=== PATIENT | male | born 1960 | race Caucasian/White ===

== ENCOUNTER 2020-09-19 15:51 | Emergency (ER) | payer OTHER, SELFPAY ==
[2020-09-19 16:13] VITALS: BP 142/78; BP 143/96; PULSE 107; PULSE 115; RESP 15; TEMP 36; O2SAT 97; O2SAT 98; BMI 10.1
[2020-09-19 16:22] VITALS: BP 143/96; PULSE 107; RESP 15; TEMP 37.2; O2SAT 98
--- NOTE | 2020-09-19 16:41 | CT_ITS ---
EXAMINATION: CT ABDOMEN AND PELVIS WITHOUT CONTRAST CLINICAL INFORMATION: 60-year-old male with right-sided abdominal pain. COMPARISON: None TECHNIQUE: Multidetector volumetric imaging was performed from the superior aspect of the liver through the pubic symphysis. Sagittal and coronal reformatted images were obtained on the technologist's workstation. Evaluation of solid organs is limited due to lack of IV contrast. This CT examination was performed using dose optimization techniques as appropriate, variously including the following: *Automated exposure control *Adjustment of mA and/or kV according to patient size (this includes techniques or standardized protocols for targeted exams where dose is matched to indication/reason for exam; i.e. extremities or head) *Use of iterative reconstruction technique DLP: 282 mGy-cm FINDINGS: Visualized lung bases demonstrate mild emphysematous changes. Subpleural linear nodularity of the right lung base is nonspecific but felt to represent scarring. The liver demonstrates normal size, contour and attenuation. Small gallstones are present within an otherwise unremarkable appearing gallbladder. There are a few punctate calcifications of the pancreatic head which are nonspecific. The spleen and adrenal glands are unremarkable. Symmetrically sized kidneys. No renal calculi or hydronephrosis of either kidney. The stomach is decompressed and therefore not accurately characterized. The duodenal sweep appears to demonstrate diffuse mucosal thickening with adjacent mesenteric stranding, nonspecific. Normal caliber loops of small and large bowel. Mild colonic diverticulosis without CT evidence to suggest active diverticulitis. There are several prominent/mildly enlarged mesenteric lymph nodes most prominent within the right upper abdomen. The appendix is normal. Nonaneurysmal abdominal aorta which demonstrates moderate atherosclerotic disease. The bladder is incompletely distended. The prostate gland is enlarged measuring 5 cm in transverse dimension. No inguinal lymphadenopathy. No gross free pelvic fluid. Moderate diffuse degenerative changes of the spine. CT/CT abdomen pelvis wo con IMPRESSION: 1. There is diffuse mesenteric stranding and several prominent/mildly enlarged lymph nodes centered within the right upper abdomen which appear to be adjacent to diffuse mucosal thickening of the duodenal sweep. Findings are concerning for duodenitis versus malignancy. Alternatively, pathology of the pancreatic head is possible. Correlation with lab values recommended. Further evaluation can be obtained with MRI/MRCP if clinically indicated. Alternatively, ERCP may be warranted. Follow-up imaging advised at a minimum. 2. Cholelithiasis.
--- NOTE | 2020-09-19 16:42 | ED_ITS ---
HPI - Abdominal Pain General Chief Complaint: Abdominal Pain Stated Complaint: RT LOWER QUADRANT ABD PAIN Time Seen by Provider: 09/19/20 16:40 Source: patient Mode of arrival: ambulatory Limitations: no limitations History of Present Illness HPI narrative: patient With history of alcohol-induced pancreatitis last attack was in 12/12 was doing fine , last 3 days complaining noticed pain in the right side without any nausea or vomiting good appetite pain does not get worse after eating pain is not getting better and so patient came to the ER Pain Consistency: intermittent Location: RUQ Severity: mild Quality: aching Radiation: RUQ and RLQ Exacerbating factors: nothing Relieving factors: nothing Associated symptoms: denies other symptoms Related Data Previous Rx's Medication Instructions Recorded omeprazole 40 mg PO DAILY #30 cap 09/19/20 ondansetron 4 mg PO Q6H PRN #20 tab 09/19/20 oxycodone 5 mg PO Q6H PRN #20 tab 09/19/20 Allergies Allergy/AdvReac Type Severity Reaction Status Date / Time No Known Allergies Allergy Verified 09/19/20 16:40 Review of Systems Constitutional: Reports no additional constitutional complaints Eyes: Reports no additional eye complaints Reports system reviewed and no additional complaints, except as documented Cardiovascular: Reports no additional cardiovascular complaints Respiratory: Reports no additional respiratory complaints Gastrointestinal: Denies melena, Denies change in bowel habits, Denies early satiety, Denies heartburn, Denies diarrhea, Denies nausea and Denies vomiting Genitourinary: Reports no additional male genitourinary complaints Reports system reviewed and no additional complaints, except as documented Physical Exam Vital Signs: Vital Signs: Vital Signs Temp Pulse Resp BP Pulse Ox 09/19/20 16:22 98.9 F 107 H 15 143/96 H 98 09/19/20 16:13 96.8 F 107 H 15 143/96 H 98 Body Mass Index 10.1 Const: General: cooperative, healthy appearing and no acute distress Nutritional Appearance: average body habitus Orientation/consciousness: oriented to person, oriented to place and oriented to time Limitations: no limitations HENMT: Head: Yes normal to inspection Ears: hearing grossly normal bilaterally Mouth: Normal oral and palatal mucosa present and oropharynx normal Eyes: Conjunctivae: conjunctivae normal Sclerae: sclerae normal Resp: Effort & Inspection: normal respiratory effort Auscultation: clear to auscultation bilaterally Cardio: Rate: regular rate Rhythm: regular rhythm Heart sounds: S1 normal heart sound present and S2 normal heart sound present GI: Inspection: Yes normal to inspection Palpation (GI): Soft to palpation and Tenderness to palpation present (GI) in the RUQ; not at McBurney's point and Mijares's sign negative Percussion: Yes normal to percussion Auscultation: normal bowel sounds : General: Yes no CVA tenderness Back/Spine/Pelvis: Back: no CVA tenderness Neuro: General: oriented to person, oriented to place and oriented to time Course Course Course Narrative: patient's history of alcohol-induced pancreatitis came with right upper quadrant pain for last 3 days without any other symptoms will do basic labs including LFTs and lipase and to scan his abdomen to rule out stone or any pancreatic cyst MDM - Abdominal Pain Differential Diagnosis Differential diagnosis: Likely abdominal pain, acute appendicitis, calculus of kidney, diverticulitis, gastritis, pancreatitis and small bowel obstruction Lab Data Result diagrams: 09/19/20 17:14 09/19/20 19:30 Labs: Lab Results 09/19/20 09/19/20 09/19/20 Range/Units 17:14 17:14 19:30 WBC 12.1 H (4.8-10.8) X10*3/uL RBC 4.87 (4.60-5.80) X10*6/uL Hgb 17.6 (14.0-18.0) g/dl Hct 49.9 (42-52) % MCV 102.5 H (80-98) fL MCH 36.1 H (27.0-33.0) pg MCHC 35.3 (31.0-36.0) g/dl RDW 12.3 (11.0-16.0) % Plt Count 210 (160-400) X10*3/uL MPV 9.9 (9.4-12.4) fL Immature Gran % (Auto) 0.3 (0.0-0.4) % Neut % (Auto) 81.1 H (45-73) % Lymph % (Auto) 9.6 L (20-40) % Hart % (Auto) 8.7 (2-11) % Eos % (Auto) 0.1 (0-4) % Baso % (Auto) 0.2 (0-2) % Lymph # (Auto) 1.2 (1.2-4.9) X10*3/uL [place] # (Auto) 1.1 (0.1-1.2) X10*3/uL Eos # (Auto) 0.0 (0.0-0.4) X10*3/uL Baso # (Auto) 0.0 (0.0-0.2) X10*3/uL Abs Immat Gran (auto) 0.04 H (0.00-0.03) X10*3/uL Absolute Neuts (auto) 9.8 H (2.0-8.3) X10*3/uL Absolute Nucleated RBC 0.000 (0.0-0.012) X10*3/uL Nucleated RBC % (auto) 0.0 (0.0-0.2) /100WBC Sodium Cancelled 135 Potassium Cancelled 4.6 Chloride Cancelled 102 Carbon Dioxide Cancelled 25 Anion Gap Cancelled 13 BUN Cancelled 8 L Creatinine Cancelled 0.68 Estim Creat Clear Calc Cancelled 91.1 Estimated GFR Cancelled > 60 Random Glucose Cancelled 90 Calcium Cancelled 8.3 L Total Bilirubin Cancelled 0.7 Direct Bilirubin Cancelled 0.4 AST Cancelled 19 ALT Cancelled 14 Alkaline Phosphatase Cancelled 62 Total Protein Cancelled 6.2 L Albumin Cancelled 3.6 Lipase Cancelled 230 H Discharge Plan Discharge Clinical Impression: Pancreatitis Patient Disposition: Home, Self-Care Instructions: Pancreatitis (ED) Additional Instructions: drink plenty of fluids avoid any fried food advanced food as tolerated. Report to the ER if increased pain /nausea/vomiting Prescriptions: New oxycodone 5 mg tablet 5 mg PO Q6H PRN (Reason: pain) Qty: 20 RF: 0 omeprazole 40 mg capsule,delayed release(DR/EC) 40 mg PO DAILY Qty: 30 RF: 0 ondansetron 4 mg tablet,disintegrating 4 mg PO Q6H PRN (Reason: nausea and vomiting) Qty: 20 RF: 0 Stand Alone Forms: Work/School Release Interventions: ED Discharge Assessment Last Done: 09/19/20 20:42 Discharge Date/Time: 09/19/20 21:39 [facility] Past Medical History Medical History Cyst of pancreas Inguinal hernia No known health problems Social History Social History Alcohol intake: current Alcohol intake frequency: 0-2 drinks per day Smoking Status: Current every day smoker Use of substances other than those prescribed or required for medical reasons: No Advance Directives: No Advance Directives Information Provided: No
[2020-09-19 17:21] LABS: Basophils Percent Auto 0.2 % (0-2); Eosinophils Percent Auto 0.1 % (0-4); Hematocrit 49.9 % (42-52); Hemoglobin 17.6 g/dl (14.0-18.0); Imm Gran Abs Auto 0.04 X10*3/uL (0.00-0.03); Imm Gran Pct Auto 0.3 % (0.0-0.4); Lymphocytes Absolute Auto 1.2 X10*3/uL (1.2-4.9); Lymphocytes Percent Auto 9.6 % (20-40); MANUAL DIFF FLAG NO; Mean Corpuscular HGB Conc 35.3 g/dl (31.0-36.0); Mean Corpuscular Hemoglobin 36.1 pg (27.0-33.0); Mean Corpuscular Volume 102.5 fL (80-98); Mean Platelet Volume 9.9 fL (9.4-12.4); Monocytes Absolute Auto 1.1 X10*3/uL (0.1-1.2); Monocytes Percent Auto 8.7 % (2-11); Neutrophils Absolute Auto 9.8 X10*3/uL (2.0-8.3); Neutrophils Percent Auto 81.1 % (45-73); Platelet Count 210 X10*3/uL (160-400); Red Blood Count 4.87 X10*6/uL (4.60-5.80); Red Cell Distribution Width 12.3 % (11.0-16.0); White Blood Count 12.1 X10*3/uL (4.8-10.8)
[2020-09-19] MEDS: 0.9 % Sodium Chloride 1,000 ML 999 ML IVCONT (17:23)
--- NOTE | 2020-09-19 18:06 | PC.NURSE ---
call taken from chemistry for recollect needed of lft, lipase and bmp
[2020-09-19] MEDS: Famotidine/PF 20 MG/2 ML VIAL IVPUSH (19:22)
[2020-09-19 20:27] LABS: Alanine Aminotransferase 14 U/L (0-40); Albumin Level 3.6 g/dL (3.5-5.0); Alkaline Phosphatase 62 U/L (39-117); Anion Gap 13 (12-20); Aspartate Amino Transferase 19 U/L (5-37); Bilirubin Direct 0.4 mg/dL (0.0-0.5); Bilirubin Total 0.7 mg/dL (0.0-1.0); Blood Urea Nitrogen 8 mg/dL (9-16); Calcium 8.3 mg/dL (8.4-10.2); Carbon Dioxide 25 mmol/L (22-29); Chloride 102 mmol/L (96-108); Creatinine Clr Calc Pharmacy 91.1; Estimated Glomerular Filt Rate > 60; Glucose Random 90 mg/dL (60-115); Potassium 4.6 mmol/l (3.3-5.1); Sodium 135 mmol/L (135-145); Total Protein 6.2 g/dL (6.5-8.0)
[2020-09-19 20:48] LABS: Lipase 230 U/L (8-78)
[2020-09-19] MEDS: Morphine Sulfate 4 MG/ML CARTRIDGE IVPUSH (21:06)
[2020-09-19] MEDS: ondansetron HCL 4 MG/2 ML VIAL IVPUSH (21:07)
== END 2020-09-19 21:39 | disposition home or self-care (01) ==
PROVIDERS: Emergency Provider Internal Medicine; PCP Internal Medicine
DX: K85.90 Acute pancreatitis without necrosis or infection, unspecified (principal); R10.31 Right lower quadrant pain; Z79.899 Other long term (current) drug therapy
CPT/HCPCS: 36415; 74176; 80048; 80076; 83690; 85025; 96361; 96374; 96375; 99284; J2270; J2405

== ENCOUNTER → 2021-10-08 09:46 | Outpatient (BNVA) | payer OTHER, SELFPAY | PROVIDERS: PCP Internal Medicine; Visit Provider Physician Assistant Medical | DX: M54.41 Lumbago with sciatica, right side (principal) | CPT/HCPCS: 72100; 99203 ==

== ENCOUNTER → 2021-10-10 12:56 | Outpatient (BNVA) | payer OTHER, SELFPAY | PROVIDERS: PCP Internal Medicine; Visit Provider Internal Medicine | DX: M54.31 Sciatica, right side (principal) | CPT/HCPCS: 99213 ==

== ENCOUNTER → 2021-10-21 12:52 | Outpatient (BNVA) | payer OTHER, SELFPAY | PROVIDERS: PCP Internal Medicine; Visit Provider Internal Medicine | DX: M54.41 Lumbago with sciatica, right side (principal) | CPT/HCPCS: 99213 ==

== ENCOUNTER → 2021-10-28 12:56 | Outpatient (BNVA) | payer OTHER, SELFPAY | PROVIDERS: PCP Internal Medicine; Visit Provider Internal Medicine | DX: M54.31 Sciatica, right side (principal) | CPT/HCPCS: 99213 ==

== ENCOUNTER 2021-10-29 14:49 | Outpatient (REF) | payer OTHER, SELFPAY ==
--- NOTE | ~2021-10-29 | MR_ITS ---
EXAMINATION: MR LUMBAR SPINE WITHOUT CONTRAST CLINICAL INFORMATION: Pain right pelvis radiates to the right calf. COMPARISON: None TECHNIQUE: MRI of the lumbar spine was obtained using routine sequences without contrast. FINDINGS: The lumbar vertebral bodies maintain normal heights and alignment. There is moderate disc height loss at L5-S1. Endplate edema is seen at L1-L2 and L5-S1. The distal spinal cord appears normal. The conus medullaris terminates normally at the T12-L1 level. There is abnormal signal within the mid pole of the left kidney seen on axial T2 series 5 image 06/21. SPINAL LEVELS: T12-L1: Disc bulging with left subarticular protrusion. No spinal canal or neural foraminal stenosis. L1-L2: No posterior disc abnormality. No spinal canal or neural foraminal stenosis. L2-L3: Disc bulging. Mild facet arthropathy. Minimal narrowing of the neural foramina. No spinal canal stenosis. L3-L4: No posterior disc abnormality. Mild facet arthropathy. No spinal canal or neural foraminal stenosis. L4-L5: No posterior disc abnormality. Mild facet arthropathy. No spinal canal or neural foraminal stenosis. L5-S1: Disc bulging with extension into the right neural foramen resulting in severe neural foraminal stenosis with compression of the exiting right L5 nerve root. Mild narrowing of the left neural foramen. Mild facet arthropathy. No spinal canal stenosis. MR/MR lumbar spine wo con IMPRESSION: At L5-S1 there is diffuse disc bulging asymmetric in the right neural foramen resulting in severe neural foraminal stenosis with compression of the exiting right L5 nerve root. Mild subchondral endplate edema seen at this level. No significant lumbar spinal canal stenosis is seen. An area of parenchymal signal abnormality is seen involving the mid pole of the left kidney identified on series 5 image 30. It is unclear if this represents a solid soft tissue lesion or artifact. Recommend renal ultrasound to exclude lesion at this locale.
== END 2021-10-29 14:50 | disposition home or self-care (01) ==
LOC: HO.MRI 14:49
PROVIDERS: Visit Provider Internal Medicine
DX: S39.013A Strain of muscle, fascia and tendon of pelvis, initial encounter (principal); X50.0XXA Overexertion from strenuous movement or load, initial encounter; X50.1XXA Overexertion from prolonged static or awkward postures, initial encounter; Y93.9 Activity, unspecified; Y92.9 Unspecified place or not applicable; Y99.8 Other external cause status
CPT/HCPCS: 72148

== ENCOUNTER → 2021-11-04 12:56 | Outpatient (BNVA) | payer OTHER, SELFPAY | PROVIDERS: PCP Internal Medicine; Visit Provider Internal Medicine | DX: G54.9 Nerve root and plexus disorder, unspecified (principal) | CPT/HCPCS: 99213 ==

== ENCOUNTER → 2021-11-12 12:58 | Outpatient (BNVA) | payer OTHER, SELFPAY | PROVIDERS: PCP Internal Medicine; Visit Provider Internal Medicine | DX: M54.41 Lumbago with sciatica, right side (principal) | CPT/HCPCS: 99213 ==

== ENCOUNTER 2021-12-03 14:00 | Outpatient (RCR) | payer OTHER, SELFPAY ==
--- NOTE | 2021-10-30 13:59 | MHC.PT.EP ---
[facility] [place] Office [place] Office [place] Office [address] [phone] F: [phone] F: [phone] F: [phone] F: [phone] Physical Therapy Plan of Care Date of Evaluation: Date of Surgery: NA Diagnosis: Back pain, R SI and calf Assessment: Mahendra is a 61 year old male who is referred to PT for Back pain, R SI and calf pain . Pt reports of having sudden onset of back pain about 3 weeks back at work while he was moving a trash bag diagonally from R to L. He had immediate onset of pain. On PT examination pt presented with TTP over R SIJ, 8/10 pain with walking, standing and prolonged sitting, decreased trunk ROM, decreased muscle strength, impaired SI symmetry, impaired posture and gait. Due to these impairments he has pain with all ADLS but continues to perform them. 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 He would benefit from skilled PT to address the aforementioned impairment and improve tolerance to functional activities. Frequency and Duration: The patient will be seen 2/week for 5 weeks Short Term Goals: 1. Pt will have 50% decrease in pain which will enable him to stand to perform self care activities with a pain no more than 2/10 in 2 weeks. 2. Pt will be able to move trunk through all planes of motion without pain which will enable him to dress lower body in 3 weeks. Group Home Goals: 1. Pt will demonstrate an increase in muscle strength by 1 grade which will enable him to perform IADLS like dressing in 4 weeks. 2. Pt will be able to perform all work related activities with good mechanics and return to PLOF in 5 weeks. Treatment Plan: Modalities to reduce pain, spasms and effusion. Manual therapy to restore motion and function. Therapeutic exercise to improve strength and flexibility. Neuromuscular re-education for posture and balance. Therapeutic activities to return to functional activities of daily living. Electronically signed by: Kymberly Medrano PT DPT Please sign and return to therapist. Thank you for your referral.
--- NOTE | 2021-12-24 14:27 | MHC.PT.DC ---
[facility] [place] [facility] [place] Office [place] Office [address] [phone] F: [phone] F: [phone] F: [phone] F: [phone] Physical Therapy Discharge Report Diagnosis: Back pain, R SI and calf Date of Surgery: NA Date of Evaluation: 10/30/21 Date of Discharge: 12/24/21 Treatments to Date: 6 Cancellations to Date: 1 No Shows to Date: 0 Discharge Status: Achieved Goals Improved Function Discharge Summary: Mahendra demonstrated improvements in his function and independence with HEP. He had achieved all goals set for him. He has therefore been d/c from therapy. Electronically signed by: Kymberly Medrano PT DPT Please sign and return to therapist. Thank you for your referral.
== END 2021-12-24 14:28 | disposition home or self-care (01) ==
LOC: HO.PT 14:00
PROVIDERS: Visit Provider Internal Medicine
DX: M54.9 Dorsalgia, unspecified (principal); M53.3 Sacrococcygeal disorders, not elsewhere classified; M79.661 Pain in right lower leg
CPT/HCPCS: 97110; 97112; 97140; 97161; 97530

== ENCOUNTER 2023-06-08 16:10 | Observation (INO) | payer OTHER, SELFPAY ==
--- NOTE | ~2023-06-08 | CT_ITS ---
EXAMINATION: CT ABDOMEN AND PELVIS WITH CONTRAST CLINICAL INFORMATION: Abdominal pain, nausea and history of pancreatitis COMPARISON: None available. TECHNIQUE: Multidetector volumetric images were obtained from the superior aspect of the liver through the pubic symphysis following administration 85 mL of Omnipaque 350 intravenous contrast. Sagittal and coronal reformatted images were obtained on the technologist's workstation. Oral contrast: No This CT examination was performed using dose optimization techniques as appropriate, variously including the following: *Automated exposure control *Adjustment of mA and/or kV according to patient size (this includes techniques or standardized protocols for targeted exams where dose is matched to indication/reason for exam; i.e. extremities or head) *Use of iterative reconstruction technique DLP: 262 mGy-cm FINDINGS: LUNG BASES: Minimal atelectatic changes are seen in right middle lobe and right lower lobe. The heart size is normal.. LIVER, GALLBLADDER, AND BILIARY TREE: The liver is normal in size, shape, and attenuation. No focal hepatic lesion or biliary ductal dilatation is present. There is a small rim calcified radiolucent gallstone. No additional stones seen. No wall thickening. There is mild perihepatic gallbladder fluid collection. PANCREAS: Scattered calcifications are seen throughout the pancreas and the head of the pancreas. The pancreatic head is mildly heterogeneous. SPLEEN: Unremarkable. ADRENAL GLANDS: Bilateral adrenal glands are unremarkable. KIDNEYS AND URETERS: The right kidney is normal size, contour and density. The left kidney is surgically absent. BLADDER: There is mild bladder wall thickening. GASTROINTESTINAL TRACT: There is diffuse mural thickening involving the duodenal sweep with adjacent fat stranding and fluid collection which extends into the right abdomen and is worse compared to the previous study. Rest of the small bowel loops are unremarkable. There is scattered stool and gas seen in the colon. There is mural thickening involving the right transverse and distal ascending colon likely reactionary changes to the peritoneal inflammatory process. There is reactionary thickening of the terminal ileum as well. No free air seen. ABDOMINAL WALL: No significant hernia is appreciated. LYMPH NODES: There are reactionary lymph nodes and prominent vessels adjacent to the C-loop VASCULAR: Unremarkable. PELVIC VISCERA: There is small amount of free fluid in the pelvis, new since 2020. OSSEOUS STRUCTURES: No aggressive lytic or sclerotic process seen. Mild spondylosis seen throughout lower dorsal and lumbar spine. No aggressive lytic or sclerotic process seen. CT/CT abdomen pelvis w IV con IMPRESSION: Diffuse mucosal thickening involving the duodenal sweep with periduodenal fat stranding and fluid collection. The fat stranding extends into the right mid and lower abdomen with extensive mesenteric haziness. Differential diagnoses includes duodenal pathology such as a dural ulcer. Alternatively pancreatitis involving the head of pancreas. There is punctate calcification in the pancreatic duct. There is no free air seen. Cholelithiasis. There are reactionary changes of mural thickening involving right transverse, distal ascending colon and the terminal ileum. Also visualized is a small amount of new free fluid in the pelvis. Recommend correlation with angiography and CBD and amylase as well as a upper GI barium exam
--- NOTE | ~2023-06-08 | US_ITS ---
EXAMINATION: US ABDOMEN LIMITED CLINICAL INFORMATION: Rule out obstructing stone and pancreatitis. COMPARISON: Previous CT of the abdomen and pelvis from earlier the same day TECHNIQUE: Real-time imaging of the right upper quadrant abdominal viscera. FINDINGS: PANCREAS: Not seen LIVER: Normal. The liver is normal in size. The liver contour is normal. Parenchymal echogenicity is normal. No focal hepatic lesion. There is no intrahepatic biliary duct dilatation seen. GALLBLADDER: Gallbladder is upper normal in size. There is a gallstone in the gallbladder. Gallbladder wall does not appear thickened.. COMMON BILE DUCT: Normal in caliber measuring 0.5 cm in diameter. RIGHT KIDNEY: Normal. No hydronephrosis. No renal calculi or focal parenchymal lesions. The kidney measures 11.5 cm in maximum dimension. FREE FLUID: Small amount of ascites. US/US abdomen limited IMPRESSION: Upper normal-size gallbladder. Gallstone. Normal caliber intrahepatic and extrahepatic bile ducts. Trace ascites. Pancreas not seen.
[2023-06-08 16:17] VITALS: BP 122/71; PULSE 97; O2SAT 98
[2023-06-08 16:22] VITALS: BP 124/77; PULSE 92; RESP 18; TEMP 37; O2SAT 98; BMI 18.8
--- NOTE | 2023-06-08 16:22 | ED.ABDPAIN ---
HPI - Abdominal Pain General Chief Complaint: Abdominal Pain Stated Complaint: abd pain, per ems Time Seen by Provider: 06/08/23 16:21 Source: patient Mode of arrival: ambulatory Limitations: no limitations History of Present Illness HPI narrative: Patient is a 62-year-old presents emergency department for evaluation of abdominal pain. Patient reports a history of a pancreatic cyst in the past has required drainage by his report. He states that since then every now and again he gets ?pancreatitis? described as a mild discomfort to the mid upper abdomen/epigastric region. He developed this discomfort yesterday around 1200, and he took ibuprofen which typically wrist symptoms. However he states that he at 0400 today with worsening of his pain and pain radiating to the right upper quadrant and across into the right back. He has associated nausea but no vomiting. Denies fevers, chills, chest pain, shortness of breath, difficulty breathing, lower abdominal pain, genitourinary symptoms, diarrhea, constipation, numbness or tingling, weakness. Related Data Home Medications Medication Instructions Recorded Confirmed ibuprofen 200 mg tablet 400 mg PO Q6H PRN Pain (Scale 06/08/23 06/08/23 Score 1-3) multivitamin 1 tab PO DAILY 06/08/23 06/08/23 Allergies Allergy/AdvReac Type Severity Reaction Status Date / Time No Known Allergies Allergy Verified 09/19/20 16:40 Review of Systems Review of Systems Constitutional : No Weight loss, No Fever, No Chills ENT/Mouth :? No sore throat, No Rhinorrhea Eyes: No Swelling, No Redness Cardiovascular : No Chest Pain, No SOB, No Edema Respiratory : No Cough, No Sputum, No Wheezing Gastrointestinal : Positive Nausea, no Vomiting, no Diarrhea, positive abdominal pain, No Hematochezia, No Melena Genitourinary : No Dysuria, No Urinary Frequency, No Hematuria, No Urgency? Musculoskeletal : No joint pain, No Myalgias, No Joint Swelling Skin : No Skin Lesions, No rash Neuro : No Weakness, No Numbness, No Dizziness, No Headache Psych : No Anxiety/Panic, No Depression Heme/Lymph: No Bruising, No Lymphadenopathy Endocrine : No Polyuria, No Polydipsia Yes all other systems are reviewed and are negative [facility] Past Medical History Attestation statement: The following information was validated with the patient. Source: old records reviewed Medical History Back pain with right-sided sciatica (10/07/21) Cyst of pancreas GERD (gastroesophageal reflux disease) History of alcohol abuse Inguinal hernia No known health problems Pancreatitis Social History Social History Alcohol intake: current Alcohol intake frequency: 0-2 drinks per day Alcohol type: wine Smoked in Last 30 Days: Yes Advance Directives: No Advance Directives Information Provided: No Physical Exam ED Vital Signs: Vital Signs - 24 hr 06/08/23 16:22 06/08/23 17:25 Temperature 98.6 F Pulse Rate 92 76 Respiratory Rate 18 16 Blood Pressure 124/77 133/70 Pulse Oximetry 98 99 Oxygen Delivery Method Room Air Room Air BMI result Body Mass Index 18.8 Appearance: Alert.?Oriented to person, place and time. No acute distress.?Normal affect. Eyes: Pupils equal, round and reactive to light.? ENT: Pharynx normal.?? Neck: Normal inspection.? Neck supple.?? CVS: Heart sounds normal. Normal heart rate and rhythm.? Pulses normal.?? Respiratory: No respiratory distress.? Lung sounds clear to auscultation bilaterally?? Abdomen: Soft with epigastric and right upper quadrant tenderness upon palpation. No rigidity. No guarding.. Normoactive bowel sounds. No CVA tenderness. Skin: Skin warm and dry.? Normal skin color.? Extremities: No lower extremity edema.? Neuro: Moves all extremities spontaneously. Sensation intact bilaterally. No focal neuro deficits. Ambulates with normal steady gait. Course Reevaluation(s) Reevaluation #1: CBC reveals no leukocytosis. Lipase of 780, mild elevation of total bilirubin 1.1, normal AST/ALT and alk-phos. CT of the abdomen and pelvis revealing diffuse mucosal thickening of the duodenum with fat stranding and fluid collection, concern for dural ulcer versus pancreatitis, cholelithiasis without cholecystitis, radiologist recommendations for correlation with angiography, CBD, amylase and upper GI barium exam. Spoke with hospitalist, Dr. Arnold, patient accepted for admission to medicine service. Time: 21:09 Medical Decision Making Medical Decision Making MDM Narrative: Patient is a 62 year old male with past medical history of alcohol-induced pancreatitis, pancreatic cyst, left nephrectomy May 2022 secondary to renal cancer presenting to emergency department for evaluation of abdominal pain as per HPI. At the time my examination he is overall well-appearing, nontoxic, afebrile. Will obtain CBC to evaluate for leukocytosis/ anemia, CMP and lipase to evaluate for abnormal electrolytes /abnormal renal function/ abnormal hepatic/biliary function, CT of the abdomen and pelvis and Urinalysis. Differential Diagnosis Differential Diagnoses: The differential diagnosis associated with the presentation includes (Cholecystitis, cholelithiasis, choledocholithiasis, CBD stone, hepatitis, pancreatitis, gastritis, peptic ulcer disease) Admission/Observation Consideration of admission/observation: Escalation of care including admission/observation considered (I considered admission for abdominal pain. See course for further narrative) Lab Data MDM Lab Attestation statement: I reviewed the patient's lab results. (See course for further narrative) 06/08/23 17:14 06/08/23 17:14 Labs: Lab Results 06/08/23 06/08/23 Range/Units 17:14 17:14 WBC 10.5 (4.8-10.8) X10*3/uL RBC 4.31 L (4.60-5.80) X10*6/uL Hgb 14.7 (14.0-18.0) g/dl Hct 42.4 (42.0-52.0) % MCV 98.4 H (80.0-98.0) fL MCH 34.1 H (27.0-33.0) pg MCHC 34.7 (31.0-36.0) g/dl RDW 14.1 (11.0-16.0) % Plt Count 171 (160-400) X10*3/uL MPV 9.9 (9.4-12.4) fL Immature Gran % (Auto) 0.4 (0.0-0.4) % Neut % (Auto) 88.8 H (45-73) % Lymph % (Auto) 5.4 L (20-40) % [place] % (Auto) 5.2 (2-11) % Eos % (Auto) 0.0 (0-4) % Baso % (Auto) 0.2 (0-2) % Lymph # (Auto) 0.6 L (1.2-4.9) X10*3/uL [place] # (Auto) 0.6 (0.1-1.2) X10*3/uL Eos # (Auto) 0.0 (0.0-0.4) X10*3/uL Baso # (Auto) 0.0 (0.0-0.2) X10*3/uL Abs Immat Gran (auto) 0.04 H (0.00-0.03) X10*3/uL Absolute Neuts (auto) 9.3 H (2.0-8.3) x10*3/uL Absolute Nucleated RBC 0.000 (0.0-0.012) X10*3/uL Nucleated RBC % (auto) 0.0 (0.0-0.2) /100WBC Sodium 133 L (135-145) mmol/L Potassium 4.3 (3.3-5.1) mmol/L Chloride 102 (96-108) mmol/L Carbon Dioxide 24 (22-29) mmol/L Anion Gap 11 L (12-20) BUN 12 (9-16) mg/dL Creatinine 0.96 (0.5-1.4) mg/dL Estim Creat Clear Calc 62.9 Estimated GFR > 60 Random Glucose 267 H (60-115) mg/dL Calcium 8.2 L (8.4-10.2) mg/dL Magnesium 1.7 (1.6-2.6) mg/dL Total Bilirubin 1.1 H (0.0-1.0) mg/dL AST 18 (5-37) U/L ALT 15 (0-40) U/L Alkaline Phosphatase 61 (39-117) U/L Total Protein 5.9 L (6.5-8.0) g/dL Albumin 3.3 L (3.5-5.0) g/dL Amylase 790 H (28-100) U/L Lipase 780 H (8-78) U/L Radiology Impression Discussion of test interpretation with radiology: I have reviewed the radiologist's reading. Radiologist Impression: CT/CT abdomen pelvis w IV con IMPRESSION: Diffuse mucosal thickening involving the duodenal sweep with periduodenal fat stranding and fluid collection. The fat stranding extends into the right mid and lower abdomen with extensive mesenteric haziness. Differential diagnoses includes duodenal pathology such as a dural ulcer. Alternatively pancreatitis involving the head of pancreas. There is punctate calcification in the pancreatic duct. There is no free air seen. ? Cholelithiasis. ? There are reactionary changes of mural thickening involving right transverse, distal ascending colon and the terminal ileum. Also visualized is a small amount of new free fluid in the pelvis. ? Recommend correlation with angiography and CBD and amylase as well as a upper GI barium exam Medications Administered Generic Name Dose Route Start Last Admin Trade Name Freq PRN Reason Stop Dose Admin Enoxaparin Sodium 40 mg 06/08/23 22:15 06/08/23 22:56 Enoxaparin Sodium 40 Mg/0.4 Ml Syringe SUBCUT 40 mg Q24H JUANA Administration Lactated Ringer's 1,000 mls @ 150 mls/hr 06/08/23 22:15 06/08/23 22:57 Lr IVCONT 150 mls/hr .Q6H40M JUANA Administration Thiamine HCl 100 mg/ Sodium 101 mls @ 202 mls/hr 06/08/23 22:25 06/09/23 00:09 Chloride IV Infused DAILY JUANA Infusion Morphine Sulfate 4 mg 06/08/23 22:01 06/09/23 00:46 Morphine Sulfate 4 Mg/Ml Cartridge IVPUSH 4 mg Q4H PRN Administration Pain, Severe (Pain Scale 7-10) Protocol Discontinued Medications Generic Name Dose Route Start Last Admin Trade Name Freq PRN Reason Stop Dose Admin Sodium Chloride 1,000 mls @ 999 mls/hr 06/08/23 16:45 06/08/23 18:23 Ns IV 06/08/23 17:45 Infused .Q1H1M JUANA Infusion Iohexol 100 ml 06/08/23 18:14 06/08/23 18:15 Iohexol 350 Mg/Ml 100 Ml Infus..Btl IV 06/08/23 18:15 85 ml ONCE ONE Administration Morphine Sulfate 4 mg 06/08/23 16:31 06/08/23 17:22 Morphine Sulfate 4 Mg/Ml Cartridge IVPUSH 06/08/23 16:32 4 mg ONCE ONE Administration Protocol Morphine Sulfate 4 mg 06/08/23 21:01 06/08/23 21:06 Morphine Sulfate 4 Mg/Ml Cartridge IVPUSH 06/08/23 21:02 4 mg ONCE ONE Administration Protocol Ondansetron HCl 4 mg 06/08/23 16:31 06/08/23 17:22 Ondansetron Hcl 4 Mg/2 Ml Vial IVPUSH 06/08/23 16:32 4 mg ONCE ONE Administration Pantoprazole Sodium 40 mg 06/08/23 21:05 06/08/23 21:42 Pantoprazole Sodium 40 Mg/10 Ml Vial IVPUSH 06/08/23 21:06 40 mg ONCE ONE Administration Discharge Plan Discharge Clinical Impression: Acute pancreatitis, Alcohol use disorder Patient Disposition: Admitted As Inpatient
[2023-06-08 17:18] LABS: MANUAL DIFF FLAG NO
[2023-06-08 17:21] LABS: Basophils Percent Auto 0.2 % (0-2); Hematocrit 42.4 % (42.0-52.0); Hemoglobin 14.7 g/dl (14.0-18.0); Imm Gran Abs Auto 0.04 X10*3/uL (0.00-0.03); Imm Gran Pct Auto 0.4 % (0.0-0.4); Lymphocytes Absolute Auto 0.6 X10*3/uL (1.2-4.9); Lymphocytes Percent Auto 5.4 % (20-40); Mean Corpuscular HGB Conc 34.7 g/dl (31.0-36.0); Mean Corpuscular Hemoglobin 34.1 pg (27.0-33.0); Mean Corpuscular Volume 98.4 fL (80.0-98.0); Mean Platelet Volume 9.9 fL (9.4-12.4); Monocytes Absolute Auto 0.6 X10*3/uL (0.1-1.2); Monocytes Percent Auto 5.2 % (2-11); Neutrophils Absolute Auto 9.3 x10*3/uL (2.0-8.3); Neutrophils Percent Auto 88.8 % (45-73); Platelet Count 171 X10*3/uL (160-400); Red Blood Count 4.31 X10*6/uL (4.60-5.80); Red Cell Distribution Width 14.1 % (11.0-16.0); White Blood Count 10.5 X10*3/uL (4.8-10.8)
[2023-06-08] MEDS: Morphine Sulfate 4 MG/ML CARTRIDGE IVPUSH ×2 (17:22→21:06)
[2023-06-08] MEDS: ondansetron HCL 4 MG/2 ML VIAL IVPUSH (17:22)
[2023-06-08] MEDS: 0.9 % Sodium Chloride 1,000 ML 999 ML IV (17:23)
[2023-06-08 17:25] VITALS: BP 133/70; PULSE 76; RESP 16; O2SAT 99
[2023-06-08 17:43] LABS: Alanine Aminotransferase 15 U/L (0-40); Albumin Level 3.3 g/dL (3.5-5.0); Alkaline Phosphatase 61 U/L (39-117); Anion Gap 11 (12-20); Aspartate Amino Transferase 18 U/L (5-37); Bilirubin Total 1.1 mg/dL (0.0-1.0); Blood Urea Nitrogen 12 mg/dL (9-16); Calcium 8.2 mg/dL (8.4-10.2); Carbon Dioxide 24 mmol/L (22-29); Chloride 102 mmol/L (96-108); Creatinine Clr Calc Pharmacy 62.9; Estimated Glomerular Filt Rate > 60; Glucose Random 267 mg/dL (60-115); Magnesium 1.7 mg/dL (1.6-2.6); Potassium 4.3 mmol/L (3.3-5.1); Sodium 133 mmol/L (135-145); Total Protein 5.9 g/dL (6.5-8.0)
[2023-06-08 17:45] LABS: Lipase 780 U/L (8-78)
[2023-06-08] MEDS: iohexoL 350 MG/ML 100 ML INFUS..BTL IV (18:15)
--- NOTE | 2023-06-08 21:10 | PC.NURSE ---
medicated with morphine 4 mg ivp for 8/10LLQ
[2023-06-08] MEDS: Pantoprazole Sodium 40 MG/10 ML VIAL IVPUSH (21:42)
[2023-06-08 21:43] LABS: Amylase 790 U/L (28-100)
--- NOTE | 2023-06-08 22:05 | PM.IMHP ---
History of Present Illness Date of Service: 06/08/23 Attending physician on admission: Mario Arnold Chief Complaint: abd pain 62-year-old male with history of alcohol use disorder, pancreatic cyst, history of renal carcinoma s/p left nephrectomy, GERD, history of gallstones, and history of alcoholic pancreatitis presents to the ED for evaluation of abdominal pain. He states he had mild epigastric pain that started yesterday morning at seem to improve with Motrin. However this morning awoke at 04:00 with severe right upper quadrant pain radiating to the right side of the back. He has some intermittent nausea but denies any vomiting. He states he has significantly cut back on the amount of alcohol he is consuming. He has not been a daily drinker in several months and states he will only have 1-2 glasses of wine on the weekend, last consumed Thursday evening. He is also a 3/4 pack cigarette per day smoker but denies any illicit drug use. There is no leukocytosis or anemia. Renal function is normal electrolyte levels normal except for mild hyponatremia of 133. Hepatic function largely unremarkable. Amylase 790, lipase 780. CT of the abdomen/pelvis shows diffuse mucosal thickening involving the duodenal sweep with. Duodenal fat stranding and fluid collection extending into the right mid and lower abdomen with extensive mesenteric haziness differential to include dural ulcer versus pancreatitis of the pancreatic head. There is punctate calcification in the pancreatic duct as well as cholelithiasis. There is also a reactionary changes throughout the colon. Radiology recommending correlation with angiography and CBD and amylase as well as upper GI barium exam. In the ED, given 1 L IV NS, IV ppi, and dancer trunk, and IV analgesics. Review of Systems Review of Systems: General: No fevers, malaise, unintentional weight loss Cardiovascular: No chest pain, palpitations, or leg edema Respiratory: No shortness of breath, wheezing, cough GI: +abdominal pain, +nausea. No vomiting, diarrhea, constipation, melena, hematochezia : No dysuria, hematuria, increased urinary frequency, decreased urinary output MSK: No myalgia, back pain Neuro: No headaches, weakness, paresthesias Skin: No rashes or lesions [facility] Medical History Back pain with right-sided sciatica (10/07/21) Cyst of pancreas GERD (gastroesophageal reflux disease) History of alcohol abuse Inguinal hernia No known health problems Pancreatitis Social History Alcohol intake: current Alcohol intake frequency: 0-2 drinks per day Alcohol type: wine Smoked in Last 30 Days: Yes Advance Directives: No Advance Directives Information Provided: No Meds Allergies Allergy/AdvReac Type Severity Reaction Status Date / Time No Known Allergies Allergy Verified 09/19/20 16:40 Active Medications: Current Medications Pharmacy Consult (Consult Rx Perform Med Rec) 1 each MISCELLANE ONCE PRN PRN Reason: Consult order Home Medications Medication Instructions Recorded Confirmed Last Taken Type ibuprofen 200 mg tablet 400 mg PO Q6H PRN Pain (Scale 06/08/23 06/08/23 06/08/23 History Score 1-3) multivitamin 1 tab PO DAILY 06/08/23 06/08/23 06/08/23 History Physical Exam Vital Signs and Narrative: Vital Signs: Last Vital Signs Temp 98.6 F 06/08/23 16:22 Pulse 76 06/08/23 17:25 Resp 16 06/08/23 17:25 BP 133/70 06/08/23 17:25 Pulse Ox 99 06/08/23 17:25 O2 Del Method Room Air 06/08/23 17:25 BMI result Body Mass Index 18.8 Constitutional - Awake and Alert, No apparent distress Eyes - PERRLA, EOMI Cardiovascular - S1S2, RRR, No edema Respiratory - Normal lung expansion, Normal respiratory effort, No respiratory distress, CTA bilaterally Gastrointestinal - moderate epigastric/RUQ ttp with voluntary guarding. ND; +BS; No rebound Extremities - no calf tenderness bilaterally, no swelling Skin - Warm/Dry Neurological - Alert & oriented x3 Psychological - Appropriate affect Results Labs 06/08/23 17:14 06/08/23 17:14 Labs: Laboratory Results - last 24 hr 06/08/23 06/08/23 17:14 17:14 MCV 98.4 H MCH 34.1 H MCHC 34.7 RDW 14.1 Plt Count 171 MPV 9.9 Immature Gran % (Auto) 0.4 Neut % (Auto) 88.8 H Lymph % (Auto) 5.4 L [place] % (Auto) 5.2 Eos % (Auto) 0.0 Baso % (Auto) 0.2 Lymph # (Auto) 0.6 L [place] # (Auto) 0.6 Eos # (Auto) 0.0 Baso # (Auto) 0.0 Abs Immat Gran (auto) 0.04 H Absolute Neuts (auto) 9.3 H Absolute Nucleated RBC 0.000 Nucleated RBC % (auto) 0.0 Anion Gap 11 L Estim Creat Clear Calc 62.9 Estimated GFR > 60 Random Glucose 267 H Calcium 8.2 L Magnesium 1.7 Total Bilirubin 1.1 H AST 18 ALT 15 Alkaline Phosphatase 61 Total Protein 5.9 L Albumin 3.3 L Amylase 790 H Lipase 780 H Imaging Radiologist's Impressions: Impressions Abdomen/Pelvis CT 06/08/23 18:25 IMPRESSION: Diffuse mucosal thickening involving the duodenal sweep with periduodenal fat stranding and fluid collection. The fat stranding extends into the right mid and lower abdomen with extensive mesenteric haziness. Differential diagnoses includes duodenal pathology such as a dural ulcer. Alternatively pancreatitis involving the head of pancreas. There is punctate calcification in the pancreatic duct. There is no free air seen. Cholelithiasis. There are reactionary changes of mural thickening involving right transverse, distal ascending colon and the terminal ileum. Also visualized is a small amount of new free fluid in the pelvis. Recommend correlation with angiography and CBD and amylase as well as a upper GI barium exam Assessment and Plan (1) Pancreatitis: Qualifiers: Chronicity: chronic Pancreatitis type: alcohol induced Qualified Code(s): K86.0 - Alcohol-induced chronic pancreatitis Status: Acute (2) Cholelithiasis: Status: Acute (3) History of alcohol abuse: Status: Acute Plan 62-year-old male with history of alcohol use disorder, pancreatic cyst, history of renal carcinoma s/p left nephrectomy, GERD, history of gallstones, and history of alcoholic pancreatitis to be observed for acute pancreatitis. #Acute pancreatitis -suspect alcohol induced -CT abd/pelvis with reactive changes likely r/t pancreatitis rather than dural ulcer. Stop IV PPI -Does have cholelithiasis and residue in the pancreatic duct. Given LFTs are within normal limits, gallstone pancreatitis seems less likely but will check abdominal ultrasound -amylase 790, lipase 780 -aggressive IVF with LR -clear liquid diet, advanced as tolerated -ondansetron p.r.n. -pain management using pain scale -consider MRCP/GI consult if not improving # alcohol use disorder -patient now with only occasional use with 1-2 glasses wine consumed on weekends. Discussed given his history of pancreatitis, full cessation is recommended # hyperglycemia -random glucose 267 -hemoglobin A1c pending # history renal cell carcinoma s/p left nephrectomy -renal function baseline # GERD -continue p.o. PPI # nicotine dependence -declines NRT -smoking cessation counseling provided DVT prophylaxis-Lovenox Full code Time Spent With Patient Time: Total time managing care of this patient today ____ minutes. Quality Stroke Does the patient have a stroke diagnosis?: No VTE Prior VTE?: No VTE Risk Level:: Medical - moderate - high VTE Device Contraindication: Treatment Not Indicated VTE Drug Contraindication: N/A - Med Ordered
--- NOTE | 2023-06-08 22:20 | PHA.MEDREC ---
Pharmacy Consult ? Medication Reconciliation Pharmacy has completed the medication reconciliation.
[2023-06-08] MEDS: Enoxaparin Sodium 40 MG/0.4 ML SYRINGE SUBCUT (22:56)
[2023-06-08] MEDS: Lactated Ringers 1,000 ML 150 ML IVCONT (22:57)
[2023-06-08] MEDS: Thiamine HCL 100 MG in 0.9 % Sodium Chloride 100 ML 202 MG IV (23:10)
[2023-06-08 23:55] LABS: Folate 8.7 ng/mL (> or = 4.0)
[2023-06-09] VITALS (7 sets, daily range): BP systolic 112–168; BP diastolic 60–94; PULSE 60–96; RESP 14–20; TEMP 36–37.2; O2SAT 93–98; BMI 18.5
[2023-06-09] MEDS: Morphine Sulfate 4 MG/ML CARTRIDGE IVPUSH ×5 (00:46→20:04)
[2023-06-09 05:26] LABS: Estimated Average Glucose 114 mg/dL; Hemoglobin A1c % 5.6 %
[2023-06-09] MEDS: Lactated Ringers 1,000 ML 150 ML IVCONT ×3 (05:28→18:00)
[2023-06-09 07:35] LABS: MANUAL DIFF FLAG NO
[2023-06-09 07:40] LABS: Basophils Percent Auto 0.6 % (0-2); Eosinophils Absolute Auto 0.1 X10*3/uL (0.0-0.4); Eosinophils Percent Auto 0.7 % (0-4); Hematocrit 39.4 % (42.0-52.0); Hemoglobin 13.4 g/dl (14.0-18.0); Imm Gran Abs Auto 0.04 X10*3/uL (0.00-0.03); Imm Gran Pct Auto 0.6 % (0.0-0.4); Lymphocytes Absolute Auto 1.3 X10*3/uL (1.2-4.9); Lymphocytes Percent Auto 17.9 % (20-40); Mean Corpuscular Hemoglobin 34.4 pg (27.0-33.0); Mean Corpuscular Volume 101.3 fL (80.0-98.0); Mean Platelet Volume 10.3 fL (9.4-12.4); Monocytes Absolute Auto 0.7 X10*3/uL (0.1-1.2); Monocytes Percent Auto 9.4 % (2-11); Neutrophils Absolute Auto 5.2 x10*3/uL (2.0-8.3); Neutrophils Percent Auto 70.8 % (45-73); Platelet Count 157 X10*3/uL (160-400); Red Blood Count 3.89 X10*6/uL (4.60-5.80); Red Cell Distribution Width 14.5 % (11.0-16.0); White Blood Count 7.3 X10*3/uL (4.8-10.8)
[2023-06-09 08:25] LABS: Anion Gap 9 (12-20); Blood Urea Nitrogen 8 mg/dL (9-16); Calcium 8.2 mg/dL (8.4-10.2); Carbon Dioxide 25 mmol/L (22-29); Chloride 102 mmol/L (96-108); Creatinine Clr Calc Pharmacy 83.9; Estimated Glomerular Filt Rate > 60; Glucose Random 112 mg/dL (60-115); Lipase 492 U/L (8-78); Potassium 3.6 mmol/L (3.3-5.1); Sodium 132 mmol/L (135-145)
--- NOTE | 2023-06-09 09:09 | P.PNIM_ITS ---
Subjective Subjective Date of Service: 06/09/23 Interval History: f/u on acute pancreatitis, pain is better Physical Exam Vital Signs: Vital Signs: Last Vital Signs Temp 98.9 F 06/09/23 08:00 Pulse 60 06/09/23 08:00 Resp 20 06/09/23 08:00 BP 137/66 06/09/23 08:00 Pulse Ox 98 06/09/23 08:00 O2 Del Method Room Air 06/09/23 08:00 BMI result Body Mass Index 18.8 Const: Other: General: AO X 3, no acute distress Resp: CTA bilateral CVS: S1,S2,RRR GI: mild epig tenderness Skin: No rash Neuro: motor grossly intact Psych: appropriate affect Objective Data Active Medications Acetaminophen (Acetaminophen 325 Mg Tablet) 650 mg PO Q6H PRN PRN Reason: Pain, Mild (Pain Scale 1-3) Docusate Sodium (Docusate Sodium 100 Mg Capsule) 100 mg PO DAILY PRN PRN Reason: Constipation Enoxaparin Sodium (Enoxaparin Sodium 40 Mg/0.4 Ml Syringe) 40 mg SUBCUT Q24H [facility] Last Admin: 06/08/23 22:56 Dose: 40 mg Documented By: CHUCK Lactated Ringer's (Lr) 1,000 mls @ 150 mls/hr IVCONT .Q6H40M [facility] Last Admin: 06/09/23 05:28 Dose: 150 mls/hr Documented By: CHUCK Thiamine HCl 100 mg/ Sodium (Chloride) 101 mls @ 202 mls/hr IV DAILY [facility] Last Infusion: 06/09/23 00:09 Dose: 0 mls/hr Documented By: CHUCK Morphine Sulfate (Morphine Sulfate 4 Mg/Ml Cartridge) 4 mg IVPUSH Q4H PRN; Protocol PRN Reason: Pain, Severe (Pain Scale 7-10) Last Admin: 06/09/23 05:28 Dose: 4 mg Documented By: CHUCK Multivitamins/Vitamin C (Multivitamin Tablet) 1 tab PO DAILY [facility] Ondansetron HCl (Ondansetron Hcl 4 Mg/2 Ml Vial) 4 mg IVPUSH Q8H PRN PRN Reason: Nausea and Vomiting Oxycodone HCl (Oxycodone Hcl Immed Release 5 Mg Tablet) 5 mg PO Q6H PRN PRN Reason: Pain, Moderate(Pain Scale 4-6) Pharmacy Consult (Consult Rx Perform Med Rec) 1 each MISCELLANE ONCE PRN PRN Reason: Consult order Sodium Chloride (0.9 % Sodium Chloride Flush 3 Ml Syringe) 3 ml IVFLUSH QSHIFT [facility] Last Admin: 06/09/23 02:16 Dose: Not Given Documented By: CHUCK Non-Admin Reason: Previously Administered Labs 06/09/23 07:14 06/09/23 07:14 Labs: Laboratory Results - last 24 hr 06/08/23 06/08/23 06/08/23 17:14 17:14 17:14 MCV 98.4 H MCH 34.1 H MCHC 34.7 RDW 14.1 Plt Count 171 MPV 9.9 Immature Gran % (Auto) 0.4 Neut % (Auto) 88.8 H Lymph % (Auto) 5.4 L [place] % (Auto) 5.2 Eos % (Auto) 0.0 Baso % (Auto) 0.2 Lymph # (Auto) 0.6 L [place] # (Auto) 0.6 Eos # (Auto) 0.0 Baso # (Auto) 0.0 Abs Immat Gran (auto) 0.04 H Absolute Neuts (auto) 9.3 H Absolute Nucleated RBC 0.000 Nucleated RBC % (auto) 0.0 Anion Gap 11 L Estim Creat Clear Calc 62.9 Estimated GFR > 60 Random Glucose 267 H Estimat Average Glucose 114 Hemoglobin A1c % 5.6 Calcium 8.2 L Magnesium 1.7 Total Bilirubin 1.1 H AST 18 ALT 15 Alkaline Phosphatase 61 Total Protein 5.9 L Albumin 3.3 L Amylase 790 H Lipase 780 H Folate 06/08/23 06/09/23 06/09/23 22:55 07:14 07:14 MCV 101.3 H MCH 34.4 H MCHC 34.0 RDW 14.5 Plt Count 157 L MPV 10.3 Immature Gran % (Auto) 0.6 H Neut % (Auto) 70.8 Lymph % (Auto) 17.9 L [place] % (Auto) 9.4 Eos % (Auto) 0.7 Baso % (Auto) 0.6 Lymph # (Auto) 1.3 Rhea # (Auto) 0.7 Eos # (Auto) 0.1 Baso # (Auto) 0.0 Abs Immat Gran (auto) 0.04 H Absolute Neuts (auto) 5.2 Absolute Nucleated RBC 0.000 Nucleated RBC % (auto) 0.0 Anion Gap 9 L Estim Creat Clear Calc 83.9 Estimated GFR > 60 Random Glucose 112 Estimat Average Glucose Hemoglobin A1c % Calcium 8.2 L Magnesium Total Bilirubin AST ALT Alkaline Phosphatase Total Protein Albumin Amylase Lipase 492 H Folate 8.7 Assessment and Plan (1) Acute pancreatitis: Status: Acute Plan 62-year-old male with history of alcohol use disorder, pancreatic cyst, history of renal carcinoma s/p left nephrectomy, GERD, history of gallstones, and history of alcoholic pancreatitis to be observed for acute pancreatitis. #Acute pancreatitis, likely alcohol related, has gallstone but normal cbd -symptomatic treatement if not improving gi consult + MRCP -start clear liquid diet today # alcohol use disorder -patient now with only occasional use with 1-2 glasses wine consumed on weekends. Discussed given his history of pancreatitis, full cessation is recommended # hyperglycemia -random glucose 267 -hemoglobin A1c = 5.6 # history renal cell carcinoma s/p left nephrectomy -renal function baseline # GERD -continue p.o. PPI # nicotine dependence -declines NRT -smoking cessation counseling provided DVT prophylaxis-Lovenox Full code Time Spent With Patient Time: Total time managing care of this patient today ____ minutes. Quality Stroke Does the patient have a stroke diagnosis?: No VTE Prior VTE?: No VTE Risk Level:: Medical - moderate - high VTE Device Contraindication: Treatment Not Indicated VTE Drug Contraindication: N/A - Med Ordered
--- NOTE | 2023-06-09 10:00 | MHC.CM.PN ---
pt lives w/ is independent will ot need serveis when cd has own transport home
[2023-06-09] MEDS: 0.9 % Sodium Chloride Flush 3 ML SYRINGE IVFLUSH (10:19)
[2023-06-09] MEDS: Multivitamin TABLET 1 TAB PO (10:22)
[2023-06-09] MEDS: Thiamine HCL 100 MG in 0.9 % Sodium Chloride 100 ML 202 MG IV (10:43)
--- NOTE | 2023-06-09 12:32 | MHC.CLN ---
PT IS UNDER WT FOR HT BMI 18; PT WITH POOR PO WITH ACUTE ILLNESS PT REPORTS POOR PO WHEN PANCREATITIS FLARE WT HX REVEALS STABLE WT SINCE 2019 DIET RX: C/L-APPROPRIATE PT RECEPTIVE TO ENSURE CLEAR TID TO INCREASE KCALS SUPP TO PROVIDE 720KCALS, 24G PROTEIN MONITOR PO INTAKE AND WEIGHT SEE ALSO FULL CLINICAL NUTRITION ASSESSMENT
--- NOTE | 2023-06-09 15:06 | MHC.RECOVRN ---
Met with pt in 385 after consult placed to Addiction Medicine. Pt admitted to [facility] for acute pancreatitis after presenting to ED with RUQ pain. Pt sitting in bed, awake, alert, easily engages in conversation. Pt reports alcohol use, approx 5 drinks (wine or beer) on the weekend. Pt reports that since 2016, first dx of pancreatitis, he has decreased use. Pt reports at that time he had 5-6 drinks daily. Pt identifies his as a support. 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 Pt reports cravings for alcohol increase during the school year due to stress at work. Does not currently experience cravings. Pt reports first alcohol use around age 17 and continued to drink while in the service. Pt reports while in the service he obtained a DUI and went to [facility] x 1. Pt denies legal involvement and AUD tx since then. Pt is not currently concerned regarding amount of alcohol consumed, reports pancreatitis is a helpful deterrent for drinking. Pt educated regarding recovery supports and services, including [facility]. [facility] at this time. Pt provided with written resources and t/w contact information if questions or concerns arise.
[2023-06-09] MEDS: oxyCODONE HCl Immed Release 5 MG TABLET PO (16:18)
[2023-06-09] MEDS: Enoxaparin Sodium 40 MG/0.4 ML SYRINGE SUBCUT (20:09)
[2023-06-10] MEDS: Morphine Sulfate 4 MG/ML CARTRIDGE IVPUSH ×3 (00:05→09:20)
[2023-06-10] MEDS: Lactated Ringers 1,000 ML 150 ML IVCONT ×2 (00:30→07:26)
[2023-06-10 03:55] VITALS: BP 113/65; PULSE 73; RESP 16; TEMP 36.1; O2SAT 93
[2023-06-10 05:32] LABS: Appearance Urine Clear; Color Urine Yellow; Glucose Urine UA Negative (Negative); Leukocyte Esterase Urine Trace (Negative); Nitrite Urine Negative (Negative); Specific Gravity - Urine <= 1.005 (1.005-1.025); UMIC TRIGGER UACC YES; Urine Blood Trace (Negative); Urine Ketones Negative (Negative); Urine Protein Trace mg/dL (Neg-Trace)
[2023-06-10 05:38] LABS: Bacteria Urine None Seen (None Seen); Hyaline Casts Urine 0-2 /LPF (0-2); RBC Urine 0-2 /HPF (0-2); Squamous Epithelial Cell Urine 0-2 /HPF (0-2); WBC Urine 0-5 /HPF (0-5)
[2023-06-10] MEDS: Thiamine HCL 100 MG in 0.9 % Sodium Chloride 100 ML 202 MG IV (07:27)
[2023-06-10] MEDS: Multivitamin TABLET 1 TAB PO (07:27)
[2023-06-10 07:52] VITALS: BP 119/66; PULSE 64; RESP 18; TEMP 36.7; O2SAT 96
--- NOTE | 2023-06-10 09:23 | P.DS_ITS ---
DS: Providers Provider Date of Service: 06/10/23 Date of admission: 06/08/23 22:01 Primary care physician: NEDA Escoto Consults: 06/08/23 22:22 Addiction Medicine Routine Consulting Provider: Addiction Covering Reason for consultation: alcohol use disorder DS: Diagnosis Discharge Diagnosis (1) Acute pancreatitis: Status: Acute DS: Summary Hospital Course Hospital Course: Chief Complaint: abd pain 62-year-old male with history of alcohol use disorder, pancreatic cyst, history of renal carcinoma s/p left nephrectomy, GERD, history of gallstones, and history of alcoholic pancreatitis presents to the ED for evaluation of abdominal pain.? He states he had mild epigastric pain that started yesterday morning at seem to improve with Motrin.? However this morning awoke at 04:00 with severe right upper quadrant pain radiating to the right side of the back.? He has some intermittent nausea but denies any vomiting.? He states he has significantly cut back on the amount of alcohol he is consuming.? He has not been a daily drinker in several months and states he will only have 1-2 glasses of wine on the weekend, last consumed Thursday evening.? He is also a 3/4 pack cigarette per day smoker but denies any illicit drug use. There is no leukocytosis or anemia.? Renal function is normal electrolyte levels normal except for mild hyponatremia of 133.? Hepatic function largely un remarkable.? Amylase 790, [address] CT of the abdomen/pelvis shows diffuse mucosal thickening involving the duodenal sweep with.? Duodenal fat stranding and fluid collection extending into the right mid and lower abdomen with extensive mesenteric haziness differential to include dural ulcer versus pancreatitis of the pancreatic head.? There is punctate calcification in the pancreatic duct as well as cholelithiasis.? There is also a reactionary changes throughout the colon.? Radiology recommending correlation with angiography and CBD and amylase as well as upper GI barium exam.? In the ED, given 1 L IV NS, IV ppi, and dancer trunk, and IV analgesics. hospital course: Patient with history of alcohol use desorder and presented with abdominal pain and work up with revealed acute pancreatitis and incidental galstone without CBD. CT of abdomen further suggest possible duodenitis. Acute Pancreatitis with managed conservatively with NPO, IVF and diet advanced slowly. He was assessed by surgery for galstone and given no no CBD dilatation, they thought likely case of acute alcohol related pancreatis. At this point, his pain is much better, he is tolerating regular diet and he is advised to avoid alcohol at all cost. He will be prescribed oral PPI and should follow up with GI on outpatient basis. Time Spent with Patient Time attestation: Total time managing care of this patient today ____ minutes. Discharge coordination time: Greater than 30 minutes Quality: Safe Use of Opioids Does Pt have an Active Cancer Diagnosis on the Problem List?: No Quality: Stroke Does the patient have a stroke diagnosis?: No Physical Exam Vital Signs: Vital Signs: Last Vital Signs Temp 98.0 F 06/10/23 07:52 Pulse 64 06/10/23 07:52 Resp 18 06/10/23 07:52 BP 119/66 06/10/23 07:52 Pulse Ox 96 06/10/23 07:52 O2 Del Method Room Air 06/10/23 07:52 O2 Flow Rate 3.0 06/09/23 15:13 BMI result Body Mass Index 18.5 DS: Data Data Completed and Pending Labs on day of discharge: Laboratory Results - last 24 hr 06/10/23 Unknown Urine Color Yellow Urine Appearance Clear Urine pH 7.0 Ur Specific [place] <= 1.005 Urine Protein Trace Urine Glucose (UA) Negative Urine Ketones Negative Urine Blood Trace H Urine Nitrite Negative Ur Leukocyte Esterase Trace H Urine RBC 0-2 Urine WBC 0-5 Ur Squamous Epith Cells 0-2 Urine Bacteria None Seen Hyaline Casts 0-2 Discharge Plan Discharge Anticipated Discharge Date/Time: 06/10/23 09:24 Patient Disposition: Home, Self-Care Discharge Diagnosis: acute pancreatitis Referrals: Jorge Alberto Erickson, [employer] [Primary Care Provider] - 1 Week Discharge Medications: New omeprazole 40 mg capsule,delayed release(DR/EC) 40 mg PO DAILY Qty: 30 1RF oxycodone 5 mg Tablet 5 mg PO Q6H PRN (Reason: Pain, Moderate(Pain Scale 4-6)) Qty: 10 0RF Rx Instructions: Partial Fill upon patient request. Continued multivitamin Tablet 1 tab PO DAILY Discontinued ibuprofen 200 mg Tablet 400 mg PO Q6H PRN (Reason: Pain (Scale Score 1-3)) Discharge Orders: Discharge Order (Routine); Ordered 06/10/23 Ordered By: Paty Cote Diet: Advance to usual diet Activity on Discharge: As tolerated Stand Alone Forms: Patient Portal Discharge page, Work/School Release Activity Restrictions/Additional Instructions: call office for follow up [phone] Care Plan Goals: full recovery from pancreatitis Health Concerns: pancreatitis, duodnal inflamation Plan of Treatment: Stop drinking alcohol, take priolosec as directed and follow up with your Doctor in a week Assessment: as above Discharge Date/Time: 06/10/23 17:48
--- NOTE | 2023-06-10 10:29 | PM.CNGS ---
History of Present Illness Consult details Consult date: 06/10/23 Reason for consult: gallstones (pancreatitis) Requesting physician: Harinder David Narrative: 62-year-old male with history of alcohol use disorder, pancreatitis, history of renal carcinoma s/p left nephrectomy, GERD who presents to the ED for evaluation of epigastric abdominal pain. Thursday he developed mild epigastric pain. However he awoke the following morning and the pain was severe and radiated to his RUQ and back. He reports drinking Thursday and then having rum and several beers Thursday night. He reports the pain was similar to his previous episodes of pancreatitis but the RUQ pain was new. The pain was associated with nausea but denies any vomiting. He denies fever, chills, diarrhea, change in skin color. Due to the severity of pain, he sought care in the ED. Work up included CT abdomen/pelvis which shows diffuse mucosal thickening of the duodenal sweep with fat stranding with extensive mesenteric haziness and reactive mural thickening involving right transverse, distal ascending colon and the terminal ileum. Similar to presentation in 08/2020. ABD US redemonstrated gallstones without gallbladder wall thickening or pericholecystitic fluid, no biliary ductal dilatation. Amylase 790, lipase 780 and total bilirubin of 1.1. He was admitted to the medical service of treatment of the pancreatitis. Surgery was consulted for gallstones. He has had several episodes of alcohol induced pancreatitis. He was admitted to [facility] for one episode and underwent drainage of a pancreatic cyst. They have become less frequent since he has reduced his alcohol intake. He feels improved today and reports just feeling a little uncomfortable. He denies pain associated with food intake. Review of Systems Constitutional: Constitutional: Denies chills and Denies fever(s) ENT: Denies dizziness Cardiovascular: Cardiovascular: Denies chest pain and Denies dyspnea Respiratory: Respiratory: Denies dyspnea and Denies wheezing Gastrointestinal: Gastrointestinal: Reports as per HPI, Denies melena, Denies hematochezia, Denies change in stool character, Denies dyspepsia and Denies heartburn Genitourinary: Genitourinary: Denies hematuria Integumentary/Breasts: Skin/Breast: Denies rash and Denies jaundice Neurologic: Denies dizziness Allergic/Immunologic: Allergic/Immunologic: Denies wheezing [facility] Past Medical History Medical History (Updated 06/09/23 @ 02:06 by Josselyn Cintron CNP) Back pain with right-sided sciatica (10/07/21) Cyst of pancreas GERD (gastroesophageal reflux disease) History of alcohol abuse Inguinal hernia No known health problems Pancreatitis Surgical History Surgical History (Updated 06/10/23 @ 10:52 by Jennifer Sanders PA-C) History of nephrectomy, left Social History Social History Alcohol intake: current Alcohol intake frequency: 0-2 drinks per day Alcohol type: wine Patient Tobacco Use Status: Current everyday Tobacco user Tobacco use type: Cigarette Cigarette Packs Per Day: 0.5 Cigarettes Per Day: 10.0 Second Hand Smoke Exposure: No service: No Meds Allergies Allergy/AdvReac Type Severity Reaction Status Date / Time No Known Allergies Allergy Verified 09/19/20 16:40 Active Medications: Current Medications Acetaminophen (Acetaminophen 325 Mg Tablet) 650 mg PO Q6H PRN PRN Reason: Pain, Mild (Pain Scale 1-3) Docusate Sodium (Docusate Sodium 100 Mg Capsule) 100 mg PO DAILY PRN PRN Reason: Constipation Enoxaparin Sodium (Enoxaparin Sodium 40 Mg/0.4 Ml Syringe) 40 mg SUBCUT Q24H [facility] Last Admin: 06/09/23 20:09 Dose: 40 mg Lactated Ringer's (Lr) 1,000 mls @ 150 mls/hr IVCONT .Q6H40M [facility] Last Admin: 06/10/23 07:26 Dose: 150 mls/hr Thiamine HCl 100 mg/ Sodium (Chloride) 101 mls @ 202 mls/hr IV DAILY [facility] Last Infusion: 06/10/23 08:07 Dose: Infused Morphine Sulfate (Morphine Sulfate 4 Mg/Ml Cartridge) 4 mg IVPUSH Q4H PRN; Protocol PRN Reason: Pain, Severe (Pain Scale 7-10) Last Admin: 06/10/23 09:20 Dose: 4 mg Multivitamins/Vitamin C (Multivitamin Tablet) 1 tab PO DAILY [facility] Last Admin: 06/10/23 07:27 Dose: 1 tab Ondansetron HCl (Ondansetron Hcl 4 Mg/2 Ml Vial) 4 mg IVPUSH Q8H PRN PRN Reason: Nausea and Vomiting Oxycodone HCl (Oxycodone Hcl Immed Release 5 Mg Tablet) 5 mg PO Q6H PRN PRN Reason: Pain, Moderate(Pain Scale 4-6) Last Admin: 06/09/23 16:18 Dose: 5 mg Pharmacy Consult (Consult Rx Perform Med Rec) 1 each MISCELLANE ONCE PRN PRN Reason: Consult order Sodium Chloride (0.9 % Sodium Chloride Flush 3 Ml Syringe) 3 ml IVFLUSH QSHIFT JUANA Last Admin: 06/10/23 07:27 Dose: Not Given Home Medications Medication Instructions Recorded Confirmed Last Taken Type ibuprofen 200 mg tablet 400 mg PO Q6H PRN Pain (Scale 06/08/23 06/08/23 06/08/23 History Score 1-3) multivitamin 1 tab PO DAILY 06/08/23 06/08/23 06/08/23 History Physical Exam Vital Signs: Vital Signs: Last Vital Signs Temp 98.0 F 06/10/23 07:52 Pulse 64 06/10/23 07:52 Resp 18 06/10/23 07:52 BP 119/66 06/10/23 07:52 Pulse Ox 96 06/10/23 07:52 O2 Del Method Room Air 06/10/23 07:52 O2 Flow Rate 3.0 06/09/23 15:13 BMI result Body Mass Index 18.5 Const: General: comfortable, no acute distress and alert Orientation/consciousness: patient oriented x3 Resp: Effort & Inspection: normal respiratory effort Cardio: Rate: regular rate GI: Inspection: No distended Palpation (GI): Soft to palpation, Tenderness to palpation present (GI) in the epigastrum (moderate ); not in the RUQ, Mijares's sign negative and with no rebound tenderness, no guarding and not rigid Percussion: Yes normal to percussion Skin: General skin exam: no rashes or lesions noted and no jaundice Neuro: General: patient oriented x3 and moves all extremities Results Labs 06/09/23 07:14 06/09/23 07:14 Labs: Abnormal lab results 06/10/23 Range/Units Unknown Urine Blood Trace H (Negative) Ur Leukocyte Esterase Trace H (Negative) Urine 06/10/23 Range/Units Unknown Urine Color Yellow Urine Appearance Clear Urine pH 7.0 (5.0-9.0) Ur Specific [place] <= 1.005 (1.005-1.025) Urine Protein Trace (Neg-Trace) mg/dL Urine Glucose (UA) Negative (Negative) mg/dL All other labs normal. Imaging Abdomen CT scan report/results: report reviewed and image reviewed Assessment and Plan (1) Acute pancreatitis: Status: Acute (2) Cholelithiasis: Status: Acute Plan 62 year old male admitted with pancreatitis which is resolving with conservative measures. The episode is likely alcohol induced as there is no ductal dilatation and LFTs normal with exception of mildly elevated bilirubin. Advance diet as tolerated. Recommended alcohol cessation. Can f/u in the office if he continues to experience RUQ pain but currently gallstones seem to be an incidental finding. Time Spent With Patient Time: Total time managing care of this patient today ____ minutes. Procedures Date of Service Date of Service: 06/10/23
[2023-06-10 11:40] VITALS: BP 120/62; PULSE 56; RESP 18; TEMP 36.5; O2SAT 98
--- NOTE | 2023-06-10 12:10 | MHC.CLN ---
F/U DIET ADVANCED TODAY TO REGULAR. CONTINUE ENSURE CLEAR TID TO IMPROVE NUTRITIONAL INTAKE. SUPPLEMENT PROVIDES ADDITIONAL 720 KCALS, 24 G PROTEIN. FOLLOW FOR INTAKE AND WEIGHT.
[2023-06-10] MEDS: oxyCODONE HCl Immed Release 5 MG TABLET PO (15:28)
[2023-06-10 15:45] VITALS: BP 143/72; PULSE 69; RESP 18; TEMP 36.2; O2SAT 97
--- NOTE | 2023-06-11 01:29 | CONS_ITS ---
DATE OF SERVICE: 06/10/2023 REFERRING PHYSICIAN: Harinder David MD REASON FOR CONSULTATION: Pancreatitis and abnormal CT scan of the duodenum. HISTORY OF PRESENT ILLNESS: The patient is a pleasant 62-year-old man who was admitted to the hospital after presenting to the emergency room on June 08 with complaints of abdominal pain. He has a history of pancreatitis on the basis of alcohol that required endoscopic drainage of a pseudocyst by his report in 2015. He has had recurrent episodes after drinking alcohol and reports he developed symptoms consistent with an exacerbation of his pancreatitis on Thursday after he drank alcohol on Thursday and Thursday nights. There was associated nausea for which he took antinausea medication that he had at home and he did take ibuprofen to help with the pain. The patient was epigastric and radiated around to the right side. Because of the pain, he presented to the emergency room on the and was evaluated with laboratory studies and CT scanning. He did have elevations of his amylase and lipase consistent with pancreatitis. CT scan of the abdomen showed changes of calcifications throughout the pancreas and head with a heterogeneous appearance to the pancreatic head. There was diffuse mural thickening involving the duodenal sweep with adjacent fat stranding and fluid collection extending into the right abdomen. This was worse compared to a prior study and thought related to underlying pancreatitis. The patient was treated with pain medications, and IV fluids. His diet was gradually advanced and he began to tolerate solid food. He is scheduled to be discharged later today. PAST MEDICAL HISTORY: 1. Pancreatitis. 2. Renal cell carcinoma with left nephrectomy. 3. Gastroesophageal reflux disease for which he takes [id number]-[id number] proton pump inhibitors at home. 4. Gallstones. 5. Back pain. 6. Alcohol abuse. CURRENT MEDICATIONS: His current medication list is reviewed in the chart. ALLERGIES: THERE ARE NO REPORTED ALLERGIES. FAMILY HISTORY: This is reviewed with the patient and is negative for GI malignancy. SOCIAL HISTORY: There is no current substance abuse with drugs, but he does use alcohol less frequently than he used to by his report. He does smoke less than 1 pack per day. REVIEW OF SYSTEMS: SKIN: No pruritus. HEENT: Negative. CARDIOPULMONARY: No shortness of breath or chest pain. GASTROINTESTINAL: As above. He has never undergone colonoscopy. GENITOURINARY: Negative. NEUROPSYCHIATRIC: Negative. PHYSICAL EXAMINATION: GENERAL: Shows a pleasant male who is thin. VITAL SIGNS: Reviewed in the electronic medical record and are stable. SKIN: Anicteric. HEENT: Shows no scleral icterus. NECK: Without lymphadenopathy or thyromegaly. LUNGS: Clear. HEART: Shows a regular rate and rhythm. S1, S2. No murmur. ABDOMEN: Soft. There is no focal guarding, tenderness, or rebound. Bowel sounds are present. No organomegaly is noted. EXTREMITIES: Without edema. DIAGNOSTIC DATA: Laboratory data and radiographic studies including his ultrasound are reviewed. He does have gallstone. IMPRESSION: Abdominal pain and abnormal CT scan. His symptoms appear consistent with an exacerbation of his pancreatitis. Again on the basis of alcohol, based on his history, I discussed with him the need to cease alcohol because of recurrent pancreatitis. I would recommend he begin a proton pump inhibitor, and I did leave a prescription for omeprazole 40 mg because of the abnormalities in the duodenum, which were likely reactive secondary to the pancreatitis. He can follow up as an outpatient for upper endoscopy for further evaluation of this area and colonoscopy can be done at the same time as he is overdue for screening. This was discussed with the patient in detail. Thanks for asking me to see him. I will follow him in the hospital as needed. MD DAREN Rutledge/SAVI / [phone]
== END 2023-06-10 17:48 | disposition home or self-care (01) ==
LOC: HO.ED 18:04 → HO.EDOVER 22:11 → HO.S3 06-09 07:19
PROVIDERS: Nurse Practitioner Family; Student in an Organized Health Care Education/Training Program; Admitting Provider Physician Assistant; Emergency Provider Student in an Organized Health Care Education/Training Program; PCP Nurse Practitioner Family; Visit Provider Internal Medicine
DX: K85.90 Acute pancreatitis without necrosis or infection, unspecified (principal); R10.9 Unspecified abdominal pain; K80.20 Calculus of gallbladder without cholecystitis without obstruction; R73.9 Hyperglycemia, unspecified; F10.90 Alcohol use, unspecified, uncomplicated; K21.9 Gastro-esophageal reflux disease without esophagitis; F17.200 Nicotine dependence, unspecified, uncomplicated; Z85.528 Personal history of other malignant neoplasm of kidney; Z90.5 Acquired absence of kidney
CPT/HCPCS: 36415; 74177; 76705; 80048; 80053; 81001; 82150; 82746; 83036; 83690; 83735; 85025; 96361; 96365; 96366; 96372; 96375; 96376; 99221; 99285; J1650; J2270; J2405; J3411; Q9967

== ENCOUNTER → 2023-06-08 22:01 | Outpatient (BNV) | payer OTHER, SELFPAY | PROVIDERS: Admitting Provider Physician Assistant; Emergency Provider Student in an Organized Health Care Education/Training Program; PCP Nurse Practitioner Family; Visit Provider Physician Assistant Surgical | DX: K85.90 Acute pancreatitis without necrosis or infection, unspecified (principal); K80.20 Calculus of gallbladder without cholecystitis without obstruction | CPT/HCPCS: 99222 ==

== ENCOUNTER → 2023-06-08 22:01 | Outpatient (BNV) | payer OTHER, SELFPAY | PROVIDERS: Admitting Provider Physician Assistant; Emergency Provider Student in an Organized Health Care Education/Training Program; PCP Nurse Practitioner Family; Visit Provider Physician Assistant | DX: K85.90 Acute pancreatitis without necrosis or infection, unspecified (principal) | CPT/HCPCS: 99222; 99232; 99239 ==

== ENCOUNTER 2023-07-29 14:22 | Outpatient (AMB) | payer OTHER, SELFPAY ==
[2023-07-29 14:32] VITALS: BP 140/68; PULSE 100; O2SAT 98; BMI 18.3
--- NOTE | 2023-07-29 14:32 | MHC.PC.OV ---
Vital Signs 07/29/23 14:32 Height 5 ft 7 in Weight 117 lb BMI 18.3 BP 140/68 H Blood Pressure Location Rt brachial Position Sitting Pulse 100 Pulse Source Pulse Oximeter Pulse Oximetry (%) 98 Oxygen Delivery Method Room Air Intake Visit Reasons: [employer] Chronic Care F/U ( Pancreatitis) Allergies No Known Allergies Allergy (Verified 07/29/23 14:34) Medication List - Last Reconciled 07/29/23 by DAWNA Cook-DAREN multivitamin 1 tab PO DAILY omeprazole 40 mg PO DAILY oxycodone 5 mg PO Q6H PRN Tobacco use date assessed: 07/29/23 Dental Screening Dental Screen Date: 07/29/23 Did you have a dental visit in the last 12 months?: Yes Did you have a dental problem in the last 6 months where you did not have access to dental care?: No Was dental information given to patient?: Patient has dentist HPI [employer] Chronic Care F/U ( Pancreatitis) HPI Details Pt was seen in the ER on 06/08 c/o abdominal pain. CBC showed no leukocytosis. Lipase was 780. Bilirubin was mildly elevated at 1.1, normal AST/ALT and alk phos. CT of the abdomen/pelvis showed diffuse mucosal thickening involving the duodenal sweep with. Duodenal fat stranding and fluid collection extending into the right mid and lower abdomen with extensive mesenteric haziness differential to include dural ulcer versus pancreatitis of the pancreatic head. There is punctate calcification in the pancreatic duct as well as cholelithiasis. There is also a reactionary changes throughout the colon. Radiology recommending correlation with angiography and CBD and amylase as well as upper GI barium exam. Pt was given IV fluids, PPI, and analgesics. He was seen by surgery and given no CBD dilatation, they thought likely case of acute alcohol related pancreatis. Pt's pain improved, he tolerated diet. Pt was d/c with a PPI. It was recommended he follow up with GI, has an upper endoscopy/colonoscopy scheduled on 09/01. Pt reports that he has drank alcohol since his admission and he did not experience pain. He reports that omeprazole helps. Denies any current fever, chills, abdominal pain, and N/V/D. Pt is a smoker, not interesting in low-dose CT at this time. EKG in office was WNL. Will order PSA. Denies dribbling with urination, weak stream, and nocturia. [facility] Medical History (Updated 07/29/23 @ 15:17 [facility] Back pain with right-sided sciatica (10/07/21) Cyst of pancreas GERD (gastroesophageal reflux disease) History of alcohol abuse Inguinal hernia No known health problems Pancreatitis Surgical History History of nephrectomy, left Social History Housing: House Alcohol intake: current Alcohol intake frequency: 0-2 drinks per day Alcohol type: wine Patient Tobacco Use Status: Current everyday Tobacco user Tobacco use type: Cigarette Cigarette Packs Per Day: 0.5 Cigarettes Per Day: 10.0 Second Hand Smoke Exposure: No service: No Current occupational status: employed Current occupation: [employer] Current occupational exposures/hazards: Yes Cognitive needs: No Hearing needs: No Vision needs: No Questionnaire PHQ-9 Over the last 2 weeks, how often have you been bothered by any of the following problems? 1. Little interest or pleasure in doing things: not at all 2. Feeling down, depressed, or hopeless: not at all 3. Trouble falling or staying asleep, or sleeping too much: not at all 4. Feeling tired or having little energy: not at all 5. Poor appetite or overeating: not at all 6. Feeling bad about yourself - or that you are a failure or have let yourself or your family down: not at all 7. Trouble concentrating on things, such as reading the newspaper or watching television: not at all 8. Moving or speaking so slowly that other people could have noticed. Or the opposite - being so fidgety or restless that you have been moving around a lot more than usual: not at all 9. Thoughts that you would be better off or of hurting yourself in some way: not at all Total score: 0 Source: Developed by Drs. Mahendra Paulino, Dian Jin, Jesus oMck and colleagues, with an educational oksana from [employer]. Thrive Questionnaire Date Thrive assessed: 07/29/23 I am a: Patient What is your living situation today?: I have a steady place to live Within the past 12 months, did the food you bought not last and you didn't have the money to get more?: Never true Within the past 12 months, did you worry whether your food would run out before you got money to buy more?: Never true Do you have trouble paying for medicines?: No Do you have trouble getting transportation to medical appointments?: No Do you have trouble paying your heating and electricity bill?: No Do you have trouble taking care of your child, family member or friend?: No Do you have trouble with day-to-day activities such as bathing, preparing meals, shopping, managing finances, etc.?: No Are you currently unemployed and looking for a job?: No Are you interested in more education?: No AUDIT C Alcohol Use Questionnaire (AUDIT-C) 1. How often do you have a drink containing alcohol?: 2-4 times a month 2. How many drinks containing alcohol do you have on a typical day when you are drinking?: 1 or 2 3. How often do you have six or more drinks on one occasion?: Monthly Total Score: 4 CLAIRE-7 AMB Questionnaire CLAIRE-7 Date CLAIRE - 7 assessed: 07/29/23 Feeling nervous, anxious, or on edge: 0 = Not at all Not being able to stop or control worryin = Not at all Worrying too much about different things: 0 = Not at all Trouble relaxin = Not at all Being so restless that it is hard to sit still: 0 = Not at all Becoming easily annoyed or irritable: 0 = Not at all Feeling afraid as if something awful might happen: 0 = Not at all Total CLAIRE-7 score (0-4 normal; 5-9 mild; 10-14 moderate; 15-21 severe): 0 Source: Developed by Drs. Mahendra Paulino, Dian Jin, Jesus Mock and colleagues, with an educational oksana from [employer]. Review of Systems Const Reports as per HPI Physical exam (Primary Care) Vital Signs: Last Vital Signs Pulse 100 07/29/23 14:32 BP 140/68 H 07/29/23 14:32 Pulse Ox 98 07/29/23 14:32 Oxygen Delivery Method Room Air 07/29/23 14:32 BMI result Body Mass Index 18.3 Tobacco/Smoking Status: Tobacco use Status Tobacco use date assessed 07/29/23 07/29/23 14:38 Patient Tobacco Use Status Current everyday Tobacco 07/29/23 14:38 Tobacco use type Cigarette 07/29/23 14:38 PHQ-9: PHQ-9 Score PHQ-9: Total score 0 07/29/23 15:04 Thrive Assessment: Date of Thrive Assessment Date Thrive assessed 07/29/23 07/29/23 15:00 Const General: cooperative Orientation/consciousness: patient oriented x3 Resp Effort & Inspection: normal respiratory effort Auscultation: clear to auscultation bilaterally and diminished lung sounds Cardio Rate: regular rate Rhythm: regular rhythm Heart sounds: S1 normal heart sound present and S2 normal heart sound present GI Other: no abdominal pain with palpation Neuro General: patient oriented x3 Psych Appearance: grossly normal Mental Status: mental status grossly normal Speech and movement: Normal speech and movement present Affect: normal affect Attitude: cooperative Thought process: Normal thought process present Thought content: Normal thought content present Insight: Good insight present (Psych) Judgement: Good judgement present (Psych) Assessment and Plan Assessment & Plan (1) Pancreatitis: Code(s): K85.90 - Acute pancreatitis without necrosis or infection, unspecified Qualifiers: Chronicity: chronic Pancreatitis type: alcohol induced Qualified Code(s): K86.0 - Alcohol-induced chronic pancreatitis Plan: Labs ordered (2) Screening for prostate cancer: Code(s): Z12.5 - Encounter for screening for malignant neoplasm of prostate Plan: PSA ordered Plan The patient agreed to the use of a claim review medical director for this encounter. Scribed for NEDA Javed by Anh Vega claim review medical director, on 07/29/2023 at 14:55 EST. Orders: Orders Comprehensive Met. Panel Today K85.90 - Acute pancreatitis without necrosis or infection, unspecified Lipid Panel Today K85.90 - Acute pancreatitis without necrosis or infection, unspecified TSH reflex Free T4 Today K85.90 - Acute pancreatitis without necrosis or infection, unspecified Complete Blood Count Auto Diff Today K85.90 - Acute pancreatitis without necrosis or infection, unspecified UA CC w/rflx Micro + Cult Today K85.90 - Acute pancreatitis without necrosis or infection, unspecified Lipase Today K85.90 - Acute pancreatitis without necrosis or infection, unspecified Prostate Specific Antigen Scr Today Z12.5 - Encounter for screening for malignant neoplasm of prostate Coding Level of Care Code New Pt Level 4 (89288) Diagnoses Pancreatitis K86.0 Chronicity: chronic Pancreatitis type: alcohol induced Screening for prostate cancer Z12.5
== END 2023-07-29 15:24 | disposition home or self-care (01) ==
PROVIDERS: Visit Provider Nurse Practitioner Family
DX: K86.0 Alcohol-induced chronic pancreatitis (principal); Z12.5 Encounter for screening for malignant neoplasm of prostate
CPT/HCPCS: 99204

== ENCOUNTER 2023-10-13 06:04 | Day surgery (SDC) | payer OTHER, SELFPAY ==
[2023-10-08 14:57] VITALS: BMI 18.3
--- NOTE | 2023-10-12 08:43 | HO.ANESPROP2 ---
Documented by User: Lydia Bee NP 10/12/23 08:45 HPI - Anesthesia Eval Consult details Narrative: 63yo M for Upper Endoscopy and Colonoscopy [facility] Active Problems Active Problems: All Active Problems (Updated 10/08/23 @ 14:50 by Alanis Singleton RN) Screening for prostate cancer (Acute) Cholelithiasis (Acute) Back pain with right-sided sciatica (Acute 10/07/21) Past Medical History Medical History Renal cell carcinoma Alcohol use disorder History of alcohol abuse GERD (gastroesophageal reflux disease) Back pain with right-sided sciatica (10/07/21) Pancreatitis Inguinal hernia Cyst of pancreas Surgical History Surgical History History of surgery on right wrist Hx of esophagogastroduodenoscopy History of nephrectomy, left Social History Social History Housing: House Alcohol intake: current Alcohol intake frequency: former alcohol drinker Alcohol type: wine Patient Tobacco Use Status: Current everyday Tobacco user Tobacco use type: Cigarette Cigarette Packs Per Day: 0.5 Cigarettes Per Day: 10.0 Smoked in Last 30 Days: Yes Patient Interested in Nicotine Replacement: No Second Hand Smoke Exposure: No Are you DNR?: No Advance Directives: No Advance Directives Information Provided: Yes service: No Current occupational status: employed Current occupation: [employer] Current occupational exposures/hazards: Yes Cognitive needs: No Hearing needs: No Vision needs: No Meds Allergies Allergy/AdvReac Type Severity Reaction Status Date / Time No Known Allergies Allergy Verified 10/13/23 06:21 Home Medications Medication Instructions Recorded Confirmed Last Taken Type multivitamin 1 tab PO DAILY 06/08/23 10/08/23 06/08/23 History Exam Height,Weight and Vital Signs: Height 5 ft 7 in Weight 53.07 kg Pertinent Lab Results Pertinent Lab Results: Laboratory Tests 06/09/23 07:14 WBC 7.3 Hgb 13.4 L Hct 39.4 L Plt Count 157 L Sodium 132 L Potassium 3.6 Chloride 102 Carbon Dioxide 25 BUN 8 L Creatinine 0.72 Laboratory Tests 06/08/23 17:14 Total Bilirubin 1.1 H AST 18 ALT 15 Alkaline Phosphatase 61 Total Protein 5.9 L Albumin 3.3 L Amylase 790 H Lipase 780 H Narrative Narrative: US abdomen limited 05/2023 IMPRESSION: Upper normal-size gallbladder. Gallstone. Normal caliber intrahepatic and extrahepatic bile ducts. Trace ascites. Pancreas not seen. Assessment and Plan Assessment Anesthesia Assessment: Chart Reviewed Documented by User: Noemi Alexandre MD 10/13/23 07:57 PMFSH Past Medical History Medical History Renal cell carcinoma Alcohol use disorder History of alcohol abuse GERD (gastroesophageal reflux disease) Back pain with right-sided sciatica (10/07/21) Pancreatitis Inguinal hernia Cyst of pancreas Surgical History Surgical History History of surgery on right wrist Hx of esophagogastroduodenoscopy History of nephrectomy, left History of Problems with Anesthesia: No Social History Social History Housing: House Alcohol intake: current Alcohol intake frequency: former alcohol drinker Alcohol type: wine Patient Tobacco Use Status: Current everyday Tobacco user Tobacco use type: Cigarette Cigarette Packs Per Day: 0.5 Cigarettes Per Day: 10.0 Smoked in Last 30 Days: Yes Patient Interested in Nicotine Replacement: No Second Hand Smoke Exposure: No Are you DNR?: No Advance Directives: No Advance Directives Information Provided: Yes service: No Current occupational status: employed Current occupation: [employer] Current occupational exposures/hazards: Yes Cognitive needs: No Hearing needs: No Vision needs: No Meds Allergies Allergy/AdvReac Type Severity Reaction Status Date / Time No Known Allergies Allergy Verified 10/13/23 06:21 Home Medications Medication Instructions Recorded Confirmed Last Taken Type multivitamin 1 tab PO DAILY 06/08/23 10/08/23 06/08/23 History Exam Airway Mallampati Class: II (missing upper central incisor) TM Dist: >3cm Neck ROM: Full Loose/Missing/Broken Teeth: Yes and Upper Heart: RRR Lungs: CTA Assessment and Plan Assessment Anesthesia Assessment: Anesthesia Plan Discussed Final Anesthetic Review History of Problems with Anesthesia: No NPO: Yes ASA Class: III Final Preanesthetic Review: Meds/Allgs Chart Reviewed, Consent Obtained/Reviewed and Anes Risks/Benef Reviewed Patient Risk: Intermediate Procedure Risk: Intermediate Anesthetic Plan Anesthetic Plan: MAC: Disposition: Standard PACU
--- OUTSIDE RECORDS SUMMARY | 2023-10-13 06:06 | XMS_ITS | Continuity of Care Document ---
Author Name Unknown Organization [facility] ter Address [address] [place] [phone]- Care Team Providers Care Fire Management Officer Name Role Phone Rowdy Lou MD Primary Care Physician Encounter [facility] [place] Date(s): 03/31/22 - 03/31/[address] [address]- Discharge Disposition: A-D/C Walkout Attending Physician: Not on Staff, Attending MD Admitting Physician: Not on Staff, Admitting MD Referring Physician: Not on Staff, Referring MD Allergies, Adverse Reactions, Alerts No Known Allergies Medications oxyCODONE 5 mg oral tablet 5 mg, 1, tablet, By Mouth, Daily at bedtime, PRN, # 5 tablet, Refills 0, Tot. Refills 0, Maintenance, Pain , Severe, 02/12/22 13:36:00 EDT, Route to Pharmacy Electronically, [facility] #[id number], Partial fill upon patient request if the prescri... Start Date: 02/12/22 Status: Ordered oxycodone 5 mg oral tablet 1 tablet = 5 mg, By Mouth, Every 6 hours, PRN Pain , Mild, 0 Refills, Maintenance, 05/15/15 3:00:50 Start Date: 05/15/15 Status: Ordered oxycodone 5 mg oral tablet 2 tablet = 10 mg, By Mouth, Every 6 hours, PRN for pain, # 12 tablet, 0 Refills, Maintenance, 07/03/15 9:35:12, Tablet Start Date: 07/03/15 Status: Ordered Readi-Cat 2 oral suspension See Instructions, As per instructions, # 2 bottle, 0 Refills, Maintenance, 05/17/15 15:12:53, As per instructions Start Date: 05/17/15 Status: Ordered Zofran 4 mg oral tablet 1 tablet = 4 mg, By Mouth, Every 8 hours, PRN Nausea & Vomiting, # 10 tablet, 0 Refills, Maintenance, 02/12/22 13:34:00 EDT, Tablet, [id number], Partial fill upon patient requestif the prescription is for a schedule II opioid drug. Start Date: 02/12/22 Status: Ordered Vital Signs Most recent to oldest [Reference Range]: 1 2 3 Oxygen Saturation [94-100 %] 97 % (03/31/22 4:24 PM) 99 % (03/31/22 1:57 PM) 100 % (03/31/22 11:51 AM) Pulse Rate [55-90 bpm] 79 bpm (03/31/22 4:24 PM) 82 bpm (03/31/22 1:57 PM) 91 bpm *H* (03/31/22 11:51 AM) Blood Pressure [90-138/55-84 mm Hg] 130/72mm Hg (03/31/22 4:24 PM) 131/75mm Hg (03/31/22 1:57 PM) 126/75mm Hg (03/31/22 11:51 AM) Respiratory Rate [16-30 br/min] 16 br/min (03/31/22 4:24 PM) 16 br/min (03/31/22 1:57 PM) 18 br/min (03/31/22 11:51 AM) Temperature [96.8-100.4 DegF] 98.1 DegF (03/31/22 4:24 PM) 98.1 DegF (03/31/22 1:57 PM) 98.4 DegF (03/31/22 11:51 AM) Mode of Delivery (Oxygen) Room air (03/31/22 4:24 PM) Room air (03/31/22 1:57 PM) Room air (03/31/22 11:51 AM) Blood pressure sites Arm, right (03/31/22 4:24 PM) Arm, right (03/31/22 1:57 PM) Arm, right (03/31/22 11:51 AM) Temperature Route Oral (03/31/22 4:24 PM) Oral (03/31/22 1:57 PM) Oral (03/31/22 11:51 AM) Social History Social History Type Response Smoking Status Current every day cathi dial entered on: 05/14/15 Sex
--- OUTSIDE RECORDS SUMMARY | 2023-10-13 06:06 | XMS_ITS | Continuity of Care Document ---
Author Name Unknown Organization [facility] ter Address [address] [place] [phone]- Care Team Providers Care Green Meat Grader Name Role Phone Rowdy Lou MD Primary Care Physician Encounter [facility] [place] Date(s): 06/10/22 - 06/12/[address] [address]- Discharge Disposition: A-D/C Home Attending Physician: Erick Laguna MD Admitting Physician: Erick Laguna MD Referring Physician: Erick Laguna MD Allergies, Adverse Reactions, Alerts No Known Allergies Medications oxyCODONE 5 mg oral tablet 10 mg, 2, tablet, By Mouth, Every 6 hours, PRN, for 3 days, # 12 tablet, Refills 0, Tot. Refills 0,Acute 06/15/22 17:10:00 EDT, Pain , Severe, 06/12/22 17:10:00 EDT, Print Requisition, Partial fill upon patient request if the prescription is for a sc... Start Date: 06/12/22 Stop Date: 06/15/22 Status: Ordered oxyCODONE 5 mg oral tablet 10 mg, Tablet, By Mouth, Every 4 hours, PRN for Pain , Severe, Routine, 06/11/22 15:35:00 EDT Start Date: 06/11/22 Stop Date: 06/18/22 Status: Ordered Problem List Condition Effective Dates Status Health Status Inform ant Underweight(Confirmed) Active Vital Signs Most recent to oldest [Reference Range]: 1 2 3 Height 170 cm (06/12/22 4:00 AM) 170 cm (06/11/22 9:07 PM) 170 cm (06/10/22 6:48 PM) Weight 46.6 kg (06/10/22 9:37 AM) 52.2 kg (06/06/22 1:06 PM) Oxygen Saturation [94-100 %] 96 % (06/12/22 3:00 PM) 98 % (06/12/22 11:00 AM) 95 % (06/12/22 8:00 AM) Pulse Rate [55-90 bpm] 78 bpm (06/12/22 3:00 PM) 68 bpm (06/12/22 11:00 AM) 81 bpm (06/12/22 8:00 AM) Body Mass Index [18.5-24.99] 16.12 *L* (06/10/22 9:37 AM) 18.06 *L* (06/06/22 1:06 PM) Blood Pressure [90-138/55-84 mm Hg] 126/67mm Hg (06/12/22 3:00 PM) 143/70mm Hg *H* (06/12/22 11:00 AM) 132/79mm Hg (06/12/22 8:00 AM) Respiratory Rate [16-30 br/min] 18 br/min (06/12/22 3:00 PM) 18 br/min (06/12/22 1:04 PM) 18 br/min (06/12/22 12:04 PM) Temperature [96.8-100.4 DegF] 98.6 DegF (06/12/22 3:00 PM) 98.6 DegF (06/12/22 11:00 AM) 98.9 DegF (06/12/22 8:00 AM) Liters per Minute 10 L/min (06/10/22 5:00 PM) 10 L/min (06/10/22 4:45 PM) Mode of Delivery (Oxygen) Room air (06/12/22 3:00 PM) Room air (06/12/22 11:00 AM) Room air (06/12/22 8:00 AM) Blood pressure sites Arm, right (06/12/22 3:00 PM) Arm, right (06/12/22 11:00 AM) Arm, right (06/12/22 8:00 AM) Temperature Route Oral (06/12/22 3:00 PM) Oral (06/12/22 11:00 AM) Oral (06/12/22 8:00 AM) Dry Weight 46.6 kg (06/10/22 9:37 AM) 52.2 kg (06/06/22 1:06 PM) Weight Obtained Via Standing scale (06/10/22 9:37 AM) Patient/family stated (06/06/22 1:06 PM) Dry Weight Obtained Via Standing scale (06/10/22 9:37 AM) Patient/family stated (06/06/22 1:06 PM) Social History Social History Type Response Smoking Status Current every day cathi dial entered on: 05/14/15 Sex
--- OUTSIDE RECORDS SUMMARY | 2023-10-13 06:06 | XMS_ITS | Continuity of Care Document ---
Author Name Unknown Organization [facility] ter Address [address] [place] [phone]- Care Team Providers Care Safety Investigator Name Role Phone Carmine HAND, Rowdy Smith Primary Care Physician [place] [facility] [place] 03/25/22 - 03/25/[address] [address] Discharge Disposition: A-D/C Home Attending Physician: Erick Laguna MD Admitting Physician: Erick Laguna MD Referring Physician: Erick Laguna MD Allergies, Adverse Reactions, Alerts No Known Allergies Medications FENTanyl Inj 75 mcg, Injection, IV Push Slowly, Once, Routine, 03/25/22 12:00:00 EDT, Stop date 03/25/22 12:00:00 EDT Start Date: 03/25/22 Stop Date: 03/25/22 Status: Completed oxyCODONE 5 mg oral tablet 5 mg, 1, tablet, By Mouth, Daily at bedtime, PRN, # 5 tablet, Refills 0, Tot. Refills 0, Maintenance, Pain , Severe, 02/12/22 13:36:00 EDT, Route to Pharmacy Electronically, [facility] #[id number], Partial fill upon patient request if the [...] 0 Refills, Maintenance, 02/12/22 13:34:00 EDT, Tablet, [facility] #[id number], Partial fill upon patient requestif the prescription is for a schedule II opioid drug. Start Date: 02/12/22 Status: Ordered Vital Signs Most recent to oldest [Reference Range]: 1 2 Height 195.58 cm (03/25/22 8:01 AM) 195.58 cm (03/25/22 7:59 AM) Weight 54 kg (03/25/22 8:01 AM) 54 kg (03/25/22 7:59 AM) Oxygen Saturation [94-100 %] 99 % (03/25/22 7:58 AM) Pulse Rate [55-90 bpm] 78 bpm (03/25/22 7:58 AM) Blood Pressure [90-138/55-84 mm Hg] 123/ 83mm Hg (03/25/22 7:58 AM) Respiratory Rate [16-30 br/min] 16 br/mi n (03/25/22 9:54 AM) 17 br/min (03/25/22 7:58 AM) Temperature [96.8-100.4 DegF] 98.4 DegF (03/25/22 7:58 AM) Mode of Delivery (Oxygen) Room air (03/25/22 7:58 AM) Dry Weight 54 kg (03/25/22 7:59 AM) Social History Social History Type Response Smoking Status Current every day cathi dial entered on: 05/14/15 Sex
--- OUTSIDE RECORDS SUMMARY | 2023-10-13 06:06 | XMS_ITS | Continuity of Care Document ---
Author Name Unknown Organization [facility] Address [address] [place] [id number]- Care Team Providers Care Gate Cutter Name Role Phone Carmine HAND, Rowdy Smith Primary Care Physician Encounter [facility] Date(s): 06/06/22 - 07/06/22 [facility] [address] [place], [place] [address] Allergies, Adverse Reactions, Alerts No Known Allergies Problem List Condition Effective Dates Status Health Status Inform ant Underweight(Confirmed) Active Social History Social History Type Response Smoking Status Current every day cathi idal entered on: 05/14/15 Sex
--- OUTSIDE RECORDS SUMMARY | 2023-10-13 06:06 | XMS_ITS | Continuity of Care Document ---
Author Name Unknown Organization [facility] Address [address] [place] [phone]- Care Team Providers Care Heel Curver Name Role Phone Carmine HAND, Rowdy Smith Primary Care Physician Encounter [facility] [place] Date(s): 05/29/20 - 06/28/20 [facility] [address] [place] [address] [facility] Attending Physician: Annmarie Gordon Admitting Physician: Annmarie Gordon Referring Physician: AdmtrAnnmarie Allergies, Adverse Reactions, Alerts Substance Reaction Severity Status NKA Active Medications oxycodone 5 mg oral tablet 2 tablet = 10 mg, By Mouth, Every 6 hours, PRN for pain, # 12 tablet, 0 Refills, Maintenance, 07/03/15 9:35:12, Tablet Start Date: 07/03/15 Status: Ordered oxycodone 5 mg oral tablet 1 tablet = 5 mg, By Mouth, Every 6 hours, PRN Pain , Mild, 0 Refills, Maintenance, 05/15/15 3:00:50 Start Date: 05/15/15 Status: Ordered Readi-Cat 2 oral suspension See Instructions, As per instructions, # 2 bottle, 0 Refills, Maintenance, 05/17/15 15:12:53, As per instructions Start Date: 05/17/15 Status: Ordered Social History Social History Type Response Smoking Status Current every day cathi dial entered on: 05/14/15 Sex
--- OUTSIDE RECORDS SUMMARY | 2023-10-13 06:06 | XMS_ITS | Continuity of Care Document ---
Author Name Unknown Organization [facility] ter Address [address] [place] [id number]- Care Team Providers Care Cardiology Technologist Name Role Phone Carmine HAND, Rowdy Smith Primary Care Physician Encounter [facility] [place] Date(s): 02/12/22 - 02/12/[address] [address]- Discharge Disposition: A-D/C Home Attending Physician: Roby HAND, Venice Chow Admitting Physician: Venice Ca MD Referring Physician: Not on Staff, Referring MD Allergies, Adverse Reactions, Alerts No Known Allergies Medications MorPHINE Inj 2 mg, Injection, IV Push Slowly, Every 5 minutes for 3 doses/times, PRN for Pain , Moderate, and SBP greater than 100, Routine, 02/12/22 10:19:00 EDT, Stop date Limited # of times Start Date: 02/12/22 Stop Date: 02/12/22 Status: Discontinued oxyCODONE 5 mg oral tablet 5 mg, 1, tablet, By Mouth, Daily at bedtime, PRN, # 5 tablet, Refills 0, Tot. Refills 0, Maintenance, Pain , Severe, 02/12/22 13:36:00 EDT, Route to Pharmacy Electronically, [facility] #[id number], Partial fill upon patient request if the [...] 0 Refills, Maintenance, 02/12/22 13:34:00 EDT, Tablet, [facility] #[id number], Partial fill upon patient requestif the prescription is for a schedule II opioid drug. Start Date: 02/12/22 Status: Ordered Vital Signs Most recent to oldest [Reference Range]: 1 2 3 Oxygen Saturation [94-100 %] 99 % (02/12/22 1:00 PM) 100 % (02/12/22 10:00 AM) Pulse Rate [55-90 bpm] 85 bpm (02/12/22 1:00 PM) 90 bpm (02/12/22 10:00 AM) Blood Pressure [90-138/55-84 mm Hg] 133/73mm Hg (02/12/22 1:00 PM) 143/70mm Hg *H* (02/12/22 10:00 AM) Respiratory Rate [16-30 br/min] 20 br/min (02/12/22 1:00 PM) 18 br/min (02/12/22 10:16 AM) 18 br/min (02/12/22 10:00 AM) Temperature [96.8-100.4 DegF] 98.3 DegF (02/12/22 10:00 AM) Mode of Delivery (Oxygen) Room air (02/12/22 1:00 PM) Room air (02/12/22 10:00 AM) Blood pressure sites Arm, left (02/12/22 1:00 PM) Arm, left (02/12/22 10:00 AM) Temperature Route Oral (02/12/22 10:00 AM) Social History Social History Type Response Smoking Status Current every day cathi dial entered on: 05/14/15 Sex
[2023-10-13 06:29] VITALS: BMI 18.0
--- NOTE | 2023-10-13 06:30 | PC.NURSE ---
states has reduced alcohol intake since last hospitalization in May for pancreatitis. now drinks socially.
[2023-10-13] MEDS: Lactated Ringers 1,000 ML 100 ML IVCONT (06:34)
[2023-10-13 06:42] VITALS: BP 123/76; PULSE 69; RESP 18; TEMP 36.6; O2SAT 98
[2023-10-13] MEDS: Albuterol/Iprat 2.5/0.5MG 3 ML AMPUL.NEB INHALE (07:11)
[2023-10-13 07:13] VITALS: PULSE 60; RESP 16; O2SAT 98
--- NOTE | 2023-10-13 07:30 | MHC.SHP ---
Pre-Procedural Eval Section A Date of Service: 10/13/23 Section B Chief Complaint: Abnormal findings on diagnostic imaging of other Details of Present Illness: see H&P no changes Relevant Family History (Specify if Yes): No Relevant Social History: Other (specify) Present Medications: see Short Stay Collaborative assessment Medical History: No relevant PMH History of Previous Operations: No relevant previous surgery Allergies: Allergies Allergy/AdvReac Type Severity Reaction Status Date / Time No Known Allergies Allergy Verified 10/13/23 06:21 Review of Systems Sugical H&P ROS: Negative: Constitution, Cardiovascular, Respiratory, Neurological, Psychiatric, Hem-Onc, Allergic/Immunologic, Gastrointestinal, Genitourinary, Musculoskeletal, Integumentary, Endocrine and Eyes/Ears/Nose/Throat Exam Surgical H&P Exam: Normal: HEENT, Normal: Heart, Normal: Lungs, Normal: Extremities, Normal: Abdomen, Normal: Skin and Normal: Neurological Plan Diagnosis/Plan: Unchanged I have reviewed the history and physical and performed a pertinent physical examination on my patient. No changes have occurred unless specified. Time Spent With Patient Time: Total time managing care of this patient today ____ minutes.
[2023-10-13 08:15] VITALS: BP 114/68; PULSE 84; RESP 18; TEMP 36.3; O2SAT 100
[2023-10-13 08:30] VITALS: BP 123/68; PULSE 69; RESP 16; TEMP 36.3; O2SAT 99
--- NOTE | 2023-10-13 08:50 | OP_ITS ---
DATE OF SERVICE: 10/13/2023 SURGEON: Harsh Bond MD INDICATIONS: 1. Abnormal CT scan and pancreatitis. 2. Colon cancer screening. PREOPERATIVE DIAGNOSIS: POSTOPERATIVE DIAGNOSIS: PROCEDURE PERFORMED: Upper endoscopy with a biopsy, colonoscopy to the terminal ileum with biopsy. ESTIMATED BLOOD LOSS: COMPLICATIONS: ANESTHESIA: Monitored anesthesia care. ASSISTANTS: SPECIMENS: DESCRIPTION OF PROCEDURE: A history and physical performed. The risks and benefits of procedure were explained to the patient. Informed consent was obtained. The patient was placed in left lateral decubitus position. The Olympus video gastroscope was introduced into the esophagus, stomach, and duodenum. Examination was performed. The scope was removed. He was repositioned for colonoscopy. A digital rectal exam was performed and was found to be normal. The Olympus pediatric video colonoscope was introduced into the rectum and advanced to the cecum. The cecum was identified by transillumination, palpation, and identification of ileocecal valve. Examination was performed. The scope was removed. He tolerated both procedures well and was returned to recovery in stable condition. FINDINGS: Upper Endoscopy: 1. Esophagus: The esophagus showed a 3 cm hiatal hernia. There was an irregular EG junction. Biopsies were obtained from the EG junction. 2. Stomach: The stomach showed no evidence of masses, ulcers, or polyps. Antral biopsies were obtained to evaluate for H pylori. 3. Duodenum: The bulb and 2nd portion were normal. Colonoscopy: The terminal ileum was examined and appeared normal. The visualized colonic mucosa was normal. The quality of the prep was good. A single polyp measuring less than 5 mm identified in the proximal transverse colon, removed using a biopsy forceps. No other polyps were identified. Retroflexed examination showed moderate-sized internal hemorrhoids. IMPRESSION: 1. Hiatal hernia. 2. Colon polyp. RECOMMENDATIONS: Follow up the biopsy results. MD DAREN Rutledge/SAVI / [id number]
== END 2023-10-13 09:07 | disposition home or self-care (01) ==
PROVIDERS: PCP Nurse Practitioner Family; Visit Provider Internal Medicine Gastroenterology
PROC: (CPT 43239; principal; 2023-10-13 07:30)
DX: K44.9 Diaphragmatic hernia without obstruction or gangrene (principal); R93.3 Abnormal findings on diagnostic imaging of other parts of digestive tract; K21.9 Gastro-esophageal reflux disease without esophagitis; Z12.11 Encounter for screening for malignant neoplasm of colon; D12.3 Benign neoplasm of transverse colon; C64.2 Malignant neoplasm of left kidney, except renal pelvis; F10.11 Alcohol abuse, in remission; F17.210 Nicotine dependence, cigarettes, uncomplicated; Z79.899 Other long term (current) drug therapy
CPT/HCPCS: 43239; 45380; 88305; 88342; 94640; J2250; J2704

== ENCOUNTER 2024-01-24 04:15 | Emergency (ER) | payer OTHER, SELFPAY ==
--- NOTE | ~2024-01-24 | CT_ITS ---
EXAMINATION: CT ABDOMEN AND PELVIS WITHOUT CONTRAST CLINICAL INFORMATION: Abdominal pain with history of pancreatitis and gallbladder stone COMPARISON: 06/08/2023 TECHNIQUE: Multidetector volumetric imaging was performed from the superior aspect of the liver through the pubic symphysis. Sagittal and coronal reformatted images were obtained on the technologist's workstation. This CT examination was performed using dose optimization techniques as appropriate, variously including the following: *Automated exposure control *Adjustment of mA and/or kV according to patient size (this includes techniques or standardized protocols for targeted exams where dose is matched to indication/reason for exam; i.e. extremities or head) *Use of iterative reconstruction technique DLP: 275 mGy-cm FINDINGS: LUNG BASES: Mild subsegmental atelectasis/scarring at the right base. LIVER, GALLBLADDER, AND BILIARY TREE: The liver is normal in size, shape, and attenuation. No focal hepatic lesion or biliary ductal dilatation is identified on this noncontrast exam. Cholelithiasis is noted. PANCREAS: Suboptimally assessed without intravenous contrast. Stranding is present in the region of the pancreatic head and adjacent thick-walled duodenum. Few scattered pancreatic calcifications noted. SPLEEN: Unremarkable. ADRENAL GLANDS: Unremarkable. KIDNEYS AND URETERS: Status post left nephrectomy. Right kidney appears unremarkable without hydronephrosis or obstructing calculus. BLADDER: Nearly empty and not adequately evaluated. GASTROINTESTINAL TRACT: There is a significantly thick-walled appearance of the pylorus through second portion of the duodenum with surrounding stranding, which may reflect duodenitis or reactive change from adjacent pancreatitis. No evidence of bowel obstruction. No significant colonic wall thickening is seen. The appendix is unremarkable. No free fluid or free air is seen. ABDOMINAL WALL: No significant hernia is appreciated. LYMPH NODES: Normal. VASCULAR: Moderate atherosclerotic calcification. PELVIC VISCERA: Unremarkable. OSSEOUS STRUCTURES: Bilateral L5 pars defects. Multilevel endplate osteophytes in the spine. CT/CT abdomen pelvis wo IV con IMPRESSION: 1. Significantly thick-walled appearance of the pylorus through second portion of the duodenum with surrounding stranding, which may reflect duodenitis or reactive changes from adjacent pancreatitis. Underlying duodenal mass would be difficult to entirely exclude given the extensive wall thickening. 2. Cholelithiasis.
[2024-01-24 04:22] VITALS: BP 130/70; BP 132/80; PULSE 108; PULSE 77; RESP 18; TEMP 36.7; O2SAT 96; O2SAT 97; BMI 18.9
[2024-01-24 04:35] LABS: MANUAL DIFF FLAG NO
[2024-01-24 04:36] LABS: Basophils Absolute Auto 0.1 X10*3/uL (0.0-0.2); Basophils Percent Auto 0.7 % (0-2); Eosinophils Absolute Auto 0.2 X10*3/uL (0.0-0.4); Eosinophils Percent Auto 2.1 % (0-4); Hematocrit 47.6 % (42.0-52.0); Hemoglobin 16.7 g/dl (14.0-18.0); Imm Gran Abs Auto 0.03 X10*3/uL (0.00-0.03); Imm Gran Pct Auto 0.3 % (0.0-0.4); Lymphocytes Percent Auto 20.7 % (20-40); Mean Corpuscular HGB Conc 35.1 g/dl (31.0-36.0); Mean Corpuscular Hemoglobin 33.7 pg (27.0-33.0); Mean Corpuscular Volume 96.2 fL (80.0-98.0); Mean Platelet Volume 9.6 fL (9.4-12.4); Neutrophils Absolute Auto 6.3 x10*3/uL (2.0-8.3); Neutrophils Percent Auto 66.2 % (45-73); Platelet Count 225 X10*3/uL (160-400); Red Blood Count 4.95 X10*6/uL (4.60-5.80); Red Cell Distribution Width 13.1 % (11.0-16.0); White Blood Count 9.5 X10*3/uL (4.8-10.8)
--- NOTE | 2024-01-24 04:49 | ED_ITS ---
HPI - Abdominal Pain General Chief Complaint: Abdominal Pain Stated Complaint: UQ PAIN SINCE 9PM PER EMS Time Seen by Provider: 01/24/24 04:49 Source: patient Mode of arrival: EMS Limitations: no limitations History of Present Illness HPI narrative: Patient history of gallstone and alcoholic pancreatitis noticed pain in the mid abdomen with nausea vomiting for last 3 days did not drink any alcohol for 2 weeks. Last night patient woke up because of increased pain no fever no chills Related Data Home Medications Medication Instructions Recorded Confirmed multivitamin 1 tab PO DAILY 06/08/23 10/08/23 Previous Rx's Medication Instructions Recorded omeprazole 40 mg capsule,delayed 40 mg PO DAILY #30 caps 06/10/23 release oxycodone 5 mg tablet 5 mg PO Q6H PRN Pain, 06/10/23 Moderate(Pain Scale 4-6) #10 tabs oxycodone 5 mg tablet 5 mg PO Q6H PRN pain #20 tabs 01/24/24 pantoprazole 40 mg tablet,delayed 40 mg PO DAILY #90 tabs 01/24/24 release (Protonix) sucralfate 1 gram tablet 1 g PO TID #240 tabs 01/24/24 Allergies Allergy/AdvReac Type Severity Reaction Status Date / Time No Known Allergies Allergy Verified 01/24/24 04:21 Review of Systems Review of Systems Yes all other systems are reviewed and are negative PMFSH Past Medical History Medical History Renal cell carcinoma Alcohol use disorder History of alcohol abuse GERD (gastroesophageal reflux disease) Back pain with right-sided sciatica (10/07/21) Pancreatitis Inguinal hernia Cyst of pancreas Surgical History History of surgery on right wrist Hx of esophagogastroduodenoscopy History of nephrectomy, left Social History Social History Housing: House Alcohol intake: current Alcohol intake frequency: holidays/special occasions only Alcohol type: wine Patient Tobacco Use Status: Current everyday Tobacco user Tobacco use type: Cigarette Cigarette Packs Per Day: 0.5 Cigarettes Per Day: 10.0 Smoked in Last 30 Days: Yes Second Hand Smoke Exposure: No Use of substances other than those prescribed or required for medical reasons: No Advance Directives: No Advance Directives Information Provided: No service: No Current occupational status: employed Current occupation: [employer] Current occupational exposures/hazards: Yes Cognitive needs: No Hearing needs: No Vision needs: No Physical Exam ED Vital Signs: Vital Signs - 24 hr 01/24/24 04:22 Temperature 98.1 F Pulse Rate 77 Respiratory Rate 18 Blood Pressure 132/80 Pulse Oximetry 96 Oxygen Delivery Method Room Air BMI result Body Mass Index 18.9 Appearance: Alert. Oriented X3. No acute distress. Eyes: No pallor or icterus ENT: Pharynx normal. Oral Mucosa moist Neck: Normal inspection. Neck supple. CVS: Normal heart rate and rhythm. Pulses normal. Respiratory: No respiratory distress. Equal air entry bilateral, no wheezing/rales/rhonchi Abdomen: Soft , tenderness mid abdomen with guarding no rebound tenderness Bowel sounds are present, no mass palpable, no CVA tenderness Skin: Skin warm and dry. Normal skin color. Normal skin turgor. Extremities: No lower extremity edema. No calf tenderness Neuro: Oriented X 3. No motor deficit. 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 fluids now will discharge patient home advised not to drink alcohol which he did not drink for last 10 days stop smoking and do not take any NSAID, follow with get GI Differential Diagnosis Differential Diagnoses: The differential diagnosis associated with the presentation includes Gallstone pancreatitis/alcoholic pancreatitis with pseudocyst Admission/Observation Consideration of admission/observation: Escalation of care including admission/observation considered Lab Data [facility] Lab Attestation statement: I reviewed the patient's lab results. 01/24/24 04:30 01/24/24 04:30 Labs: Lab Results 01/24/24 Range/Units 04:30 WBC 9.5 (4.8-10.8) X10*3/uL RBC 4.95 D (4.60-5.80) X10*6/uL Hgb 16.7 D (14.0-18.0) g/dl Hct 47.6 D (42.0-52.0) % MCV 96.2 (80.0-98.0) fL MCH 33.7 H (27.0-33.0) pg MCHC 35.1 (31.0-36.0) g/dl RDW 13.1 (11.0-16.0) % Plt Count 225 D (160-400) X10*3/uL MPV 9.6 (9.4-12.4) fL Immature Gran % (Auto) 0.3 (0.0-0.4) % Neut % (Auto) 66.2 (45-73) % Lymph % (Auto) 20.7 (20-40) % [place] % (Auto) 10.0 (2-11) % Eos % (Auto) 2.1 (0-4) % Baso % (Auto) 0.7 (0-2) % Lymph # (Auto) 2.0 (1.2-4.9) X10*3/uL [place] # (Auto) 1.0 (0.1-1.2) X10*3/uL Eos # (Auto) 0.2 (0.0-0.4) X10*3/uL Baso # (Auto) 0.1 (0.0-0.2) X10*3/uL Abs Immat Gran (auto) 0.03 (0.00-0.03) X10*3/uL Absolute Neuts (auto) 6.3 (2.0-8.3) x10*3/uL Absolute Nucleated RBC 0.000 (0.0-0.012) X10*3/uL Nucleated RBC % (auto) 0.0 (0.0-0.2) /100WBC Sodium 132 L (135-145) mmol/L Potassium 3.9 (3.3-5.1) mmol/L Chloride 88 L (96-108) mmol/L Carbon Dioxide 31 H (22-29) mmol/L Anion Gap 17 (12-20) BUN 29 H (9-16) mg/dL Creatinine 1.54 H (0.5-1.4) mg/dL Estim Creat Clear Calc 37.7 Estimated GFR 46 Random Glucose 157 H (60-115) mg/dL Calcium 9.8 D (8.4-10.2) mg/dL Total Bilirubin 1.1 H (0.0-1.0) mg/dL Direct Bilirubin 0.2 (0.0-0.5) mg/dL AST 33 (5-37) U/L ALT 24 (0-40) U/L Alkaline Phosphatase 78 (39-117) U/L Total Protein 8.2 H (6.5-8.0) g/dL Albumin 4.2 (3.5-5.0) g/dL Lipase 141 H (8-78) U/L Independent Interpretation I performed an independent interpretation of an: CT Scan Radiology Impression Discussion of test interpretation with radiology: I have reviewed the radiologist's reading. Medications Administered Generic Name Dose Route Start Last Admin Trade Name Freq PRN Reason Stop Dose Admin Sodium Chloride 1,000 mls @ 999 mls/hr 01/24/24 07:02 01/24/24 07:41 Ns IV 01/24/24 08:02 999 mls/hr .Q1H1M ONE Administration Discontinued Medications Generic Name Dose Route Start Last Admin Trade Name Freq PRN Reason Stop Dose Admin Sodium Chloride 1,000 mls @ 999 mls/hr 01/24/24 04:57 01/24/24 06:54 Ns IV 01/24/24 05:57 Infused .Q1H1M ONE Infusion Morphine Sulfate 4 mg 01/24/24 04:57 01/24/24 05:14 Morphine Sulfate 4 Mg/Ml Cartridge IVPUSH 01/24/24 04:58 4 mg ONCE ONE Administration Protocol Ondansetron HCl 4 mg 01/24/24 04:57 01/24/24 05:13 Ondansetron Hcl 4 Mg/2 Ml Vial IVPUSH 01/24/24 04:58 4 mg ONCE ONE Administration Pantoprazole Sodium 80 mg 01/24/24 07:02 01/24/24 07:41 Pantoprazole Sodium 40 Mg/10 Ml Vial IVPUSH 01/24/24 07:03 80 mg ONCE ONE Administration Discharge Plan Discharge Clinical Impression: Acute duodenitis, Pancreatitis Patient Disposition: Home, Self-Care Instructions: Pancreatitis (ED), Duodenitis (ED) Additional Instructions: Stop smoking and stop drinking Start taking Protonix as prescribed along with sucralfate Clear liquids advanced slowly as tolerated Report to the ER if pain gets worse Prescriptions: New pantoprazole [Protonix] 40 mg tablet,delayed release (DR/EC) 40 mg PO DAILY Qty: 90 0RF sucralfate 1 gram tablet 1 g PO TID Qty: 240 0RF oxycodone 5 mg tablet 5 mg PO Q6H PRN (Reason: pain) Qty: 20 0RF Rx Instructions: Partial Fill upon patient request. No Action multivitamin Tablet 1 tab PO DAILY omeprazole 40 mg capsule,delayed release(DR/EC) 40 mg PO DAILY Qty: 30 1RF oxycodone 5 mg Tablet 5 mg PO Q6H PRN (Reason: Pain, Moderate(Pain Scale 4-6)) Qty: 10 0RF Rx Instructions: Partial Fill upon patient request.
[2024-01-24 04:55] LABS: Alanine Aminotransferase 24 U/L (0-40); Albumin Level 4.2 g/dL (3.5-5.0); Alkaline Phosphatase 78 U/L (39-117); Anion Gap 17 (12-20); Aspartate Amino Transferase 33 U/L (5-37); Bilirubin Direct 0.2 mg/dL (0.0-0.5); Bilirubin Total 1.1 mg/dL (0.0-1.0); Blood Urea Nitrogen 29 mg/dL (9-16); Calcium 9.8 mg/dL (8.4-10.2); Carbon Dioxide 31 mmol/L (22-29); Chloride 88 mmol/L (96-108); Creatinine Clr Calc Pharmacy 37.7; Estimated Glomerular Filt Rate 46; Glucose Random 157 mg/dL (60-115); Lipase 141 U/L (8-78); Potassium 3.9 mmol/L (3.3-5.1); Sodium 132 mmol/L (135-145); Total Protein 8.2 g/dL (6.5-8.0)
[2024-01-24] MEDS: 0.9 % Sodium Chloride 1,000 ML 999 ML IV ×2 (05:12→07:41)
[2024-01-24] MEDS: ondansetron HCL 4 MG/2 ML VIAL IVPUSH (05:13)
[2024-01-24] MEDS: Morphine Sulfate 4 MG/ML CARTRIDGE IVPUSH (05:14)
[2024-01-24] MEDS: Pantoprazole Sodium 40 MG/10 ML VIAL 80 MG IVPUSH (07:41)
[2024-01-24 08:57] VITALS: BP 116/63; PULSE 61; RESP 16; O2SAT 97
== END 2024-01-24 08:59 | disposition home or self-care (01) ==
PROVIDERS: Emergency Provider Internal Medicine; PCP Nurse Practitioner Family
DX: K29.80 Duodenitis without bleeding (principal); K85.90 Acute pancreatitis without necrosis or infection, unspecified; R10.84 Generalized abdominal pain; R11.2 Nausea with vomiting, unspecified; Z79.899 Other long term (current) drug therapy
CPT/HCPCS: 36415; 74176; 80048; 80076; 83690; 85025; 96361; 96374; 96375; 99284; C9113; J2270; J2405

== ENCOUNTER 2024-02-01 14:47 | Outpatient (AMB) | payer OTHER, SELFPAY ==
[2024-02-01 14:51] VITALS: BP 120/80; PULSE 82; O2SAT 98; BMI 18.7
--- NOTE | 2024-02-01 14:51 | MHC.PC.OV ---
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 Accompanied by: Self / Same As Patient Allergies No Known Allergies Allergy (Verified 02/01/24 15:11) Medication List - Last Reconciled 02/01/24 by NEDA Cook multivitamin 1 tab PO DAILY oxycodone 5 mg PO Q6H PRN pantoprazole (Protonix) 40 mg PO DAILY sucralfate 1 g PO TID Tobacco use date assessed: 02/01/24 Dental Screening Dental Screen Date: 02/01/24 Did you have a dental visit in the last 12 months?: Yes Did you have a dental problem in the last 6 months where you did not have access to dental care?: No Was dental information given to patient?: Patient has dentist HPI 6 month fu HPI Details Pt is following up with GI next month due to pancreatitis and duodenitis. He reports doing well and is tolerating a diet. Pt is currently taking pantoprazole which is helping. He reports very minimal abdominal pain. Denies fever, chills, and N/V/D. Pt knows to go to the ER with any worsening symptoms. [facility] Medical History Renal cell carcinoma Alcohol use disorder History of alcohol abuse GERD (gastroesophageal reflux disease) Back pain with right-sided sciatica (10/07/21) Pancreatitis Inguinal hernia Cyst of pancreas Surgical History History of surgery on right wrist Hx of esophagogastroduodenoscopy History of nephrectomy, left Social History Housing: House Alcohol intake: current Alcohol intake frequency: holidays/special occasions only Alcohol type: wine Patient Tobacco Use Status: Current everyday Tobacco user Tobacco use type: Cigarette Cigarette Packs Per Day: 0.5 Cigarettes Per Day: 10.0 Second Hand Smoke Exposure: No service: No Current occupational status: employed Current occupation: [employer] Current occupational exposures/hazards: Yes Cognitive needs: No Hearing needs: No Vision needs: No Questionnaire PHQ-9 Over the last 2 weeks, how often have you been bothered by any of the following problems? 1. Little interest or pleasure in doing things: not at all 2. Feeling down, depressed, or hopeless: not at all 3. Trouble falling or staying asleep, or sleeping too much: not at all 4. Feeling tired or having little energy: not at all 5. Poor appetite or overeating: not at all 6. Feeling bad about yourself - or that you are a failure or have let yourself or your family down: not at all 7. Trouble concentrating on things, such as reading the newspaper or watching television: not at all 8. Moving or speaking so slowly that other people could have noticed. Or the opposite - being so fidgety or restless that you have been moving around a lot more than usual: not at all 9. Thoughts that you would be better off or of hurting yourself in some way: not at all Total score: 0 Depression Screening Interpretation: Negative Depression Screening Done: Yes 92031 - PHQ-9 Billing: Yes Source: Developed by Drs. Mahendra Paulino, Dian Jin, Jesus Mock and colleagues, with an educational oksana from [employer]. Thrive Questionnaire Date Thrive assessed: 02/01/24 I am a: Patient What is your living situation today?: I have a steady place to live Within the past 12 months, did the food you bought not last and you didn't have the money to get more?: Never true Within the past 12 months, did you worry whether your food would run out before you got money to buy more?: Never true Do you have trouble paying for medicines?: No Do you have trouble getting transportation to medical appointments?: No Do you have trouble paying your heating and electricity bill?: No Do you have trouble taking care of your child, family member or friend?: No Do you have trouble with day-to-day activities such as bathing, preparing meals, shopping, managing finances, etc.?: No Are you currently unemployed and looking for a job?: No Are you interested in more education?: No Please select the resources that you would like help with: None Currently or been in a relationship where the following occur: no concerns reported THRIVE Score: 0 AUDIT C Alcohol Use Questionnaire (AUDIT-C) 1. How often do you have a drink containing alcohol?: 2-4 times a month 2. How many drinks containing alcohol do you have on a typical day when you are drinking?: 1 or 2 3. How often do you have six or more drinks on one occasion?: Monthly Total Score: 4 Score Reviewed/Action Taken: Yes CLAIRE-7 AMB Questionnaire CLAIRE-7 Date CLAIRE - 7 assessed: 02/01/24 Feeling nervous, anxious, or on edge: 0 = Not at all Not being able to stop or control worryin = Not at all Worrying too much about different things: 0 = Not at all Trouble relaxin = Not at all Being so restless that it is hard to sit still: 0 = Not at all Becoming easily annoyed or irritable: 0 = Not at all Feeling afraid as if something awful might happen: 0 = Not at all Total CLAIRE-7 score (0-4 normal; 5-9 mild; 10-14 moderate; 15-21 severe): 0 Source: Developed by Drs. Mahendra Paulino, Dian Jin, Jesus Mock and colleagues, with an educational oksana from [employer]. CLAIRE-7 Assessment Billing CLAIRE-7 Assessment Tool: CLAIRE-7 Assessment 10104 Review of Systems Const Reports as per HPI Physical exam (Primary Care) Vital Signs: Last Vital Signs Pulse 82 02/01/24 14:51 BP 120/80 02/01/24 14:51 Pulse Ox 98 02/01/24 14:51 Oxygen Delivery Method Room Air 02/01/24 14:51 BMI result Body Mass Index 18.7 Tobacco/Smoking Status: Tobacco use Status Tobacco use date assessed 02/01/24 02/01/24 14:52 Patient Tobacco Use Status Current everyday Tobacco 02/01/24 14:52 Tobacco use type Cigarette 02/01/24 14:52 PHQ-9: PHQ-9 Score PHQ-9: Total score 0 02/01/24 15:19 Depression Screening Interpretation: Negative Thrive Assessment: Date of Thrive Assessment Date Thrive assessed 02/01/24 02/01/24 14:52 Currently or been in a relationship where the following occur: no concerns reported Const General: cooperative Orientation/consciousness: patient oriented x3 Resp Effort & Inspection: normal respiratory effort Auscultation: clear to auscultation bilaterally and diminished lung sounds Cardio Rate: regular rate Rhythm: regular rhythm Heart sounds: S1 normal heart sound present and S2 normal heart sound present GI Palpation (GI): nontender Neuro General: patient oriented x3 Psych Appearance: grossly normal Mental Status: mental status grossly normal Speech and movement: Normal speech and movement present Affect: normal affect Attitude: cooperative Thought process: Normal thought process present Thought content: Normal thought content present Insight: Good insight present (Psych) Judgement: Good judgement present (Psych) Assessment and Plan Assessment & Plan (1) Duodenitis: Code(s): K29.80 - Duodenitis without bleeding Plan: continue to eat bland, ER with any worsening symptoms, follow up with GI Plan The patient agreed to the use of a administrative medical director for this encounter. Scribed for NEDA Javed by Anh Vega administrative medical director, on 02/01/2024 at 15:15 EST. Coding Level of Care Code Est Pt Level 3 (12532) Diagnoses Duodenitis K29.80 Additional Codes CLAIRE-7 Assessment Billing - CLAIRE-7 Assessment Tool: CLAIRE-7 Assessment 64245 ([id number])
== END 2024-02-01 15:23 | disposition home or self-care (01) ==
PROVIDERS: PCP Nurse Practitioner Family; Visit Provider Nurse Practitioner Family
DX: K29.80 Duodenitis without bleeding (principal)
CPT/HCPCS: 99213

== ENCOUNTER 2024-02-18 11:24 | Emergency (ER) | payer OTHER, SELFPAY ==
--- NOTE | ~2024-02-18 | CT_ITS ---
EXAMINATION: CT ABDOMEN AND PELVIS WITH CONTRAST CLINICAL INFORMATION: Abdominal pain. History of alcoholic pancreatitis. COMPARISON: CT brain 01/24/2024 TECHNIQUE: Multidetector volumetric images were obtained from the superior aspect of the liver through the pubic symphysis following administration 85 mL of Omnipaque 350 intravenous contrast. Sagittal and coronal reformatted images were obtained on the technologist's workstation. Oral contrast: No This CT examination was performed using dose optimization techniques as appropriate, variously including the following: *Automated exposure control *Adjustment of mA and/or kV according to patient size (this includes techniques or standardized protocols for targeted exams where dose is matched to indication/reason for exam; i.e. extremities or head) *Use of iterative reconstruction technique DLP: 262 mGy-cm FINDINGS: LUNG BASES: There is bibasilar dependent atelectasis. Heart size is normal. LIVER, GALLBLADDER, AND BILIARY TREE: The liver is normal in size, shape, and attenuation. No focal hepatic lesion or biliary ductal dilatation is present. The gallbladder is distended with 7 mm radiopaque calculi dependent segment of gallbladder. There is mild gallbladder wall thickening and mild malcolm gallbladder wall haziness. CBD is dilated measuring 7 mm on axial 16/3. PANCREAS: There is mild fat stranding around the head of the pancreas. There is normal size and density of body and the tail of the pancreas. SPLEEN: Unremarkable. ADRENAL GLANDS: Unremarkable. KIDNEYS AND URETERS: The left kidney has been removed. The right kidney appears unremarkable. BLADDER: The urinary bladder is mildly distended but no wall thickening or radiopaque calculi.. GASTROINTESTINAL TRACT: Again visualized is diffuse mural thickening of pylorus and the first and second segment of the duodenum with fat stranding surrounding the duodenum which could be secondary to duodenitis or adjacent pancreatitis. The fat stranding is more around the C-loop and extends into the right infrahepatic space. The size of mural thickening has improved from early exam 01/24/2024. No free air seen. The rest of the small bowel loops are normal caliber. Scattered stool is seen in colon most prominent in the right colon. Appendix is not visualized. ABDOMINAL WALL: No significant hernia is appreciated. LYMPH NODES: No abnormal size retroperitoneal or mesenteric lymph nodes seen. VASCULAR: Mild atherosclerotic calcified plaque without aneurysmal dilatation. PELVIC VISCERA: No free air or free fluid. OSSEOUS STRUCTURES: No aggressive lytic or sclerotic process seen. There is mild ventral spondylosis upper lumbar spine. CT/CT abdomen pelvis w IV con IMPRESSION: Persistent mural thickening involving the pylorus and the first and second oval segments with significant fat stranding surrounding the duodenum more than the head of the pancreas. Findings strongly suspicious for duodenitis or duodenal ulcer. Recommend endoscopy. The mural thickness involving the duodenal has improved. Mild fat stranding around the head of the pancreas is stable. The fat stranding extends around the gallbladder and the right paracolic gutter which has increased. Cholelithiasis with a dilated gallbladder Fleischner guidelines were followed.
[2024-02-18 11:28] VITALS: BP 124/88; PULSE 120; O2SAT 98
[2024-02-18 11:30] VITALS: BP 114/79; PULSE 101; RESP 18; TEMP 37.1; O2SAT 97; BMI 17.2
--- NOTE | 2024-02-18 11:42 | ED_ITS ---
HPI - Abdominal Pain General Chief Complaint: Abdominal Pain Stated Complaint: ABD PAIN LOWER BACK PAIN Time Seen by Provider: 02/18/24 11:33 Source: patient and EMS Mode of arrival: EMS Limitations: no limitations History of Present Illness HPI narrative: 63 year old male with history of gallstone and alcoholic pancreatitis presents today for evaluation of mid abdominal pain radiating to the back for 5 days. He reports that the pain is very similar to occurrence of duodenitis on 01/24/2024. he reports that the pain returned on Thursday but subsided for a couple days and returned again yesterday. He reports that the pain was so severe that he took an oxycodone that was leftover from earlier this month. Per patient has history of renal cell carcinoma, nephrectomy of left kidney two [place] ago. History of pancreatic pseudocysts. Nausea and dry heaving but not fully vomiting. No chest pain, but reports shortness of breath. Reports last alcoholic drink to be over 2 months ago. MD elicited complaint: abdominal pain Pertinent past history: other (gallstones, alcoholic pancreatitis, left nephrectomy s/p renal cell carcinoma) Onset (ago): day(s) (5 days) Pain Consistency: constant Location: other (central/mid abdomenal pain) Severity: severe Pain scale (0-10): 7 Quality: stabbing and aching Radiation: back Associated symptoms: denies other symptoms Treatments prior to arrival: prescription analgesics (took oxycodone yesterday) Related Data Home Medications Medication Instructions Recorded Confirmed multivitamin 1 tab PO DAILY 06/08/23 02/01/24 Previous Rx's Medication Instructions Recorded oxycodone 5 mg tablet 5 mg PO Q6H PRN pain #20 tabs 01/24/24 pantoprazole 40 mg tablet,delayed 40 mg PO DAILY #90 tabs 01/24/24 release (Protonix) sucralfate 1 gram tablet 1 g PO TID #240 tabs 01/24/24 oxycodone 5 mg tablet 5 mg PO Q6H PRN severe pain (scale 02/18/24 score 7-10) #20 tabs Allergies Allergy/AdvReac Type Severity Reaction Status Date / Time No Known Allergies Allergy Verified 02/01/24 15:11 Review of Systems Review of Systems Yes all other systems are reviewed and are negative PMFSH Past Medical History Medical History Renal cell carcinoma Alcohol use disorder History of alcohol abuse GERD (gastroesophageal reflux disease) Back pain with right-sided sciatica (10/07/21) Pancreatitis Inguinal hernia Cyst of pancreas Surgical History History of surgery on right wrist Hx of esophagogastroduodenoscopy History of nephrectomy, left Social History Social History Housing: House Alcohol intake: former Patient Tobacco Use Status: Current everyday Tobacco user Tobacco use type: Cigarette Cigarette Packs Per Day: 0.5 Cigarettes Per Day: 10.0 Smoked in Last 30 Days: Yes Second Hand Smoke Exposure: No Use of substances other than those prescribed or required for medical reasons: No Advance Directives: No Advance Directives Information Provided: Yes service: No Current occupational status: employed Current occupation: [employer] Current occupational exposures/hazards: Yes Cognitive needs: No Hearing needs: No Vision needs: No Physical Exam ED Vital Signs: Vital Signs - 24 hr 02/18/24 11:30 02/18/24 14:18 Temperature 98.7 F 98.9 F Pulse Rate 101 H 76 Respiratory Rate 18 18 Blood Pressure 114/79 135/79 Pulse Oximetry 97 98 Oxygen Delivery Method Room Air Room Air BMI result Body Mass Index 17.2 Const General: cooperative, alert and awake Nutritional Appearance: thin and underweight Orientation/consciousness: patient oriented x3 HENMT Head: Yes normal to inspection Eyes General: appearance normal, both eyes and all related structures Conjunctivae: conjunctivae normal Neck Neck: Yes normal visual inspection Chest Chest palpation & inspection: other (xiphoid process easily visualized with upper abdominal wall pulsations) Resp Effort & Inspection: normal respiratory effort and able to speak in complete sentences Auscultation: clear to auscultation bilaterally Cardio Jugular venous distension: no JVD Rate: regular rate and tachycardic Heart sounds: S1 normal heart sound present and S2 normal heart sound present GI Inspection: Yes visible pulsation (upper abdominal, below xiphoid process) Palpation (GI): Tenderness to palpation present (GI) and Guarding due to palpation present (GI) Percussion: Yes normal to percussion Auscultation: normal bowel sounds Abdomen image: 2 1. Neuro General: patient oriented x3 Procedures EJ/Peripheral Line Arm L: Time Out Performed: No Skin Cleansed in Sterile Fashion: Yes Size (gauge): 20 IV Secured and Dressing Applied: Yes Patient Tolerated Procedure: well Course Reevaluation(s) Reevaluation #1: Patient required 2 doses of morphine for ongoing abdominal pain. CT scan performed. Awaiting CT scan results Time: 16:01 Reevaluation #2: signed out to Silvano MERINO who will f/u CT scan results and determine disposition Reevaluation #3: Patient's CT scan shows findings concerning for duodenitis versus duodenal ulcer. I reviewed his most recent endoscopies 10/13/2023 which showed normal duodenum. I ordered pantoprazole 40 mg IV, GI cocktail to treat the patient's symptoms. I reached out to covering advertising display rotator, Dr. Arroyo to determine if the patient should be admitted for more urgent endoscopy. He is currently hemodynamically stable Additional Reevaluation(s): 1832. Discussed with GI, Dr. Arroyo who feels the patient is stable for discharge, she will reach out to Dr. Bond office to attempt to expedite his follow-up appointment. He may continue his pantoprazole, sucralfate and I will prescribe him a short course of oxycodone. He was also encouraged to use magic mouthwash. Medical Decision Making Medical Decision Making MDM Narrative: Mahendra is a 63 year old male with history of gallstones, alcoholic pancreatitis, s/p left nephrectomy (2021) due to renal cell carcinoma, and duodenitis on 01/23 presents today for evaluation of recurrent abdominal pain. Patient reports that when he initally was discharged the pain subsided, but on Wednesday 02/14, the pain returned. The pain is located mid abdominally, persistent and radiating to the back. He reports the pain as stabbing in nature and 7/10. On physical exam, he has rigidity and guarding of the mid abdomen. High clinical suspicion for return of pancreatitis. Ordered labs to evaluate renal status in consideration for CT. Creatiine WNL today, ordered CT abdomen pelvis with IV contrast to evaluate for changes or obstruction Differential Diagnosis Differential Diagnoses: The differential diagnosis associated with the presentation includes pancreatitis, cholelithiasis, choldocholithaisis, cholangitis, abdominal aortic aneurysm Admission/Observation Consideration of admission/observation: Escalation of care including admission/observation considered Lab Data MDM Lab Attestation statement: I reviewed the patient's lab results. Mild leukocytosis, elevated lipase 02/18/24 12:03 02/18/24 13:33 Labs: Lab Results 02/18/24 02/18/24 Range/Units 12:03 13:33 WBC 12.0 H (4.8-10.8) X10*3/uL RBC 5.06 (4.60-5.80) X10*6/uL Hgb 17.1 (14.0-18.0) g/dl Hct 48.7 (42.0-52.0) % MCV 96.2 (80.0-98.0) fL MCH 33.8 H (27.0-33.0) pg MCHC 35.1 (31.0-36.0) g/dl RDW 13.1 (11.0-16.0) % Plt Count 228 (160-400) X10*3/uL MPV 10.0 (9.4-12.4) fL Immature Gran % (Auto) 0.4 (0.0-0.4) % Neut % (Auto) 82.7 H (45-73) % Lymph % (Auto) 7.8 L (20-40) % [place] % (Auto) 8.4 (2-11) % Eos % (Auto) 0.2 (0-4) % Baso % (Auto) 0.5 (0-2) % Lymph # (Auto) 0.9 L (1.2-4.9) X10*3/uL [place] # (Auto) 1.0 (0.1-1.2) X10*3/uL Eos # (Auto) 0.0 (0.0-0.4) X10*3/uL Baso # (Auto) 0.1 (0.0-0.2) X10*3/uL Abs Immat Gran (auto) 0.05 H (0.00-0.03) X10*3/uL Absolute Neuts (auto) 9.9 H (2.0-8.3) x10*3/uL Absolute Nucleated RBC 0.000 (0.0-0.012) X10*3/uL Nucleated RBC % (auto) 0.0 (0.0-0.2) /100WBC Sodium 137 (135-145) mmol/L Potassium 4.5 (3.3-5.1) mmol/L Chloride 104 (96-108) mmol/L Carbon Dioxide 26 (22-29) mmol/L Anion Gap 12 (12-20) BUN 12 (9-16) mg/dL Creatinine 0.97 (0.5-1.4) mg/dL Estim Creat Clear Calc 56.2 Estimated GFR > 60 Random Glucose 136 H (60-115) mg/dL Calcium 8.3 L D (8.4-10.2) mg/dL Total Bilirubin 1.3 H (0.0-1.0) mg/dL Direct Bilirubin 0.5 (0.0-0.5) mg/dL AST 25 (5-37) U/L ALT 12 (0-40) U/L Alkaline Phosphatase 90 (39-117) U/L Total Protein 6.4 L (6.5-8.0) g/dL Albumin 3.2 L (3.5-5.0) g/dL Lipase 198 H (8-78) U/L Ethyl Alcohol < 10 mg/dL Independent Historian Clinical information obtained from an independent historian. History obtained from or confirmed by: EMS External Record Review External record reviewed: Inpatient record, Outpatient record, Prior outpatient labs and Prior outpatient radiology Prescription Management I considered prescription management with: Pain Medication and Antibiotic Chronic Conditions Patient?s care impacted by: Other (Alcohol abuse) Social Determinants Patient?s care significantly limited by Social Determinants of Health including: Other Social Determinant of Health Medications Administered Discontinued Medications Generic Name Dose Route Start Last Admin Trade Name Freq PRN Reason Stop Dose Admin Al Hydroxide/Mg Hydroxide 30 ml 02/18/24 17:56 02/18/24 18:05 Magnesium Hydrox/Alum Hydrox 30 Ml Oral.Susp PO 02/18/24 17:57 30 ml ONCE ONE Administration Sodium Chloride 1,000 mls @ 999 mls/hr 02/18/24 12:15 02/18/24 16:11 Ns IV 02/18/24 13:15 Infused .Q1H1M JUANA Infusion Iohexol 100 ml 02/18/24 15:42 02/18/24 15:43 Iohexol 350 Mg/Ml 100 Ml Infus..Btl IV 02/18/24 15:43 85 ml ONCE ONE Administration Lidocaine HCl 15 ml 02/18/24 17:56 02/18/24 18:05 Lidocaine Hcl Viscous 2 % 15 Ml Solution MUCOUS MEM 02/18/24 17:57 15 ml ONCE ONE Administration Morphine Sulfate 4 mg 02/18/24 12:04 02/18/24 12:28 Morphine Sulfate 4 Mg/Ml Cartridge IVPUSH 02/18/24 12:05 4 mg ONCE ONE Administration Protocol Morphine Sulfate 4 mg 02/18/24 14:45 02/18/24 16:11 Morphine Sulfate 4 Mg/Ml Cartridge IVPUSH 02/18/24 14:46 4 mg ONCE ONE Administration Protocol Ondansetron HCl 4 mg 02/18/24 12:04 02/18/24 12:28 Ondansetron Hcl 4 Mg/2 Ml Vial IVPUSH 02/18/24 12:05 4 mg ONCE ONE Administration Ondansetron HCl 4 mg 02/18/24 17:56 02/18/24 18:05 Ondansetron Hcl 4 Mg/2 Ml Vial IVPUSH 02/18/24 17:57 4 mg ONCE ONE Administration Critical Care Time Critical Care Time Critical Care Time: Yes Total Critical Care Time: 38 Attestation: I have personally provided critical care time exclusive of time spent on separately billable procedures. Time includes review of lab data, radiology results, discussion with consultants, and monitoring for potential decompensation. Intervention performed as documented. Discharge Plan Discharge Clinical Impression: Abdominal pain, Pancreatitis, Duodenitis Patient Disposition: Home, Self-Care Instructions: Diet for Stomach Ulcers and Gastritis (ED), Duodenitis (ED) Additional Instructions: Continue your medications as prescribed including the Protonix/pantoprazole and sucralfate. Take Tylenol as needed for pain. Use oxycodone for more severe breakthrough pain This may make you sleepy, did not drink alcohol or drive after taking it Avoid alcohol and ibuprofen Follow-up with GI, call Dr. Bond office tomorrow morning Prescriptions: New oxycodone 5 mg tablet 5 mg PO Q6H PRN (Reason: severe pain (scale score 7-10)) Qty: 20 0RF Rx Instructions: Partial Fill upon patient request. No Action multivitamin Tablet 1 tab PO DAILY pantoprazole [Protonix] 40 mg tablet,delayed release (DR/EC) 40 mg PO DAILY Qty: 90 0RF sucralfate 1 gram tablet 1 g PO TID Qty: 240 0RF oxycodone 5 mg tablet 5 mg PO Q6H PRN (Reason: pain) Qty: 20 0RF Rx Instructions: Partial Fill upon patient request. Referrals: Harsh Bond MD [Physician] - (Duodenitis, recommend endoscopy)
--- NOTE | 2024-02-18 11:45 | ECG_ITS ---
Test Reason : OMORUNA Blood Pressure : / mmHG Vent. Rate : 094 BPM Atrial Rate : 094 BPM P-R Int : 146 ms QRS Dur : 082 ms QT Int : 342 ms P-R-T Axes : 068 093 080 degrees QTc Int : 427 ms Normal sinus rhythm Possible Left atrial enlargement Rightward axis Nonspecific ST and T wave abnormality Abnormal ECG No previous ECGs available Referred By: Evette Nur Electronically Signed By:Fabián Ojeda
[2024-02-18 12:05] LABS: MANUAL DIFF FLAG NO
[2024-02-18 12:07] LABS: Basophils Absolute Auto 0.1 X10*3/uL (0.0-0.2); Basophils Percent Auto 0.5 % (0-2); Eosinophils Percent Auto 0.2 % (0-4); Hematocrit 48.7 % (42.0-52.0); Hemoglobin 17.1 g/dl (14.0-18.0); Imm Gran Abs Auto 0.05 X10*3/uL (0.00-0.03); Imm Gran Pct Auto 0.4 % (0.0-0.4); Lymphocytes Absolute Auto 0.9 X10*3/uL (1.2-4.9); Lymphocytes Percent Auto 7.8 % (20-40); Mean Corpuscular HGB Conc 35.1 g/dl (31.0-36.0); Mean Corpuscular Hemoglobin 33.8 pg (27.0-33.0); Mean Corpuscular Volume 96.2 fL (80.0-98.0); Monocytes Percent Auto 8.4 % (2-11); Neutrophils Absolute Auto 9.9 x10*3/uL (2.0-8.3); Neutrophils Percent Auto 82.7 % (45-73); Platelet Count 228 X10*3/uL (160-400); Red Blood Count 5.06 X10*6/uL (4.60-5.80); Red Cell Distribution Width 13.1 % (11.0-16.0)
[2024-02-18] MEDS: Morphine Sulfate 4 MG/ML CARTRIDGE IVPUSH ×2 (12:28→16:11)
[2024-02-18] MEDS: ondansetron HCL 4 MG/2 ML VIAL IVPUSH ×2 (12:28→18:05)
[2024-02-18] MEDS: 0.9 % Sodium Chloride 1,000 ML 999 ML IV (12:28)
[2024-02-18 13:59] LABS: Alanine Aminotransferase 12 U/L (0-40); Albumin Level 3.2 g/dL (3.5-5.0); Alkaline Phosphatase 90 U/L (39-117); Anion Gap 12 (12-20); Aspartate Amino Transferase 25 U/L (5-37); Bilirubin Direct 0.5 mg/dL (0.0-0.5); Bilirubin Total 1.3 mg/dL (0.0-1.0); Blood Urea Nitrogen 12 mg/dL (9-16); Calcium 8.3 mg/dL (8.4-10.2); Carbon Dioxide 26 mmol/L (22-29); Chloride 104 mmol/L (96-108); Creatinine Clr Calc Pharmacy 56.2; Estimated Glomerular Filt Rate > 60; Ethanol < 10 mg/dL; Glucose Random 136 mg/dL (60-115); Lipase 198 U/L (8-78); Potassium 4.5 mmol/L (3.3-5.1); Sodium 137 mmol/L (135-145); Total Protein 6.4 g/dL (6.5-8.0)
[2024-02-18 14:18] VITALS: BP 135/79; PULSE 76; RESP 18; TEMP 37.2; O2SAT 98
[2024-02-18] MEDS: iohexoL 350 MG/ML 100 ML INFUS..BTL IV (15:43)
[2024-02-18] MEDS: Lidocaine HCl Viscous 2 % 15 ML SOLUTION MUCOUS MEM (18:05)
[2024-02-18] MEDS: Magnesium Hydrox/Alum Hydrox 30 ML ORAL.SUSP PO (18:05)
[2024-02-18 18:33] VITALS: BP 124/68; PULSE 78; RESP 18; TEMP 37.1; O2SAT 98
[2024-02-18] MEDS: Pantoprazole Sodium 40 MG/10 ML VIAL IVPUSH (18:33)
== END 2024-02-18 19:10 | disposition home or self-care (01) ==
PROVIDERS: Physician Assistant; Emergency Provider Emergency Medicine; PCP Nurse Practitioner Family
DX: K85.90 Acute pancreatitis without necrosis or infection, unspecified (principal); K29.80 Duodenitis without bleeding; R10.9 Unspecified abdominal pain; F10.10 Alcohol abuse, uncomplicated; Z85.528 Personal history of other malignant neoplasm of kidney; Z90.5 Acquired absence of kidney
CPT/HCPCS: 36410; 36415; 74177; 80048; 80076; 80307; 83690; 85025; 93005; 96361; 96374; 96375; 96376; 99285; C9113; J2270; J2405; Q9967

== ENCOUNTER → 2024-02-18 11:45 | Outpatient (BNV) | payer OTHER, SELFPAY | PROVIDERS: Emergency Provider Emergency Medicine; PCP Nurse Practitioner Family; Visit Provider Internal Medicine Cardiovascular Disease | DX: R10.9 Unspecified abdominal pain (principal) | CPT/HCPCS: 93010 ==

== ENCOUNTER 2024-03-02 09:24 | Emergency (ER) | payer OTHER, SELFPAY ==
[2024-03-02 09:34] VITALS: BP 134/84; PULSE 109; O2SAT 100
[2024-03-02 09:38] VITALS: BP 130/80; PULSE 100; RESP 18; TEMP 37; O2SAT 100; BMI 22.9
--- NOTE | 2024-03-02 10:15 | ED_ITS ---
HPI - Abdominal Pain General Chief Complaint: Abdominal Pain Stated Complaint: ABD PAIN SINCE T-1 PER EMS Time Seen by Provider: 03/02/24 10:14 Source: patient Mode of arrival: ambulatory Limitations: no limitations History of Present Illness HPI narrative: Patient is a 63-year-old male with history of gallstones, alcoholic pancreatitis, renal cell carcinoma, GERD, recently diagnosed duodenitis presenting to the emergency department with complaint ongoing abdominal pain. He was seen in this ER on 02/17 and given a prescription for oxycodone which was a 5 day supply. Patient reports that he has been taking this medication only once in the morning and it is lasted up until a few days ago but that he has since run out. Missed work yesterday and today due to pain. Contacted his PCP who was unwilling to prescribe more oxycodone. States he called Gastroenterology who also declined to prescribe more oxycodone. Patient has an appointment with GI for follow-up on 03/21. He reports 1 episode of vomiting this morning which he describes as nonbilious, nonbloody. Denies any hematochezia or melena. Denies fevers. MD elicited complaint: abdominal pain Pertinent past history: other Onset (ago): week(s) Pain Consistency: colicky Location: diffuse Severity: severe Quality: aching Radiation: R flank Associated symptoms: vomiting Treatments prior to arrival: other Related Data Home Medications ?Medication ?Instructions ?Recorded ?Confirmed multivitamin 1 tab PO DAILY 06/08/23 02/01/24 Previous Rx's ?Medication ?Instructions ?Recorded oxycodone 5 mg tablet 5 mg PO Q6H PRN pain #20 tabs 01/24/24 pantoprazole 40 mg tablet,delayed 40 mg PO DAILY #90 tabs 01/24/24 release (Protonix) sucralfate 1 gram tablet 1 g PO TID #240 tabs 01/24/24 oxycodone 5 mg tablet 5 mg PO Q6H PRN severe pain (scale 02/18/24 score 7-10) #20 tabs oxycodone 5 mg tablet 5 mg PO Q6H PRN severe pain (scale 03/02/24 score 7-10) 3 days #12 tabs sucralfate 100 mg/mL oral 10 ml PO QID #1,000 mL 03/02/24 suspension (Carafate) Allergies Allergy/AdvReac Type Severity Reaction Status Date / Time No Known Allergies Allergy Verified 03/02/24 09:39 Review of Systems Review of Systems As per HPI. Yes all other systems are reviewed and are negative Constitutional: Reports as per HPI [facility] Past Medical History Medical History Renal cell carcinoma Alcohol use disorder History of alcohol abuse GERD (gastroesophageal reflux disease) Back pain with right-sided sciatica (10/07/21) Pancreatitis Inguinal hernia Cyst of pancreas Surgical History History of surgery on right wrist Hx of esophagogastroduodenoscopy History of nephrectomy, left Social History Social History Housing: House Alcohol intake: former Patient Tobacco Use Status: Current everyday Tobacco user Tobacco use type: Cigarette Cigarette Packs Per Day: 0.5 Cigarettes Per Day: 10.0 Smoked in Last 30 Days: Yes Second Hand Smoke Exposure: No Use of substances other than those prescribed or required for medical reasons: No Advance Directives: No Advance Directives Information Provided: No service: No Current occupational status: employed Current occupation: [employer] Current occupational exposures/hazards: Yes Cognitive needs: No Hearing needs: No Vision needs: No Physical Exam ED Vital Signs: Vital Signs - 24 hr 03/02/24 09:38 Temperature 98.6 F Pulse Rate 100 Respiratory Rate 18 Blood Pressure 130/80 Pulse Oximetry 100 Oxygen Delivery Method Room Air BMI result Body Mass Index 22.9 Vital signs have been reviewed and appear to be correct. Blood pressure normal. Heart rate normal. Respiratory rate normal. Temperature normal. Oxygen saturation normal. Const General: cooperative, healthy appearing and no acute distress Orientation/consciousness: oriented to person, oriented to place, oriented to time and patient oriented x3 Limitations: no limitations HENMT Head: Yes normocephalic and Yes atraumatic Ears: external ears normal General nose exam: Normal external nose present Face and sinus: Yes face symmetric Mouth: oropharynx normal and moist mucous membranes Throat: Yes uvula midline Eyes Pupils: Equal, round and reactive pupils present Neck Neck: Yes normal visual inspection and Yes supple Resp Effort & Inspection: normal respiratory effort and able to speak in complete sentences Auscultation: clear to auscultation bilaterally Cardio Rate: regular rate Rhythm: regular rhythm Heart sounds: S1 normal heart sound present and S2 normal heart sound present GI Palpation (GI): Soft to palpation, Tenderness to palpation present (GI) (diffuse), no guarding, not rigid and No Rebound tenderness present Auscultation: normoactive bowel sounds General: Yes no CVA tenderness Back/Spine/Pelvis Back: no CVA tenderness Skin General skin exam: elasticity normal and turgor normal Neuro General: oriented to person, oriented to place, oriented to time, patient oriented x3, moves all extremities, no focal motor deficits and CN's II-XI intact bilaterally Cranial nerves: Yes Equal, round and reactive pupils present Cognition (Neuro): normal cognition Extrem General: Yes full ROM, Yes no pedal edema and Yes no calf tenderness Psych Mental Status: mental status grossly normal Affect: normal affect Thought process: Normal thought process present Medical Decision Making Medical Decision Making MDM Narrative: Patient is a 63-year-old male with history of gallstones, alcoholic pancreatitis, renal cell carcinoma, GERD, recently diagnosed duodenitis presenting to the emergency department with complaint ongoing abdominal pain. On exam patient is awake, A+Ox3, VS WNL, afebrile, normal neurological exam without focal deficits, physical exam findings as above. Given reported symptoms and physical exam findings, initial differential includes duodenitis, pancreatitis, cholangitis. Labs notable for improvement in white blood cell count from previous visit, amylase and lipase chronically elevated. Do not suspect acute upper GI bleed. Feel patient is stable for discharge home as he reports this is the same ongoing pain that he has had, but that he just ran out of his pain medication. Do not feel repeat imaging is indicated at this time. Will prescribe additional short course of oxycodone as well as carafate, instructed patient to contact GI office and again discuss possibility of sooner appointment. ED return precautions discussed at bedside. Patient verbalized understanding of and agreement plan. Differential Diagnosis Differential Diagnoses: The differential diagnosis associated with the presentation includes As per MDM. Admission/Observation Consideration of admission/observation: Escalation of care including admission/observation considered Patient would have been admitted to the hospital had their work up had any findings where hospital admission was appropriate and their clinical presentation warranted hospital admission. Lab Data [facility] Lab Attestation statement: I reviewed the patient's lab results. As per MDM. 03/02/24 10:58 03/02/24 10:58 Labs: Lab Results 03/02/24 Range/Units 10:58 WBC 9.8 (4.8-10.8) X10*3/uL RBC 4.55 L (4.60-5.80) X10*6/uL Hgb 15.2 (14.0-18.0) g/dl Hct 44.0 (42.0-52.0) % MCV 96.7 (80.0-98.0) fL MCH 33.4 H (27.0-33.0) pg MCHC 34.5 (31.0-36.0) g/dl RDW 13.0 (11.0-16.0) % Plt Count 304 D (160-400) X10*3/uL MPV 10.4 (9.4-12.4) fL Immature Gran % (Auto) 0.2 (0.0-0.4) % Neut % (Auto) 78.2 H (45-73) % Lymph % (Auto) 13.1 L (20-40) % [place] % (Auto) 7.7 (2-11) % Eos % (Auto) 0.3 (0-4) % Baso % (Auto) 0.5 (0-2) % Lymph # (Auto) 1.3 (1.2-4.9) X10*3/uL [place] # (Auto) 0.8 (0.1-1.2) X10*3/uL Eos # (Auto) 0.0 (0.0-0.4) X10*3/uL Baso # (Auto) 0.1 (0.0-0.2) X10*3/uL Abs Immat Gran (auto) 0.02 (0.00-0.03) X10*3/uL Absolute Neuts (auto) 7.7 (2.0-8.3) x10*3/uL Absolute Nucleated RBC 0.000 (0.0-0.012) X10*3/uL Nucleated RBC % (auto) 0.0 (0.0-0.2) /100WBC PT 11.5 (11.1-13.3) SEC INR 0.9 (0.9-1.1) Sodium 136 (135-145) mmol/L Potassium 4.3 (3.3-5.1) mmol/L Chloride 100 (96-108) mmol/L Carbon Dioxide 27 (22-29) mmol/L Anion Gap 13 (12-20) BUN 10 (9-16) mg/dL Creatinine 0.96 (0.5-1.4) mg/dL Estim Creat Clear Calc 80.3 Estimated GFR > 60 Random Glucose 174 H (60-115) mg/dL Calcium 9.6 D (8.4-10.2) mg/dL Total Bilirubin 0.5 (0.0-1.0) mg/dL AST 16 (5-37) U/L ALT 10 (0-40) U/L Alkaline Phosphatase 89 (39-117) U/L Total Protein 7.5 (6.5-8.0) g/dL Albumin 3.8 (3.5-5.0) g/dL Amylase 239 H (28-100) U/L Lipase 161 H (8-78) U/L External Record Review External record reviewed: Inpatient record, Office record, Outpatient record and Prior outpatient radiology Prescription Management I considered prescription management with: Pain Medication Medications Administered Discontinued Medications Generic Name Dose Route Start Last Admin Trade Name Freq PRN Reason Stop Dose Admin Oxycodone HCl 5 mg 03/02/24 10:54 03/02/24 11:02 Oxycodone Hcl Immed Release 5 Mg Tablet PO 03/02/24 10:55 5 mg ONCE ONE Administration Discharge Plan Discharge Clinical Impression: Duodenitis, Abdominal pain Patient Disposition: Home, Self-Care Instructions: Diet for Stomach Ulcers and Gastritis (ED), Abdominal Pain (ED), Duodenitis (ED) Additional Instructions: You were evaluated in the emergency department today for abdominal pain which appears to be related to your duodenitis. You are being prescribed additional pain medications for this. Please contact your conventions assistant to see if a an earlier appointment is available. Return to the emergency department if you develop increasing pain, persistent vomiting, fevers, blood in your vomit or stool, dark tarry stools or any other concerning symptoms. Prescriptions: New oxycodone 5 mg tablet 5 mg PO Q6H PRN (Reason: severe pain (scale score 7-10)) 3 Days Qty: 12 0RF Rx Instructions: Partial Fill upon patient request. sucralfate [Carafate] 100 mg/mL suspension 10 ml PO QID Qty: 1000 0RF Rx Instructions: swish in mouth and swallow; use after food/drink No Action oxycodone 5 mg tablet 5 mg PO Q6H PRN (Reason: severe pain (scale score 7-10)) Qty: 20 0RF Rx Instructions: Partial Fill upon patient request. multivitamin Tablet 1 tab PO DAILY pantoprazole [Protonix] 40 mg tablet,delayed release (DR/EC) 40 mg PO DAILY Qty: 90 0RF sucralfate 1 gram tablet 1 g PO TID Qty: 240 0RF oxycodone 5 mg tablet 5 mg PO Q6H PRN (Reason: pain) Qty: 20 0RF Rx Instructions: Partial Fill upon patient request. Referrals: [facility] G[facility] Services [Provider Group] Print Language: Grenadian
[2024-03-02] MEDS: oxyCODONE HCl Immed Release 5 MG TABLET PO (11:02)
[2024-03-02 11:05] LABS: MANUAL DIFF FLAG NO
[2024-03-02 11:16] LABS: INTERNATIONAL NORM RATIO 0.9 (0.9-1.1); Prothrombin Time 11.5 SEC (11.1-13.3)
[2024-03-02 11:18] LABS: Basophils Absolute Auto 0.1 X10*3/uL (0.0-0.2); Basophils Percent Auto 0.5 % (0-2); Eosinophils Percent Auto 0.3 % (0-4); Hemoglobin 15.2 g/dl (14.0-18.0); Imm Gran Abs Auto 0.02 X10*3/uL (0.00-0.03); Imm Gran Pct Auto 0.2 % (0.0-0.4); Lymphocytes Absolute Auto 1.3 X10*3/uL (1.2-4.9); Lymphocytes Percent Auto 13.1 % (20-40); Mean Corpuscular HGB Conc 34.5 g/dl (31.0-36.0); Mean Corpuscular Hemoglobin 33.4 pg (27.0-33.0); Mean Corpuscular Volume 96.7 fL (80.0-98.0); Mean Platelet Volume 10.4 fL (9.4-12.4); Monocytes Absolute Auto 0.8 X10*3/uL (0.1-1.2); Monocytes Percent Auto 7.7 % (2-11); Neutrophils Absolute Auto 7.7 x10*3/uL (2.0-8.3); Neutrophils Percent Auto 78.2 % (45-73); Platelet Count 304 X10*3/uL (160-400); Red Blood Count 4.55 X10*6/uL (4.60-5.80); White Blood Count 9.8 X10*3/uL (4.8-10.8)
[2024-03-02 11:26] LABS: Alanine Aminotransferase 10 U/L (0-40); Albumin Level 3.8 g/dL (3.5-5.0); Alkaline Phosphatase 89 U/L (39-117); Amylase 239 U/L (28-100); Anion Gap 13 (12-20); Aspartate Amino Transferase 16 U/L (5-37); Bilirubin Total 0.5 mg/dL (0.0-1.0); Blood Urea Nitrogen 10 mg/dL (9-16); Calcium 9.6 mg/dL (8.4-10.2); Carbon Dioxide 27 mmol/L (22-29); Chloride 100 mmol/L (96-108); Creatinine Clr Calc Pharmacy 80.3; Estimated Glomerular Filt Rate > 60; Glucose Random 174 mg/dL (60-115); Lipase 161 U/L (8-78); Potassium 4.3 mmol/L (3.3-5.1); Sodium 136 mmol/L (135-145); Total Protein 7.5 g/dL (6.5-8.0)
[2024-03-02 13:50] VITALS: BP 146/82; PULSE 70; RESP 18; TEMP 36.6; O2SAT 98
== END 2024-03-02 13:51 | disposition home or self-care (01) ==
PROVIDERS: Registered Nurse Emergency; Emergency Provider Student in an Organized Health Care Education/Training Program; PCP Nurse Practitioner Family
DX: K29.80 Duodenitis without bleeding (principal); R10.30 Lower abdominal pain, unspecified; Z79.899 Other long term (current) drug therapy
CPT/HCPCS: 36415; 80053; 82150; 83690; 85025; 85610; 99283; 99284

== ENCOUNTER 2024-03-18 10:01 | Day surgery (SDC) | payer OTHER, SELFPAY ==
[2024-03-16 15:20] VITALS: BMI 16.4
--- NOTE | 2024-03-16 15:42 | HO.ANESPROP2 ---
Documented by User: Lydia Bee NP 03/16/24 15:43 HPI - Anesthesia Eval Consult details Narrative: 63yo M for Upper Endoscopy ETOH use disorder PMFSH Active Problems Active Problems: All Active Problems Duodenitis (Acute) Screening for prostate cancer (Acute) Cholelithiasis (Acute) Back pain with right-sided sciatica (Acute 10/07/21) Past Medical History Medical History Hiatal hernia Barretts esophagus Renal cell carcinoma Alcohol use disorder History of alcohol abuse GERD (gastroesophageal reflux disease) Back pain with right-sided sciatica (10/07/21) Pancreatitis Inguinal hernia Cyst of pancreas Surgical History Surgical History Hx of oral surgery H/O colonoscopy History of surgery on right wrist Hx of esophagogastroduodenoscopy History of nephrectomy, left History of Problems with Anesthesia: No Social History Social History Housing: House Alcohol intake: former Patient Tobacco Use Status: Current everyday Tobacco user Tobacco use type: Cigarette Cigarette Packs Per Day: 0.5 Cigarettes Per Day: 10 Second Hand Smoke Exposure: No Advance Directives: No Advance Directives Information Provided: Yes Advance Directives on File: No service: No Current occupational status: employed Current occupation: [employer] Current occupational exposures/hazards: Yes Cognitive needs: No Hearing needs: No Vision needs: No Meds Allergies Allergy/AdvReac Type Severity Reaction Status Date / Time No Known Allergies Allergy Verified 03/02/24 09:39 Home Medications ?Medication ?Instructions ?Recorded ?Confirmed ?Last Taken ?Type multivitamin 1 tab PO DAILY 06/08/23 03/16/24 06/08/23 History Exam Height,Weight and Vital Signs: Height 5 ft 7 in Weight 47.627 kg Pertinent Lab Results Pertinent Lab Results: Laboratory Tests 03/02/24 10:58 WBC 9.8 Hgb 15.2 Hct 44.0 Plt Count 304 D Sodium 136 Potassium 4.3 Chloride 100 Carbon Dioxide 27 BUN 10 Creatinine 0.96 Assessment and Plan Assessment Anesthesia Assessment: Chart Reviewed Final Anesthetic Review History of Problems with Anesthesia: No Documented by User: Noemi Alexandre MD 03/18/24 11:02 PMF Past Medical History Medical History Hiatal hernia Barretts esophagus Renal cell carcinoma Alcohol use disorder History of alcohol abuse GERD (gastroesophageal reflux disease) Back pain with right-sided sciatica (10/07/21) Pancreatitis Inguinal hernia Cyst of pancreas Surgical History Surgical History Hx of oral surgery H/O colonoscopy History of surgery on right wrist Hx of esophagogastroduodenoscopy History of nephrectomy, left Social History Social History Housing: House Alcohol intake: former Patient Tobacco Use Status: Current everyday Tobacco user Tobacco use type: Cigarette Cigarette Packs Per Day: 0.5 Cigarettes Per Day: 10 Second Hand Smoke Exposure: No Advance Directives: No Advance Directives Information Provided: Yes Advance Directives on File: No service: No Current occupational status: employed Current occupation: [employer] Current occupational exposures/hazards: Yes Cognitive needs: No Hearing needs: No Vision needs: No Meds Allergies Allergy/AdvReac Type Severity Reaction Status Date / Time No Known Allergies Allergy Verified 03/02/24 09:39 Home Medications ?Medication ?Instructions ?Recorded ?Confirmed ?Last Taken ?Type multivitamin 1 tab PO DAILY 06/08/23 03/16/24 06/08/23 History Exam Airway Mallampati Class: II TM Dist: >3cm Neck ROM: Full Denture: Upper Loose/Missing/Broken Teeth: Yes, Upper and Lower Heart: RRR Lungs: CTA Assessment and Plan Assessment Anesthesia Assessment: Anesthesia Plan Discussed Final Anesthetic Review NPO: Yes ASA Class: III Final Preanesthetic Review: Meds/Allgs Chart Reviewed, Consent Obtained/Reviewed and Anes Risks/Benef Reviewed Patient Risk: Intermediate Procedure Risk: Intermediate Anesthetic Plan Anesthetic Plan: MAC: Disposition: Standard PACU
[2024-03-18 10:48] VITALS: RESP 20; TEMP 36.6
[2024-03-18] MEDS: Lactated Ringers 1,000 ML 100 ML IVCONT (11:13)
--- NOTE | 2024-03-18 11:33 | MHC.SHP ---
Pre-Procedural Eval Section A - 24 Hr Update-Section A only Date of Service: 03/18/24 The patient is an INPATIENT: No Changes since office visit: No Cold of Flu in the past 2 weeks, No New Medical Problems, No Changes in Medication and No Patient answered all questions The patient has been examined within 24 hours of the surgical procedure. The History & Physical has been completed within 30 days and I have reviewed it.: Yes Section B - Complete if H&P > 30 days Chief Complaint: Abnormal findings on diagnostic imaging Allergies: Allergies Allergy/AdvReac Type Severity Reaction Status Date / Time No Known Allergies Allergy Verified 03/02/24 09:39 Plan I have reviewed the history and physical and performed a pertinent physical examination on my patient. No changes have occurred unless specified. Time Spent With Patient Time: Total time managing care of this patient today ____ minutes.
[2024-03-18 12:00] VITALS: BP 95/69; PULSE 110; RESP 12; TEMP 36.1; O2SAT 97
[2024-03-18 12:15] VITALS: BP 111/77; PULSE 87; RESP 12; O2SAT 98
[2024-03-18 12:30] VITALS: BP 111/90; PULSE 88; RESP 12; O2SAT 99
--- NOTE | 2024-03-18 12:37 | OP_ITS ---
DATE OF SERVICE: 03/18/2024 SURGEON: Harsh Bond MD PREOPERATIVE DIAGNOSIS: POSTOPERATIVE DIAGNOSIS: PROCEDURE PERFORMED: Upper endoscopy with biopsy. ESTIMATED BLOOD LOSS: COMPLICATIONS: ANESTHESIA: Monitored anesthesia care. ASSISTANTS: SPECIMENS: INDICATION: Abnormal CT scan of the duodenum. DESCRIPTION OF PROCEDURE: A history and physical was performed. The risks and benefits of the procedure were explained to the patient and informed consent was obtained. The patient was placed in the left lateral decubitus position. The Olympus video gastroscope was introduced into the esophagus, stomach, and duodenum. Examination was performed and the scope was removed. He tolerated the procedure well and was taken to recovery area in stable condition. FINDINGS: Esophagus: The esophagus was normal. There was an irregular EG junction. This was biopsied. Stomach: The stomach showed no evidence of masses, ulcers, or polyps. Antral biopsies were obtained to evaluate for H pylori. Duodenum: There was some mild edema in the duodenum. There was no ulceration. No mass lesion was identified. Biopsies were obtained from the 2nd portion of the duodenum and from the very distal duodenum. There was clear yellow bile on duodenum. IMPRESSION: Normal upper endoscopy. RECOMMENDATION: Follow up the biopsy results. MD DAREN Rutledge/SAVI / [id number]
[2024-03-18 12:45] VITALS: BP 119/85; PULSE 78; RESP 16; TEMP 36.1; O2SAT 99
== END 2024-03-18 13:30 | disposition home or self-care (01) ==
PROVIDERS: PCP Nurse Practitioner Family; Visit Provider Internal Medicine Gastroenterology
PROC: 0DJ08ZZ Inspection of Upper Intestinal Tract, Via Natural or Artificial Opening Endoscopic (ICD-10-PCS; CPT 43235; principal; 2024-03-18 12:30)
DX: K29.80 Duodenitis without bleeding (principal); K31.89 Other diseases of stomach and duodenum; K22.70 Barrett's esophagus without dysplasia; K44.9 Diaphragmatic hernia without obstruction or gangrene; K21.9 Gastro-esophageal reflux disease without esophagitis; K86.0 Alcohol-induced chronic pancreatitis; Z85.528 Personal history of other malignant neoplasm of kidney; Z90.5 Acquired absence of kidney; F10.10 Alcohol abuse, uncomplicated; Z79.899 Other long term (current) drug therapy; F17.210 Nicotine dependence, cigarettes, uncomplicated
CPT/HCPCS: 43239; 88305; 88313; 88342; J2704

== ENCOUNTER 2024-03-28 08:22 | Outpatient (REF) | payer OTHER, SELFPAY ==
--- NOTE | ~2024-03-28 | US_ITS ---
EXAMINATION: US ABDOMEN COMPLETE CLINICAL INFORMATION: Acute abdominal pain. COMPARISON: CT abdomen and pelvis 02/18/2024. Limited abdominal ultrasound 06/08/2023. TECHNIQUE: Real-time imaging of the abdominal viscera. Technically difficult study secondary to body habitus. FINDINGS: PANCREAS: Unremarkable. ABDOMINAL AORTA: Atherosclerotic aorta without visible aneurysm. INFERIOR VENA CAVA: Visualized portions are normal. LIVER: Normal. The liver is normal in size. The liver contour is normal. Parenchymal echogenicity is normal. No focal hepatic lesion. There is no intrahepatic biliary duct dilatation seen. GALLBLADDER: 7 mm mobile gallstone in the gallbladder fundus. No evidence of acute cholecystitis. COMMON BILE DUCT: Mildly dilated at 0.8 cm without obstructing lesion. This is similar to prior CT when it measured 7 mm. RIGHT KIDNEY: No hydronephrosis. No renal calculi or focal parenchymal lesions. The kidney measures 10.8 cm in maximum dimension. LEFT KIDNEY: Surgically absent. SPLEEN: The spleen measures 6.6 cm in maximum dimension. FREE FLUID: None. US/US abdomen complete IMPRESSION: Mildly dilated common bile duct measuring 8 mm similar to recent CT when it measured 7 mm. No visible obstruction. Consider MRI/MRCP versus ERCP. Cholelithiasis without evidence of acute cholecystitis.
[2024-03-28 09:32] LABS: Hematocrit 35.1 % (42.0-52.0); Hemoglobin 12.2 g/dl (14.0-18.0); Mean Corpuscular HGB Conc 34.8 g/dl (31.0-36.0); Mean Corpuscular Hemoglobin 32.6 pg (27.0-33.0); Mean Corpuscular Volume 93.9 fL (80.0-98.0); Mean Platelet Volume 9.7 fL (9.4-12.4); Platelet Count 347 X10*3/uL (160-400); Red Blood Count 3.74 X10*6/uL (4.60-5.80); Red Cell Distribution Width 13.6 % (11.0-16.0); White Blood Count 5.7 X10*3/uL (4.8-10.8)
[2024-03-28 10:11] LABS: Alanine Aminotransferase 8 U/L (0-40); Albumin Level 3.4 g/dL (3.5-5.0); Alkaline Phosphatase 78 U/L (39-117); Aspartate Amino Transferase 17 U/L (5-37); Bilirubin Direct 0.2 mg/dL (0.0-0.5); Bilirubin Total 0.4 mg/dL (0.0-1.0); Lipase 45 U/L (8-78); Total Protein 6.8 g/dL (6.5-8.0)
== END 2024-03-28 08:23 | disposition home or self-care (01) ==
LOC: HO.US 08:22
PROVIDERS: PCP Nurse Practitioner Family; Visit Provider Internal Medicine Gastroenterology
DX: R10.9 Unspecified abdominal pain (principal)
CPT/HCPCS: 36415; 76700; 80076; 83690; 85027

== ENCOUNTER 2024-04-11 07:44 | Outpatient (AMB) | payer OTHER, SELFPAY ==
--- NOTE | 2024-04-11 07:48 | A.OFFVIS_ITS ---
Vital Signs 04/11/24 07:55 Height 5 ft 7 in Weight 102 lb BMI 16.0 BP 126/68 Blood Pressure Location Rt brachial Position Sitting Pulse 82 Intake Visit Reasons: Cholelithiasis Intake Note: Patient referred by Dr. Bond for cholelithiasis. Patient c/o: abd pain. Taking tramadol for pain. Pain is mostly on Rt lower back. Denies nausea, diarrhea, constipation. ABD US: 03-28-24. 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 Patient has had bouts of right upper quadrant pain radiating around to his back were several months time. Patient has had extensive workup for this including upper endoscopy, colonoscopy and sonography demonstrated cholelithiasis. Otherwise tolerating diet, having regular bowel habits. Patient has never been jaundiced before. He has had moderate weight loss but he thinks this is related to new dentures. Patient has a very interesting past surgical history; he has had endoscopic drainage of pancreatic pseudocyst as well as left minimally invasive nephrectomy for early stage renal cancer in 2021 Chart was reviewed and patient evaluated [facility] Medical History Hiatal hernia Barretts esophagus Renal cell carcinoma Alcohol use disorder History of alcohol abuse GERD (gastroesophageal reflux disease) Back pain with right-sided sciatica (10/07/21) Pancreatitis Inguinal hernia Cyst of pancreas Surgical History Hx of oral surgery H/O colonoscopy History of surgery on right wrist Hx of esophagogastroduodenoscopy History of nephrectomy, left Social History Housing: House Alcohol intake: former Patient Tobacco Use Status: Current everyday Tobacco user Tobacco use type: Cigarette Cigarette Packs Per Day: 0.5 Cigarettes Per Day: 10 Second Hand Smoke Exposure: No service: No Current occupational status: employed Current occupation: [employer] Current occupational exposures/hazards: Yes Cognitive needs: No Hearing needs: No Vision needs: No Physical Exam Vital Signs: Last Vital Signs Pulse 82 04/11/24 07:55 BP 126/68 04/11/24 07:55 BMI result Body Mass Index 16.0 Const Other: Thin appearing male very pleasant Chest Other: Chest breath sounds bilaterally, HS 1 in 2 GI Other: Abdomen is scaphoid, thin, benign. Nephrectomy laparoscopic scars intact Assessment & Plan Assessment & Plan (1) Recurrent biliary colic: Code(s): K80.50 - Calculus of bile duct without cholangitis or cholecystitis without obstruction Category: Surgical (2) Cholelithiasis: Code(s): K80.20 - Calculus of gallbladder without cholecystitis without obstruction Category: Surgical Plan Risks, benefits, and alternatives laparoscopic possible open cholecystectomy were reviewed with the patient and included but not limited to bleeding, infection, recurrence of symptoms, numbness, pain, scarring, bowel or bile duct injury or leak and the patient wishes to proceed. All questions answered. Arrangements were made for this. Coding Level of Care Code New Pt Level 5 (74226) Diagnoses Recurrent biliary colic K80.50 Cholelithiasis K80.20
[2024-04-11 07:55] VITALS: BP 126/68; PULSE 82; BMI 16.0
== END 2024-04-11 08:11 | disposition home or self-care (01) ==
PROVIDERS: PCP Nurse Practitioner Family; Referring Provider Internal Medicine Gastroenterology; Visit Provider Surgery
DX: K80.50 Calculus of bile duct without cholangitis or cholecystitis without obstruction (principal); K80.20 Calculus of gallbladder without cholecystitis without obstruction
CPT/HCPCS: 99204

== ENCOUNTER → 2024-04-11 07:44 | Outpatient (BNVA) | payer OTHER, SELFPAY | PROVIDERS: PCP Nurse Practitioner Family; Referring Provider Internal Medicine Gastroenterology; Visit Provider Surgery ==

== ENCOUNTER → 2024-04-19 11:33 | Outpatient (BNV) | payer OTHER, SELFPAY | PROVIDERS: PCP Nurse Practitioner Family; Visit Provider Internal Medicine | DX: R94.31 Abnormal electrocardiogram [ECG] [EKG] (principal) | CPT/HCPCS: 93010 ==

== ENCOUNTER 2024-04-22 07:14 | Day surgery (SDC) | payer OTHER, SELFPAY ==
[2024-04-19 10:52] VITALS: BP 135/78; PULSE 95; RESP 16; O2SAT 100; BMI 15.6
--- NOTE | 2024-04-19 11:33 | ECG_ITS ---
Test Reason : PREOP Blood Pressure : / mmHG Vent. Rate : 073 BPM Atrial Rate : 073 BPM P-R Int : 150 ms QRS Dur : 086 ms QT Int : 386 ms P-R-T Axes : 066 091 076 degrees QTc Int : 425 ms Normal sinus rhythm Rightward axis Borderline ECG When compared with ECG of 18-FEB-2024 12:09, T wave inversion no longer evident in Anterior leads Referred By: Jorge Alberto Erickson Electronically Signed By:PATRICIA OSMAN
--- NOTE | 2024-04-20 13:50 | HO.ANESPROP2 ---
Documented by User: Lydia Bee NP 04/20/24 13:51 HPI - Anesthesia Eval Consult details Narrative: 63yo M for Cholecystectomy Laparoscopic,possible open PAT 04/19/[address] Win EMERSON Active Problems Active Problems: All Active Problems (Updated 04/19/24 @ 11:06 by Izabela Wooten, RN) Recurrent biliary colic (Acute) Duodenitis (Acute) Screening for prostate cancer (Acute) Cholelithiasis (Acute) Back pain with right-sided sciatica (Acute 10/07/21) Past Medical History Medical History (Updated 04/19/24 @ 11:06 by Izabela Wooten, RN) Arthritis Hiatal hernia Hiatal hernia Barretts esophagus Renal cell carcinoma Alcohol use disorder History of alcohol abuse GERD (gastroesophageal reflux disease) Back pain with right-sided sciatica (10/07/21) Pancreatitis Inguinal hernia Cyst of pancreas Surgical History Surgical History (Updated 04/19/24 @ 11:05 by Izabela Wooten RN) Hx of oral surgery H/O colonoscopy History of surgery on right wrist Hx of esophagogastroduodenoscopy History of nephrectomy, left (2021) History of Problems with Anesthesia: No Social History Social History (Updated 04/19/24 @ 11:07 by Izabela Wooten RN) Household Members Other:: adult son Housing: House Are you a primary laboratory animal caretaker to a significant other at home: No Do you presently have visiting nurse or other home services: No Alcohol intake: former Patient Tobacco Use Status: Current everyday Tobacco user Tobacco use type: Cigarette Cigarette Packs Per Day: 0.5 Cigarettes Per Day: 10 Years Smoked: 40 Smoked in Last 30 Days: Yes Second Hand Smoke Exposure: No Use of substances other than those prescribed or required for medical reasons: No Have you been hit, kicked, punched, or otherwise hurt by someone within the past year? If so, by whom?: No Are you DNR?: No Advance Directives: No Advance Directives Information Provided: Yes Advance Directives on File: No Recently lost weight without trying: No How much weight loss: 14-23 pounds Eating poorly because of decreased appetite: Yes Nutrition screen score: 3 Nutrition Risks: Dental problems and Difficulty chewing Poor oral hygiene: Yes (full upper denture-ill fitting, getting new ones) service: No Current occupational status: employed Current occupation: [employer] Current occupational exposures/hazards: Yes Cognitive needs: No Hearing needs: No Vision needs: No Meds Allergies Allergy/AdvReac Type Severity Reaction Status Date / Time No Known Allergies Allergy Verified 04/11/24 07:54 Home Medications ?Medication ?Instructions ?Recorded ?Confirmed ?Last Taken ?Type multivitamin 1 tab PO DAILY 06/08/23 04/19/24 06/08/23 History pantoprazole 40 mg tablet,delayed 40 mg PO DAILY PRN gerd 04/19/24 04/19/24 Unknown History release (Protonix) Exam Height,Weight and Vital Signs: Height 5 ft 7 in Weight 45.3 kg Last Vital Signs Pulse 95 04/19/24 10:52 Resp 16 04/19/24 10:52 BP 135/78 04/19/24 10:52 Pulse Ox 100 04/19/24 10:52 O2 Del Method Room Air 04/19/24 10:52 Pertinent Lab Results Pertinent Lab Results: Laboratory Tests 03/02/24 03/28/24 10:58 08:58 WBC 5.7 Hgb 12.2 L Hct 35.1 L D Plt Count 347 Sodium 136 Potassium 4.3 Chloride 100 Carbon Dioxide 27 BUN 10 Creatinine 0.96 Narrative Narrative: EKG 03/2024 Vent. Rate : 073 BPM Atrial Rate : 073 BPM P-R Int : 150 ms QRS Dur : 086 ms QT Int : 386 ms P-R-T Axes : 066 091 076 degrees QTc Int : 425 ms Normal sinus rhythm Rightward axis Borderline ECG When compared with ECG of 18-FEB-2024 12:09, T wave inversion no longer evident in Anterior leads Assessment and Plan Assessment Anesthesia Assessment: Chart Reviewed Final Anesthetic Review History of Problems with Anesthesia: No Documented by User: Samina Walden MD 04/22/24 08:16 [facility] Past Medical History Medical History (Updated 04/19/24 @ 11:06 by Izabela Wooten RN) Arthritis Hiatal hernia Hiatal hernia Barretts esophagus Renal cell carcinoma Alcohol use disorder History of alcohol abuse GERD (gastroesophageal reflux disease) Back pain with right-sided sciatica (10/07/21) Pancreatitis Inguinal hernia Cyst of pancreas Family History Family history of problems with anesthesia: No Surgical History Surgical History (Updated 04/19/24 @ 11:05 by Izabela Wooten RN) Hx of oral surgery H/O colonoscopy History of surgery on right wrist Hx of esophagogastroduodenoscopy History of nephrectomy, left (2021) Social History Social History (Updated 04/19/24 @ 11:07 by Izabela Wooten RN) Household Members Other:: adult son Housing: House Are you a primary laboratory animal caretaker to a significant other at home: No Do you presently have visiting nurse or other home services: No Alcohol intake: former Patient Tobacco Use Status: Current everyday Tobacco user Tobacco use type: Cigarette Cigarette Packs Per Day: 0.5 Cigarettes Per Day: 10 Years Smoked: 40 Smoked in Last 30 Days: Yes Second Hand Smoke Exposure: No Use of substances other than those prescribed or required for medical reasons: No Have you been hit, kicked, punched, or otherwise hurt by someone within the past year? If so, by whom?: No Are you DNR?: No Advance Directives: No Advance Directives Information Provided: Yes Advance Directives on File: No Recently lost weight without trying: No How much weight loss: 14-23 pounds Eating poorly because of decreased appetite: Yes Nutrition screen score: 3 Nutrition Risks: Dental problems and Difficulty chewing Poor oral hygiene: Yes (full upper denture-ill fitting, getting new ones) service: No Current occupational status: employed Current occupation: [employer] Current occupational exposures/hazards: Yes Cognitive needs: No Hearing needs: No Vision needs: No Meds Allergies Allergy/AdvReac Type Severity Reaction Status Date / Time No Known Allergies Allergy Verified 04/11/24 07:54 Home Medications ?Medication ?Instructions ?Recorded ?Confirmed ?Last Taken ?Type multivitamin 1 tab PO DAILY 06/08/23 04/19/24 06/08/23 History pantoprazole 40 mg tablet,delayed 40 mg PO DAILY PRN gerd 04/19/24 04/19/24 Unknown History release (Protonix) Exam Airway Mallampati Class: II TM Dist: >3cm Neck ROM: Full Assessment and Plan Assessment Anesthesia Assessment: Anesthesia Plan Discussed and Smoking Cess. Discussed Final Anesthetic Review Family History of Problems with Anesthesia: No NPO: Yes ASA Class: II Final Preanesthetic Review: No Changes in Pt Med Stat, Meds/Allgs Chart Reviewed, Consent Obtained/Reviewed and Anes Risks/Benef Reviewed Patient Risk: Intermediate Procedure Risk: Intermediate Anesthetic Plan Anesthetic Plan: GA Disposition: Standard PACU
--- NOTE | 2024-04-21 13:24 | MHC.SHP ---
Pre-Procedural Eval Section A - 24 Hr Update-Section A only Date of Service: 04/22/24 The patient is an INPATIENT: No Changes since office visit: No Cold of Flu in the past 2 weeks, No New Medical Problems, No Changes in Medication and No Patient answered all questions Section B - Complete if H&P > 30 days Chief Complaint: calculus of bile duct and gallbladder w/o obstruct Allergies: Allergies Allergy/AdvReac Type Severity Reaction Status Date / Time No Known Allergies Allergy Verified 04/11/24 07:54 Plan I have reviewed the history and physical and performed a pertinent physical examination on my patient. No changes have occurred unless specified. Time Spent With Patient Time: Total time managing care of this patient today ____ minutes.
[2024-04-22] VITALS (13 sets, daily range): BP systolic 103–143; BP diastolic 62–77; PULSE 51–65; RESP 12–18; TEMP 36.1–36.7; O2SAT 97–100; BMI 15.5
[2024-04-22] MEDS: Lactated Ringers 1,000 ML 100 ML IVCONT (07:45)
[2024-04-22] MEDS: fentaNYL citrate/PF 100 MCG/2 ML VIAL 50 MCG IVPUSH ×2 (10:00→10:10)
--- NOTE | 2024-04-22 10:22 | P.OP_ITS ---
Operative Note Operative Note Date of Service: 04/22/24 Narrative: Preoperative diagnosis: [] Symptomatic gallbladder Postop diagnosis: [] The same Procedure [] laparoscopic cholecystectomy Surgeon: [] Yony End Finder Forming Department: [] Marimar Loya Type of Anesthesia: [] General Indication for surgery: [] Very thin patient. Gallbladder with marked omental and gastric adhesions to it. Intrahepatic gallbladder. Findings: [] Patient brought to the operating room, placed on operative table in supine position, after an adequate level of general anesthesia was induced, the patient's abdomen was prepped and draped in usual sterile fashion. Using an infraumbilical curvilinear incision, Gauthier technique was used to insufflate abdominal cavity to 15 mm of CO2. Upper midline and right subcostal ports were placed under direct laparoscopic view, the patient placed in reverse Trendelenb urg position, tilted to the left. Findings were as noted above. Patient had significant adhesions of omentum and stomach to the small bowel which were taken down. Hilum was then approached with the cystic artery and cystic duct were each identified, circumferentially skeletonized, traced directly into the gallbladder, and critical view obtained. Each was clipped proximally x2, distally x1, and transected. Gallbladder which was markedly intrahepatic was then cauterized from the gallbladder fossa using Bovie. Specimen was placed in an Endo-Catch bag, a retrieved through the umbilical port. Abdominal cavity was copiously irrigated, secured hemostasis. All ports removed under direct laparoscopic view. Wounds were closed in the following manner; umbilical wound is fascia reapproximated using interrupted 0 Vicryl sutures. Skin wounds were closed using subcuticular 4-0 Vicryl sutures followed by Steri-Strips and sterile dressings. Wounds were infiltrated 0.5% Marcaine at completion. Sponge, needle, and instrument counts reported correct. Patient tolerated the procedure well and emerged from anesthesia stable condition. EBL minimal
[2024-04-22] MEDS: Acetaminophen 325 MG TABLET 650 MG PO (10:58)
[2024-04-22] MEDS: oxyCODONE HCl Immed Release 5 MG TABLET 10 MG PO (10:59)
== END 2024-04-22 12:50 | disposition home or self-care (01) ==
PROVIDERS: PCP Nurse Practitioner Family; Visit Provider Surgery
PROC: 0FT44ZZ Resection of Gallbladder, Percutaneous Endoscopic Approach (ICD-10-PCS; CPT 47562; principal; 2024-04-22 09:10)
DX: K80.64 Calculus of gallbladder and bile duct with chronic cholecystitis without obstruction (principal)
CPT/HCPCS: 47562; 88304; 93005; J0690; J1100; J2250; J2405; J2704; J2795; J3010

== ENCOUNTER → 2024-04-22 07:14 | Outpatient (BNV) | payer OTHER, SELFPAY | PROVIDERS: PCP Nurse Practitioner Family; Visit Provider Surgery | DX: K82.9 Disease of gallbladder, unspecified (principal) | CPT/HCPCS: 47562 ==

== ENCOUNTER 2024-05-02 11:00 | Outpatient (AMB) | payer OTHER, SELFPAY ==
--- NOTE | 2024-05-02 11:03 | A.OFFVIS_ITS ---
Intake Visit Reasons: S/P lap jermaine Intake Note: Patient here s/p lap jermaine. Reports incision healing well. Patient c/o: no concerns. Finished rx pain meds yesterday. SX: 04-22-2024. Rn X Ray Required: No Accompanied by: Self / Same As Patient Allergies No Known Allergies Allergy (Verified 05/02/24 11:04) HPI Comments Details: Patient presents for follow-up. He has minimal incisional discomfort. He has tolerating a diet. Having regular bowel habits with occasional loose stool. He is increasing his activity level. [facility] Medical History (Updated 04/19/24 @ 11:06 by Izabela Wooten, JONNY) Arthritis Hiatal hernia Hiatal hernia Barretts esophagus Renal cell carcinoma Alcohol use disorder History of alcohol abuse GERD (gastroesophageal reflux disease) Back pain with right-sided sciatica (10/07/21) Pancreatitis Inguinal hernia Cyst of pancreas Surgical History (Updated 05/02/24 @ 11:11 by Joey Bhakta MD) Hx laparoscopic cholecystectomy (04/22/24) Hx of oral surgery H/O colonoscopy History of surgery on right wrist Hx of esophagogastroduodenoscopy History of nephrectomy, left (2021) Social History (Updated 04/19/24 @ 11:07 by Izabela Wooten RN) Household Members Other:: adult son Housing: House Are you a primary child care education coordinator to a significant other at home: No Do you presently have visiting nurse or other home services: No Alcohol intake: former Patient Tobacco Use Status: Current everyday Tobacco user Tobacco use type: Cigarette Cigarette Packs Per Day: 0.5 Cigarettes Per Day: 10 Years Smoked: 40 Second Hand Smoke Exposure: No Use of substances other than those prescribed or required for medical reasons: No service: No Current occupational status: employed Current occupation: [employer] Current occupational exposures/hazards: Yes Cognitive needs: No Hearing needs: No Vision needs: No Physical Exam Eyes Other: Anicteric GI Other: Abdomen is soft. All wounds clean dry and intact Assessment & Plan Assessment & Plan (1) Status post laparoscopic cholecystectomy: Code(s): Z90.49 - Acquired absence of other specified parts of digestive tract Category: Medical Plan Patient has some FMLA questions which will be addressed with bP. The meantime, I suggest either Lomotil or Imodium for his loose stool. Should this persist, he has been instructed to contact me. Patient should avoid strenuous activities for next few weeks time. He will otherwise follow-up p.r.n.. All questions answered Coding Level of Care Code Global (74023) Diagnoses Status post laparoscopic cholecystectomy Z90.49
== END 2024-05-02 11:09 | disposition home or self-care (01) ==
LOC: HO.HGS 11:00
PROVIDERS: PCP Nurse Practitioner Family; Visit Provider Surgery
DX: Z90.49 Acquired absence of other specified parts of digestive tract (principal)
CPT/HCPCS: 99024

== ENCOUNTER → 2024-05-02 11:00 | Outpatient (BNVA) | payer OTHER, SELFPAY | PROVIDERS: PCP Nurse Practitioner Family; Visit Provider Surgery ==

== ENCOUNTER 2024-11-23 12:52 | Inpatient (IN) | payer OTHER, SELFPAY ==
[2024-11-23] VITALS (10 sets, daily range): BP systolic 106–129; BP diastolic 61–84; PULSE 67–120; RESP 12–22; TEMP 36.6–36.8; O2SAT 86–100; BMI 15.8
--- NOTE | ~2024-11-23 | XR_ITS ---
CLINICAL HISTORY: smoker weight loss 1 view chest x-ray Comparison: CR - XR CHEST 1V - 11/23/24 17:05 EST Findings: No consolidation or effusion. Mild chronic interstitial prominence. Cardiac and mediastinal contours are stable. No acute fracture. Well-positioned NG tube. IMPRESSION: Mild interstitial prominence. Well-positioned NG tube. This document has been electronically signed by: Emmanuel Hancock MD on 11/25/2024 11:31:31
--- NOTE | ~2024-11-23 | XR_ITS ---
CLINICAL HISTORY: NG tube placement Single view of the chest. COMPARISON: CT abdomen and pelvis dated 11/23/24 at 15:10 EST XR chest dated 11/23/24 at 13:35 EST FINDINGS: Enteric tube extends into the abdomen with tip and side hole overlying the expected location of the stomach fundus/body. Cholecystectomy clips present. Normal heart size. Atherosclerotic thoracic aorta. No consolidation. No pleural effusion. No pneumothorax. No acute fracture identified. IMPRESSION: 1. Enteric tube (NG) tip and side hole overlie the expected location of the stomach fundus/body. This document has been electronically signed by: Kenji Edmond MD on 11/23/2024 17:54:29
--- NOTE | ~2024-11-23 | CT_ITS ---
EXAMINATION: CT ABDOMEN AND PELVIS WITHOUT CONTRAST CLINICAL INFORMATION: Pancreatitis, obstruction. COMPARISON: CT abdomen and pelvis 11/23/2024. TECHNIQUE: Multidetector volumetric imaging was performed from the superior aspect of the liver through the pubic symphysis. Sagittal and coronal reformatted images were obtained on the technologist's workstation. This CT examination was performed using dose optimization techniques as appropriate, variously including the following: *Automated exposure control *Adjustment of mA and/or kV according to patient size (this includes techniques or standardized protocols for targeted exams where dose is matched to indication/reason for exam; i.e. extremities or head) *Use of iterative reconstruction technique DLP 244. FINDINGS: LUNG BASES: There are new bilateral small pleural effusions with bibasilar compressive atelectasis is mild thickening of right major fissure is noted. The heart size is normal. There is an enteric tube with its tip in the proximal stomach. LIVER, GALLBLADDER, AND BILIARY TREE: The liver is normal in size, shape, and attenuation. No focal hepatic lesion or biliary ductal dilatation is present. There is mild perihepatic ascites. The gallbladder has been surgically removed. There are surgical chris in the gallbladder fossa. PANCREAS: There are multiple calcifications seen in the pancreatic head and the body and the tail of the pancreas appears atrophied. SPLEEN: Unremarkable. ADRENAL GLANDS: Unremarkable. KIDNEYS AND URETERS: The left kidney is absent. The right kidney is normal size and cortical thickness. Punctate calcification seen in the upper pole right kidney likely tiny stone. No caliectasis or hydroureteronephrosis seen. BLADDER: The bladder is distended with a Sotomayor's catheter within the bladder. GASTROINTESTINAL TRACT: Scattered stool and gas is seen in the colon without distention. Lateral to the duodenum is a hypodense collection measuring 4 cm, question duodenal diverticulum, pseudocyst or contained perforation. There is mild mural thickening involving the entire duodenum segment likely duodenal inflammation. Underlying circular lesion is hard to exclude. However there is no air visualized within the segment it is unchanged to previous exam. Previously seen distended stomach has resolved following placement of an enteric tube. There is diffuse haziness seen throughout the mesentery likely edema. There is small right perihepatic fluid collection. Moderate fluid collection is seen in the pelvis. ABDOMINAL WALL: Tiny umbilical hernia containing fat. LYMPH NODES: Small shotty mesenteric and portacaval lymph nodes are present. Lymph node lateral to the hypodense mass in the mesentery measures 3.8 cm on axial image 19/02 VASCULAR: Unremarkable. PELVIC VISCERA: Unremarkable. OSSEOUS STRUCTURES: No lytic or sclerotic process seen. There is mild ventral spondylosis upper lumbar and lower lumbar spine. No aggressive lytic or sclerotic process seen. CT/CT abdomen pelvis wo IV con IMPRESSION: Persistent hypodense collection lateral to seen about the duodenum likely dural diverticulum, pseudocysts or contained perforation but no gas seen within. There is an interval diffuse mesenteric edema and small mesenteric and periportal lymph nodes. Recommend gastroscopy in this region. There are several calcifications in the pancreatic head. This small or free fluid in the right perihepatic space, paracolic gutter and significant fluid in the pelvis. The enteric tube and Sotomayor's catheter are in satisfactory position. There is new bilateral small pleural effusions with bibasilar consolidation/atelectasis. Fleischner guidelines were followed. Electronically signed by: Obi Mosqueda MD 11/25/2024 04:49 PM EST
--- NOTE | ~2024-11-23 | CT_ITS ---
CLINICAL HISTORY: abd pain elevated lipase, GLO CT abdomen and pelvis without IV contrast. COMPARISON: CT abdomen and pelvis dated 02/18/24 at 15:26 EDT FINDINGS: Minimal atelectasis versus scarring along the posterior lower lobes. Stomach is markedly distended with fluid/food debris. There is focal transition point/narrowing along the 2nd portion of the duodenum where there are inflammatory changes adjacent to the duodenum and pancreatic head. No free intraperitoneal air identified. More distal duodenum and small bowel is contracted. Several small calcifications present within the pancreas. Pancreatic duct is dilated measuring up to 4 mm, similar to prior imaging. Multiple normal-sized and prominent portacaval and retroperitoneal lymph nodes in the upper abdomen adjacent to this region. Cholecystectomy. Normal spleen. Normal adrenal glands. Left nephrectomy. No abnormality identified within the nephrectomy bed. No right-sided hydronephrosis or hydroureter. No right renal or ureteral calculus. Appendix is normal and air-filled extending into the gallbladder fossa. Mild colonic stool burden. No bowel obstruction. Moderate aortoiliac atherosclerotic vascular calcifications. Sotomayor catheter present within the contracted urinary bladder. No inguinal lymphadenopathy. Grade 1 anterolisthesis of L5 on S1 secondary to chronic bilateral pars defects at L5. [id number] spondylosis. No acute fracture identified. IMPRESSION: 1. Inflammatory changes and fluid adjacent to the 2nd portion of the duodenum/pancreatic head. It is unclear whether this represents pancreatitis versus duodenitis with duodenal ulcer not excluded. No free intraperitoneal air identified. 2. Marked distention of the stomach likely secondary to outlet obstruction with focal transition point at the 2nd portion of the duodenum. 3. Multiple normal-sized and prominent retroperitoneal and portacaval lymph nodes, likely reactive. This document has been electronically signed by: Kenji Edmond MD on 11/23/2024 16:00:31
--- NOTE | ~2024-11-23 | XR_ITS ---
CLINICAL HISTORY: smoker weight loss Single view of the chest. COMPARISON: None FINDINGS: Normal heart size. Atherosclerotic thoracic aorta. No consolidation. No pulmonary mass identified by radiograph. No pleural effusion or pneumothorax. No fracture identified. Cholecystectomy clips. IMPRESSION: 1. No acute cardiopulmonary abnormality. This document has been electronically signed by: Kenji Edmond MD on 11/23/2024 14:23:59
[2024-11-23 13:07] LABS: Glucose, Whole Blood > 600 mg/dL (60-115)
--- NOTE | 2024-11-23 13:13 | ECG_ITS ---
Test Reason : DIZZINESS Blood Pressure : / mmHG Vent. Rate : 105 BPM Atrial Rate : 105 BPM P-R Int : 122 ms QRS Dur : 078 ms QT Int : 392 ms P-R-T Axes : 000 091 073 degrees QTc Int : 518 ms Poor data quality Sinus tachycardia Rightward axis Nonspecific ST abnormality Abnormal ECG When compared with ECG of 19-APR-2024 11:42, ST now depressed in Anterior leads T wave amplitude has increased in Lateral leads QT has lengthened Referred By: Josefina Galvan Electronically Signed By:ANDREE REDMOND MD
[2024-11-23 13:19] LABS: Glucose, Whole Blood 576 mg/dL (60-115)
--- NOTE | 2024-11-23 13:26 | ED.NAVMDI ---
HPI - Nausea/Vomiting/Diarrhea General Chief complaint: Nausea/Vomiting/Diarrhea Stated complaint: N/V, HX OF PANCREATITIS, POC 572 PER EMS Time Seen by Provider: 11/23/24 13:04 Source: patient, EMS and old records reviewed Mode of arrival: EMS Limitations: no limitations History of Present Illness ED Provider: JAMISON HPI Narrative: 64 yo male from home hx of pancreatitis related to ETOH and gallstones, last drink on 11/16, duodenitis, L nephrectomy post renal cell carcinoma, chronic back pain he notes not feeling well yesterday his upper stomach started to hurt and he had n/v all day. No diarrhea. Today pain has resolved but he is so thirsty and he has been trying to use sugary drinks (like Quiroga) to get himself to feel better. He denies GIB symptoms. He notes no fevers, travel, abx use, sick contacts. He states he can drink today and keeps everything down but his mouth is so dry. One tab of tums and one dose of pepto bismol in 24 hours per his report no other medications. MD elicited complaint: nausea, vomiting and abdominal pain Onset (ago): day(s) (1) Description of vomiting: watery Associated nausea: Yes Associated abdominal pain: No Location of pain: epigastric Pain consistency: now resolved Severity: mild Quality: dull Exacerbating factors: none Relieving factors: none Context: other Associated symptoms: loss of appetite, malaise, nausea/vomiting and other (dry mouth) Related Data Home Medications ?Medication ?Instructions ?Recorded ?Confirmed acetaminophen 325 mg tablet 650 mg PO Q6H PRN Pain 11/23/24 11/23/24 sucralfate 1 gram tablet 1 g PO QIDWMHS 11/23/24 11/23/24 Allergies Allergy/AdvReac Type Severity Reaction Status Date / Time No Known Allergies Allergy Verified 11/23/24 13:07 Review of Systems Review of Systems: Constitutional : No Weight loss, No Fever, No Chills ENT/Mouth : No sore throat, No Rhinorrhea Eyes: No Swelling, No Redness Cardiovascular : No Chest Pain, No SOB, NoEdema Respiratory : No Cough, No Sputum, No Wheezing Gastrointestinal : Positive Nausea, Positive Vomiting, no Diarrhea, positive abdominal Pain, No Hematochezia, No Melena Genitourinary : No Dysuria, No Urinary Frequency, No Hematuria, No Urgency Musculoskeletal : No joint pain, No Myalgias, No Joint Swelling Skin : No Skin Lesions, No rash Neuro : No Weakness, No Numbness, No Dizziness, No Headache Psych : No Anxiety/Panic, No Depression All other systems reviewed and are negative. Gastrointestinal: Gastrointestinal: Reports nausea PMFSH Past Medical History Attestation statement: The following information was validated with the patient. Source: old records reviewed Medical History Arthritis Hiatal hernia Hiatal hernia Barretts esophagus Renal cell carcinoma Alcohol use disorder History of alcohol abuse GERD (gastroesophageal reflux disease) Back pain with right-sided sciatica (10/07/21) Pancreatitis Inguinal hernia Cyst of pancreas Surgical History Hx laparoscopic cholecystectomy (04/22/24) Hx of oral surgery H/O colonoscopy History of surgery on right wrist Hx of esophagogastroduodenoscopy History of nephrectomy, left (2021) Social History Social History Household Members Other:: adult son Housing: House Are you a primary care coordination manager to a significant other at home: No Do you presently have visiting nurse or other home services: No Alcohol intake: current Alcohol intake frequency: former alcohol drinker Alcohol type: wine Patient Tobacco Use Status: Current everyday Tobacco user Tobacco use type: Cigarette Cigarette Packs Per Day: 0.5 Cigarettes Per Day: 10 Years Smoked: 40 Smoked in Last 30 Days: Yes Second Hand Smoke Exposure: No Use of substances other than those prescribed or required for medical reasons: No Advance Directives: No Advance Directives Information Provided: No Do you have a plan to hurt others: No Plan service: No Current occupational status: employed Current occupation: [employer] Current occupational exposures/hazards: Yes Cognitive needs: No Hearing needs: No Vision needs: No Physical Exam Vital Signs: Vital Signs: Last Vital Signs Temp 97.8 F 11/23/24 19:08 Pulse 68 11/23/24 19:08 Resp 12 11/23/24 19:08 BP 120/66 11/23/24 19:08 Pulse Ox 100 11/23/24 19:08 O2 Del Method Oxymask 11/23/24 19:08 O2 Flow Rate 2 11/23/24 18:23 BMI result Body Mass Index 15.8 Appearance: Alert. Oriented X3. No acute distress. Frail thin and cachectic Eyes: Pupils equal, round and reactive to light. ENT: Pharynx very dry MM Neck: Normal inspection. Neck supple. CVS: Normal heart rate and rhythm. Pulses normal. Respiratory: No respiratory distress. Breath sounds normal. Abdomen: Soft and non-tender. Skin: Skin warm and dry. Normal skin color. poor skin turgor. Extremities: No lower extremity edema. No calf ttp Neuro: Oriented X 3. No motor deficit. No sensory deficit. Course Course Course Narrative: possible infection suspected 213pm added on cultures and IV zosyn CT scan ordered zosyn ordered khan ordered given acute renal failure insulin gtt ordered elevated BS VS stable. Reevaluation(s) Reevaluation #1: given alkalosis and low Chl - I spoke to Dr. Mancilla he recommends 2L NS then recheck VBG Reevaluation #2: started on IV potassium produced about 1L of fluids after NG tube placement denies dyspnea but did desat on oxy mask , no CP/SOB Reevaluation #3: sugars down insulin gtt and D5 shut off alkalosis improving, K being repleted, ICU notes he is improving wondering if he can go to floors will consult hospitalist. Medications Administered Generic Name Dose Route Start Last Admin Trade Name Freq PRN Reason Stop Dose Admin Insulin Human Regular 100 unit in 100 mls @ 4 mls/hr 11/23/24 14:15 11/23/24 20:06 Myxredlin IVCONT 0 unit/hr .Q24H JUANA 0 mls/hr Titration Protocol 4 UNIT/HR Lactated Ringer's 1,000 mls @ 100 mls/hr 11/23/24 16:30 11/23/24 20:04 Lr IVCONT 100 mls/hr .Q10H JUANA Administration Dextrose/Sodium Chloride 1,000 mls @ 80 mls/hr 11/23/24 17:30 11/23/24 20:05 D51/2ns IVCONT 0 mls/hr .[id number] JUANA Infusion Potassium Chloride 10 meq in 100 mls @ 100 mls/hr 11/23/24 19:00 11/23/24 19:27 Potassium Chloride/H20 IV 11/23/24 22:59 100 mls/hr Q1H JUANA Administration Discontinued Medications Generic Name Dose Route Start Last Admin Trade Name Kar PRN Reason Stop Dose Admin Lactated Ringer's 1,000 mls @ 999 mls/hr 11/23/24 13:13 11/23/24 15:22 Lr IV 11/23/24 14:13 Infused .Q1H1M ONE Infusion Lactated Ringer's 1,000 mls @ 999 mls/hr 11/23/24 13:14 11/23/24 15:22 Lr IV 11/23/24 14:14 Infused .Q1H1M ONE Infusion Magnesium Sulfate 2 gm in 50 mls @ 25 mls/hr 11/23/24 13:36 11/23/24 16:42 Magnesium Sulfate/H2o IV 11/23/24 15:35 Infused ONCE ONE Infusion Piperacillin Sod/Tazobactam 50 mls @ 100 mls/hr 11/23/24 14:12 11/23/24 15:22 Sod 3.375 gm/ Sodium Chloride IV 11/23/24 14:41 Infused ONCE ONE Infusion Sodium Chloride 1,000 mls @ 999 mls/hr 11/23/24 16:47 11/23/24 17:16 Ns IV 11/23/24 17:47 999 mls/hr .Q1H1M ONE Administration Sodium Chloride 1,000 mls @ 999 mls/hr 11/23/24 16:47 11/23/24 17:17 Ns IV 11/23/24 17:47 999 mls/hr .Q1H1M ONE Administration Lidocaine HCl 1 appl 11/23/24 16:20 11/23/24 16:43 Lidocaine Hcl 4 % Mpf W/Madgic 5 Ml Ampul TOPICAL 11/23/24 16:21 Not Given ONCE ONE Protocol Lidocaine HCl 3 ml 11/23/24 16:25 11/23/24 16:38 Lidocaine Hcl 4 % Mpf 5 Ml Ampul INHALE 11/23/24 16:26 3 ml ONCE ONE Administration Protocol Morphine Sulfate 4 mg 11/23/24 15:03 11/23/24 15:49 Morphine Sulfate 4 Mg/Ml Cartridge IVPUSH 11/23/24 15:04 4 mg ONCE ONE Administration Protocol Morphine Sulfate 4 mg 11/23/24 17:22 11/23/24 18:20 Morphine Sulfate 4 Mg/Ml Cartridge IVPUSH 11/23/24 17:23 4 mg ONCE ONE Administration Protocol Ondansetron HCl 4 mg 11/23/24 13:13 11/23/24 14:05 Ondansetron Hcl 4 Mg/2 Ml Vial IVPUSH 11/23/24 13:14 4 mg ONCE ONE Administration Medical Decision Making Medical Decision Making [facility] Narrative: 64 yo male from home hx of pancreatitis related to ETOH and gallstones, last drink on 11/16, duodenitis, L nephrectomy post renal cell carcinoma, chronic back pain here with c/o pain in upper abdomen and n/v that resolved no diarrhea but today notes he feels so dry and keeps drinking sugary drinks but his mouth continues to be dry. He denies travel, abx use and has no abdominal pain. He has no fevers. He came in as the dry mouth is really bothering him. No signs of withdrawal. At this time labs, IVF x 2L, CXR given smoking and his frail appearance, zofran, blood sugar check given concerns for DM Differential Diagnosis Differential Diagnoses: The differential diagnosis associated with the presentation includes pancreatitis, diabetes, dehydration, DKA Admission/Observation Consideration of admission/observation: Escalation of care including admission/observation considered needs inpatient level of care Consult Healthcare Provider Management of the patient was discussed with: Hospitalist (will admit) and [employer] Field Agent (Dr. Mancilla will review chart) Dr. Farris to review chart as well - NG tube and decompression caused by pancreatitis Lab Data [facility] Lab Attestation statement: I reviewed the patient's lab results. 11/23/24 13:33 11/23/24 18:00 Labs: Lab Results 11/23/24 11/23/24 11/23/24 Range/Units 13:02 13:14 13:32 WBC (4.8-10.8) X10*3/uL RBC (4.60-5.80) X10*6/uL Hgb (14.0-18.0) g/dl Hct (42.0-52.0) % MCV (80.0-98.0) fL MCH (27.0-33.0) pg MCHC (31.0-36.0) g/dl RDW (11.0-16.0) % Plt Count (160-400) X10*3/uL MPV (9.4-12.4) fL Immature Gran % (Auto) (0.0-0.4) % Neut % (Auto) (45-73) % Lymph % (Auto) (20-40) % [place] % (Auto) (2-11) % Eos % (Auto) (0-4) % Baso % (Auto) (0-2) % Lymph # (Auto) (1.2-4.9) X10*3/uL [place] # (Auto) (0.1-1.2) X10*3/uL Eos # (Auto) (0.0-0.4) X10*3/uL Baso # (Auto) (0.0-0.2) X10*3/uL Abs Immat Gran (auto) (0.00-0.03) X10*3/uL Absolute Neuts (auto) (2.0-8.3) x10*3/uL Absolute Nucleated RBC (0.0-0.012) X10*3/uL Nucleated RBC % (auto) (0.0-0.2) /100WBC Smear Tech's Comments VBG pH (7.32-7.43) VBG pCO2 mmHg VBG pO2 mmHg VBG HCO3 (22-26) mmol/L VBG O2 Saturation % VBG Base Excess mmol/L Sodium 135 (135-145) mmol/L Potassium 3.4 D (3.3-5.1) mmol/L Chloride < 50 L D (96-108) mmol/L Carbon Dioxide 53 H* D (22-29) mmol/L Anion Gap TNP BUN 50 H (9-16) mg/dL Creatinine 4.96 H* (0.5-1.4) mg/dL Estim Creat Clear Calc 10.0 Estimated GFR 12 POC Glucose > 600 H* 576 H* (60-115) mg/dL Random Glucose 573 H* (60-115) mg/dL Lactic Acid 6.6 H* (0.5-2.0) mmol/L Lactic Acid F/U @ 2Hr (0.5-2.0) mmol/L Lactic Acid F/U @ 4Hr (0.5-2.0) mmol/L Calcium 9.6 (8.4-10.2) mg/dL Magnesium 2.6 (1.6-2.6) mg/dL Total Bilirubin 0.5 (0.0-1.0) mg/dL Direct Bilirubin 0.2 (0.0-0.5) mg/dL AST 15 (5-37) U/L ALT 13 (0-40) U/L Alkaline Phosphatase 94 (39-117) U/L Lactate Dehydrogenase 188 (118-273) U/L Total Creatine Kinase 37 L (38-174) U/L Troponin I High Sens 9.4 (<3.5-35.0) ng/L B-Natriuretic Peptide 36 (<100) pg/mL Total Protein 9.0 H (6.5-8.0) g/dL Albumin 4.5 (3.5-5.0) g/dL Lipase 674 H (8-78) U/L Beta-Hydroxybutyrate 0.40 H (0.02-0.27) mmol/L Urine Color Urine Appearance Urine pH (5.0-9.0) Ur Specific [place] (1.005-1.025) Urine Protein (Neg-Trace) mg/dL Urine Glucose (UA) (Negative) mg/dL Urine Ketones (Negative) mg/dL Urine Blood (Negative) Urine Nitrite (Negative) Ur Leukocyte Esterase (Negative) Urine RBC (0-2) /HPF Urine WBC (0-5) /HPF Ur Squamous Epith Cells (0-2) /HPF Urine Bacteria (None Seen) Hyaline Casts (0-2) /LPF Ethyl Alcohol < 10 mg/dL Influenza Type A (PCR) NEGATIVE (Negative) Influenza Type B (PCR) NEGATIVE (Negative) RSV RNA Qual (PCR) NEGATIVE (Negative) SARS-CoV-2 RNA (RT-PCR) NEGATIVE (Negative) 11/23/24 11/23/24 11/23/24 Range/Units 13:33 13:38 14:24 WBC 14.3 H (4.8-10.8) X10*3/uL RBC 4.57 L D (4.60-5.80) X10*6/uL Hgb 15.9 D (14.0-18.0) g/dl Hct 44.4 D (42.0-52.0) % MCV 97.2 (80.0-98.0) fL MCH 34.8 H (27.0-33.0) pg MCHC 35.8 (31.0-36.0) g/dl RDW 12.4 (11.0-16.0) % Plt Count 478 H D (160-400) X10*3/uL MPV 10.5 (9.4-12.4) fL Immature Gran % (Auto) 0.4 (0.0-0.4) % Neut % (Auto) 78.0 H (45-73) % Lymph % (Auto) 8.7 L (20-40) % [place] % (Auto) 12.4 H (2-11) % Eos % (Auto) 0.4 (0-4) % Baso % (Auto) 0.1 (0-2) % Lymph # (Auto) 1.2 (1.2-4.9) X10*3/uL [place] # (Auto) 1.8 H (0.1-1.2) X10*3/uL Eos # (Auto) 0.1 (0.0-0.4) X10*3/uL Baso # (Auto) 0.0 (0.0-0.2) X10*3/uL Abs Immat Gran (auto) 0.06 H (0.00-0.03) X10*3/uL Absolute Neuts (auto) 11.1 H (2.0-8.3) x10*3/uL Absolute Nucleated RBC 0.000 (0.0-0.012) X10*3/uL Nucleated RBC % (auto) 0.0 (0.0-0.2) /100WBC Smear Tech's Comments VERIFIED VBG pH 7.80 H* (7.32-7.43) VBG pCO2 59 mmHg VBG pO2 43 mmHg VBG HCO3 93 H (22-26) mmol/L VBG O2 Saturation 72.0 % VBG Base Excess 61.1 mmol/L Sodium (135-145) mmol/L Potassium (3.3-5.1) mmol/L Chloride (96-108) mmol/L Carbon Dioxide (22-29) mmol/L Anion Gap BUN (9-16) mg/dL Creatinine (0.5-1.4) mg/dL Estim Creat Clear Calc Estimated GFR POC Glucose 549 H* (60-115) mg/dL Random Glucose (60-115) mg/dL Lactic Acid (0.5-2.0) mmol/L Lactic Acid F/U @ 2Hr (0.5-2.0) mmol/L Lactic Acid F/U @ 4Hr (0.5-2.0) mmol/L Calcium (8.4-10.2) mg/dL Magnesium (1.6-2.6) mg/dL Total Bilirubin (0.0-1.0) mg/dL Direct Bilirubin (0.0-0.5) mg/dL AST (5-37) U/L ALT (0-40) U/L Alkaline Phosphatase (39-117) U/L Lactate Dehydrogenase (118-273) U/L Total Creatine Kinase (38-174) U/L Troponin I High Sens (<3.5-35.0) ng/L B-Natriuretic Peptide (<100) pg/mL Total Protein (6.5-8.0) g/dL Albumin (3.5-5.0) g/dL Lipase (8-78) U/L Beta-Hydroxybutyrate (0.02-0.27) mmol/L Urine Color Urine Appearance Urine pH (5.0-9.0) Ur Specific [place] (1.005-1.025) Urine Protein (Neg-Trace) mg/dL Urine Glucose (UA) (Negative) mg/dL Urine Ketones (Negative) mg/dL Urine Blood (Negative) Urine Nitrite (Negative) Ur Leukocyte Esterase (Negative) Urine RBC (0-2) /HPF Urine WBC (0-5) /HPF Ur Squamous Epith Cells (0-2) /HPF Urine Bacteria (None Seen) Hyaline Casts (0-2) /LPF Ethyl Alcohol mg/dL Influenza Type A (PCR) (Negative) Influenza Type B (PCR) (Negative) RSV RNA Qual (PCR) (Negative) SARS-CoV-2 RNA (RT-PCR) (Negative) 11/23/24 11/23/24 11/23/24 Range/Units 15:00 16:00 16:05 WBC (4.8-10.8) X10*3/uL RBC (4.60-5.80) X10*6/uL Hgb (14.0-18.0) g/dl Hct (42.0-52.0) % MCV (80.0-98.0) fL MCH (27.0-33.0) pg MCHC (31.0-36.0) g/dl RDW (11.0-16.0) % Plt Count (160-400) X10*3/uL MPV (9.4-12.4) fL Immature Gran % (Auto) (0.0-0.4) % Neut % (Auto) (45-73) % Lymph % (Auto) (20-40) % [place] % (Auto) (2-11) % Eos % (Auto) (0-4) % Baso % (Auto) (0-2) % Lymph # (Auto) (1.2-4.9) X10*3/uL [place] # (Auto) (0.1-1.2) X10*3/uL Eos # (Auto) (0.0-0.4) X10*3/uL Baso # (Auto) (0.0-0.2) X10*3/uL Abs Immat Gran (auto) (0.00-0.03) X10*3/uL Absolute Neuts (auto) (2.0-8.3) x10*3/uL Absolute Nucleated RBC (0.0-0.012) X10*3/uL Nucleated RBC % (auto) (0.0-0.2) /100WBC Smear Tech's Comments VBG pH (7.32-7.43) VBG pCO2 mmHg VBG pO2 mmHg VBG HCO3 (22-26) mmol/L VBG O2 Saturation % VBG Base Excess mmol/L Sodium (135-145) mmol/L Potassium (3.3-5.1) mmol/L Chloride (96-108) mmol/L Carbon Dioxide (22-29) mmol/L Anion Gap BUN (9-16) mg/dL Creatinine (0.5-1.4) mg/dL Estim Creat Clear Calc Estimated GFR POC Glucose 360 H* (60-115) mg/dL Random Glucose (60-115) mg/dL Lactic Acid (0.5-2.0) mmol/L Lactic Acid F/U @ 2Hr 8.4 H* (0.5-2.0) mmol/L Lactic Acid F/U @ 4Hr (0.5-2.0) mmol/L Calcium (8.4-10.2) mg/dL Magnesium (1.6-2.6) mg/dL Total Bilirubin (0.0-1.0) mg/dL Direct Bilirubin (0.0-0.5) mg/dL AST (5-37) U/L ALT (0-40) U/L Alkaline Phosphatase (39-117) U/L Lactate Dehydrogenase (118-273) U/L Total Creatine Kinase (38-174) U/L Troponin I High Sens (<3.5-35.0) ng/L B-Natriuretic Peptide (<100) pg/mL Total Protein (6.5-8.0) g/dL Albumin (3.5-5.0) g/dL Lipase (8-78) U/L Beta-Hydroxybutyrate (0.02-0.27) mmol/L Urine Color Dark Yellow Urine Appearance Cloudy Urine pH 5.0 (5.0-9.0) Ur Specific [place] >= 1.030 H (1.005-1.025) Urine Protein 100 (2+) H (Neg-Trace) mg/dL Urine Glucose (UA) 500 H (Negative) mg/dL Urine Ketones Trace (Negative) mg/dL Urine Blood Moderate (2+) H (Negative) Urine Nitrite Negative (Negative) Ur Leukocyte Esterase Trace H (Negative) Urine RBC >20 H (0-2) /HPF Urine WBC 0-5 (0-5) /HPF Ur Squamous Epith Cells 0-2 (0-2) /HPF Urine Bacteria None Seen (None Seen) Hyaline Casts >20 (0-2) /LPF Ethyl Alcohol mg/dL Influenza Type A (PCR) (Negative) Influenza Type B (PCR) (Negative) RSV RNA Qual (PCR) (Negative) SARS-CoV-2 RNA (RT-PCR) (Negative) 11/23/24 11/23/24 11/23/24 Range/Units 17:05 17:11 18:00 WBC (4.8-10.8) X10*3/uL RBC (4.60-5.80) X10*6/uL Hgb (14.0-18.0) g/dl Hct (42.0-52.0) % MCV (80.0-98.0) fL MCH (27.0-33.0) pg MCHC (31.0-36.0) g/dl RDW (11.0-16.0) % Plt Count (160-400) X10*3/uL MPV (9.4-12.4) fL Immature Gran % (Auto) (0.0-0.4) % Neut % (Auto) (45-73) % Lymph % (Auto) (20-40) % [place] % (Auto) (2-11) % Eos % (Auto) (0-4) % Baso % (Auto) (0-2) % Lymph # (Auto) (1.2-4.9) X10*3/uL [place] # (Auto) (0.1-1.2) X10*3/uL Eos # (Auto) (0.0-0.4) X10*3/uL Baso # (Auto) (0.0-0.2) X10*3/uL Abs Immat Gran (auto) (0.00-0.03) X10*3/uL Absolute Neuts (auto) (2.0-8.3) x10*3/uL Absolute Nucleated RBC (0.0-0.012) X10*3/uL Nucleated RBC % (auto) (0.0-0.2) /100WBC Smear Tech's Comments VBG pH 7.68 H* (7.32-7.43) VBG pCO2 67 mmHg VBG pO2 56 mmHg VBG HCO3 80 H (22-26) mmol/L VBG O2 Saturation 84.0 % VBG Base Excess 50.2 mmol/L Sodium 140 (135-145) mmol/L Potassium 2.6 L* D (3.3-5.1) mmol/L Chloride 66 L D (96-108) mmol/L Carbon Dioxide 47 H* (22-29) mmol/L Anion Gap TNP BUN 47 H (9-16) mg/dL Creatinine 4.13 H* (0.5-1.4) mg/dL Estim Creat Clear Calc 12.0 Estimated GFR 15 POC Glucose 253 H (60-115) mg/dL Random Glucose 202 H (60-115) mg/dL Lactic Acid (0.5-2.0) mmol/L Lactic Acid F/U @ 2Hr (0.5-2.0) mmol/L Lactic Acid F/U @ 4Hr (0.5-2.0) mmol/L Calcium 8.2 L D (8.4-10.2) mg/dL Magnesium (1.6-2.6) mg/dL Total Bilirubin 0.4 (0.0-1.0) mg/dL Direct Bilirubin (0.0-0.5) mg/dL AST 13 (5-37) U/L ALT 8 (0-40) U/L Alkaline Phosphatase 73 (39-117) U/L Lactate Dehydrogenase (118-273) U/L Total Creatine Kinase (38-174) U/L Troponin I High Sens (<3.5-35.0) ng/L B-Natriuretic Peptide (<100) pg/mL Total Protein 7.1 (6.5-8.0) g/dL Albumin 3.6 (3.5-5.0) g/dL Lipase (8-78) U/L Beta-Hydroxybutyrate (0.02-0.27) mmol/L Urine Color Urine Appearance Urine pH (5.0-9.0) Ur Specific [place] (1.005-1.025) Urine Protein (Neg-Trace) mg/dL Urine Glucose (UA) (Negative) mg/dL Urine Ketones (Negative) mg/dL Urine Blood (Negative) Urine Nitrite (Negative) Ur Leukocyte Esterase (Negative) Urine RBC (0-2) /HPF Urine WBC (0-5) /HPF Ur Squamous Epith Cells (0-2) /HPF Urine Bacteria (None Seen) Hyaline Casts (0-2) /LPF Ethyl Alcohol mg/dL Influenza Type A (PCR) (Negative) Influenza Type B (PCR) (Negative) RSV RNA Qual (PCR) (Negative) SARS-CoV-2 RNA (RT-PCR) (Negative) 11/23/24 11/23/24 11/23/24 Range/Units 18:12 18:26 19:11 WBC (4.8-10.8) X10*3/uL RBC (4.60-5.80) X10*6/uL Hgb (14.0-18.0) g/dl Hct (42.0-52.0) % MCV (80.0-98.0) fL MCH (27.0-33.0) pg MCHC (31.0-36.0) g/dl RDW (11.0-16.0) % Plt Count (160-400) X10*3/uL MPV (9.4-12.4) fL Immature Gran % (Auto) (0.0-0.4) % Neut % (Auto) (45-73) % Lymph % (Auto) (20-40) % [place] % (Auto) (2-11) % Eos % (Auto) (0-4) % Baso % (Auto) (0-2) % Lymph # (Auto) (1.2-4.9) X10*3/uL [place] # (Auto) (0.1-1.2) X10*3/uL Eos # (Auto) (0.0-0.4) X10*3/uL Baso # (Auto) (0.0-0.2) X10*3/uL Abs Immat Gran (auto) (0.00-0.03) X10*3/uL Absolute Neuts (auto) (2.0-8.3) x10*3/uL Absolute Nucleated RBC (0.0-0.012) X10*3/uL Nucleated RBC % (auto) (0.0-0.2) /100WBC Smear Tech's Comments VBG pH (7.32-7.43) VBG pCO2 mmHg VBG pO2 mmHg VBG HCO3 (22-26) mmol/L VBG O2 Saturation % VBG Base Excess mmol/L Sodium (135-145) mmol/L Potassium (3.3-5.1) mmol/L Chloride (96-108) mmol/L Carbon Dioxide (22-29) mmol/L Anion Gap BUN (9-16) mg/dL Creatinine (0.5-1.4) mg/dL Estim Creat Clear Calc Estimated GFR POC Glucose 195 H 158 H (60-115) mg/dL Random Glucose (60-115) mg/dL Lactic Acid (0.5-2.0) mmol/L Lactic Acid F/U @ 2Hr (0.5-2.0) mmol/L Lactic Acid F/U @ 4Hr 3.9 H* (0.5-2.0) mmol/L Calcium (8.4-10.2) mg/dL Magnesium (1.6-2.6) mg/dL Total Bilirubin (0.0-1.0) mg/dL Direct Bilirubin (0.0-0.5) mg/dL AST (5-37) U/L ALT (0-40) U/L Alkaline Phosphatase (39-117) U/L Lactate Dehydrogenase (118-273) U/L Total Creatine Kinase (38-174) U/L Troponin I High Sens (<3.5-35.0) ng/L B-Natriuretic Peptide (<100) pg/mL Total Protein (6.5-8.0) g/dL Albumin (3.5-5.0) g/dL Lipase (8-78) U/L Beta-Hydroxybutyrate (0.02-0.27) mmol/L Urine Color Urine Appearance Urine pH (5.0-9.0) Ur Specific [place] (1.005-1.025) Urine Protein (Neg-Trace) mg/dL Urine Glucose (UA) (Negative) mg/dL Urine Ketones (Negative) mg/dL Urine Blood (Negative) Urine Nitrite (Negative) Ur Leukocyte Esterase (Negative) Urine RBC (0-2) /HPF Urine WBC (0-5) /HPF Ur Squamous Epith Cells (0-2) /HPF Urine Bacteria (None Seen) Hyaline Casts (0-2) /LPF Ethyl Alcohol mg/dL Influenza Type A (PCR) (Negative) Influenza Type B (PCR) (Negative) RSV RNA Qual (PCR) (Negative) SARS-CoV-2 RNA (RT-PCR) (Negative) Independent Interpretation I performed an independent interpretation of an: EKG, Plain X-Ray (no pneumonia, NG tube in place) and CT Scan (pancreatitis, duodenitis unclear if there is outlet obstruction asking surgery) Interpretation: Rate: 105 Rhythm: sinus tachycardia Chavies: normal Normal P waves. Normal TAMMY. Normal QRS complex. ST T wave : no DREW, artifact inverted t wave aVL, V1, V2 qTC: 518 prior studies: no STEMI The study has been interpreted contemporaneously by me. . Radiology Impression Discussion of test interpretation with radiology: I have reviewed the radiologist's reading. Independent Historian Clinical information obtained from an independent historian. History obtained from or confirmed by: EMS External Record Review External record reviewed: Inpatient record Critical Care Time Critical Care Time Critical Care Time: Yes Total Critical Care Time: 90 Attestation: IV insulin, consults x 2, IV morphine for pain with improvement, insulin gtt, repeat labs, review of records I attest to this time spent taking care of the patient Discharge Plan Discharge Clinical Impression: Pancreatitis, Duodenitis, Acute renal failure, Alkalosis, Acute hypokalemia, Acute hyperglycemia, Acidosis, lactic Patient Disposition: Admitted As Inpatient Print Language: Slovenian
[2024-11-23 13:41] LABS: Basophils Percent Auto 0.1 % (0-2); Eosinophils Absolute Auto 0.1 X10*3/uL (0.0-0.4); Eosinophils Percent Auto 0.4 % (0-4); Hematocrit 44.4 % (42.0-52.0); Hemoglobin 15.9 g/dl (14.0-18.0); Imm Gran Abs Auto 0.06 X10*3/uL (0.00-0.03); Imm Gran Pct Auto 0.4 % (0.0-0.4); Lymphocytes Absolute Auto 1.2 X10*3/uL (1.2-4.9); Lymphocytes Percent Auto 8.7 % (20-40); MANUAL DIFF FLAG SCAN; Mean Corpuscular HGB Conc 35.8 g/dl (31.0-36.0); Mean Corpuscular Hemoglobin 34.8 pg (27.0-33.0); Mean Corpuscular Volume 97.2 fL (80.0-98.0); Mean Platelet Volume 10.5 fL (9.4-12.4); Monocytes Absolute Auto 1.8 X10*3/uL (0.1-1.2); Monocytes Percent Auto 12.4 % (2-11); Neutrophils Absolute Auto 11.1 x10*3/uL (2.0-8.3); Red Blood Count 4.57 X10*6/uL (4.60-5.80); Red Cell Distribution Width 12.4 % (11.0-16.0); SCAN SMEAR FLAG 1; White Blood Count 14.3 X10*3/uL (4.8-10.8)
[2024-11-23 13:44] LABS: Platelet Count 478 X10*3/uL (160-400); Venous Blood Gas Refer to POC result
[2024-11-23 13:46] LABS: VBG Base Excess 61.1 mmol/L; VBG HCO3 93 mmol/L (22-26); VBG pCO2 59 mmHg; VBG pO2 43 mmHg
[2024-11-23] MEDS: Lactated Ringers 1,000 ML 999 ML IV ×2 (13:59)
[2024-11-23 14:00] LABS: SLIDE REVIEW VERIFIED
[2024-11-23 14:02] LABS: B Type Natriuretic Peptide 36 pg/mL (<100)
[2024-11-23 14:04] LABS: Troponin-I High Sensitivity 9.4 ng/L (<3.5-35.0)
[2024-11-23] MEDS: Magnesium Sulfate/H2O 2 GM/50 ML PIGGYBACK IV (14:05)
[2024-11-23] MEDS: ondansetron HCL 4 MG/2 ML VIAL IVPUSH (14:05)
[2024-11-23 14:07] LABS: Alanine Aminotransferase 13 U/L (0-40); Albumin Level 4.5 g/dL (3.5-5.0); Alkaline Phosphatase 94 U/L (39-117); Aspartate Amino Transferase 15 U/L (5-37); Bilirubin Direct 0.2 mg/dL (0.0-0.5); Bilirubin Total 0.5 mg/dL (0.0-1.0); Blood Urea Nitrogen 50 mg/dL (9-16); Calcium 9.6 mg/dL (8.4-10.2); Chloride < 50 mmol/L (96-108); Ethanol < 10 mg/dL; Lipase 674 U/L (8-78); Magnesium 2.6 mg/dL (1.6-2.6); Potassium 3.4 mmol/L (3.3-5.1); Sodium 135 mmol/L (135-145)
[2024-11-23 14:12] LABS: Carbon Dioxide 53 mmol/L (22-29); Estimated Glomerular Filt Rate 12; Glucose Random 573 mg/dL (60-115); Lactic Acid 6.6 mmol/L (0.5-2.0)
[2024-11-23 14:28] LABS: Influenza A PCR NEGATIVE (Negative); Influenza B PCR NEGATIVE (Negative); Resp Syncy Virus RNA Qual PCR NEGATIVE (Negative); SARS COV2 PCR INHOUSE NEGATIVE (Negative)
[2024-11-23 14:29] LABS: Glucose, Whole Blood 549 mg/dL (60-115)
[2024-11-23] MEDS: Piperacillin Sodium/Tazobactam 3.375 GM in 0.9 % Sodium Chloride 50 ML IV (14:36)
[2024-11-23] MEDS: Insulin Regular/NS 100 UNIT/100 ML PLAST..BAG IVCONT (14:53)
[2024-11-23 15:14] LABS: Appearance Urine Cloudy; Color Urine Dark Yellow; Glucose Urine UA 500 mg/dL (Negative); Leukocyte Esterase Urine Trace (Negative); Nitrite Urine Negative (Negative); Specific Gravity - Urine >= 1.030 (1.005-1.025); UMIC TRIGGER UACC YES; Urine Blood Moderate (2+) (Negative); Urine Ketones Trace mg/dL (Negative); Urine Protein 100 (2+) mg/dL (Neg-Trace)
[2024-11-23 15:34] LABS: Bacteria Urine None Seen (None Seen); Hyaline Casts Urine >20 /LPF (0-2); RBC Urine >20 /HPF (0-2); Squamous Epithelial Cell Urine 0-2 /HPF (0-2); WBC Urine 0-5 /HPF (0-5)
[2024-11-23 15:38] LABS: Reflex Lactate? Lactic Acid Added
[2024-11-23] MEDS: Morphine Sulfate 4 MG/ML CARTRIDGE IVPUSH ×3 (15:49→21:23)
[2024-11-23 16:08] LABS: Glucose, Whole Blood 360 mg/dL (60-115)
[2024-11-23] MEDS: Lidocaine HCl 4 % MPF 5 ML AMPUL 3 ML INHALE (16:38)
[2024-11-23 17:05] LABS: ~Lactic Acid-LAB USE ONLY 8.4 mmol/L (0.5-2.0)
[2024-11-23 17:13] LABS: Glucose, Whole Blood 253 mg/dL (60-115)
[2024-11-23 17:14] LABS: VBG Base Excess 50.2 mmol/L; VBG HCO3 80 mmol/L (22-26); VBG pCO2 67 mmHg; VBG pH 7.68 (7.32-7.43); VBG pO2 56 mmHg
[2024-11-23 17:16] LABS: Venous Blood Gas Refer to POC result
[2024-11-23] MEDS: 0.9 % Sodium Chloride 1,000 ML 999 ML IV ×2 (17:16→17:17)
[2024-11-23 18:16] LABS: Glucose, Whole Blood 195 mg/dL (60-115)
[2024-11-23 18:18] LABS: Reflex Lactate? 2 Y
[2024-11-23] MEDS: Dextrose 5 % and 0.45 % NaCl 1,000 ML 80 ML IVCONT (18:29)
--- NOTE | 2024-11-23 18:45 | PHA.MEDREC ---
Pharmacy Consult ? Medication Reconciliation Pharmacy has completed the medication reconciliation, spoke to patient at bedside, patient denied using anything other than something that starts with and s and when reminded of the name and confirmed it was 4 times a day althought patient only has old claims for the liquid form, but patient did state it was a big tablet which coincides with sucralfate appearance. Patient also stated he takes tylenol OTC sometimes.
[2024-11-23 19:01] LABS: Alanine Aminotransferase 8 U/L (0-40); Albumin Level 3.6 g/dL (3.5-5.0); Alkaline Phosphatase 73 U/L (39-117); Aspartate Amino Transferase 13 U/L (5-37); Bilirubin Total 0.4 mg/dL (0.0-1.0); Blood Urea Nitrogen 47 mg/dL (9-16); Calcium 8.2 mg/dL (8.4-10.2); Carbon Dioxide 47 mmol/L (22-29); Chloride 66 mmol/L (96-108); Estimated Glomerular Filt Rate 15; Glucose Random 202 mg/dL (60-115); Potassium 2.6 mmol/L (3.3-5.1); Sodium 140 mmol/L (135-145); Total Protein 7.1 g/dL (6.5-8.0)
[2024-11-23 19:06] LABS: ~Lactic Acid-LAB USE ONLY 3.9 mmol/L (0.5-2.0)
[2024-11-23 19:14] LABS: Glucose, Whole Blood 158 mg/dL (60-115)
--- NOTE | 2024-11-23 19:15 | MHC.EDTECH ---
This tech took over care of pt at 1900,rounded and introduced self to pt,vitals taken,patient is resting quietly,call patterson in reach
--- NOTE | 2024-11-23 19:17 | PC.NURSE ---
Addendum entered by Brittaney Saldana 11/23/24 22:24: Pt From home, came in for N/V x1 day, ABD pain when vomiting. NG tube placed to left nare by previous RN. Pt was started on insulin drip, now paused, recent POC 135. K+ 2.6, currently being repleated. Pt destated to 72% on RA, placed on 2L via oxymask. Attempt made to wean off, pt destated back to 86% on RA. Bilateral 18G, 20g to R Hand. Pt independent. Plan of care on going. Addendum entered by Brittaney Saldana 11/23/24 20:07: Insulin drip/ d5 in half NS paused per Dr. Galvan. Original Note: This administrative underwriter assumed care of this Pt at 1900. Pt A&Ox3. Pt on insulin drip at 1 unit.
[2024-11-23 19:27] LABS: Lactate Dehydrogenase 188 U/L (118-273)
[2024-11-23] MEDS: Potassium Chloride/H20 10 MEQ/100 ML PIGGYBACK 100 MEQ IV ×4 (19:27→22:40)
[2024-11-23] MEDS: Lactated Ringers 1,000 ML 100 ML IVCONT (20:04)
--- NOTE | 2024-11-23 20:11 | MHC.EDTECH ---
Poc taken and is 145,RN made aware
[2024-11-23 20:14] LABS: Glucose, Whole Blood 145 mg/dL (60-115)
--- NOTE | 2024-11-23 21:09 | MHC.EDTECH ---
Poc taken and 132,RN aware,vitals taken,urine sample obtained and sent to lab
[2024-11-23 21:10] LABS: Glucose, Whole Blood 132 mg/dL (60-115)
--- NOTE | 2024-11-23 21:18 | P.HPHOSP_ITS ---
History of Present Illness Date of Service: 11/23/24 <WILBER Jean Last Filed: 11/23/24 21:39> Attending physician on admission: Mario Arnold <WILBER Jean Last Filed: 11/23/24 21:39> Chief Complaint: Nausea, vomiting, extreme thirst <WILBER Jean Last Filed: 11/23/24 21:39> Patient is a 64-year-old male with a past medical history significant for pancreatitis related to alcohol and gallstones, last drink 11/16/24, duodenitis, left nephrectomy post renal cell carcinoma (2021), and chronic back pain, who reported to the ED today due to extreme thirst after nausea and vomiting all day yesterday with some occasional diarrhea and upper abdominal pain. He reports that he has a history of chronic pancreatitis with acute flares and felt that this was an episode. He was very thirsty today reports that he drank everything that he had in the house which were a lot of sugary drinks. He denies any blood in the stool or hematemesis. He also denies any fever, recent travel, antibiotic use or sick contacts. He is able to tolerate p.o. today however feels very dehydrated. He reports that he lives alone and does not have any local support. <WILBER Jean Last Filed: 11/23/24 21:39> Review of Systems 2 Constitutional: Constitutional: Denies chills, Denies fatigue and Denies fever(s) <WILBER Jean Last Filed: 11/23/24 21:39> Eyes: Eyes: Denies change in vision <WILBER Jean Last Filed: 11/23/24 21:39> ENT: Denies nasal congestion, Denies nasal discharge and Denies sore throat <WILBER Jean Last Filed: 11/23/24 21:39> Cardiovascular: Cardiovascular: Denies chest pain, Denies rapid heart rate, Denies leg edema and Denies dyspnea <WILBER Jean Filed: 11/23/24 21:39> Respiratory: Respiratory: Denies chest congestion, Denies cough, Denies dyspnea and Denies wheezing <WILBER Jean Last Filed: 11/23/24 21:39> Gastrointestinal: Gastrointestinal: Reports abdominal pain, Denies coffee ground emesis, Reports diarrhea, Reports nausea, Reports vomiting and Denies hematemesis <WILBER Jean Last Filed: 11/23/24 21:39> Genitourinary: Genitourinary: Denies dysuria and Denies urinary frequency <Katia Brewster PA-C - Last Filed: 11/23/24 21:39> Musculoskeletal: Musculoskeletal: Denies myalgias and Denies muscle cramps <WILBER Jean Last Filed: 11/23/24 21:39> Integumentary/Breasts: Skin/Breast: Denies rash <WILBER Jean Last Filed: 11/23/24 21:39> Neurologic: Denies confusion <WILBER Jean Last Filed: 11/23/24 21:39> Psychiatric: Psychiatric: Denies confusion <WILBER Jean Last Filed: 11/23/24 21:39> Endocrine: Endocrine: Denies fatigue <WILBER Jean Last Filed: 11/23/24 21:39> Hematologic/Lymphatic: Hematologic/Lymphatic: Denies easy bleeding and Denies easy bruising <WILBER Jean Last Filed: 11/23/24 21:39> Allergic/Immunologic: Allergic/Immunologic: Denies wheezing <WILBER Jean Last Filed: 11/23/24 21:39> [facility] Medical History: Medical History (Updated 11/23/24 @ 21:33 by Katia Brewster PA-C) Arthritis Hiatal hernia Hiatal hernia Barretts esophagus Renal cell carcinoma Alcohol use disorder History of alcohol abuse GERD (gastroesophageal reflux disease) Back pain with right-sided sciatica (10/07/21) Pancreatitis Inguinal hernia Cyst of pancreas <WILBER Jean Last Filed: 11/23/24 21:39> Functional capacity: independent ambulation <WILBER Jean Last Filed: 11/23/24 21:39> Surgical History: Surgical History Hx laparoscopic cholecystectomy (04/22/24) Hx of oral surgery H/O colonoscopy History of surgery on right wrist Hx of esophagogastroduodenoscopy History of nephrectomy, left (2021) <WILBER Jean Last Filed: 11/23/24 21:39> Social History: Social History Household Members Other:: adult son Housing: House Are you a primary wound care center consultant to a significant other at home: No Do you presently have visiting nurse or other home services: No Alcohol intake: current Alcohol intake frequency: former alcohol drinker Alcohol type: wine Patient Tobacco Use Status: Current everyday Tobacco user Tobacco use type: Cigarette Cigarette Packs Per Day: 0.5 Cigarettes Per Day: 10 Years Smoked: 40 Smoked in Last 30 Days: Yes Second Hand Smoke Exposure: No Use of substances other than those prescribed or required for medical reasons: No Advance Directives: No Advance Directives Information Provided: No Do you have a plan to hurt others: No Plan service: No Current occupational status: employed Current occupation: [employer] Current occupational exposures/hazards: Yes Cognitive needs: No Hearing needs: No Vision needs: No <Katia Brewster PA-C - Last Filed: 11/23/24 21:39> 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 Smokes 1 pack per day, drinks 1-2 alcoholic beverages per day, no drug use. <WILBER Jean Last Filed: 11/23/24 21:39> Meds Allergies/Adverse reactions: Allergies Allergy/AdvReac Type Severity Reaction Status Date / Time No Known Allergies Allergy Verified 11/23/24 13:07 <WILBER Jean Last Filed: 11/23/24 21:39> Active Medications: Current Medications Acetaminophen (Acetaminophen 325 Mg Tablet) 650 mg PO Q6H PRN PRN Reason: Pain, Mild 1-3,fever,headache Calcium Carbonate (Calcium Carbonate 750 Mg Tab.Chew) 750 mg PO Q4H PRN PRN Reason: Heartburn Enoxaparin Sodium (Enoxaparin Sodium 30 Mg/0.3 Ml Syringe) 30 mg SUBCUT Q24H [facility] Dextrose (D10) 250 mls @ 750 mls/hr IV Q30M PRN PRN Reason: BG <70 Lactated Ringer's (Lr) 1,000 mls @ 200 mls/hr IVCONT .Q5H [facility] Last Admin: 11/23/24 20:04 Dose: 100 mls/hr Potassium Chloride (Potassium Chloride/H20) 10 meq in 100 mls @ 100 mls/hr IV Q1H [facility] Stop: 11/23/24 22:59 Last Admin: 11/23/24 20:20 Dose: 100 mls/hr Thiamine HCl 100 mg/ Sodium (Chloride) 101 mls @ 202 mls/hr IV ONCE ONE Stop: 11/23/24 21:46 Magnesium Hydroxide (Milk Of Magnesia 30 Ml Oral.Susp) 30 ml PO DAILY PRN PRN Reason: Constipation Melatonin (Melatonin 3 Mg Tablet) 6 mg PO BEDTIME PRN PRN Reason: Insomnia Morphine Sulfate (Morphine Sulfate 4 Mg/Ml Cartridge) 4 mg IVPUSH Q4H PRN; Protocol PRN Reason: Pain, Severe (Pain Scale 7-10) Ondansetron HCl (Ondansetron Hcl 4 Mg/2 Ml Vial) 4 mg IVPUSH Q8H PRN PRN Reason: Nausea and Vomiting Sodium Chloride (0.9 % Sodium Chloride Flush 3 Ml Syringe) 3 ml IVFLUSH QSHIFT [facility] <Katia Brewster PA-C - Last Filed: 11/23/24 21:39> Home medications: Home Medications ?Medication ?Instructions ?Recorded ?Confirmed ?Last Taken ?Type acetaminophen 325 mg tablet 650 mg PO Q6H PRN Pain 11/23/24 11/23/24 Unknown History sucralfate 1 gram tablet 1 g PO QIDWMHS 11/23/24 11/23/24 11/22/24 History <Katia Brewster PA-C - Last Filed: 11/23/24 21:39> Physical Exam 2 Vital Signs and Narrative: Vital Signs: Last Vital Signs Temp 97.9 F 11/23/24 21:09 Pulse 68 11/23/24 21:09 Resp 16 11/23/24 21:09 BP 113/63 11/23/24 21:09 Pulse Ox 99 11/23/24 21:09 O2 Del Method Nasal Cannula 11/23/24 21:09 O2 Flow Rate 2 11/23/24 21:09 BMI result Body Mass Index 15.8 <Katia Brewster PA-C - Last Filed: 11/23/24 21:39> General: AOx3, no acute distress Resp: CTA bilaterally CVS: S1, S2, RRR GI: Hypoactive bowel sounds, NT, no distention Skin: Warm, dry Neuro: Cranial nerves II-XII grossly intact bilaterally. Motor grossly intact bilaterally Extremities: No lower extremity edema Psych: Appropriate affect <Katia Brewster PA-C - Last Filed: 11/23/24 21:39> Const: General: No confusion <Katia Brewster PA-C - Last Filed: 11/23/24 21:39> Orientation/consciousness: No confusion <Katia Brewster PA-C - Last Filed: 11/23/24 21:39> Neuro: General: No confusion <Katia Brewster PA-C - Last Filed: 11/23/24 21:39> Results Labs CBC and Chem 7: 11/23/24 13:33 11/23/24 18:00 <Katia Brewster PA-C - Last Filed: 11/23/24 21:39> Labs: Laboratory Results - last 24 hr 11/23/24 11/23/24 11/23/24 13:02 13:14 13:32 MCV MCH MCHC RDW Plt Count MPV Immature Gran % (Auto) Neut % (Auto) Lymph % (Auto) Reeves % (Auto) Eos % (Auto) Baso % (Auto) Lymph # (Auto) Reeves # (Auto) Eos # (Auto) Baso # (Auto) Abs Immat Gran (auto) Absolute Neuts (auto) Absolute Nucleated RBC Nucleated RBC % (auto) Smear Tech's Comments VBG pH VBG pCO2 VBG pO2 VBG HCO3 VBG O2 Saturation VBG Base Excess Anion Gap TNP Estim Creat Clear Calc 10.0 Estimated GFR 12 POC Glucose > 600 H* 576 H* Random Glucose 573 H* Lactic Acid 6.6 H* Lactic Acid F/U @ 2Hr Lactic Acid F/U @ 4Hr Calcium 9.6 Magnesium 2.6 Total Bilirubin 0.5 Direct Bilirubin 0.2 AST 15 ALT 13 Alkaline Phosphatase 94 Lactate Dehydrogenase 188 Total Creatine Kinase 37 L Troponin I High Sens 9.4 B-Natriuretic Peptide 36 Total Protein 9.0 H Albumin 4.5 Lipase 674 H Beta-Hydroxybutyrate 0.40 H Urine Color Urine Appearance Urine pH Ur Specific Lincoln Urine Protein Urine Glucose (UA) Urine Ketones Urine Blood Urine Nitrite Ur Leukocyte Esterase Urine RBC Urine WBC Ur Squamous Epith Cells Urine Bacteria Hyaline Casts Ethyl Alcohol < 10 Influenza Type A (PCR) NEGATIVE Influenza Type B (PCR) NEGATIVE RSV RNA Qual (PCR) NEGATIVE SARS-CoV-2 RNA (RT-PCR) NEGATIVE 11/23/24 11/23/24 11/23/24 13:33 13:38 14:24 MCV 97.2 MCH 34.8 H MCHC 35.8 RDW 12.4 Plt Count 478 H D MPV 10.5 Immature Gran % (Auto) 0.4 Neut % (Auto) 78.0 H Lymph % (Auto) 8.7 L Reeves % (Auto) 12.4 H Eos % (Auto) 0.4 Baso % (Auto) 0.1 Lymph # (Auto) 1.2 Reeves # (Auto) 1.8 H Eos # (Auto) 0.1 Baso # (Auto) 0.0 Abs Immat Gran (auto) 0.06 H Absolute Neuts (auto) 11.1 H Absolute Nucleated RBC 0.000 Nucleated RBC % (auto) 0.0 Smear Tech's Comments VERIFIED VBG pH 7.80 H* VBG pCO2 59 VBG pO2 43 VBG HCO3 93 H VBG O2 Saturation 72.0 VBG Base Excess 61.1 Anion Gap Estim Creat Clear Calc Estimated GFR POC Glucose 549 H* Random Glucose Lactic Acid Lactic Acid F/U @ 2Hr Lactic Acid F/U @ 4Hr Calcium Magnesium Total Bilirubin Direct Bilirubin AST ALT Alkaline Phosphatase Lactate Dehydrogenase Total Creatine Kinase Troponin I High Sens B-Natriuretic Peptide Total Protein Albumin Lipase Beta-Hydroxybutyrate Urine Color Urine Appearance Urine pH Ur Specific [place] Urine Protein Urine Glucose (UA) Urine Ketones Urine Blood Urine Nitrite Ur Leukocyte Esterase Urine RBC Urine WBC Ur Squamous Epith Cells Urine Bacteria Hyaline Casts Ethyl Alcohol Influenza Type A (PCR) Influenza Type B (PCR) RSV RNA Qual (PCR) SARS-CoV-2 RNA (RT-PCR) 11/23/24 11/23/24 11/23/24 15:00 16:00 16:05 MCV MCH MCHC RDW Plt Count MPV Immature Gran % (Auto) Neut % (Auto) Lymph % (Auto) Reeves % (Auto) Eos % (Auto) Baso % (Auto) Lymph # (Auto) Reeves # (Auto) Eos # (Auto) Baso # (Auto) Abs Immat Gran (auto) Absolute Neuts (auto) Absolute Nucleated RBC Nucleated RBC % (auto) Smear Tech's Comments VBG pH VBG pCO2 VBG pO2 VBG HCO3 VBG O2 Saturation VBG Base Excess Anion Gap Estim Creat Clear Calc Estimated GFR POC Glucose 360 H* Random Glucose Lactic Acid Lactic Acid F/U @ 2Hr 8.4 H* Lactic Acid F/U @ 4Hr Calcium Magnesium Total Bilirubin Direct Bilirubin AST ALT Alkaline Phosphatase Lactate Dehydrogenase Total Creatine Kinase Troponin I High Sens B-Natriuretic Peptide Total Protein Albumin Lipase Beta-Hydroxybutyrate Urine Color Dark Yellow Urine Appearance Cloudy Urine pH 5.0 Ur Specific Lincoln >= 1.030 H Urine Protein 100 (2+) H Urine Glucose (UA) 500 H Urine Ketones Trace Urine Blood Moderate (2+) H Urine Nitrite Negative Ur Leukocyte Esterase Trace H Urine RBC >20 H Urine WBC 0-5 Ur Squamous Epith Cells 0-2 Urine Bacteria None Seen Hyaline Casts >20 Ethyl Alcohol Influenza Type A (PCR) Influenza Type B (PCR) RSV RNA Qual (PCR) SARS-CoV-2 RNA (RT-PCR) 11/23/24 11/23/24 11/23/24 17:05 17:11 18:00 MCV MCH MCHC RDW Plt Count MPV Immature Gran % (Auto) Neut % (Auto) Lymph % (Auto) Reeves % (Auto) Eos % (Auto) Baso % (Auto) Lymph # (Auto) Reeves # (Auto) Eos # (Auto) Baso # (Auto) Abs Immat Gran (auto) Absolute Neuts (auto) Absolute Nucleated RBC Nucleated RBC % (auto) Smear Tech's Comments VBG pH 7.68 H* VBG pCO2 67 VBG pO2 56 VBG HCO3 80 H VBG O2 Saturation 84.0 VBG Base Excess 50.2 Anion Gap TNP Estim Creat Clear Calc 12.0 Estimated GFR 15 POC Glucose 253 H Random Glucose 202 H Lactic Acid Lactic Acid F/U @ 2Hr Lactic Acid F/U @ 4Hr Calcium 8.2 L D Magnesium Total Bilirubin 0.4 Direct Bilirubin AST 13 ALT 8 Alkaline Phosphatase 73 Lactate Dehydrogenase Total Creatine Kinase Troponin I High Sens B-Natriuretic Peptide Total Protein 7.1 Albumin 3.6 Lipase Beta-Hydroxybutyrate Urine Color Urine Appearance Urine pH Ur Specific [place] Urine Protein Urine Glucose (UA) Urine Ketones Urine Blood Urine Nitrite Ur Leukocyte Esterase Urine RBC Urine WBC Ur Squamous Epith Cells Urine Bacteria Hyaline Casts Ethyl Alcohol Influenza Type A (PCR) Influenza Type B (PCR) RSV RNA Qual (PCR) SARS-CoV-2 RNA (RT-PCR) 11/23/24 11/23/24 11/23/24 18:12 18:26 19:11 MCV MCH MCHC RDW Plt Count MPV Immature Gran % (Auto) Neut % (Auto) Lymph % (Auto) Reeves % (Auto) Eos % (Auto) Baso % (Auto) Lymph # (Auto) Reeves # (Auto) Eos # (Auto) Baso # (Auto) Abs Immat Gran (auto) Absolute Neuts (auto) Absolute Nucleated RBC Nucleated RBC % (auto) Smear Tech's Comments VBG pH VBG pCO2 VBG pO2 VBG HCO3 VBG O2 Saturation VBG Base Excess Anion Gap Estim Creat Clear Calc Estimated GFR POC Glucose 195 H 158 H Random Glucose Lactic Acid Lactic Acid F/U @ 2Hr Lactic Acid F/U @ 4Hr 3.9 H* Calcium Magnesium Total Bilirubin Direct Bilirubin AST ALT Alkaline Phosphatase Lactate Dehydrogenase Total Creatine Kinase Troponin I High Sens B-Natriuretic Peptide Total Protein Albumin Lipase Beta-Hydroxybutyrate Urine Color Urine Appearance Urine pH Ur Specific [place] Urine Protein Urine Glucose (UA) Urine Ketones Urine Blood Urine Nitrite Ur Leukocyte Esterase Urine RBC Urine WBC Ur Squamous Epith Cells Urine Bacteria Hyaline Casts Ethyl Alcohol Influenza Type A (PCR) Influenza Type B (PCR) RSV RNA Qual (PCR) SARS-CoV-2 RNA (RT-PCR) 11/23/24 11/23/24 20:09 21:06 MCV MCH MCHC RDW Plt Count MPV Immature Gran % (Auto) Neut % (Auto) Lymph % (Auto) Reeves % (Auto) Eos % (Auto) Baso % (Auto) Lymph # (Auto) Reeves # (Auto) Eos # (Auto) Baso # (Auto) Abs Immat Gran (auto) Absolute Neuts (auto) Absolute Nucleated RBC Nucleated RBC % (auto) Smear Tech's Comments VBG pH VBG pCO2 VBG pO2 VBG HCO3 VBG O2 Saturation VBG Base Excess Anion Gap Estim Creat Clear Calc Estimated GFR POC Glucose 145 H 132 H Random Glucose Lactic Acid Lactic Acid F/U @ 2Hr Lactic Acid F/U @ 4Hr Calcium Magnesium Total Bilirubin Direct Bilirubin AST ALT Alkaline Phosphatase Lactate Dehydrogenase Total Creatine Kinase Troponin I High Sens B-Natriuretic Peptide Total Protein Albumin Lipase Beta-Hydroxybutyrate Urine Color Urine Appearance Urine pH Ur Specific [place] Urine Protein Urine Glucose (UA) Urine Ketones Urine Blood Urine Nitrite Ur Leukocyte Esterase Urine RBC Urine WBC Ur Squamous Epith Cells Urine Bacteria Hyaline Casts Ethyl Alcohol Influenza Type A (PCR) Influenza Type B (PCR) RSV RNA Qual (PCR) SARS-CoV-2 RNA (RT-PCR) <Katia Brewster PA-C Last Filed: 11/23/24 21:39> Assessment and Plan (1) Acute on chronic pancreatitis: Status: Acute <Katia Brewster PA-C Filed: 11/23/24 21:39> (2) GLO (acute kidney injury): Status: Acute <HALIE JeanBharathi Filed: 11/23/24 21:39> (3) Metabolic alkalosis: Status: Acute <HALIE JeanBharathi Filed: 11/23/24 21:39> (4) Hyperglycemia: Status: Acute <HALIE Jean [employer] Filed: 11/23/24 21:39> (5) Acidosis, lactic: Status: Acute <Katia Brewster PA-C [employer] Filed: 11/23/24 21:39> (6) Acute hypokalemia: Status: Acute <Katia Brewster PA-C [employer] Filed: 11/23/24 21:39> (7) Small bowel obstruction: Status: Acute <Katia Brewster PA-C Filed: 11/23/24 21:39> (8) Anorexia: Status: Acute <Katia Brewster PA-C [employer] Filed: 11/23/24 21:39> (9) Alcohol use disorder: Status: Chronic <Katia Brewster PA-C - Last Filed: 11/23/24 21:39> Patient is a 64-year-old male with a past medical history significant for pancreatitis related to alcohol and gallstones, last drink 11/16/24, duodenitis, left nephrectomy post renal cell carcinoma (2021), and chronic back pain, who reported to the ED today due to extreme thirst after nausea and vomiting all day yesterday with some occasional diarrhea and upper abdominal pain. Findings significant for acute on chronic pancreatitis, GLO and metabolic alkalosis, duodenal obstruction and severe hyperglycemia. ICU was consulted and was going to take patient's however labs improved after insulin drip and IV fluids, they deemed the patient safe for the medical floor. Acute on chronic pancreatitis - severe nausea and vomiting yesterday with mild diarrhea and upper abdominal pain, better today - lipase 674 - WBC 14.3, likely reactive, lactic elevated, likely due to GLO, blood cultures x2 pending, no sepsis. - abdominopelvic CT with inflammatory changes and fluid adjacent to the 2nd portion of the duodenum/pancreatic head, unclear pancreatitis versus duodenitis with duodenal ulcer not excluded. Marked distention of the stomach likely secondary to outlet obstruction with focal transition point at the 2nd portion of the duodenum, multiple normal sized and prominent retroperitoneal and portacaval lymph nodes, likely reactive. - NPO - continue LR 200 mL/HR - GI consult GLO and metabolic alkalosis secondary to vomiting and diarrhea - creatinine 4.13 - nephrology consult - add urine chloride Duodenal obstruction - NG tube in place - surgical consult Hyperglycemia - blood glucose greater than 600, improved with insulin drip - no diagnosis of diabetes - check A1c Lactic acidosis - likely secondary to GLO with metabolic alkalosis - no obvious infectious source Hypokalemia - secondary to insulin drip, magnesium and potassium repleted - monitor BMP Alcohol use disorder - monitor CIWA - patient reported last drink 11/16/2024 - consider phenobarb with appropriate - alcohol cessation discussed Anorexia - BMI 15.8 - consider nutrition consult once patient able to tolerate p.o. DNR/DNI - discussed with patient VTE prophylaxis: Lovenox Patient with acute on chronic pancreatitis complicated by GLO and metabolic alkalosis as well as duodenal obstruction and severe hyperglycemia with electrolytes abnormalities, requiring admission for at least 2 midnights stay for further treatment and monitoring. <Katia Brewster PA-C - Last Filed: 11/23/24 21:39> Patient is a 64-year-old male with a past medical history significant for pancreatitis related to alcohol and gallstones, last drink 11/16/24, duodenitis, left nephrectomy post renal cell carcinoma (2021), and chronic back pain, who reported to the ED today due to extreme thirst after nausea and vomiting all day yesterday with some occasional diarrhea and upper abdominal pain. Findings significant for acute on chronic pancreatitis, GLO and metabolic alkalosis, duodenal obstruction and severe hyperglycemia. ICU was consulted and was going to take patient's however labs improved after insulin drip and IV fluids, they deemed the patient safe for the medical floor. Acute on chronic pancreatitis - severe nausea and vomiting yesterday with mild diarrhea and upper abdominal pain, better today - lipase 674 - WBC 14.3, likely reactive, lactic elevated, likely due to GLO, blood cultures x2 pending, no sepsis. - abdominopelvic CT with inflammatory changes and fluid adjacent to the 2nd portion of the duodenum/pancreatic head, unclear pancreatitis versus duodenitis with duodenal ulcer not excluded. Marked distention of the stomach likely secondary to outlet obstruction with focal transition point at the 2nd portion of the duodenum, multiple normal sized and prominent retroperitoneal and portacaval lymph nodes, likely reactive. - NPO - continue LR 200 mL/HR - GI consult GLO and metabolic alkalosis secondary to vomiting - creatinine 4.13 - nephrology consult - add urine chloride Duodenal obstruction - NG tube in place - surgical consult Hyperglycemia - blood glucose greater than 600, improved with insulin drip - no diagnosis of diabetes - check A1c Lactic acidosis - likely secondary to GLO with metabolic alkalosis - no obvious infectious source Hypokalemia - secondary to insulin drip, magnesium and potassium repleted - monitor BMP Alcohol use disorder - monitor CIWA - patient reported last drink 11/16/2024 - consider phenobarb with appropriate - alcohol cessation discussed Anorexia - BMI 15.8 - consider nutrition consult once patient able to tolerate p.o. DNR/DNI - discussed with patient VTE prophylaxis: Lovenox Patient with acute on chronic pancreatitis complicated by GLO and metabolic alkalosis as well as duodenal obstruction and severe hyperglycemia with electrolytes abnormalities, requiring admission for at least 2 midnights stay for further treatment and monitoring. <Mario Arnold MD - Last Filed: 11/23/24 22:33> Quality Stroke Does the patient have a stroke diagnosis?: No <Katia Brewster PA-C - Last Filed: 11/23/24 21:39> VTE Prior VTE?: No <Katia Brewster PA-C - Last Filed: 11/23/24 21:39> VTE Risk Level:: Medical - moderate - high <Katia Brewster PA-C - Last Filed: 11/23/24 21:39> VTE Device Contraindication: Treatment Not Indicated <Katia Brewster PA-C - Last Filed: 11/23/24 21:39> VTE Drug Contraindication: N/A - Med Ordered <Katia Brewster PA-C - Last Filed: 11/23/24 21:39>
[2024-11-23] MEDS: Enoxaparin Sodium 30 MG/0.3 ML SYRINGE SUBCUT (21:23)
[2024-11-23] MEDS: Potassium Chloride Packet 20 MEQ PACKET 40 MEQ PO (21:24)
[2024-11-23 21:25] LABS: Triglycerides 111 mg/dL (<150)
[2024-11-23 21:30] LABS: Chloride Urine Random < 20.0 mmol/L
[2024-11-23] MEDS: Thiamine HCL 100 MG in 0.9 % Sodium Chloride 100 ML 202 MG IV (22:08)
[2024-11-24] VITALS (7 sets, daily range): BP systolic 96–124; BP diastolic 56–77; PULSE 62–69; RESP 18–20; TEMP 36.3–37.1; O2SAT 95–100; BMI 15.8
[2024-11-24 00:18] LABS: Glucose, Whole Blood 118 mg/dL (60-115)
[2024-11-24] MEDS: Morphine Sulfate 4 MG/ML CARTRIDGE IVPUSH ×4 (02:21→19:38)
[2024-11-24] MEDS: Lactated Ringers 1,000 ML 200 ML IVCONT ×3 (02:25→13:01)
[2024-11-24 03:34] LABS: Glucose, Whole Blood 124 mg/dL (60-115)
[2024-11-24 05:12] LABS: Glucose, Whole Blood 111 mg/dL (60-115)
[2024-11-24 05:17] LABS: Estimated Average Glucose 146 mg/dL; Hemoglobin A1C 196.1323 umol/L; Hemoglobin A1c % 6.7 % (<6.0); Total Hemoglobin (HGBA1C) 3944.2252 umol/L
[2024-11-24 07:23] LABS: Glucose, Whole Blood 116 mg/dL (60-115)
--- NOTE | 2024-11-24 07:27 | P.CONGS_ITS ---
History of Present Illness Consult details Consult date: 11/24/24 Narrative: 64-year-old male patient presenting with complaints of dehydration, nausea, vomiting and abdominal pain. He has a past history of pancreatitis related to ETOH and gallstones, status post cholecystectomy 04/22/2024. He reports drinking many sugary drinks throughout the day yesterday and still felt dehydrated. He subsequently presented to the emergency department and found to be in renal failure with lactic acidosis and pancreatitis. He was also in DKA. A CT of the abdomen and pelvis revealed a markedly distended stomach with cut off at the 2nd portion of the duodenum possibly due to pancreatitis at the head of the pancreas. He received IV hydration and nasogastric tube decompression. This morning he feels improved with less abdominal pain but still feels the high deviated. Approximately 1500 mL of fluid were evacuated via the NG tube. Review of Systems 2 Review of Systems: Yes all other systems are reviewed and are negative Constitutional: Constitutional: Denies chills, Denies fever(s), Denies headache(s), Reports poor appetite and Denies weakness ENT: Denies headache(s) Cardiovascular: Cardiovascular: Denies chest pain, Denies irregular heart rhythm, Denies palpitations and Denies dyspnea Respiratory: Respiratory: Denies cough, Denies excessive phlegm production and Denies dyspnea Gastrointestinal: Gastrointestinal: Reports abdominal pain, Reports bloating, Denies change in bowel habits, Denies constipation, Denies heartburn, Denies diarrhea, Reports nausea and Reports vomiting Genitourinary: Genitourinary: Reports difficulty urinating and Denies urinary frequency Musculoskeletal: Musculoskeletal: Denies back pain, Denies muscle weakness and Denies numbness Integumentary/Breasts: Skin/Breast: Denies changing lesions and Denies unusual bruising Neurologic: Denies headache(s), Denies numbness, Denies paresthesias and Denies weakness Psychiatric: Psychiatric: Denies anxiety and Denies depression Endocrine: Endocrine: Denies palpitations Hematologic/Lymphatic: Hematologic/Lymphatic: Denies lymphadenopathy PMFSH Past Medical History Medical History Arthritis Hiatal hernia Hiatal hernia Barretts esophagus Renal cell carcinoma Alcohol use disorder History of alcohol abuse GERD (gastroesophageal reflux disease) Back pain with right-sided sciatica (10/07/21) Pancreatitis Inguinal hernia Cyst of pancreas Surgical History Surgical History Hx laparoscopic cholecystectomy (04/22/24) Hx of oral surgery H/O colonoscopy History of surgery on right wrist Hx of esophagogastroduodenoscopy History of nephrectomy, left (2021) Social History Social History Household Members: None Household Members Other:: adult son Housing: House Are you a primary geriatric care manager to a significant other at home: No Do you presently have visiting nurse or other home services: No Alcohol intake: current Alcohol intake frequency: former alcohol drinker Alcohol type: wine Patient Tobacco Use Status: Current everyday Tobacco user Tobacco use type: Cigarette Cigarette Packs Per Day: 1 Cigarettes Per Day: 20.0 Years Smoked: 40 Second Hand Smoke Exposure: No service: No Current occupational status: employed Current occupation: [employer] Current occupational exposures/hazards: Yes Cognitive needs: No Hearing needs: No Vision needs: No Meds Allergies Allergy/AdvReac Type Severity Reaction Status Date / Time No Known Allergies Allergy Verified 11/23/24 13:07 Active Medications: Current Medications Acetaminophen (Acetaminophen 325 Mg Tablet) 650 mg PO Q6H PRN PRN Reason: Pain, Mild 1-3,fever,headache Calcium Carbonate (Calcium Carbonate 750 Mg Tab.Chew) 750 mg PO Q4H PRN PRN Reason: Heartburn Enoxaparin Sodium (Enoxaparin Sodium 30 Mg/0.3 Ml Syringe) 30 mg SUBCUT Q24H [facility] Last Admin: 11/23/24 21:23 Dose: 30 mg Dextrose (D10) 250 mls @ 750 mls/hr IV Q30M PRN PRN Reason: BG <70 Lactated Ringer's (Lr) 1,000 mls @ 200 mls/hr IVCONT .Q5H [facility] Last Admin: 11/24/24 02:25 Dose: 200 mls/hr Magnesium Hydroxide (Milk Of Magnesia 30 Ml Oral.Susp) 30 ml PO DAILY PRN PRN Reason: Constipation Melatonin (Melatonin 3 Mg Tablet) 6 mg PO BEDTIME PRN PRN Reason: Insomnia Morphine Sulfate (Morphine Sulfate 4 Mg/Ml Cartridge) 4 mg IVPUSH Q4H PRN; Protocol PRN Reason: Pain, Severe (Pain Scale 7-10) Last Admin: 11/24/24 02:21 Dose: 4 mg Ondansetron HCl (Ondansetron Hcl 4 Mg/2 Ml Vial) 4 mg IVPUSH Q8H PRN PRN Reason: Nausea and Vomiting Sodium Chloride (0.9 % Sodium Chloride Flush 3 Ml Syringe) 3 ml IVFLUSH QSHIFT JUANA Last Admin: 11/23/24 23:49 Dose: Not Given Home Medications ?Medication ?Instructions ?Recorded ?Confirmed ?Last Taken ?Type acetaminophen 325 mg tablet 650 mg PO Q6H PRN Pain 11/23/24 11/23/24 Unknown History sucralfate 1 gram tablet 1 g PO QIDWMHS 11/23/24 11/23/24 11/22/24 History Physical Exam 2 Vital Signs: Vital Signs: Last Vital Signs Temp 97.4 F 11/24/24 03:35 Pulse 62 11/24/24 03:35 Resp 18 11/24/24 03:35 BP 105/59 L 11/24/24 03:35 Pulse Ox 100 11/24/24 03:35 O2 Del Method Oxymask 11/24/24 03:35 O2 Flow Rate 2 11/24/24 03:35 BMI result Body Mass Index 15.8 Const: General: no acute distress Nutritional Appearance: well nourished Orientation/consciousness: patient oriented x3 HEENT: Other: NG tube in place Head: Yes normocephalic and Yes atraumatic Ears: hearing grossly normal bilaterally Resp: Other: Breathing with oxygen mask Effort & Inspection: normal respiratory effort, no audible wheezes, no cough and no respiratory distress Cardio: Jugular venous distension: no JVD GI: Inspection: Yes normal to inspection and No distended Palpation (GI): S oft to palpation, nontender, no guarding, not rigid and No hepatosplenomegaly present Percussion: Yes normal to percussion Skin: Other: Warm, dry, no rash Neuro: General: patient oriented x3 Extrem: General: Yes no clubbing, cyanosis or edema Results Labs 11/23/24 13:33 11/23/24 18:00 Labs: Abnormal lab results 11/23/24 11/23/24 11/23/24 Range/Units 13:02 13:14 13:32 WBC (4.8-10.8) X10*3/uL RBC (4.60-5.80) X10*6/uL MCH (27.0-33.0) pg Plt Count (160-400) X10*3/uL Neut % (Auto) (45-73) % Lymph % (Auto) (20-40) % [place] % (Auto) (2-11) % [place] # (Auto) (0.1-1.2) X10*3/uL Abs Immat Gran (auto) (0.00-0.03) X10*3/uL Absolute Neuts (auto) (2.0-8.3) x10*3/uL VBG pH (7.32-7.43) VBG HCO3 (22-26) mmol/L Potassium (3.3-5.1) mmol/L Chloride < 50 L D (96-108) mmol/L Carbon Dioxide 53 H* D (22-29) mmol/L BUN 50 H (9-16) mg/dL Creatinine 4.96 H* (0.5-1.4) mg/dL POC Glucose > 600 H* 576 H* (60-115) mg/dL Random Glucose 573 H* (60-115) mg/dL Hemoglobin A1c % 6.7 H (<6.0) % Lactic Acid 6.6 H* (0.5-2.0) mmol/L Lactic Acid F/U @ 2Hr (0.5-2.0) mmol/L Lactic Acid F/U @ 4Hr (0.5-2.0) mmol/L Calcium (8.4-10.2) mg/dL Total Creatine Kinase 37 L (38-174) U/L Total Protein 9.0 H (6.5-8.0) g/dL Lipase 674 H (8-78) U/L Beta-Hydroxybutyrate 0.40 H (0.02-0.27) mmol/L Ur Specific Dequincy (1.005-1.025) Urine Protein (Neg-Trace) mg/dL Urine Glucose (UA) (Negative) mg/dL Urine Blood (Negative) Ur Leukocyte Esterase (Negative) Urine RBC (0-2) /HPF 11/23/24 11/23/24 11/23/24 Range/Units 13:33 13:38 14:24 WBC 14.3 H (4.8-10.8) X10*3/uL RBC 4.57 L D (4.60-5.80) X10*6/uL MCH 34.8 H (27.0-33.0) pg Plt Count 478 H D (160-400) X10*3/uL Neut % (Auto) 78.0 H (45-73) % Lymph % (Auto) 8.7 L (20-40) % [place] % (Auto) 12.4 H (2-11) % [place] # (Auto) 1.8 H (0.1-1.2) X10*3/uL Abs Immat Gran (auto) 0.06 H (0.00-0.03) X10*3/uL Absolute Neuts (auto) 11.1 H (2.0-8.3) x10*3/uL VBG pH 7.80 H* (7.32-7.43) VBG HCO3 93 H (22-26) mmol/L Potassium (3.3-5.1) mmol/L Chloride (96-108) mmol/L Carbon Dioxide (22-29) mmol/L BUN (9-16) mg/dL Creatinine (0.5-1.4) mg/dL POC Glucose 549 H* (60-115) mg/dL Random Glucose (60-115) mg/dL Hemoglobin A1c % (<6.0) % Lactic Acid (0.5-2.0) mmol/L Lactic Acid F/U @ 2Hr (0.5-2.0) mmol/L Lactic Acid F/U @ 4Hr (0.5-2.0) mmol/L Calcium (8.4-10.2) mg/dL Total Creatine Kinase (38-174) U/L Total Protein (6.5-8.0) g/dL Lipase (8-78) U/L Beta-Hydroxybutyrate (0.02-0.27) mmol/L Ur Specific Dequincy (1.005-1.025) Urine Protein (Neg-Trace) mg/dL Urine Glucose (UA) (Negative) mg/dL Urine Blood (Negative) Ur Leukocyte Esterase (Negative) Urine RBC (0-2) /HPF 11/23/24 11/23/24 11/23/24 Range/Units 15:00 16:00 16:05 WBC (4.8-10.8) X10*3/uL RBC (4.60-5.80) X10*6/uL MCH (27.0-33.0) pg Plt Count (160-400) X10*3/uL Neut % (Auto) (45-73) % Lymph % (Auto) (20-40) % [place] % (Auto) (2-11) % [place] # (Auto) (0.1-1.2) X10*3/uL Abs Immat Gran (auto) (0.00-0.03) X10*3/uL Absolute Neuts (auto) (2.0-8.3) x10*3/uL VBG pH (7.32-7.43) VBG HCO3 (22-26) mmol/L Potassium (3.3-5.1) mmol/L Chloride (96-108) mmol/L Carbon Dioxide (22-29) mmol/L BUN (9-16) mg/dL Creatinine (0.5-1.4) mg/dL POC Glucose 360 H* (60-115) mg/dL Random Glucose (60-115) mg/dL Hemoglobin A1c % (<6.0) % Lactic Acid (0.5-2.0) mmol/L Lactic Acid F/U @ 2Hr 8.4 H* (0.5-2.0) mmol/L Lactic Acid F/U @ 4Hr (0.5-2.0) mmol/L Calcium (8.4-10.2) mg/dL Total Creatine Kinase (38-174) U/L Total Protein (6.5-8.0) g/dL Lipase (8-78) U/L Beta-Hydroxybutyrate (0.02-0.27) mmol/L Ur Specific Dequincy >= 1.030 H (1.005-1.025) Urine Protein 100 (2+) H (Neg-Trace) mg/dL Urine Glucose (UA) 500 H (Negative) mg/dL Urine Blood Moderate (2+) H (Negative) Ur Leukocyte Esterase Trace H (Negative) Urine RBC >20 H (0-2) /HPF 11/23/24 11/23/24 11/23/24 Range/Units 17:05 17:11 18:00 WBC (4.8-10.8) X10*3/uL RBC (4.60-5.80) X10*6/uL MCH (27.0-33.0) pg Plt Count (160-400) X10*3/uL Neut % (Auto) (45-73) % Lymph % (Auto) (20-40) % [place] % (Auto) (2-11) % [place] # (Auto) (0.1-1.2) X10*3/uL Abs Immat Gran (auto) (0.00-0.03) X10*3/uL Absolute Neuts (auto) (2.0-8.3) x10*3/uL VBG pH 7.68 H* (7.32-7.43) VBG HCO3 80 H (22-26) mmol/L Potassium 2.6 L* D (3.3-5.1) mmol/L Chloride 66 L D (96-108) mmol/L Carbon Dioxide 47 H* (22-29) mmol/L BUN 47 H (9-16) mg/dL Creatinine 4.13 H* (0.5-1.4) mg/dL POC Glucose 253 H (60-115) mg/dL Random Glucose 202 H (60-115) mg/dL Hemoglobin A1c % (<6.0) % Lactic Acid (0.5-2.0) mmol/L Lactic Acid F/U @ 2Hr (0.5-2.0) mmol/L Lactic Acid F/U @ 4Hr (0.5-2.0) mmol/L Calcium 8.2 L D (8.4-10.2) mg/dL Total Creatine Kinase (38-174) U/L Total Protein (6.5-8.0) g/dL Lipase (8-78) U/L Beta-Hydroxybutyrate (0.02-0.27) mmol/L Ur Specific Dequincy (1.005-1.025) Urine Protein (Neg-Trace) mg/dL Urine Glucose (UA) (Negative) mg/dL Urine Blood (Negative) Ur Leukocyte Esterase (Negative) Urine RBC (0-2) /HPF 11/23/24 11/23/24 11/23/24 Range/Units 18:12 18:26 19:11 WBC (4.8-10.8) X10*3/uL RBC (4.60-5.80) X10*6/uL MCH (27.0-33.0) pg Plt Count (160-400) X10*3/uL Neut % (Auto) (45-73) % Lymph % (Auto) (20-40) % [place] % (Auto) (2-11) % [place] # (Auto) (0.1-1.2) X10*3/uL Abs Immat Gran (auto) (0.00-0.03) X10*3/uL Absolute Neuts (auto) (2.0-8.3) x10*3/uL VBG pH (7.32-7.43) VBG HCO3 (22-26) mmol/L Potassium (3.3-5.1) mmol/L Chloride (96-108) mmol/L Carbon Dioxide (22-29) mmol/L BUN (9-16) mg/dL Creatinine (0.5-1.4) mg/dL POC Glucose 195 H 158 H (60-115) mg/dL Random Glucose (60-115) mg/dL Hemoglobin A1c % (<6.0) % Lactic Acid (0.5-2.0) mmol/L Lactic Acid F/U @ 2Hr (0.5-2.0) mmol/L Lactic Acid F/U @ 4Hr 3.9 H* (0.5-2.0) mmol/L Calcium (8.4-10.2) mg/dL Total Creatine Kinase (38-174) U/L Total Protein (6.5-8.0) g/dL Lipase (8-78) U/L Beta-Hydroxybutyrate (0.02-0.27) mmol/L Ur Specific Dequincy (1.005-1.025) Urine Protein (Neg-Trace) mg/dL Urine Glucose (UA) (Negative) mg/dL Urine Blood (Negative) Ur Leukocyte Esterase (Negative) Urine RBC (0-2) /HPF 11/23/24 11/23/24 11/24/24 Range/Units 20:09 21:06 00:14 WBC (4.8-10.8) X10*3/uL RBC (4.60-5.80) X10*6/uL MCH (27.0-33.0) pg Plt Count (160-400) X10*3/uL Neut % (Auto) (45-73) % Lymph % (Auto) (20-40) % [place] % (Auto) (2-11) % [place] # (Auto) (0.1-1.2) X10*3/uL Abs Immat Gran (auto) (0.00-0.03) X10*3/uL Absolute Neuts (auto) (2.0-8.3) x10*3/uL VBG pH (7.32-7.43) VBG HCO3 (22-26) mmol/L Potassium (3.3-5.1) mmol/L Chloride (96-108) mmol/L Carbon Dioxide (22-29) mmol/L BUN (9-16) mg/dL Creatinine (0.5-1.4) mg/dL POC Glucose 145 H 132 H 118 H (60-115) mg/dL Random Glucose (60-115) mg/dL Hemoglobin A1c % (<6.0) % Lactic Acid (0.5-2.0) mmol/L Lactic Acid F/U @ 2Hr (0.5-2.0) mmol/L Lactic Acid F/U @ 4Hr (0.5-2.0) mmol/L Calcium (8.4-10.2) mg/dL Total Creatine Kinase (38-174) U/L Total Protein (6.5-8.0) g/dL Lipase (8-78) U/L Beta-Hydroxybutyrate (0.02-0.27) mmol/L Ur Specific Dequincy (1.005-1.025) Urine Protein (Neg-Trace) mg/dL Urine Glucose (UA) (Negative) mg/dL Urine Blood (Negative) Ur Leukocyte Esterase (Negative) Urine RBC (0-2) /HPF 11/24/24 11/24/24 Range/Units 03:27 07:20 WBC (4.8-10.8) X10*3/uL RBC (4.60-5.80) X10*6/uL MCH (27.0-33.0) pg Plt Count (160-400) X10*3/uL Neut % (Auto) (45-73) % Lymph % (Auto) (20-40) % [place] % (Auto) (2-11) % [place] # (Auto) (0.1-1.2) X10*3/uL Abs Immat Gran (auto) (0.00-0.03) X10*3/uL Absolute Neuts (auto) (2.0-8.3) x10*3/uL VBG pH (7.32-7.43) VBG HCO3 (22-26) mmol/L Potassium (3.3-5.1) mmol/L Chloride (96-108) mmol/L Carbon Dioxide (22-29) mmol/L BUN (9-16) mg/dL Creatinine (0.5-1.4) mg/dL POC Glucose 124 H 116 H (60-115) mg/dL Random Glucose (60-115) mg/dL Hemoglobin A1c % (<6.0) % Lactic Acid (0.5-2.0) mmol/L Lactic Acid F/U @ 2Hr (0.5-2.0) mmol/L Lactic Acid F/U @ 4Hr (0.5-2.0) mmol/L Calcium (8.4-10.2) mg/dL Total Creatine Kinase (38-174) U/L Total Protein (6.5-8.0) g/dL Lipase (8-78) U/L Beta-Hydroxybutyrate (0.02-0.27) mmol/L Ur Specific Dequincy (1.005-1.025) Urine Protein (Neg-Trace) mg/dL Urine Glucose (UA) (Negative) mg/dL Urine Blood (Negative) Ur Leukocyte Esterase (Negative) Urine RBC (0-2) /HPF Short CBC 11/23/24 Range/Units 13:33 WBC 14.3 H (4.8-10.8) X10*3/uL Hgb 15.9 D (14.0-18.0) g/dl Hct 44.4 D (42.0-52.0) % Plt Count 478 H D (160-400) X10*3/uL BMP 11/23/24 11/23/24 13:32 18:00 Sodium 135 140 Potassium 3.4 D 2.6 L* D Chloride < 50 L D 66 L D Carbon Dioxide 53 H* D 47 H* BUN 50 H 47 H Creatinine 4.96 H* 4.13 H* Calcium 9.6 8.2 L D Cardiac Enzymes 11/23/24 Range/Units 13:32 Total Creatine Kinase 37 L (38-174) U/L Liver Function 11/23/24 11/23/24 Range/Units 13:32 18:00 Total Bilirubin 0.5 0.4 (0.0-1.0) mg/dL Direct Bilirubin 0.2 (0.0-0.5) mg/dL AST 15 13 (5-37) U/L ALT 13 8 (0-40) U/L Alkaline Phosphatase 94 73 (39-117) U/L Albumin 4.5 3.6 (3.5-5.0) g/dL Urine 11/23/24 Range/Units 15:00 Urine Color Dark Yellow Urine Appearance Cloudy Urine pH 5.0 (5.0-9.0) Ur Specific Dequincy >= 1.030 H (1.005-1.025) Urine Protein 100 (2+) H (Neg-Trace) mg/dL Urine Glucose (UA) 500 H (Negative) mg/dL All other labs normal. Assessment and Plan (1) Acute on chronic pancreatitis: Status: Acute (2) Gastric dilatation: Status: Acute Plan 64-year-old male patient with a history of ETOH abuse and pancreatitis status post laparoscopic cholecystectomy now with markedly distended stomach with probable partial obstruction due to pancreatitis. Agree with IV hydration and NG decompression. Recommend repeat CT with oral contrast to evaluate for continued obstruction possibly in 1-2 days. We will continue to monitor. Procedures Date of Service Date of Service: 11/24/24
[2024-11-24 08:43] LABS: MANUAL DIFF FLAG NO
[2024-11-24 08:47] LABS: Basophils Percent Auto 0.2 % (0-2); Eosinophils Percent Auto 0.1 % (0-4); Hematocrit 33.6 % (42.0-52.0); Hemoglobin 11.4 g/dl (14.0-18.0); Imm Gran Pct Auto 0.6 % (0.0-0.4); Lymphocytes Absolute Auto 1.3 X10*3/uL (1.2-4.9); Lymphocytes Percent Auto 8.6 % (20-40); Mean Corpuscular HGB Conc 33.9 g/dl (31.0-36.0); Mean Corpuscular Hemoglobin 34.7 pg (27.0-33.0); Mean Corpuscular Volume 102.1 fL (80.0-98.0); Mean Platelet Volume 10.5 fL (9.4-12.4); Monocytes Percent Auto 6.1 % (2-11); Neutrophils Absolute Auto 13.1 x10*3/uL (2.0-8.3); Neutrophils Percent Auto 84.4 % (45-73); Platelet Count 290 X10*3/uL (160-400); Red Blood Count 3.29 X10*6/uL (4.60-5.80); Red Cell Distribution Width 12.8 % (11.0-16.0); White Blood Count 15.5 X10*3/uL (4.8-10.8)
[2024-11-24 09:10] LABS: VBG Base Excess 34.5 mmol/L; VBG HCO3 61 mmol/L (22-26); VBG pCO2 66 mmHg; VBG pH 7.58 (7.32-7.43); VBG pO2 50 mmHg
[2024-11-24 09:11] LABS: Venous Blood Gas Refer to POC result
[2024-11-24 09:15] LABS: Anion Gap 13 (12-20); Blood Urea Nitrogen 33 mg/dL (9-16); Calcium 8.1 mg/dL (8.4-10.2); Carbon Dioxide 45 mmol/L (22-29); Chloride 84 mmol/L (96-108); Creatinine Clr Calc Pharmacy 23.6; Estimated Glomerular Filt Rate 32; Glucose Random 133 mg/dL (60-115); Potassium 3.1 mmol/L (3.3-5.1); Sodium 139 mmol/L (135-145)
--- NOTE | 2024-11-24 09:50 | PM.CNNEP ---
History of Present Illness Reason for Consult Consult date: 11/24/24 Reason for consult: GLO Chief Complaint Chief complaint: Vomiting History of Present Illness Narrative: 64-year-old male with a history significant for pancreatitis related to alcohol and gallstones, last drink 11/16/24, duodenitis, left nephrectomy post renal cell carcinoma (2021), and chronic back pain, who reported to the ED today due to extreme thirst after nausea and vomiting all day yesterday with some occasional diarrhea and upper abdominal pain. He reports that he has a history of chronic pancreatitis with acute flares and felt that this was an episode. He was very thirsty today reports that he drank everything that he had in the house which were a lot of sugary drinks. He denies any blood in the stool or hematemesis. He also denies any fever, recent travel, antibiotic use or sick contacts. He was not on any diuretics. Urine chloride was less than 20. Currently nonoliguric Review of Systems Constitutional: Denies fever(s) and Denies weight loss Cardiovascular: Denies chest pain Respiratory: Denies cough and Denies hemoptysis Gastrointestinal: Denies abdominal pain, Reports nausea and Reports vomiting Musculoskeletal: Denies back pain Denies focal weakness PMFSH Past Medical History Medical History Arthritis Hiatal hernia Hiatal hernia Barretts esophagus Renal cell carcinoma Alcohol use disorder History of alcohol abuse GERD (gastroesophageal reflux disease) Back pain with right-sided sciatica (10/07/21) Pancreatitis Inguinal hernia Cyst of pancreas Surgical History Surgical History Hx laparoscopic cholecystectomy (04/22/24) Hx of oral surgery H/O colonoscopy History of surgery on right wrist Hx of esophagogastroduodenoscopy History of nephrectomy, left (2021) Social History Social History Household Members: None Household Members Other:: adult son Housing: House Are you a primary health care analyst to a significant other at home: No Do you presently have visiting nurse or other home services: No Alcohol intake: current Alcohol intake frequency: former alcohol drinker Alcohol type: wine Patient Tobacco Use Status: Current everyday Tobacco user Tobacco use type: Cigarette Cigarette Packs Per Day: 1 Cigarettes Per Day: 20.0 Years Smoked: 40 Second Hand Smoke Exposure: No service: No Current occupational status: employed Current occupation: [employer] Current occupational exposures/hazards: Yes Cognitive needs: No Hearing needs: No Vision needs: No Meds Allergies Allergy/AdvReac Type Severity Reaction Status Date / Time No Known Allergies Allergy Verified 11/23/24 13:07 Active Medications: Current Medications Acetaminophen (Acetaminophen 325 Mg Tablet) 650 mg PO Q6H PRN PRN Reason: Pain, Mild 1-3,fever,headache Calcium Carbonate (Calcium Carbonate 750 Mg Tab.Chew) 750 mg PO Q4H PRN PRN Reason: Heartburn Enoxaparin Sodium (Enoxaparin Sodium 30 Mg/0.3 Ml Syringe) 30 mg SUBCUT Q24H [facility] Last Admin: 11/23/24 21:23 Dose: 30 mg Dextrose (D10) 250 mls @ 750 mls/hr IV Q30M PRN PRN Reason: BG <70 Lactated Ringer's (Lr) 1,000 mls @ 200 mls/hr IVCONT .Q5H [facility] Last Admin: 11/24/24 07:49 Dose: 200 mls/hr Magnesium Hydroxide (Milk Of Magnesia 30 Ml Oral.Susp) 30 ml PO DAILY PRN PRN Reason: Constipation Melatonin (Melatonin 3 Mg Tablet) 6 mg PO BEDTIME PRN PRN Reason: Insomnia Morphine Sulfate (Morphine Sulfate 4 Mg/Ml Cartridge) 4 mg IVPUSH Q4H PRN; Protocol PRN Reason: Pain, Severe (Pain Scale 7-10) Last Admin: 11/24/24 07:56 Dose: 4 mg Ondansetron HCl (Ondansetron Hcl 4 Mg/2 Ml Vial) 4 mg IVPUSH Q8H PRN PRN Reason: Nausea and Vomiting Pantoprazole Sodium (Pantoprazole Sodium 40 Mg/10 Ml Vial) 40 mg IVPUSH DAILY@0630 [facility] Sodium Chloride (0.9 % Sodium Chloride Flush 3 Ml Syringe) 3 ml IVFLUSH QSHIFT [facility] Last Admin: 11/24/24 07:53 Dose: Not Given Home Medications ?Medication ?Instructions ?Recorded ?Confirmed ?Last Taken ?Type acetaminophen 325 mg tablet 650 mg PO Q6H PRN Pain 11/23/24 11/23/24 Unknown History sucralfate 1 gram tablet 1 g PO QIDWMHS 11/23/24 11/23/24 11/22/24 History Physical Exam Vital Signs: Last Vital Signs Temp 98.4 F 11/24/24 07:30 Pulse 69 11/24/24 07:30 Resp 18 11/24/24 03:35 BP 101/59 L 11/24/24 07:30 Pulse Ox 100 11/24/24 07:30 O2 Del Method Oxymask 11/24/24 07:30 O2 Flow Rate 2 11/24/24 07:30 BMI result Body Mass Index 15.8 Comfortable Mucosa dry NG tube in place Neck supple no JVD. Lungs entry equal no rales. Heart S1-S2 heard no gallop or rub. Abdomen soft nontender. Neuro alert awake oriented. No asterixis. Extremities no edema. Results Lab Results 11/24/24 08:39 11/24/24 08:39 Lab results: Chemistry 11/23/24 11/23/24 11/24/24 13:32 18:00 08:39 Sodium 135 140 139 Potassium 3.4 D 2.6 L* D 3.1 L Carbon Dioxide 53 H* D 47 H* 45 H* BUN 50 H 47 H 33 H Creatinine 4.96 H* 4.13 H* 2.10 H Calcium 9.6 8.2 L D 8.1 L Hematology 11/23/24 11/24/24 13:33 08:39 WBC 14.3 H 15.5 H Hgb 15.9 D 11.4 L D Plt Count 478 H D 290 D Urinalysis 11/23/24 15:00 Urine Color Dark Yellow Urine Appearance Cloudy Urine pH 5.0 Ur Specific [place] >= 1.030 H Urine Protein 100 (2+) H Urine Glucose (UA) 500 H Urine Ketones Trace Urine Blood Moderate (2+) H Urine Nitrite Negative Ur Leukocyte Esterase Trace H Urine RBC >20 H Urine WBC 0-5 Ur Squamous Epith Cells 0-2 Hyaline Casts >20 Assessment and Plan (1) Metabolic alkalosis: Status: Acute (2) GLO (acute kidney injury): Status: Acute Plan 64-year-old man with solitary right kidney status post left radical nephrectomy for renal cell carcinoma currently has acute kidney injury with chloride responsive metabolic alkalosis/hypokalemia. GLO most likely due to volume depletion from significant vomiting. Chloride responsive metabolic alkalosis due to vomiting Recommendations IV hydration. Keep intake more than output agree with current IV high fluids. Monitor urine output. Needs H2 blockers to minimize proton loss Watch potassium and replace as needed once alkalosis resolved serum potassium should normalize as well. No indication for dialysis She will follow along with the team Procedures Date of Service Date of Service: 11/24/24
[2024-11-24] MEDS: Pantoprazole Sodium 40 MG/10 ML VIAL IVPUSH (09:57)
--- NOTE | 2024-11-24 11:01 | HO.PM.IMPN ---
Subjective Subjective Date of Service: 11/24/24 Interval History: Seen and examined this morning Follow-up for the vomiting has NGT in place, no abdominal pain Review of Systems Review of Systems: Yes all other systems are reviewed and are negative Constitutional Constitutional: Denies chills and Denies fever(s) Cardiovascular Cardiovascular: Denies chest pain, Denies palpitations and Denies dyspnea Respiratory Respiratory: Denies cough and Denies dyspnea Endocrine Endocrine: Denies palpitations Physical Exam Vital Signs: Vital Signs: Last Vital Signs Temp 98.4 F 11/24/24 07:30 Pulse 69 11/24/24 07:30 Resp 18 11/24/24 03:35 BP 101/59 L 11/24/24 07:30 Pulse Ox 100 11/24/24 07:30 O2 Del Method Oxymask 11/24/24 07:30 O2 Flow Rate 2 11/24/24 07:30 BMI result Body Mass Index 15.8 Const: General: cooperative and alert Nutritional Appearance: thin Orientation/consciousness: patient oriented x3 Resp: Effort & Inspection: normal respiratory effort, able to speak in complete sentences, no respiratory distress and no use of accessory muscles Cardio: Rate: regular rate GI: Inspection: No distended Palpation (GI): Soft to palpation Neuro: General: patient oriented x3, moves all extremities and CN's II-XI intact bilaterally Extrem: General: Yes no pedal edema Objective Data Active Medications Acetaminophen (Acetaminophen 325 Mg Tablet) 650 mg PO Q6H PRN PRN Reason: Pain, Mild 1-3,fever,headache Calcium Carbonate (Calcium Carbonate 750 Mg Tab.Chew) 750 mg PO Q4H PRN PRN Reason: Heartburn Enoxaparin Sodium (Enoxaparin Sodium 30 Mg/0.3 Ml Syringe) 30 mg SUBCUT Q24H [facility] Last Admin: 11/23/24 21:23 Dose: 30 mg Documented By: ALLY Dextrose (D10) 250 mls @ 750 mls/hr IV Q30M PRN PRN Reason: BG <70 Lactated Ringer's (Lr) 1,000 mls @ 200 mls/hr IVCONT .Q5H [facility] Last Admin: 11/24/24 07:49 Dose: 200 mls/hr Documented By: ERNESTINE Magnesium Hydroxide (Milk Of Magnesia 30 Ml Oral.Susp) 30 ml PO DAILY PRN PRN Reason: Constipation Melatonin (Melatonin 3 Mg Tablet) 6 mg PO BEDTIME PRN PRN Reason: Insomnia Morphine Sulfate (Morphine Sulfate 4 Mg/Ml Cartridge) 4 mg IVPUSH Q4H PRN; Protocol PRN Reason: Pain, Severe (Pain Scale 7-10) Last Admin: 11/24/24 07:56 Dose: 4 mg Documented By: ERNESTINE Ondansetron HCl (Ondansetron Hcl 4 Mg/2 Ml Vial) 4 mg IVPUSH Q8H PRN PRN Reason: Nausea and Vomiting Pantoprazole Sodium (Pantoprazole Sodium 40 Mg/10 Ml Vial) 40 mg IVPUSH DAILY@0630 [facility] Last Admin: 11/24/24 09:57 Dose: 40 mg Documented By: ERNESTINE Sodium Chloride (0.9 % Sodium Chloride Flush 3 Ml Syringe) 3 ml IVFLUSH QSHIFT [facility] Last Admin: 11/24/24 07:53 Dose: Not Given Documented By: ERNESTINE Non-Admin Reason: IV Running Labs 11/24/24 08:39 11/24/24 08:39 Labs: Laboratory Results - last 24 hr 11/23/24 11/23/24 11/23/24 13:02 13:14 13:32 MCV MCH MCHC RDW Plt Count MPV Immature Gran % (Auto) Neut % (Auto) Lymph % (Auto) [place] % (Auto) Eos % (Auto) Baso % (Auto) Lymph # (Auto) [place] # (Auto) Eos # (Auto) Baso # (Auto) Abs Immat Gran (auto) Absolute Neuts (auto) Absolute Nucleated RBC Nucleated RBC % (auto) Smear Tech's Comments Hold Purple Top VBG pH VBG pCO2 VBG pO2 VBG HCO3 VBG O2 Saturation VBG Base Excess Anion Gap TNP Estim Creat Clear Calc 10.0 Estimated GFR 12 POC Glucose > 600 H* 576 H* Random Glucose 573 H* Estimat Average Glucose 146 Hemoglobin A1c % 6.7 H Lactic Acid 6.6 H* Lactic Acid F/U @ 2Hr Lactic Acid F/U @ 4Hr Calcium 9.6 Magnesium 2.6 Total Bilirubin 0.5 Direct Bilirubin 0.2 AST 15 ALT 13 Alkaline Phosphatase 94 Lactate Dehydrogenase 188 Total Creatine Kinase 37 L Troponin I High Sens 9.4 B-Natriuretic Peptide 36 Total Protein 9.0 H Albumin 4.5 Triglycerides Lipase 674 H Beta-Hydroxybutyrate 0.40 H Urine Color Urine Appearance Urine pH Ur Specific [place] Urine Protein Urine Glucose (UA) Urine Ketones Urine Blood Urine Nitrite Ur Leukocyte Esterase Urine RBC Urine WBC Ur Squamous Epith Cells Urine Bacteria Hyaline Casts Ur Random Chloride Ethyl Alcohol < 10 Influenza Type A (PCR) NEGATIVE Influenza Type B (PCR) NEGATIVE RSV RNA Qual (PCR) NEGATIVE SARS-CoV-2 RNA (RT-PCR) NEGATIVE 11/23/24 11/23/24 11/23/24 13:33 13:38 14:24 MCV 97.2 MCH 34.8 H MCHC 35.8 RDW 12.4 Plt Count 478 H D MPV 10.5 Immature Gran % (Auto) 0.4 Neut % (Auto) 78.0 H Lymph % (Auto) 8.7 L [place] % (Auto) 12.4 H Eos % (Auto) 0.4 Baso % (Auto) 0.1 Lymph # (Auto) 1.2 [place] # (Auto) 1.8 H Eos # (Auto) 0.1 Baso # (Auto) 0.0 Abs Immat Gran (auto) 0.06 H Absolute Neuts (auto) 11.1 H Absolute Nucleated RBC 0.000 Nucleated RBC % (auto) 0.0 Smear Tech's Comments VERIFIED Hold Purple Top VBG pH 7.80 H* VBG pCO2 59 VBG pO2 43 VBG HCO3 93 H VBG O2 Saturation 72.0 VBG Base Excess 61.1 Anion Gap Estim Creat Clear Calc Estimated GFR POC Glucose 549 H* Random Glucose Estimat Average Glucose Hemoglobin A1c % Lactic Acid Lactic Acid F/U @ 2Hr Lactic Acid F/U @ 4Hr Calcium Magnesium Total Bilirubin Direct Bilirubin AST ALT Alkaline Phosphatase Lactate Dehydrogenase Total Creatine Kinase Troponin I High Sens B-Natriuretic Peptide Total Protein Albumin Triglycerides Lipase Beta-Hydroxybutyrate Urine Color Urine Appearance Urine pH Ur Specific [place] Urine Protein Urine Glucose (UA) Urine Ketones Urine Blood Urine Nitrite Ur Leukocyte Esterase Urine RBC Urine WBC Ur Squamous Epith Cells Urine Bacteria Hyaline Casts Ur Random Chloride Ethyl Alcohol Influenza Type A (PCR) Influenza Type B (PCR) RSV RNA Qual (PCR) SARS-CoV-2 RNA (RT-PCR) 11/23/24 11/23/24 11/23/24 15:00 16:00 16:05 MCV MCH MCHC RDW Plt Count MPV Immature Gran % (Auto) Neut % (Auto) Lymph % (Auto) [place] % (Auto) Eos % (Auto) Baso % (Auto) Lymph # (Auto) [place] # (Auto) Eos # (Auto) Baso # (Auto) Abs Immat Gran (auto) Absolute Neuts (auto) Absolute Nucleated RBC Nucleated RBC % (auto) Smear Tech's Comments Hold Purple Top VBG pH VBG pCO2 VBG pO2 VBG HCO3 VBG O2 Saturation VBG Base Excess Anion Gap Estim Creat Clear Calc Estimated GFR POC Glucose 360 H* Random Glucose Estimat Average Glucose Hemoglobin A1c % Lactic Acid Lactic Acid F/U @ 2Hr 8.4 H* Lactic Acid F/U @ 4Hr Calcium Magnesium Total Bilirubin Direct Bilirubin AST ALT Alkaline Phosphatase Lactate Dehydrogenase Total Creatine Kinase Troponin I High Sens B-Natriuretic Peptide Total Protein Albumin Triglycerides Lipase Beta-Hydroxybutyrate Urine Color Dark Yellow Urine Appearance Cloudy Urine pH 5.0 Ur Specific [place] >= 1.030 H Urine Protein 100 (2+) H Urine Glucose (UA) 500 H Urine Ketones Trace Urine Blood Moderate (2+) H Urine Nitrite Negative Ur Leukocyte Esterase Trace H Urine RBC >20 H Urine WBC 0-5 Ur Squamous Epith Cells 0-2 Urine Bacteria None Seen Hyaline Casts >20 Ur Random Chloride Ethyl Alcohol Influenza Type A (PCR) Influenza Type B (PCR) RSV RNA Qual (PCR) SARS-CoV-2 RNA (RT-PCR) 11/23/24 11/23/24 11/23/24 17:05 17:11 18:00 MCV MCH MCHC RDW Plt Count MPV Immature Gran % (Auto) Neut % (Auto) Lymph % (Auto) [place] % (Auto) Eos % (Auto) Baso % (Auto) Lymph # (Auto) [place] # (Auto) Eos # (Auto) Baso # (Auto) Abs Immat Gran (auto) Absolute Neuts (auto) Absolute Nucleated RBC Nucleated RBC % (auto) Smear Tech's Comments Hold Purple Top VBG pH 7.68 H* VBG pCO2 67 VBG pO2 56 VBG HCO3 80 H VBG O2 Saturation 84.0 VBG Base Excess 50.2 Anion Gap TNP Estim Creat Clear Calc 12.0 Estimated GFR 15 POC Glucose 253 H Random Glucose 202 H Estimat Average Glucose Hemoglobin A1c % Lactic Acid Lactic Acid F/U @ 2Hr Lactic Acid F/U @ 4Hr Calcium 8.2 L D Magnesium Total Bilirubin 0.4 Direct Bilirubin AST 13 ALT 8 Alkaline Phosphatase 73 Lactate Dehydrogenase Total Creatine Kinase Troponin I High Sens B-Natriuretic Peptide Total Protein 7.1 Albumin 3.6 Triglycerides 111 Lipase Beta-Hydroxybutyrate Urine Color Urine Appearance Urine pH Ur Specific [place] Urine Protein Urine Glucose (UA) Urine Ketones Urine Blood Urine Nitrite Ur Leukocyte Esterase Urine RBC Urine WBC Ur Squamous Epith Cells Urine Bacteria Hyaline Casts Ur Random Chloride Ethyl Alcohol Influenza Type A (PCR) Influenza Type B (PCR) RSV RNA Qual (PCR) SARS-CoV-2 RNA (RT-PCR) 11/23/24 11/23/24 11/23/24 18:12 18:26 19:11 MCV MCH MCHC RDW Plt Count MPV Immature Gran % (Auto) Neut % (Auto) Lymph % (Auto) [place] % (Auto) Eos % (Auto) Baso % (Auto) Lymph # (Auto) [place] # (Auto) Eos # (Auto) Baso # (Auto) Abs Immat Gran (auto) Absolute Neuts (auto) Absolute Nucleated RBC Nucleated RBC % (auto) Smear Tech's Comments Hold Purple Top VBG pH VBG pCO2 VBG pO2 VBG HCO3 VBG O2 Saturation VBG Base Excess Anion Gap Estim Creat Clear Calc Estimated GFR POC Glucose 195 H 158 H Random Glucose Estimat Average Glucose Hemoglobin A1c % Lactic Acid Lactic Acid F/U @ 2Hr Lactic Acid F/U @ 4Hr 3.9 H* Calcium Magnesium Total Bilirubin Direct Bilirubin AST ALT Alkaline Phosphatase Lactate Dehydrogenase Total Creatine Kinase Troponin I High Sens B-Natriuretic Peptide Total Protein Albumin Triglycerides Lipase Beta-Hydroxybutyrate Urine Color Urine Appearance Urine pH Ur Specific [place] Urine Protein Urine Glucose (UA) Urine Ketones Urine Blood Urine Nitrite Ur Leukocyte Esterase Urine RBC Urine WBC Ur Squamous Epith Cells Urine Bacteria Hyaline Casts Ur Random Chloride Ethyl Alcohol Influenza Type A (PCR) Influenza Type B (PCR) RSV RNA Qual (PCR) SARS-CoV-2 RNA (RT-PCR) 11/23/24 11/23/24 11/23/24 20:09 21:06 21:14 MCV MCH MCHC RDW Plt Count MPV Immature Gran % (Auto) Neut % (Auto) Lymph % (Auto) [place] % (Auto) Eos % (Auto) Baso % (Auto) Lymph # (Auto) [place] # (Auto) Eos # (Auto) Baso # (Auto) Abs Immat Gran (auto) Absolute Neuts (auto) Absolute Nucleated RBC Nucleated RBC % (auto) Smear Tech's Comments Hold Purple Top VBG pH VBG pCO2 VBG pO2 VBG HCO3 VBG O2 Saturation VBG Base Excess Anion Gap Estim Creat Clear Calc Estimated GFR POC Glucose 145 H 132 H Random Glucose Estimat Average Glucose Hemoglobin A1c % Lactic Acid Lactic Acid F/U @ 2Hr Lactic Acid F/U @ 4Hr Calcium Magnesium Total Bilirubin Direct Bilirubin AST ALT Alkaline Phosphatase Lactate Dehydrogenase Total Creatine Kinase Troponin I High Sens B-Natriuretic Peptide Total Protein Albumin Triglycerides Lipase Beta-Hydroxybutyrate Urine Color Urine Appearance Urine pH Ur Specific [place] Urine Protein Urine Glucose (UA) Urine Ketones Urine Blood Urine Nitrite Ur Leukocyte Esterase Urine RBC Urine WBC Ur Squamous Epith Cells Urine Bacteria Hyaline Casts Ur Random Chloride < 20.0 Ethyl Alcohol Influenza Type A (PCR) Influenza Type B (PCR) RSV RNA Qual (PCR) SARS-CoV-2 RNA (RT-PCR) 11/24/24 11/24/24 11/24/24 00:14 03:27 05:08 MCV MCH MCHC RDW Plt Count MPV Immature Gran % (Auto) Neut % (Auto) Lymph % (Auto) [place] % (Auto) Eos % (Auto) Baso % (Auto) Lymph # (Auto) [place] # (Auto) Eos # (Auto) Baso # (Auto) Abs Immat Gran (auto) Absolute Neuts (auto) Absolute Nucleated RBC Nucleated RBC % (auto) Smear Tech's Comments Hold Purple Top VBG pH VBG pCO2 VBG pO2 VBG HCO3 VBG O2 Saturation VBG Base Excess Anion Gap Estim Creat Clear Calc Estimated GFR POC Glucose 118 H 124 H 111 Random Glucose Estimat Average Glucose Hemoglobin A1c % Lactic Acid Lactic Acid F/U @ 2Hr Lactic Acid F/U @ 4Hr Calcium Magnesium Total Bilirubin Direct Bilirubin AST ALT Alkaline Phosphatase Lactate Dehydrogenase Total Creatine Kinase Troponin I High Sens B-Natriuretic Peptide Total Protein Albumin Triglycerides Lipase Beta-Hydroxybutyrate Urine Color Urine Appearance Urine pH Ur Specific [place] Urine Protein Urine Glucose (UA) Urine Ketones Urine Blood Urine Nitrite Ur Leukocyte Esterase Urine RBC Urine WBC Ur Squamous Epith Cells Urine Bacteria Hyaline Casts Ur Random Chloride Ethyl Alcohol Influenza Type A (PCR) Influenza Type B (PCR) RSV RNA Qual (PCR) SARS-CoV-2 RNA (RT-PCR) 11/24/24 11/24/24 11/24/24 07:20 08:39 08:54 MCV 102.1 H MCH 34.7 H MCHC 33.9 RDW 12.8 Plt Count 290 D MPV 10.5 Immature Gran % (Auto) 0.6 H Neut % (Auto) 84.4 H Lymph % (Auto) 8.6 L [place] % (Auto) 6.1 Eos % (Auto) 0.1 Baso % (Auto) 0.2 Lymph # (Auto) 1.3 [place] # (Auto) 1.0 Eos # (Auto) 0.0 Baso # (Auto) 0.0 Abs Immat Gran (auto) 0.10 H Absolute Neuts (auto) 13.1 H Absolute Nucleated RBC 0.000 Nucleated RBC % (auto) 0.0 Smear Tech's Comments Hold Purple Top SEE NOTE VBG pH VBG pCO2 VBG pO2 VBG HCO3 VBG O2 Saturation VBG Base Excess Anion Gap 13 Estim Creat Clear Calc 23.6 Estimated GFR 32 POC Glucose 116 H Random Glucose 133 H Estimat Average Glucose Hemoglobin A1c % Lactic Acid Lactic Acid F/U @ 2Hr Lactic Acid F/U @ 4Hr Calcium 8.1 L Magnesium Total Bilirubin Direct Bilirubin AST ALT Alkaline Phosphatase Lactate Dehydrogenase Total Creatine Kinase Troponin I High Sens B-Natriuretic Peptide Total Protein Albumin Triglycerides Lipase Beta-Hydroxybutyrate Urine Color Urine Appearance Urine pH Ur Specific [place] Urine Protein Urine Glucose (UA) Urine Ketones Urine Blood Urine Nitrite Ur Leukocyte Esterase Urine RBC Urine WBC Ur Squamous Epith Cells Urine Bacteria Hyaline Casts Ur Random Chloride Ethyl Alcohol Influenza Type A (PCR) Influenza Type B (PCR) RSV RNA Qual (PCR) SARS-CoV-2 RNA (RT-PCR) 11/24/24 09:03 MCV MCH MCHC RDW Plt Count MPV Immature Gran % (Auto) Neut % (Auto) Lymph % (Auto) [place] % (Auto) Eos % (Auto) Baso % (Auto) Lymph # (Auto) [place] # (Auto) Eos # (Auto) Baso # (Auto) Abs Immat Gran (auto) Absolute Neuts (auto) Absolute Nucleated RBC Nucleated RBC % (auto) Smear Tech's Comments Hold Purple Top VBG pH 7.58 H VBG pCO2 66 VBG pO2 50 VBG HCO3 61 H VBG O2 Saturation 79.0 VBG Base Excess 34.5 Anion Gap Estim Creat Clear Calc Estimated GFR POC Glucose Random Glucose Estimat Average Glucose Hemoglobin A1c % Lactic Acid Lactic Acid F/U @ 2Hr Lactic Acid F/U @ 4Hr Calcium Magnesium Total Bilirubin Direct Bilirubin AST ALT Alkaline Phosphatase Lactate Dehydrogenase Total Creatine Kinase Troponin I High Sens B-Natriuretic Peptide Total Protein Albumin Triglycerides Lipase Beta-Hydroxybutyrate Urine Color Urine Appearance Urine pH Ur Specific [place] Urine Protein Urine Glucose (UA) Urine Ketones Urine Blood Urine Nitrite Ur Leukocyte Esterase Urine RBC Urine WBC Ur Squamous Epith Cells Urine Bacteria Hyaline Casts Ur Random Chloride Ethyl Alcohol Influenza Type A (PCR) Influenza Type B (PCR) RSV RNA Qual (PCR) SARS-CoV-2 RNA (RT-PCR) Assessment and Plan (1) Gastric dilatation: Status: Acute Plan Patient is a 64-year-old male with a past medical history significant for pancreatitis related to alcohol and gallstones, last drink 11/16/24, duodenitis, left nephrectomy post renal cell carcinoma (2021), and chronic back pain, who reported to the ED today due to extreme thirst after nausea and vomiting all day yesterday with some occasional diarrhea and upper abdominal pain. Findings significant for acute on chronic pancreatitis, GLO and metabolic alkalosis, duodenal obstruction and severe hyperglycemia. ICU was consulted and was going to take patient's however labs improved after insulin drip and IV fluids, they deemed the patient safe for the medical floor. Abdominal pain Acute on chronic pancreatitis abdominal pain improving abdominopelvic CT with inflammatory changes and fluid adjacent to the 2nd portion of the duodenum/pancreatic head, unclear pancreatitis versus duodenitis with duodenal ulcer not excluded. Marked distention of the stomach likely secondary to outlet obstruction with focal transition point at the 2nd portion of the duodenum NGT placed in ED - NPO - continue LR 200 mL/HR - GI consult pending GLO and metabolic alkalosis secondary to vomiting h/o renal carcinoma s/p left nephrectomy for RCC creatinine improving, bicarb improving - nephrology following - agree with IV hydration; rec h2 simone, k replacement - add urine chloride Duodenal obstruction ?due to acute pancreatitis - NG tube in place - surgery following New onset DM with Hyperglycemia Hba1c 6.7 - blood glucose greater than 600, improved with insulin drip - no previous diagnosis of diabetes Acute Lactic acidosis - likely secondary to GLO with metabolic alkalosis - no obvious infectious source Hypokalemia - secondary to insulin drip replace and follow - monitor BMP Alcohol use disorder patient reported last drink 11/16/2024 - monitor CIWA - consider phenobarb with appropriate addiction medicine pending Mild protein calorie malnutrition BMI 15.8 nutrition consult DNR/DNI - discussed with patient VTE prophylaxis: Lovenox Requires ongoing inpatient stay for acute on chronic pancreatitis complicated by GLO and metabolic alkalosis as well as duodenal obstruction requiring NGT and severe hyperglycemia with electrolytes abnormalities Quality Stroke Does the patient have a stroke diagnosis?: No VTE Prior VTE?: No VTE Risk Level:: Medical - moderate - high VTE Device Contraindication: Treatment Not Indicated VTE Drug Contraindication: N/A - Med Ordered
[2024-11-24 11:12] LABS: Glucose, Whole Blood 114 mg/dL (60-115)
--- NOTE | 2024-11-24 11:40 | MHC.CLN ---
RE: CONSULT PT IS MODERATELY MALNOURISHED PT WITH MILDLY DEPLETED SUBCUTANEOUS FAT AND MUSCLE MASS WITH BMI 15.8 AND 15% NONSIGNIFICANT WT LOSS X 1.5 YEARS PT IS CURRENTLY NPO WHEN DIET TO ADVANCE; RECOMMEND 1500DM DIET CAN ADD ENSURE MAX IF PO INTAKE IS POOR MONITOR PO INTAKE AND FOLLOW FOR DIET ADVANCEMENT SEE ALSO FULL CLINICAL NUTRITION ASSESSMENT
[2024-11-24] MEDS: Famotidine/PF 20 MG/2 ML VIAL IVPUSH (13:02)
--- NOTE | 2024-11-24 13:07 | CONS_ITS ---
DATE OF SERVICE: 11/24/2024 REFERRING PHYSICIAN: Mario Arnold MD REASON FOR CONSULTATION: Pancreatitis and abnormal CT scan of the GI tract. HISTORY OF PRESENT ILLNESS: The patient is a 64-year-old man known to me from prior evaluation. He has a history of alcohol abuse and has had pancreatitis on this basis in the past. He was hospitalized in May with pancreatitis and was seen at that time and had an abnormal CT scan with diffuse mural thickening involving the duodenal sweep. Subsequently, he underwent upper endoscopy earlier in the year in February 2024, which showed some mild duodenal edema, but no ulceration. Biopsies from the 2nd portion and very distal duodenum showed no evidence of celiac disease. 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 He continues to drink alcohol, stating his last drink was on when he had 3 alcoholic drinks. Several days later, he developed the onset of abdominal pain with nausea and vomiting. He felt very dehydrated at home and tried to consume supplemental liquids for rehydration, but had persistent vomiting and presented to the emergency department. In the emergency department, he was evaluated with laboratory studies and imaging, which showed marked dilation of his stomach and inflammatory changes in fluid adjacent to the 2nd portion of the duodenum and pancreatic head. There was associated distention of the stomach and reactive lymphadenopathy. He had an NG tube placed and has undergone NG suction with drainage of approximately 2 L of fluids from the stomach. Laboratory studies on evaluation documented elevation of his serum lipase consistent with pancreatitis and CT scan is concordant. Lipase was 674 on admission. PAST MEDICAL HISTORY: 1. Pancreatitis as above. 2. Duodenitis with upper endoscopy findings as above. 3. Renal cell carcinoma with left nephrectomy. 4. Rock esophagus. 5. Hiatal hernia. 6. Alcohol abuse. 7. Pancreatitis. He previously required drainage of a pseudocyst endoscopically. 8. Colonoscopy 10/15, tubular adenoma, 5 to 7 year followup. CURRENT MEDICATIONS: His current medication list is reviewed in the chart. ALLERGIES: THERE ARE NONE REPORTED. FAMILY HISTORY: This is reviewed with the patient and is noncontributory. SOCIAL HISTORY: There is no current other substance abuse except as above. REVIEW OF SYSTEMS: SKIN: No pruritus. HEENT: Negative. CARDIOPULMONARY: He denies shortness of breath or chest pain. GASTROINTESTINAL: As above. GENITOURINARY: Negative. NEUROPSYCHIATRIC: Negative. PHYSICAL EXAMINATION: GENERAL: Shows a pleasant, thin male, in no acute distress. VITAL SIGNS: Reviewed in the electronic medical record and are stable. SKIN: Anicteric. HEENT: Shows no scleral icterus. NECK: Without lymphadenopathy or thyromegaly. LUNGS: Clear. HEART: Shows regular rate and rhythm. S1, S2. No murmur. ABDOMEN: Soft. There is some mild tenderness to palpation over the epigastrium. Bowel sounds are present, but diminished. EXTREMITIES: Without edema. LABORATORY DATA AND IMAGING STUDIES: Reviewed. IMPRESSION: Pancreatitis. His presentation appears consistent with an episode of pancreatitis, likely precipitated by alcohol use. I have discussed with him the need to avoid alcohol to avoid recurrent episodes of pancreatitis. He appears to understand this. His previous endoscopies have shown no intrinsic stricture or abnormality of the duodenum except for some nonspecific duodenitis, which was likely residual from his pancreatitis and I believe that the findings on the CAT scan are consistent with pancreatitis causing duodenal obstruction at least partially. I agree with treating with NG suction as you are doing. He has been seen in consultation by General Surgery and has a followup CAT scan planned in 1 to 2 days and I agree with this. I do not think he needs recurrent endoscopy at this time. His obstruction symptoms should improve as he has resolution of his pancreatitis. We discussed this today. Thanks for asking me to see him. I will follow him in the hospital with you. MD DAREN Rutledge/SAVI / [phone]
[2024-11-24] MEDS: Potassium Chloride/H20 10 MEQ/100 ML PIGGYBACK 100 MEQ IV ×4 (13:13→16:36)
--- NOTE | 2024-11-24 13:14 | MHC.CM.PN ---
EMR REVIEWED, PT W/PANCREATITIS, CM MET W/PT WHO REPORTS HE LIVES ALONE, HIS LASY YEAR, PT WORKS/DRIVES AND IS FULLY INDEP AT BASELINE, PT'S GOAL IS FOR DC HOME PT WILL NEED TO RETURN TO WORK, PT AWARE HE CAN ASK FOR A RETURN TO WORK NOTE FROM DISCHARGING RN OR CM. PT VERIFIES PCP OM FILE IS CORRECT AND HCP WAS PT'S , PT REPORTS HE DOES NOT WANT TO COMPLETE A NEW HCP AT THIS TIME.
[2024-11-24 14:16] LABS: Anion Gap 11 (12-20); Blood Urea Nitrogen 29 mg/dL (9-16); Carbon Dioxide 46 mmol/L (22-29); Chloride 88 mmol/L (96-108); Creatinine Clr Calc Pharmacy 29.5; Estimated Glomerular Filt Rate 42; Glucose Random 113 mg/dL (60-115); Potassium 3.2 mmol/L (3.3-5.1); Sodium 142 mmol/L (135-145)
[2024-11-24] MEDS: 0.9 % Sodium Chloride 1,000 ML 100 ML IVCONT (14:46)
[2024-11-24 15:11] LABS: Glucose, Whole Blood 109 mg/dL (60-115)
[2024-11-24] MEDS: 0.9 % Sodium Chloride Flush 3 ML SYRINGE IVFLUSH ×2 (15:34→19:39)
[2024-11-24 19:20] LABS: Glucose, Whole Blood 83 mg/dL (60-115)
[2024-11-24] MEDS: Enoxaparin Sodium 30 MG/0.3 ML SYRINGE SUBCUT (19:38)
[2024-11-24 23:48] LABS: Glucose, Whole Blood 71 mg/dL (60-115)
[2024-11-25] MEDS: 0.9 % Sodium Chloride 1,000 ML 100 ML IVCONT ×3 (00:17→21:15)
[2024-11-25 03:21] LABS: Glucose, Whole Blood 68 mg/dL (60-115)
[2024-11-25 03:29] VITALS: BP 132/74; PULSE 68; RESP 18; TEMP 37.2; O2SAT 93
[2024-11-25] MEDS: Dextrose 10 % 250 ML 750 ML IV (03:32)
--- NOTE | 2024-11-25 05:08 | PC.NURSE ---
Assumed care of pt at 23:00. See clinical documentation for assessments.
[2024-11-25 06:21] LABS: Glucose, Whole Blood 136 mg/dL (60-115)
[2024-11-25 07:27] LABS: Hematocrit 36.2 % (42.0-52.0); Hemoglobin 11.7 g/dl (14.0-18.0); Mean Corpuscular HGB Conc 32.3 g/dl (31.0-36.0); Mean Corpuscular Hemoglobin 34.2 pg (27.0-33.0); Mean Corpuscular Volume 105.8 fL (80.0-98.0); Mean Platelet Volume 10.7 fL (9.4-12.4); Platelet Count 232 X10*3/uL (160-400); Red Blood Count 3.42 X10*6/uL (4.60-5.80); Red Cell Distribution Width 12.8 % (11.0-16.0); White Blood Count 12.3 X10*3/uL (4.8-10.8)
[2024-11-25 07:36] LABS: Glucose, Whole Blood 130 mg/dL (60-115)
[2024-11-25 07:51] LABS: Anion Gap 17 (12-20); Blood Urea Nitrogen 21 mg/dL (9-16); Calcium 7.9 mg/dL (8.4-10.2); Carbon Dioxide 30 mmol/L (22-29); Chloride 96 mmol/L (96-108); Creatinine Clr Calc Pharmacy 50.2; Estimated Glomerular Filt Rate > 60; Glucose Random 126 mg/dL (60-115); Potassium 4.2 mmol/L (3.3-5.1); Sodium 139 mmol/L (135-145)
[2024-11-25 08:00] VITALS: BP 103/58; PULSE 73; RESP 19; TEMP 36.5
--- NOTE | 2024-11-25 08:07 | P.PNGS_ITS ---
Subjective Subjective Date of Service: 11/25/24 Interval history: Patient feels slightly improved this morning but still having abdominal pain in the epigastric region. NG tube with some bilious fluid. Reports passing some flatus, no bowel movement. Physical Exam 2 Vital Signs: Vital Signs: Last Vital Signs Temp 97.7 F 11/25/24 08:00 Pulse 73 11/25/24 08:00 Resp 19 11/25/24 08:00 BP 103/58 L 11/25/24 08:00 Pulse Ox 93 11/25/24 03:29 O2 Del Method Oxymask 11/25/24 08:00 O2 Flow Rate 4 11/25/24 08:00 BMI result Body Mass Index 15.8 Const: General: no acute distress Nutritional Appearance: thin O rientation/consciousness: patient oriented x3 HEENT: Other: NG tube in place Resp: Other: Breathing with facemask in place, no respiratory distress GI: Other: Abdomen is flat, tender in the epigastrium. Dull to percussion. Neuro: General: patient oriented x3 Objective Data Active Medications Acetaminophen (Acetaminophen 325 Mg Tablet) 650 mg PO Q6H PRN PRN Reason: Pain, Mild 1-3,fever,headache Calcium Carbonate (Calcium Carbonate 750 Mg Tab.Chew) 750 mg PO Q4H PRN PRN Reason: Heartburn Enoxaparin Sodium (Enoxaparin Sodium 30 Mg/0.3 Ml Syringe) 30 mg SUBCUT Q24H [facility] Last Admin: 11/24/24 19:38 Dose: 30 mg Documented By: CHANO Famotidine (Famotidine/Pf 20 Mg/2 Ml Vial) 20 mg IVPUSH DAILY [facility] Last Admin: 11/24/24 13:02 Dose: 20 mg Documented By: ERNESTINE Dextrose (D10) 250 mls @ 750 mls/hr IV Q30M PRN PRN Reason: BG <70 Last Infusion: 11/25/24 03:55 Dose: Infused Documented By: RUBA Sodium Chloride (Ns) 1,000 mls @ 100 mls/hr IVCONT .Q10H [facility] Last Admin: 11/25/24 00:17 Dose: 100 mls/hr Documented By: RUBA Magnesium Hydroxide (Milk Of Magnesia 30 Ml Oral.Susp) 30 ml PO DAILY PRN PRN Reason: Constipation Melatonin (Melatonin 3 Mg Tablet) 6 mg PO BEDTIME PRN PRN Reason: Insomnia Morphine Sulfate (Morphine Sulfate 4 Mg/Ml Cartridge) 4 mg IVPUSH Q4H PRN; Protocol PRN Reason: Pain, Severe (Pain Scale 7-10) Last Admin: 11/24/24 19:38 Dose: 4 mg Documented By: CHANO Ondansetron HCl (Ondansetron Hcl 4 Mg/2 Ml Vial) 4 mg IVPUSH Q8H PRN PRN Reason: Nausea and Vomiting Sodium Chloride (0.9 % Sodium Chloride Flush 3 Ml Syringe) [facility] Last Admin: 11/24/24 19:39 Dose: 3 ml Documented By: CHANO Labs 11/25/24 07:11 11/25/24 07:10 Labs: Laboratory Results - last 24 hr 11/24/24 11/24/24 11/24/24 08:39 08:54 09:03 MCV 102.1 H MCH 34.7 H MCHC 33.9 RDW 12.8 Plt Count 290 D MPV 10.5 Immature Gran % (Auto) 0.6 H Neut % (Auto) 84.4 H Lymph % (Auto) 8.6 L Surry % (Auto) 6.1 Eos % (Auto) 0.1 Baso % (Auto) 0.2 Lymph # (Auto) 1.3 Surry # (Auto) 1.0 Eos # (Auto) 0.0 Baso # (Auto) 0.0 Abs Immat Gran (auto) 0.10 H Absolute Neuts (auto) 13.1 H Absolute Nucleated RBC 0.000 Nucleated RBC % (auto) 0.0 Hold Purple Top SEE NOTE VBG pH 7.58 H VBG pCO2 66 VBG pO2 50 VBG HCO3 61 H VBG O2 Saturation 79.0 VBG Base Excess 34.5 Anion Gap 13 Estim Creat Clear Calc 23.6 Estimated GFR 32 POC Glucose Random Glucose 133 H Calcium 8.1 L 11/24/24 11/24/24 11/24/24 11:08 13:57 15:08 MCV MCH MCHC RDW Plt Count MPV Immature Gran % (Auto) Neut % (Auto) Lymph % (Auto) Surry % (Auto) Eos % (Auto) Baso % (Auto) Lymph # (Auto) [place]ry # (Auto) Eos # (Auto) Baso # (Auto) Abs Immat Gran (auto) Absolute Neuts (auto) Absolute Nucleated RBC Nucleated RBC % (auto) Hold Purple Top VBG pH VBG pCO2 VBG pO2 VBG HCO3 VBG O2 Saturation VBG Base Excess Anion Gap 11 L Estim Creat Clear Calc 29.5 Estimated GFR 42 POC Glucose 114 109 Random Glucose 113 Calcium 8.0 L 11/24/24 11/24/24 11/25/24 19:16 23:44 03:18 MCV MCH MCHC RDW Plt Count MPV Immature Gran % (Auto) Neut % (Auto) Lymph % (Auto) Surry % (Auto) Eos % (Auto) Baso % (Auto) Lymph # (Auto) Surry # (Auto) Eos # (Auto) Baso # (Auto) Abs Immat Gran (auto) Absolute Neuts (auto) Absolute Nucleated RBC Nucleated RBC % (auto) Hold Purple Top VBG pH VBG pCO2 VBG pO2 VBG HCO3 VBG O2 Saturation VBG Base Excess Anion Gap Estim Creat Clear Calc Estimated GFR POC Glucose 83 71 68 Random Glucose Calcium 11/25/24 11/25/24 11/25/24 06:18 07:10 07:11 MCV 105.8 H MCH 34.2 H MCHC 32.3 RDW 12.8 Plt Count 232 MPV 10.7 Immature Gran % (Auto) Neut % (Auto) Lymph % (Auto) Surry % (Auto) Eos % (Auto) Baso % (Auto) Lymph # (Auto) Surry # (Auto) Eos # (Auto) Baso # (Auto) Abs Immat Gran (auto) Absolute Neuts (auto) Absolute Nucleated RBC 0.000 Nucleated RBC % (auto) 0.0 Hold Purple Top VBG pH VBG pCO2 VBG pO2 VBG HCO3 VBG O2 Saturation VBG Base Excess Anion Gap 17 Estim Creat Clear Calc 50.2 Estimated GFR > 60 POC Glucose 136 H Random Glucose 126 H Calcium 7.9 L 11/25/24 07:30 MCV MCH MCHC RDW Plt Count MPV Immature Gran % (Auto) Neut % (Auto) Lymph % (Auto) Sur[place] % (Auto) Eos % (Auto) Baso % (Auto) Lymph # (Auto) Surry # (Auto) Eos # (Auto) Baso # (Auto) Abs Immat Gran (auto) Absolute Neuts (auto) Absolute Nucleated RBC Nucleated RBC % (auto) Hold Purple Top VBG pH VBG pCO2 VBG pO2 VBG HCO3 VBG O2 Saturation VBG Base Excess Anion Gap Estim Creat Clear Calc Estimated GFR POC Glucose 130 H Random Glucose Calcium Microbiology Microbiology Results: Microbiology 11/23/24 14:30 Blood Culture - Preliminary Blood - Venous No growth after 24 hours. 11/23/24 14:28 Blood Culture - Preliminary Blood - Venous No growth after 24 hours. Procedures Date of Service Date of Service: 11/25/24 Progress Note: A&P Assessment and plan (1) Pancreatitis: Status: Acute (2) Gastric dilatation: Status: Acute Plan 64-year-old male patient with a history of pancreatitis now presenting with partial gastric obstruction due to pancreatitis at the 2nd portion of the duodenum. Abdomen is flat with nasogastric decompression. He continues to have tenderness in the epigastrium probably due to pancreatitis. Would suggest a contrast study to confirm gastric emptying prior to removal of NG tube. We will continue to monitor. Time Spent With Patient Time: Total time managing care of this patient today ____ minutes. Quality Stroke Does the patient have a stroke diagnosis?: No VTE Prior VTE?: No VTE Risk Level:: Medical - moderate - high VTE Device Contraindication: Treatment Not Indicated VTE Drug Contraindication: N/A - Med Ordered
[2024-11-25] MEDS: Morphine Sulfate 4 MG/ML CARTRIDGE IVPUSH ×4 (08:29→21:15)
[2024-11-25] MEDS: Famotidine/PF 20 MG/2 ML VIAL IVPUSH (08:30)
[2024-11-25] MEDS: 0.9 % Sodium Chloride Flush 3 ML SYRINGE IVFLUSH ×2 (08:32→20:05)
[2024-11-25 12:00] VITALS: BP 143/68; PULSE 78; RESP 19; TEMP 37.3; O2SAT 97
[2024-11-25] MEDS: Barium Sulfate Oral (Berry) 450 ML ORAL.SUSP PO (12:04)
--- NOTE | 2024-11-25 13:42 | MHC.CLN ---
F/U PT IS MODERATELY MALNOURISHED SEE FULL CLINICAL NUTRITION ASSESSMENT DATED 11/24/24 PT IS DAY 2 NPO WHEN DIET TO ADVANCE; RECOMMEND 1500DM DIET CAN ADD ENSURE MAX IF PO INTAKE IS POOR IF PT TO REMAIN NPO X 3 DAYS; RECOMMEND PPN AT 55ML/HR TO PROVIDE 673KCALS, 132G DEXTROSE, 56G PROTEIN REPLETE LYTES NEEDED FOLLOWING FOR DIET ADVANCEMENT RD CAN BE REACHED VIA TIGER CONNECT DURING OFF HOURS IF NEEDED
--- NOTE | 2024-11-25 13:56 | P.PNIM_ITS ---
Subjective Subjective Date of Service: 11/25/24 Interval History: Seen and examined this morning Follow-up for pancreatitis, bowel obstruction Reporting epigastric abdominal pain, passing gas no bowel movement Review of Systems Review of Systems: Yes all other systems are reviewed and are negative Constitutional Constitutional: Denies chills and Denies fever(s) Physical Exam 2 Vital Signs: Vital Signs: Last Vital Signs Temp 99.1 F 11/25/24 12:00 Pulse 78 11/25/24 12:00 Resp 19 11/25/24 12:00 BP 143/68 H 11/25/24 12:00 Pulse Ox 97 11/25/24 12:00 O2 Del Method Oxymask 11/25/24 12:00 O2 Flow Rate 4 11/25/24 12:00 BMI result Body Mass Index 15.8 Const: General: cooperative and alert Nutritional Appearance: thin O rientation/consciousness: patient oriented x3 Resp: Effort & Inspection: normal respiratory effort, able to speak in complete sentences, no respiratory distress and no use of accessory muscles Cardio: Rate: regular rate GI: Other: epigastic tenderness Inspection: No distended Palpation (GI): Soft to palpation Neuro: General: patient oriented x3, moves all extremities and CN's II-XI intact bilaterally Extrem: General: Yes no pedal edema Objective Data Active Medications Acetaminophen (Acetaminophen 325 Mg Tablet) 650 mg PO Q6H PRN PRN Reason: Pain, Mild 1-3,fever,headache Calcium Carbonate (Calcium Carbonate 750 Mg Tab.Chew) 750 mg PO Q4H PRN PRN Reason: Heartburn Enoxaparin Sodium (Enoxaparin Sodium 30 Mg/0.3 Ml Syringe) 30 mg SUBCUT Q24H [facility] Last Admin: 11/24/24 19:38 Dose: 30 mg Documented By: CHANO Famotidine (Famotidine/Pf 20 Mg/2 Ml Vial) 20 mg IVPUSH DAILY [facility] Last Admin: 11/25/24 08:30 Dose: 20 mg Documented By: ERNESTINE Dextrose (D10) 250 mls @ 750 mls/hr IV Q30M PRN PRN Reason: BG <70 Last Infusion: 11/25/24 03:55 Dose: Infused Documented By: RUBA Sodium Chloride (Ns) 1,000 mls @ 100 mls/hr IVCONT .Q10H [facility] Last Admin: 11/25/24 11:27 Dose: 100 mls/hr Documented By: ERNESTINE Magnesium Hydroxide (Milk Of Magnesia 30 Ml Oral.Susp) 30 ml PO DAILY PRN PRN Reason: Constipation Melatonin (Melatonin 3 Mg Tablet) 6 mg PO BEDTIME PRN PRN Reason: Insomnia Morphine Sulfate (Morphine Sulfate 4 Mg/Ml Cartridge) 4 mg IVPUSH Q4H PRN; Protocol PRN Reason: Pain, Severe (Pain Scale 7-10) Last Admin: 11/25/24 11:22 Dose: 4 mg Documented By: ERNESTINE Ondansetron HCl (Ondansetron Hcl 4 Mg/2 Ml Vial) 4 mg IVPUSH Q8H PRN PRN Reason: Nausea and Vomiting Sodium Chloride (0.9 % Sodium Chloride Flush 3 Ml Syringe) [facility] Last Admin: 11/25/24 08:32 Dose: 3 ml Documented By: ERNESTINE Labs 11/25/24 07:11 11/25/24 07:10 Labs: Laboratory Results - last 24 hr 11/24/24 11/24/24 11/24/24 13:57 15:08 19:16 MCV MCH MCHC RDW Plt Count MPV Absolute Nucleated RBC Nucleated RBC % (auto) Anion Gap 11 L Estim Creat Clear Calc 29.5 Estimated GFR 42 POC Glucose 109 83 Random Glucose 113 Calcium 8.0 L 11/24/24 11/25/24 11/25/24 23:44 03:18 06:18 MCV MCH MCHC RDW Plt Count MPV Absolute Nucleated RBC Nucleated RBC % (auto) Anion Gap Estim Creat Clear Calc Estimated GFR POC Glucose 71 68 136 H Random Glucose Calcium 11/25/24 11/25/24 11/25/24 07:10 07:11 07:30 MCV 105.8 H MCH 34.2 H MCHC 32.3 RDW 12.8 Plt Count 232 MPV 10.7 Absolute Nucleated RBC 0.000 Nucleated RBC % (auto) 0.0 Anion Gap 17 Estim Creat Clear Calc 50.2 Estimated GFR > 60 POC Glucose 130 H Random Glucose 126 H Calcium 7.9 L Microbiology Microbiology Results: Microbiology 11/23/24 14:30 Blood Culture - Preliminary Blood - Venous No growth after 24 hours. 11/23/24 14:28 Blood Culture - Preliminary Blood - Venous No growth after 24 hours. Assessment and Plan (1) Gastric dilatation: Status: Acute (2) Pancreatitis: Status: Acute Plan Patient is a 64-year-old male with a past medical history significant for pancreatitis related to alcohol and gallstones, last drink 11/16/24, duodenitis, left nephrectomy post renal cell carcinoma (2021), and chronic back pain, who reported to the ED today due to extreme thirst after nausea and vomiting all day yesterday with some occasional diarrhea and upper abdominal pain. Findings significant for acute on chronic pancreatitis, GLO and metabolic alkalosis, duodenal obstruction and severe hyperglycemia. ICU was consulted and was going to take patient's however labs improved after insulin drip and IV fluids, they deemed the patient safe for the medical floor. Abdominal pain due to Acute on chronic pancreatitis (due to etoh) with duodenal inflammation causing partial obstruction NGT placed in ED seen by GI - previous endoscopies with no intrinsic stricture or abnormality of the duodenum. No endoscopy required at this time General surgery following, repeat CT scan obtained, contrast appears to pass into jejunum without gastric obstruction; will trial clamping NGT NPO, continue IVF GLO and metabolic alkalosis secondary to vomiting h/o renal carcinoma s/p left nephrectomy for RCC GLO resolved, bicarb significantly improved with IVF hydration nephrology following - agree with IV hydration; rec h2 simone Duodenal obstruction due to acute pancreatitis see above New onset DM with Hyperglycemia Hba1c 6.7 elevated blood sugars due to pancreatitis? blood glucose greater than 600 on admission, improved with insulin drip no previous diagnosis of diabetes POCs now controlled, diabetic diet and sliding scale when able to eat Acute Lactic acidosis likely secondary to GLO with metabolic alkalosis no obvious infectious source Hypokalemia resolved with replacement Alcohol use disorder patient reported last drink 11/16/2024 CIWA low, no indication for phenobarbitol addiction medicine consult pending Mild protein calorie malnutrition BMI 15.8 nutrition consult DNR/DNI VTE prophylaxis: Lovenox Requires ongoing inpatient stay for acute on chronic pancreatitis complicated by GLO and metabolic alkalosis as well as duodenal obstruction requiring NGT and severe hyperglycemia with electrolytes abnormalities Quality Stroke Does the patient have a stroke diagnosis?: No VTE Prior VTE?: No VTE Risk Level:: Medical - moderate - high VTE Device Contraindication: Treatment Not Indicated VTE Drug Contraindication: N/A - Med Ordered
[2024-11-25 15:11] LABS: Glucose, Whole Blood 109 mg/dL (60-115)
[2024-11-25 15:41] VITALS: BP 112/60; PULSE 97; RESP 18; TEMP 36.3; O2SAT 97
--- NOTE | 2024-11-25 16:00 | MHC.CM.PN ---
EMR reviewed and per MD rounds, pt is not medically cleared for discharge due to management of duodenal obstruction requiring NG tube.
[2024-11-25 19:08] VITALS: BP 106/58; PULSE 81; RESP 18; TEMP 37; O2SAT 95
[2024-11-25 19:32] LABS: Glucose, Whole Blood 104 mg/dL (60-115)
[2024-11-25] MEDS: Enoxaparin Sodium 30 MG/0.3 ML SYRINGE SUBCUT (20:04)
[2024-11-25 20:52] LABS: Glucose, Whole Blood 109 mg/dL (60-115)
[2024-11-25 23:38] VITALS: BP 120/61; PULSE 82; RESP 19; TEMP 37.7; O2SAT 98
[2024-11-26 03:39] VITALS: BP 116/64; PULSE 84; RESP 19; TEMP 36.7; O2SAT 95
[2024-11-26 06:03] LABS: Glucose, Whole Blood 89 mg/dL (60-115)
[2024-11-26] MEDS: Pantoprazole Sodium 40 MG/10 ML VIAL IVPUSH (06:20)
[2024-11-26 06:24] LABS: Hematocrit 34.5 % (42.0-52.0); Hemoglobin 11.3 g/dl (14.0-18.0); Mean Corpuscular HGB Conc 32.8 g/dl (31.0-36.0); Mean Corpuscular Hemoglobin 34.3 pg (27.0-33.0); Mean Corpuscular Volume 104.9 fL (80.0-98.0); Mean Platelet Volume 10.8 fL (9.4-12.4); Platelet Count 243 X10*3/uL (160-400); Red Blood Count 3.29 X10*6/uL (4.60-5.80); Red Cell Distribution Width 12.7 % (11.0-16.0); White Blood Count 14.2 X10*3/uL (4.8-10.8)
[2024-11-26 06:37] LABS: Alanine Aminotransferase < 6 U/L (0-40); Albumin Level 2.5 g/dL (3.5-5.0); Alkaline Phosphatase 48 U/L (39-117); Anion Gap 18 (12-20); Aspartate Amino Transferase 21 U/L (5-37); Bilirubin Direct 0.2 mg/dL (0.0-0.5); Bilirubin Total 0.4 mg/dL (0.0-1.0); Blood Urea Nitrogen 13 mg/dL (9-16); Calcium 7.8 mg/dL (8.4-10.2); Carbon Dioxide 23 mmol/L (22-29); Chloride 104 mmol/L (96-108); Creatinine Clr Calc Pharmacy 59.9; Estimated Glomerular Filt Rate > 60; Glucose Random 96 mg/dL (60-115); Lipase 136 U/L (8-78); Potassium 3.2 mmol/L (3.3-5.1); Sodium 142 mmol/L (135-145); Total Protein 5.2 g/dL (6.5-8.0)
[2024-11-26 07:20] LABS: Glucose, Whole Blood 91 mg/dL (60-115)
[2024-11-26 07:36] VITALS: BP 133/63; PULSE 85; RESP 16; TEMP 37.2; O2SAT 98
[2024-11-26] MEDS: 0.9 % Sodium Chloride 1,000 ML 100 ML IVCONT (08:24)
[2024-11-26] MEDS: 0.9 % Sodium Chloride Flush 3 ML SYRINGE IVFLUSH ×2 (08:27→20:29)
--- NOTE | 2024-11-26 09:17 | HO.PM.IMPN ---
Subjective Subjective Date of Service: 11/26/24 Interval History: Seen and examined this morning Follow-up for pancreatitis, bowel obstruction Reporting epigastric abdominal pain, passing gas no bowel movement Review of Systems Review of Systems: Yes all other systems are reviewed and are negative Constitutional Constitutional: Denies chills and Denies fever(s) Physical Exam Vital Signs: Vital Signs: Last Vital Signs Temp 99 F 11/26/24 07:36 Pulse 85 11/26/24 07:36 Resp 16 11/26/24 07:36 BP 133/63 11/26/24 07:36 Pulse Ox 98 11/26/24 07:36 O2 Del Method Oxymask 11/26/24 07:36 O2 Flow Rate 2 11/26/24 07:36 BMI result Body Mass Index 15.8 Appearing in no acute distress lung sounds are clear to auscultation heart regular rate rhythm, clear S1, S2 positive bowel sounds, abdomen is soft, nontender neuro patient is alert x3, no focal deficits Objective Data Active Medications Acetaminophen (Acetaminophen 325 Mg Tablet) 650 mg PO Q6H PRN PRN Reason: Pain, Mild 1-3,fever,headache Calcium Carbonate (Calcium Carbonate 750 Mg Tab.Chew) 750 mg PO Q4H PRN PRN Reason: Heartburn Enoxaparin Sodium (Enoxaparin Sodium 30 Mg/0.3 Ml Syringe) 30 mg SUBCUT Q24H [facility] Last Admin: 11/25/24 20:04 Dose: 30 mg Documented By: JOHANNA Dextrose (D10) 250 mls @ 750 mls/hr IV Q30M PRN PRN Reason: BG <70 Last Infusion: 11/25/24 03:55 Dose: Infused Documented By: RUBA Sodium Chloride (Ns) 1,000 mls @ 100 mls/hr IVCONT .Q10H [facility] Last Admin: 11/26/24 08:24 Dose: 100 mls/hr Documented By: PODMORP Magnesium Hydroxide (Milk Of Magnesia 30 Ml Oral.Susp) 30 ml PO DAILY PRN PRN Reason: Constipation Melatonin (Melatonin 3 Mg Tablet) 6 mg PO BEDTIME PRN PRN Reason: Insomnia Morphine Sulfate (Morphine Sulfate 4 Mg/Ml Cartridge) 4 mg IVPUSH Q4H PRN; Protocol PRN Reason: Pain, Severe (Pain Scale 7-10) Last Admin: 11/25/24 21:15 Dose: 4 mg Documented By: JOHANNA Ondansetron HCl (Ondansetron Hcl 4 Mg/2 Ml Vial) 4 mg IVPUSH Q8H PRN PRN Reason: Nausea and Vomiting Pantoprazole Sodium (Pantoprazole Sodium 40 Mg/10 Ml Vial) 40 mg IVPUSH DAILY@0630 [facility] Last Admin: 11/26/24 06:20 Dose: 40 mg Documented By: JOHANNA Sodium Chloride (0.9 % Sodium Chloride Flush 3 Ml Syringe) 3 ml IVFLUSH QSHIFT [facility] Last Admin: 11/26/24 08:27 Dose: 3 ml Documented By: PODMORP Labs 11/26/24 05:58 11/26/24 05:58 Labs: Laboratory Results - last 24 hr 11/25/24 11/25/24 11/25/24 11:28 15:07 19:10 MCV MCH MCHC RDW Plt Count MPV Absolute Nucleated RBC Nucleated RBC % (auto) Anion Gap Estim Creat Clear Calc Estimated GFR POC Glucose 109 109 104 Random Glucose Calcium Total Bilirubin Direct Bilirubin AST ALT Alkaline Phosphatase Total Protein Albumin Lipase 11/26/24 11/26/24 11/26/24 05:58 05:59 07:11 MCV 104.9 H MCH 34.3 H MCHC 32.8 RDW 12.7 Plt Count 243 MPV 10.8 Absolute Nucleated RBC 0.000 Nucleated RBC % (auto) 0.0 Anion Gap 18 Estim Creat Clear Calc 59.9 Estimated GFR > 60 POC Glucose 89 91 Random Glucose 96 Calcium 7.8 L Total Bilirubin 0.4 Direct Bilirubin 0.2 AST 21 ALT < 6 Alkaline Phosphatase 48 Total Protein 5.2 L Albumin 2.5 L Lipase 136 H Microbiology Microbiology Results: Microbiology 11/23/24 14:30 Blood Culture - Preliminary Blood - Venous No growth after 48 hours. 11/23/24 14:28 Blood Culture - Preliminary Blood - Venous No growth after 48 hours. Assessment and Plan (1) Gastric dilatation: Status: Acute (2) Pancreatitis: Status: Acute Plan 64-year-old male with a past medical history significant for pancreatitis related to alcohol and gallstones, last drink 11/16/24, duodenitis, left nephrectomy post renal cell carcinoma (2021), and chronic back pain, who reported to the ED due to extreme thirst after nausea and vomiting with some occasional diarrhea and upper abdominal pain. Findings significant for acute on chronic pancreatitis, GLO and metabolic alkalosis, duodenal obstruction and severe hyperglycemia. ICU was consulted and was going to take patient's however labs improved after insulin drip and IV fluids, they deemed the patient safe for the medical floor. Abdominal pain due to Acute on chronic pancreatitis (due to etoh) with duodenal inflammation causing partial obstruction NGT placed in ED seen by GI - previous endoscopies with no intrinsic stricture or abnormality of the duodenum. No endoscopy required at this time General surgery following, repeat CT scan obtained, contrast appears to pass into jejunum without gastric obstruction remove NGT advance to clear liquid diet GLO and metabolic alkalosis secondary to vomiting h/o renal carcinoma s/p left nephrectomy for RCC GLO resolved, bicarb significantly improved with IVF hydration nephrology following - agree with IV hydration; rec h2 simone Duodenal obstruction due to acute pancreatitis see above Hypokalemia replace New onset DM with Hyperglycemia Hba1c 6.7 elevated blood sugars due to pancreatitis blood glucose greater than 600 on admission, improved with insulin drip no previous diagnosis of diabetes POCs now controlled, diabetic diet and sliding scale Acute Lactic acidosis likely secondary to GLO with metabolic alkalosis no obvious infectious source Alcohol use disorder patient reported last drink 11/16/2024 CIWA low, no indication for phenobarbitol addiction medicine consult pending Mild protein calorie malnutrition BMI 15.8 has been NPO,now on clears See nutrition consult note DNR/DNI VTE prophylaxis: Lovenox Requires ongoing inpatient stay for acute on chronic pancreatitis complicated by GLO and metabolic alkalosis as well as duodenal obstruction requiring NGT and severe hyperglycemia with electrolytes abnormalities Quality Stroke Does the patient have a stroke diagnosis?: No VTE Prior VTE?: No VTE Risk Level:: Medical - moderate - high VTE Device Contraindication: Treatment Not Indicated VTE Drug Contraindication: N/A - Med Ordered
--- NOTE | 2024-11-26 09:27 | PM.PNGS ---
Subjective Subjective Date of Service: 11/26/24 Interval history: Overall patient is feeling improved but is mostly irritated by the NG tube. Reports decreased abdominal pain today. Discussed the CT findings with the patient. Physical Exam Vital Signs: Vital Signs: Last Vital Signs Temp 99 F 11/26/24 07:36 Pulse 85 11/26/24 07:36 Resp 16 11/26/24 07:36 BP 133/63 11/26/24 07:36 Pulse Ox 98 11/26/24 07:36 O2 Del Method Oxymask 11/26/24 07:36 O2 Flow Rate 2 11/26/24 07:36 BMI result Body Mass Index 15.8 Const: General: no acute distress Nutritional Appearance: thin Orientation/consciousness: patient oriented x3 HEENT: Other: NG tube in place Resp: Other: Breathing with facemask in place, no respiratory distress GI: Other: Abdomen is flat, mild epigastric tenderness, no rebound or guarding Skin: Other: Warm and dry Neuro: General: patient oriented x3 Objective Data Active Medications Acetaminophen (Acetaminophen 325 Mg Tablet) 650 mg PO Q6H PRN PRN Reason: Pain, Mild 1-3,fever,headache Calcium Carbonate (Calcium Carbonate 750 Mg Tab.Chew) 750 mg PO Q4H PRN PRN Reason: Heartburn Enoxaparin Sodium (Enoxaparin Sodium 30 Mg/0.3 Ml Syringe) 30 mg SUBCUT Q24H [facility] Last Admin: 11/25/24 20:04 Dose: 30 mg Documented By: JOHANNA Dextrose (D10) 250 mls @ 750 mls/hr IV Q30M PRN PRN Reason: BG <70 Last Infusion: 11/25/24 03:55 Dose: Infused Documented By: RUBA Sodium Chloride (Ns) 1,000 mls @ 100 mls/hr IVCONT .Q10H [facility] Last Admin: 11/26/24 08:24 Dose: 100 mls/hr Documented By: MEGAN Potassium Chloride (Potassium Chloride/H20) 10 meq in 100 mls @ 100 mls/hr IV Q1H [facility] Stop: 11/26/24 11:29 Magnesium Hydroxide (Milk Of Magnesia 30 Ml Oral.Susp) 30 ml PO DAILY PRN PRN Reason: Constipation Melatonin (Melatonin 3 Mg Tablet) 6 mg PO BEDTIME PRN PRN Reason: Insomnia Morphine Sulfate (Morphine Sulfate 4 Mg/Ml Cartridge) 4 mg IVPUSH Q4H PRN; Protocol PRN Reason: Pain, Severe (Pain Scale 7-10) Last Admin: 11/25/24 21:15 Dose: 4 mg Documented By: JOHANNA Ondansetron HCl (Ondansetron Hcl 4 Mg/2 Ml Vial) 4 mg IVPUSH Q8H PRN PRN Reason: Nausea and Vomiting Pantoprazole Sodium (Pantoprazole Sodium 40 Mg/10 Ml Vial) 40 mg IVPUSH DAILY@0630 [facility] Last Admin: 11/26/24 06:20 Dose: 40 mg Documented By: JOHANNA Sodium Chloride (0.9 % Sodium Chloride Flush 3 Ml Syringe) 3 ml IVFLUSH QSHIFT [facility] Last Admin: 11/26/24 08:27 Dose: 3 ml Documented By: PODMORP Labs 11/26/24 05:58 11/26/24 05:58 Labs: Laboratory Results - last 24 hr 11/25/24 11/25/24 11/25/24 11:28 15:07 19:10 MCV MCH MCHC RDW Plt Count MPV Absolute Nucleated RBC Nucleated RBC % (auto) Anion Gap Estim Creat Clear Calc Estimated GFR POC Glucose 109 109 104 Random Glucose Calcium Total Bilirubin Direct Bilirubin AST ALT Alkaline Phosphatase Total Protein Albumin Lipase 11/26/24 11/26/24 11/26/24 05:58 05:59 07:11 MCV 104.9 H MCH 34.3 H MCHC 32.8 RDW 12.7 Plt Count 243 MPV 10.8 Absolute Nucleated RBC 0.000 Nucleated RBC % (auto) 0.0 Anion Gap 18 Estim Creat Clear Calc 59.9 Estimated GFR > 60 POC Glucose 89 91 Random Glucose 96 Calcium 7.8 L Total Bilirubin 0.4 Direct Bilirubin 0.2 AST 21 ALT < 6 Alkaline Phosphatase 48 Total Protein 5.2 L Albumin 2.5 L Lipase 136 H Microbiology Microbiology Results: Microbiology 11/23/24 14:30 Blood Culture - Preliminary Blood - Venous No growth after 48 hours. 11/23/24 14:28 Blood Culture - Preliminary Blood - Venous No growth after 48 hours. Procedures Date of Service Date of Service: 11/26/24 Progress Note: A&P Assessment and plan (1) Pancreatitis: Status: Acute (2) Gastric dilatation: Status: Acute Plan Symptomatically the patient is improved this morning with less abdominal pain. Review of the CT does reveal contrast moving past the stomach into the small bowel with no evidence of a gastric obstruction. There is significant inflammation around the duodenum with a fluid collection possible pseudocyst, duodenal diverticulum or contained perforation per radiology report. No contrast is noted to be extravasating. I would suspect pseudocyst to be the most likely cause of this finding given the clinical scenario. NG tube output has decreased significantly. NG tube can be removed today and clear liquid started. Time Spent With Patient Time: Total time managing care of this patient today ____ minutes. Quality Stroke Does the patient have a stroke diagnosis?: No VTE Prior VTE?: No VTE Risk Level:: Medical - moderate - high VTE Device Contraindication: Treatment Not Indicated VTE Drug Contraindication: N/A - Med Ordered
[2024-11-26] MEDS: Potassium Chloride/H20 10 MEQ/100 ML PIGGYBACK 100 MEQ IV ×2 (10:49→12:10)
[2024-11-26 11:30] LABS: Glucose, Whole Blood 93 mg/dL (60-115)
[2024-11-26 11:47] VITALS: BP 131/61; PULSE 87; RESP 14; TEMP 37.4; O2SAT 95
[2024-11-26 15:40] VITALS: BP 132/74; PULSE 106; RESP 12; TEMP 38.1; O2SAT 92
[2024-11-26 16:03] LABS: Glucose, Whole Blood 245 mg/dL (60-115)
[2024-11-26 16:33] VITALS: RESP 18
[2024-11-26] MEDS: Morphine Sulfate 4 MG/ML CARTRIDGE IVPUSH (16:33)
[2024-11-26 19:50] VITALS: BP 102/60; PULSE 87; RESP 16; TEMP 37.6; O2SAT 91
[2024-11-26 19:59] LABS: Glucose, Whole Blood 194 mg/dL (60-115)
[2024-11-26] MEDS: Enoxaparin Sodium 30 MG/0.3 ML SYRINGE SUBCUT (20:29)
[2024-11-26 23:25] LABS: Glucose, Whole Blood 233 mg/dL (60-115)
[2024-11-27] VITALS (8 sets, daily range): BP systolic 108–138; BP diastolic 56–69; PULSE 71–88; RESP 14–20; TEMP 36.9–37.8; O2SAT 92–98
[2024-11-27] MEDS: Morphine Sulfate 4 MG/ML CARTRIDGE IVPUSH ×5 (03:30→21:35)
[2024-11-27 03:57] LABS: Glucose, Whole Blood 174 mg/dL (60-115)
[2024-11-27] MEDS: Pantoprazole Sodium 40 MG/10 ML VIAL IVPUSH (05:53)
[2024-11-27 07:24] LABS: Anion Gap 8 (12-20); Blood Urea Nitrogen 7 mg/dL (9-16); Calcium 7.7 mg/dL (8.4-10.2); Carbon Dioxide 27 mmol/L (22-29); Chloride 108 mmol/L (96-108); Creatinine Clr Calc Pharmacy 64.5; Estimated Glomerular Filt Rate > 60; Glucose Random 166 mg/dL (60-115); Sodium 140 mmol/L (135-145)
[2024-11-27] MEDS: Potassium Chloride ER 20 MEQ TAB.ER.PRT 40 MEQ PO (08:37)
[2024-11-27] MEDS: 0.9 % Sodium Chloride Flush 3 ML SYRINGE IVFLUSH ×2 (08:37→15:14)
--- NOTE | 2024-11-27 10:45 | PM.PNGS ---
Subjective Subjective Date of Service: 11/27/24 Interval history: Patient feels much improved and wants to go home today. He tolerated clear liquid diet without nausea or vomiting. He still has some abdominal pain but much improved. Physical Exam Vital Signs: Vital Signs: Last Vital Signs Temp 99.4 F 11/27/24 07:43 Pulse 71 11/27/24 07:43 Resp 16 11/27/24 07:43 BP 114/67 11/27/24 07:43 Pulse Ox 97 11/27/24 07:43 O2 Del Method Nasal Cannula 11/27/24 07:43 O2 Flow Rate 1 11/27/24 07:43 BMI result Body Mass Index 15.8 Const: General: no acute distress Nutritional Appearance: thin Orientation/consciousness: patient oriented x3 HEENT: Other: NG tube in place Resp: Other: Breathing with facemask in place, no respiratory distress GI: Other: Abdomen is flat, mild epigastric tenderness, no rebound or guarding Skin: Other: Warm and dry Neuro: General: patient oriented x3 Objective Data Active Medications Acetaminophen (Acetaminophen 325 Mg Tablet) 650 mg PO Q6H PRN PRN Reason: Pain, Mild 1-3,fever,headache Calcium Carbonate (Calcium Carbonate 750 Mg Tab.Chew) 750 mg PO Q4H PRN PRN Reason: Heartburn Enoxaparin Sodium (Enoxaparin Sodium 30 Mg/0.3 Ml Syringe) 30 mg SUBCUT Q24H [facility] Last Admin: 11/26/24 20:29 Dose: 30 mg Documented By: JOHANNA Dextrose (D10) 250 mls @ 750 mls/hr IV Q30M PRN PRN Reason: BG <70 Last Infusion: 11/25/24 03:55 Dose: Infused Documented By: RUBA Magnesium Hydroxide (Milk Of Magnesia 30 Ml Oral.Susp) 30 ml PO DAILY PRN PRN Reason: Constipation Melatonin (Melatonin 3 Mg Tablet) 6 mg PO BEDTIME PRN PRN Reason: Insomnia Morphine Sulfate (Morphine Sulfate 4 Mg/Ml Cartridge) 4 mg IVPUSH Q4H PRN; Protocol PRN Reason: Pain, Severe (Pain Scale 7-10) Last Admin: 11/27/24 08:46 Dose: 4 mg Documented By: BESSIE Ondansetron HCl (Ondansetron Hcl 4 Mg/2 Ml Vial) 4 mg IVPUSH Q8H PRN PRN Reason: Nausea and Vomiting Pantoprazole Sodium (Pantoprazole Sodium 40 Mg/10 Ml Vial) 40 mg IVPUSH DAILY@0630 [facility] Last Admin: 11/27/24 05:53 Dose: 40 mg Documented By: GISELE Sodium Chloride (0.9 % Sodium Chloride Flush 3 Ml Syringe) 3 ml IVFLUSH QSHIFT [facility] Last Admin: 11/27/24 08:37 Dose: 3 ml Documented By: BESSIE Labs 11/26/24 05:58 11/27/24 06:22 Labs: Laboratory Results - last 24 hr 11/26/24 11/26/24 11/26/24 11:14 15:57 19:55 Hold Purple Top Anion Gap Estim Creat Clear Calc Estimated GFR POC Glucose 93 245 H 194 H Random Glucose Calcium 11/26/24 11/27/24 11/27/24 23:20 03:53 06:22 Hold Purple Top SEE NOTE Anion Gap 8 L Estim Creat Clear Calc 64.5 Estimated GFR > 60 POC Glucose 233 H 174 H Random Glucose 166 H Calcium 7.7 L Procedures Date of Service Date of Service: 11/27/24 Progress Note: A&P Assessment and plan (1) Pancreatitis: Status: Acute (2) Gastric dilatation: Status: Acute Plan Overall the patient continues to improve with minimal abdominal pain, and no further nausea or vomiting. He was able to tolerate liquids in his being advanced to full liquids today. Diet can be advanced as tolerated. I will sign off for now, please reconsult for any new concerns. Time Spent With Patient Time: Total time managing care of this patient today ____ minutes. Quality Stroke Does the patient have a stroke diagnosis?: No VTE Prior VTE?: No VTE Risk Level:: Medical - moderate - high VTE Device Contraindication: Treatment Not Indicated VTE Drug Contraindication: N/A - Med Ordered
[2024-11-27 11:22] LABS: Glucose, Whole Blood 200 mg/dL (60-115)
--- NOTE | 2024-11-27 14:49 | P.PNIM_ITS ---
Subjective Subjective Date of Service: 11/27/24 Interval History: Seen and examined this morning Follow-up for pancreatitis, bowel obstruction Reporting epigastric abdominal pain, passing gas no bowel movement Review of Systems Review of Systems: Yes all other systems are reviewed and are negative Constitutional Constitutional: Denies chills and Denies fever(s) Physical Exam 2 Vital Signs: Vital Signs: Last Vital Signs Temp 99.4 F 11/27/24 11:53 Pulse 75 11/27/24 11:53 Resp 20 11/27/24 11:53 BP 117/64 11/27/24 11:53 Pulse Ox 95 11/27/24 11:53 O2 Del Method Room Air 11/27/24 11:53 O2 Flow Rate 1 11/27/24 07:43 BMI result Body Mass Index 15.8 Appearing in no acute distress lung sounds are clear to auscultation heart regular rate rhythm, clear S1, S2 positive bowel sounds, abdomen is soft, nontender neuro patient is alert x3, no focal deficits Objective Data Active Medications Acetaminophen (Acetaminophen 325 Mg Tablet) 650 mg PO Q6H PRN PRN Reason: Pain, Mild 1-3,fever,headache Calcium Carbonate (Calcium Carbonate 750 Mg Tab.Chew) 750 mg PO Q4H PRN PRN Reason: Heartburn Enoxaparin Sodium (Enoxaparin Sodium 30 Mg/0.3 Ml Syringe) 30 mg SUBCUT Q24H [facility] Last Admin: 11/26/24 20:29 Dose: 30 mg Documented By: JOHANNA Dextrose (D10) 250 mls @ 750 mls/hr IV Q30M PRN PRN Reason: BG <70 Last Infusion: 11/25/24 03:55 Dose: Infused Documented By: RUBA Magnesium Hydroxide (Milk Of Magnesia 30 Ml Oral.Susp) 30 ml PO DAILY PRN PRN Reason: Constipation Melatonin (Melatonin 3 Mg Tablet) 6 mg PO BEDTIME PRN PRN Reason: Insomnia Morphine Sulfate (Morphine Sulfate 4 Mg/Ml Cartridge) 4 mg IVPUSH Q4H PRN; Protocol PRN Reason: Pain, Severe (Pain Scale 7-10) Last Admin: 11/27/24 13:29 Dose: 4 mg Documented By: BESSIE Ondansetron HCl (Ondansetron Hcl 4 Mg/2 Ml Vial) 4 mg IVPUSH Q8H PRN PRN Reason: Nausea and Vomiting Pantoprazole Sodium (Pantoprazole Sodium 40 Mg/10 Ml Vial) 40 mg IVPUSH DAILY@0630 [facility] Last Admin: 11/27/24 05:53 Dose: 40 mg Documented By: GISELE Sodium Chloride (0.9 % Sodium Chloride Flush 3 Ml Syringe) 3 ml IVFLUSH QSHIFT [facility] Last Admin: 11/27/24 08:37 Dose: 3 ml Documented By: BESSIE Labs 11/26/24 05:58 11/27/24 06:22 Labs: Laboratory Results - last 24 hr 11/26/24 11/26/24 11/26/24 15:57 19:55 23:20 Hold Purple Top Anion Gap Estim Creat Clear Calc Estimated GFR POC Glucose 245 H 194 H 233 H Random Glucose Calcium 11/27/24 11/27/24 11/27/24 03:53 06:22 11:15 Hold Purple Top SEE NOTE Anion Gap 8 L Estim Creat Clear Calc 64.5 Estimated GFR > 60 POC Glucose 174 H 200 H Random Glucose 166 H Calcium 7.7 L Assessment and Plan (1) Gastric dilatation: Status: Acute (2) Pancreatitis: Status: Acute Plan 64-year-old male with a past medical history significant for pancreatitis related to alcohol and gallstones, last drink 11/16/24, duodenitis, left nephrectomy post renal cell carcinoma (2021), and chronic back pain, who reported to the ED due to extreme thirst after nausea and vomiting with some occasional diarrhea and upper abdominal pain. Findings significant for acute on chronic pancreatitis, GLO and metabolic alkalosis, duodenal obstruction and severe hyperglycemia. ICU was consulted and was going to take patient's however labs improved after insulin drip and IV fluids, they deemed the patient safe for the medical floor. Hypokalemia replace with IV and po Abdominal pain due to Acute on chronic pancreatitis (due to etoh) with duodenal inflammation causing partial obstruction seen by GI >previous endoscopies with no intrinsic stricture or abnormality of the duodenum. No endoscopy required at this time General surgery following, repeat CT scan obtained, contrast appears to pass into jejunum without gastric obstruction NGT removed 11/25/24 advanced to regular diet passing flatus, no BM yet GLO and metabolic alkalosis secondary to vomiting. GLO resolved h/o renal carcinoma s/p left nephrectomy for RCC GLO resolved, bicarb significantly improved with IVF hydration nephrology following - agree with IV hydration; rec h2 simone Duodenal obstruction. Resolved due to acute pancreatitis see above New onset DM with Hyperglycemia Hba1c 6.7 elevated blood sugars due to pancreatitis blood glucose greater than 600 on admission, improved with insulin drip no previous diagnosis of diabetes POCs now controlled, diabetic diet and sliding scale Acute Lactic acidosis likely secondary to GLO with metabolic alkalosis no obvious infectious source Alcohol use disorder patient reported last drink 11/16/2024 CIWA low, no indication for phenobarbitol addiction medicine following Mild protein calorie malnutrition BMI 15.8 diet advanced to regulatr, ensure added for protein See nutrition consult note DNR/DNI VTE prophylaxis: Lovenox Requires ongoing inpatient stay for acute on chronic pancreatitis complicated by GLO and metabolic alkalosis as well as duodenal obstruction requiring NGT and severe hyperglycemia with electrolytes abnormalities Quality Stroke Does the patient have a stroke diagnosis?: No VTE Prior VTE?: No VTE Risk Level:: Medical - moderate - high VTE Device Contraindication: Treatment Not Indicated VTE Drug Contraindication: N/A - Med Ordered
[2024-11-27] MEDS: KCl 20 mEq in 0.9 % Sodium ChL 20 MEQ/1,000 ML IV.SOLN 80 MEQ IVCONT (15:09)
[2024-11-27 16:50] LABS: Glucose, Whole Blood 167 mg/dL (60-115)
[2024-11-27] MEDS: Insulin Lispro 100 UNIT/ML 3 ML VIAL SUBCUT (17:34)
[2024-11-27] MEDS: Acetaminophen 325 MG TABLET 650 MG PO (19:56)
[2024-11-27] MEDS: Enoxaparin Sodium 30 MG/0.3 ML SYRINGE SUBCUT (19:56)
[2024-11-27] MEDS: Potassium Chloride ER 20 MEQ TAB.ER.PRT PO (19:56)
--- NOTE | 2024-11-27 20:09 | PM.EVENT ---
Event Note Date of Service: 11/27/24 Event Note: Nurse reported patient febrile with temp 101.1 degrees. Reviewed previous UA and chest x-ray. ?GI source. Initiating IV Zosyn empirically. Obtaining lactic acid and blood culture. Time Spent With Patient Time: Total time managing care of this patient today ____ minutes.
[2024-11-27] MEDS: Albumin Human 25 % 100 ML 133.33 ML IV ×2 (20:40→21:35)
[2024-11-27 21:20] LABS: Glucose, Whole Blood 118 mg/dL (60-115)
[2024-11-28 03:29] VITALS: BP 134/67; PULSE 71; RESP 16; TEMP 36.8; O2SAT 94
[2024-11-28] MEDS: KCl 20 mEq in 0.9 % Sodium ChL 20 MEQ/1,000 ML IV.SOLN 80 MEQ IVCONT (03:45)
[2024-11-28] MEDS: Pantoprazole Sodium 40 MG/10 ML VIAL IVPUSH (05:16)
[2024-11-28 07:42] LABS: Glucose, Whole Blood 132 mg/dL (60-115)
[2024-11-28 07:45] VITALS: BP 145/69; PULSE 79; RESP 18; TEMP 37; O2SAT 92
[2024-11-28] MEDS: Potassium Chloride ER 20 MEQ TAB.ER.PRT PO (08:05)
[2024-11-28] MEDS: Morphine Sulfate 4 MG/ML CARTRIDGE IVPUSH ×2 (08:05→11:57)
[2024-11-28] MEDS: 0.9 % Sodium Chloride Flush 3 ML SYRINGE IVFLUSH (08:05)
[2024-11-28 10:29] LABS: Anion Gap 10 (12-20); Blood Urea Nitrogen 5 mg/dL (9-16); Calcium 8.2 mg/dL (8.4-10.2); Carbon Dioxide 23 mmol/L (22-29); Chloride 109 mmol/L (96-108); Creatinine Clr Calc Pharmacy 65.4; Estimated Glomerular Filt Rate > 60; Glucose Random 154 mg/dL (60-115); Potassium 4.1 mmol/L (3.3-5.1); Sodium 138 mmol/L (135-145)
--- NOTE | 2024-11-28 11:30 | MHC.CLN ---
F/U PT IS MODERATELY MALNOURISHED DIET ADVANCED TO BLAND LOW FAT-WILL ADD 1500DM DIET PO ITNAKE REMAINS POOR PT RECEIVING ENSURE TID -RECOMMEND SWITCH TO ENSURE MAX (DIABETIC FRIENDLY) BID TO PROVIDE 300KCALS, 60G PROTEIN MONITOR PO INTAKE AND ENCOURAGE SUPPLMENTS
--- NOTE | 2024-11-28 11:37 | PM.DS ---
DS: Providers Provider Date of Service: 11/28/24 Date of admission: 11/23/24 20:37 Date of discharge: 11/28/24 Primary care physician: NEDA Escoto Consults: 11/23/24 20:37 Consult to Nephrology Routine Consulting Provider: [facility] Reason for consultation: GLO with met alkalosis 11/23/24 20:46 Consult to Gastroenterology Routine Consulting Provider: Ros Arroyo Reason for consultation: pancreatitis Consult to General Surgery Routine Consulting Provider: [facility] Reason for consultation: outlet obstruction with focal transition point dudodenum 11/23/24 23:43 Addiction Medicine Routine Consulting Provider: [facility] Reason for consultation: high risk screen DS: Diagnosis Discharge Diagnosis (1) Gastric dilatation: Status: Acute (2) Pancreatitis: Status: Acute DS: Summary Hospital Course Hospital Course: History and physical as per admitting provider. Patient is a 64-year-old male with a past medical history significant for pancreatitis related to alcohol and gallstones, last drink 11/16/24, duodenitis, left nephrectomy post renal cell carcinoma (2021), and chronic back pain, who reported to the ED today due to extreme thirst after nausea and vomiting all day yesterday with some occasional diarrhea and upper abdominal pain. He reports that he has a history of chronic pancreatitis with acute flares and felt that this was an episode. He was very thirsty today reports that he drank everything that he had in the house which were a lot of sugary drinks. He denies any blood in the stool or hematemesis. He also denies any fever, recent travel, antibiotic use or sick contacts. He is able to tolerate p.o. today however feels very dehydrated. He reports that he lives alone and does not have any local support. 64-year-old man treated for abdominal pain and vomiting secondary to acute on chronic pancreatitis from alcohol abuse. He was found to have duodenal inflammation causing partial obstruction. He had an NG-tube placed. Seen and evaluated by Gastroenterology and did not think endoscopy was required. Seen by General surgery, repeat CT scan showed jejunum without gastric obstruction and NG tube was removed on 11/25/2024. Patient's diet was slowly advanced to regular. He has been passing flatus and had several bowel movements today. He was noted to have GLO and metabolic alkalosis secondary to the vomiting. He does have a history of renal cell carcinomas and he was status post left nephrectomy. GLO resolved with IV fluids Hypokalemia. Treated with IV and p.o. and resolved New onset DM with Hyperglycemia. Hba1c 6.7. elevated blood sugars due to pancreatitis. blood glucose greater than 600 on admission, improved with insulin drip. no previous diagnosis of diabetes. POCs now controlled, treated with diabetic diet and sliding scale while inpatient. Follow up with pcp to recheck BS in office Acute Lactic acidosis. Secondary to GLO and metabolic alkalosis without any source of infection. Alcohol use disorder. Patient's last drink 11/16/2024. Low CIWA, no indication for phenobarbital, no withdrawal symptoms during hospitalization. Mild protein calorie malnutrition. BMI 15.8. Diet advanced to regular. Add ensure to diet for extra protein. Time Attestation Discharge Coordination Time (in mins): 42 Quality: Safe Use of Opioids Does Pt have an Active Cancer Diagnosis on the Problem List?: No Quality: Stroke Does the patient have a stroke diagnosis?: No Physical Exam Vital Signs: Vital Signs: Last Vital Signs Temp 98.6 F 11/28/24 07:45 Pulse 79 11/28/24 07:45 Resp 18 11/28/24 07:45 BP 145/69 H 11/28/24 07:45 Pulse Ox 92 11/28/24 07:45 O2 Del Method Room Air 11/28/24 07:45 O2 Flow Rate 1 11/27/24 07:43 BMI result Body Mass Index 15.8 Appearing in no acute distress head is normocephalic atraumatic eyes pupils are PERRLA sclera is anicteric mouth throat mucous membranes are intact and moist neck is supple no lymphadenopathy, no JVD noted lung sounds are clear to auscultation heart regular rate rhythm, clear S1, S2 positive bowel sounds, abdomen is soft, nontender neuro patient is alert x3, no focal deficits DS: Data Data Completed and Pending Labs on day of discharge: Laboratory Results - last 24 hr 11/27/24 11/27/24 11/28/24 16:41 21:16 07:36 Sodium Potassium Chloride Carbon Dioxide Anion Gap BUN Creatinine Estim Creat Clear Calc Estimated GFR POC Glucose 167 H 118 H 132 H Random Glucose Calcium 11/28/24 09:34 Sodium 138 Potassium 4.1 D Chloride 109 H Carbon Dioxide 23 Anion Gap 10 L BUN 5 L Creatinine 0.76 Estim Creat Clear Calc 65.4 Estimated GFR > 60 POC Glucose Random Glucose 154 H Calcium 8.2 L D Preliminary micro results at discharge 11/23/24 14:30 Blood Culture - Preliminary Blood - Venous No growth after 48 hours. 11/23/24 14:28 Blood Culture - Preliminary Blood - Venous No growth after 48 hours. Discharge Plan Discharge Anticipated Discharge Date/Time: 11/28/24 11:33 Patient Disposition: Home, Self-Care Discharge Diagnosis: Pancreatitis Hypokalemia GLO Metabolic alkalosis Abdominal pain and vomiting Duodenal obstruction Acute lactic acidosis Referrals: Jorge Alberto Erickson, [employer] [Primary Care Provider] - 1 Week Discharge Medications: New oxycodone 5 mg tablet 5 mg PO Q8H PRN (Reason: pain) Qty: 9 0RF Rx Instructions: Partial Fill upon patient request. ondansetron 4 mg tablet,disintegrating 4 mg PO Q8H PRN (Reason: nausea and vomiting) Qty: 9 0RF Continued sucralfate 1 gram Tablet 1 g PO QIDWMHS acetaminophen 325 mg Tablet 650 mg PO Q6H PRN (Reason: Pain) Diet: Low fat, low cholesterol Activity on Discharge: As tolerated Stand Alone Forms: Patient Portal Discharge page Print Language: Georgian Care Plan Goals: Do not drink alcohol [place] diet for a few days, drink plenty of fluids Health Concerns: Pancreatitis Hypokalemia GLO Metabolic alkalosis Abdominal pain and vomiting Duodenal obstruction Acute lactic acidosis Plan of Treatment: Follow-up with primary care provider as needed Take all medications as prescribed Assessment: See discharge summary
[2024-11-28 11:45] LABS: Glucose, Whole Blood 158 mg/dL (60-115)
[2024-11-28 11:54] VITALS: BP 145/76; PULSE 56; RESP 19; TEMP 37.5; O2SAT 100
--- NOTE | 2024-11-28 12:59 | MHC.CM.PN ---
Pt is medically cleared for discharge home self-care, pt will arrange his own transport home.
== END 2024-11-28 13:00 | disposition home or self-care (01) | DRG 282 ==
LOC: HO.ED 16:21 → HO.EDOVER 20:42 → HO.IMC 20:51
PROVIDERS: Internal Medicine Critical Care Medicine; Physician Assistant Medical; Admitting Provider Student in an Organized Health Care Education/Training Program; Emergency Provider Emergency Medicine; PCP Nurse Practitioner Family; Visit Provider Nurse Practitioner Acute Care
DX: K85.20 Alcohol induced acute pancreatitis without necrosis or infection (principal); E87.21 Acute metabolic acidosis; E87.3 Alkalosis; Z66 Do not resuscitate; E44.1 Mild protein-calorie malnutrition; N17.9 Acute kidney failure, unspecified; K86.0 Alcohol-induced chronic pancreatitis; E86.0 Dehydration; E11.65 Type 2 diabetes mellitus with hyperglycemia; F10.10 Alcohol abuse, uncomplicated; K31.89 Other diseases of stomach and duodenum; E87.6 Hypokalemia; J90 Pleural effusion, not elsewhere classified; F17.210 Nicotine dependence, cigarettes, uncomplicated; K57.10 Diverticulosis of small intestine without perforation or abscess without bleeding; Z68.1 Body mass index [BMI] 19.9 or less, adult; Z90.5 Acquired absence of kidney; Z71.6 Tobacco abuse counseling; Z20.822 Contact with and (suspected) exposure to COVID-19; Z85.528 Personal history of other malignant neoplasm of kidney; Z79.899 Other long term (current) drug therapy
CPT/HCPCS: 0241U; 36415; 71045; 74176; 80048; 80053; 80076; 80307; 81001; 82010; 82436; 82550; 82803; 82947; 83036; 83605; 83615; 83690; 83735; 83880; 84478; 84484; 85025; 85027; 87040; 93005; 97161; 99285; C1758; J1650; J2003; J2270; J2405; J2470; J2543; J3411; J3475; J3480; J7120; P9047; S9485

== ENCOUNTER → 2024-11-23 13:13 | Outpatient (BNV) | payer OTHER, SELFPAY | PROVIDERS: Admitting Provider Student in an Organized Health Care Education/Training Program; Emergency Provider Emergency Medicine; PCP Nurse Practitioner Family; Visit Provider Internal Medicine Cardiovascular Disease | DX: R42 Dizziness and giddiness (principal) | CPT/HCPCS: 93010 ==

== ENCOUNTER → 2024-11-23 13:35 | Outpatient (BNV) | payer OTHER, SELFPAY | PROVIDERS: Emergency Provider Emergency Medicine; PCP Nurse Practitioner Family; Visit Provider Radiology Diagnostic Radiology | DX: R10.9 Unspecified abdominal pain (principal) | CPT/HCPCS: 71045; 74176 ==

== ENCOUNTER 2024-11-23 20:37 | Outpatient (BNV) | payer OTHER, SELFPAY | END 2024-11-25 10:54 | PROVIDERS: Admitting Provider Student in an Organized Health Care Education/Training Program; Emergency Provider Emergency Medicine; PCP Nurse Practitioner Family; Visit Provider Radiology Vascular & Interventional Radiology | DX: R11.10 Vomiting, unspecified (principal); K85.90 Acute pancreatitis without necrosis or infection, unspecified | CPT/HCPCS: 71045; 74176 ==

== ENCOUNTER → 2024-11-23 20:37 | Outpatient (BNV) | payer OTHER, SELFPAY | PROVIDERS: Admitting Provider Student in an Organized Health Care Education/Training Program; Emergency Provider Emergency Medicine; PCP Nurse Practitioner Family; Visit Provider Physician Assistant | DX: K31.89 Other diseases of stomach and duodenum (principal); K86.0 Alcohol-induced chronic pancreatitis | CPT/HCPCS: 99223; 99232; 99499 ==

== ENCOUNTER → 2024-11-23 20:37 | Outpatient (BNV) | payer OTHER, SELFPAY | PROVIDERS: Admitting Provider Student in an Organized Health Care Education/Training Program; Emergency Provider Emergency Medicine; PCP Nurse Practitioner Family; Visit Provider Internal Medicine Hypertension Specialist | DX: E87.3 Alkalosis (principal); N17.9 Acute kidney failure, unspecified | CPT/HCPCS: 99223 ==

== ENCOUNTER → 2024-11-23 20:37 | Outpatient (BNV) | payer OTHER, SELFPAY | PROVIDERS: Admitting Provider Student in an Organized Health Care Education/Training Program; Emergency Provider Emergency Medicine; PCP Nurse Practitioner Family; Visit Provider Surgery | DX: K85.90 Acute pancreatitis without necrosis or infection, unspecified (principal); K86.1 Other chronic pancreatitis; K31.89 Other diseases of stomach and duodenum | CPT/HCPCS: 99222 ==

== ENCOUNTER 2024-12-05 22:09 | Inpatient (IN) | payer OTHER, SELFPAY ==
--- NOTE | ~2024-12-05 | XR_ITS ---
CLINICAL HISTORY: pneumonia 1 view chest x-ray. Comparison: CT/SR - CT ABDOMEN PELVIS W IV CON - 12/05/24 23:43 EST CR - XR CHEST 1V - 11/25/24 10:58 EST Findings: The small left and minimal right pleural effusion seen on the CT are poorly visualized radiographically. The mild focal bronchiectasis and scarring in the right middle lobe seen on the CT is poorly visualized. Airspace opacity in the left lower lung is consistent with atelectasis or pneumonia. Lungs appear otherwise clear. Cardiomediastinal silhouette is within normal limits. IMPRESSION: 1. Airspace opacity in the left lower lung is consistent with atelectasis or pneumonia. 2. Small left and minimal right pleural effusions seen on the CT are poorly visualized radiographically. This document has been electronically signed by: Frank Rizvi MD on 12/06/2024 02:37:22
--- NOTE | ~2024-12-05 | CT_ITS ---
CLINICAL HISTORY: Pancreatitis with pain and left abd fullness CT abdomen and pelvis with contrast Comparison: CT/SR - CT ABDOMEN PELVIS WO IV CON - 11/23/24 15:10 EST Findings: Fluid-filled esophagus with mural thickening mucosal hyperemia. Atelectasis with more ill-defined consolidations in the left lower lobe gvpp-ryxohql-fsov-right pleural effusions, new from prior. Mild cardiomegaly. Developing hepatic subcapsular fluid collection along the anterior liver measuring 7.1 cm. Hepatic steatosis noted. Redemonstrated postcholecystectomy with persistent fluid stranding along the gallbladder fossa. Dystrophic pancreatic calcifications, suggesting sequela of chronic pancreatitis. There is inflammatory changes along the proximal pancreas, suggestive of pancreatitis. No significant pancreatic ductal dilatation. Ill-defined heterogeneity and fullness along the proximal pancreas. Persistent gastric outlet obstruction with slightly improved periduodenal inflammatory changes, please see discussion above. Similar gastric outlet obstruction, with distention, mural thickening mucosal hyperemia, irregularity along the duodenal bulb, 2nd and 3rd segments. Slightly decreased duodenal inflammatory changes with a tubular like peripherally enhancing fluid collection along the 2nd segment measuring up to 1.7 cm. Duodenal ulceration, neoplasm or developing pancreatic pseudocysts are considerations. Continued attention on follow-up. Diffuse rectal, small bowel and colonic mural thickening with mucosal hyperemia, suggesting proctitis and enterocolitis. No bowel obstruction. Pelvic contents unremarkable. Normal appendix. Osteopenia with diffuse multilevel spondylosis. Minimal grade 1 anterolisthesis at L5-S1. Diffuse atheromatous plaque disease throughout the aorta and branch vessels, without aneurysmal dilatation. IMPRESSION: 1. Developing hepatic subcapsular collection may reflect abscess or pseudocyst. 2. Developing airspace disease gwzu-jizlydt-gnpq-right lower lobes with pleural effusions. Aspiration or pneumonia not excluded. 3. Redemonstrated postcholecystectomy with persistent fluid stranding along the gallbladder fossa. 4. Redemonstrated acute on chronic pancreatitis. 5. Diffuse inflammatory changes of the GI tract including gastroesophagitis, enterocolitis and proctitis. This document has been electronically signed by: Emanuel Garcias MD on 12/06/2024 01:08:01
[2024-12-05 22:12] VITALS: BP 126/62; PULSE 93; O2SAT 96
--- NOTE | 2024-12-05 22:18 | ED_ITS ---
HPI - Abdominal Pain General Chief Complaint: Abdominal Pain Stated Complaint: ABD PAIN, VOMITING, 307 BGL PER EMS Time Seen by Provider: 12/05/24 22:18 Source: patient Mode of arrival: ambulatory Limitations: no limitations History of Present Illness ED Provider: HPI narrative: 64-year-old male with a past medical history significant for pancreatitis related to alcohol and gallstones, last drink 11/16/24, duodenitis, left nephrectomy post renal cell carcinoma (2021), and chronic back pain, been here multiple times for pancreatic pain last admission was 11/23/2024 at that time patient had duodenal inflammation with partial obstruction requiring NG tube patient has just discharged on 11/28 comes back as for last 24 hours pain coming back again with fullness in the left side and patient has been vomiting multiple times feels dehydrated no fever no chills Related Data Home Medications ?Medication ?Instructions ?Recorded ?Confirmed acetaminophen 325 mg tablet 650 mg PO Q6H PRN Pain 11/23/24 11/29/24 sucralfate 1 gram tablet 1 g PO QIDWMHS 11/23/24 11/29/24 Previous Rx's ?Medication ?Instructions ?Recorded ondansetron 4 mg disintegrating 4 mg PO Q8H PRN nausea and 11/28/24 tablet vomiting #9 tabs oxycodone 5 mg tablet 5 mg PO Q8H PRN pain #9 tabs 11/28/24 Allergies Allergy/AdvReac Type Severity Reaction Status Date / Time No Known Allergies Allergy Verified 12/05/24 22:21 Review of Systems Review of Systems Yes all other systems are reviewed and are negative PMFSH Past Medical History Medical History Anorexia Arthritis Hiatal hernia Hiatal hernia Barretts esophagus Renal cell carcinoma Alcohol use disorder History of alcohol abuse GERD (gastroesophageal reflux disease) Back pain with right-sided sciatica (10/07/21) Pancreatitis Inguinal hernia Cyst of pancreas Surgical History Hx laparoscopic cholecystectomy (04/22/24) Hx of oral surgery H/O colonoscopy History of surgery on right wrist Hx of esophagogastroduodenoscopy History of nephrectomy, left (2021) Social History Social History Household Members: None Household Members Other:: adult son Housing: House Are you a primary career development director to a significant other at home: No Do you presently have visiting nurse or other home services: No Alcohol intake: current Alcohol intake frequency: former alcohol drinker Alcohol type: wine Patient Tobacco Use Status: Current everyday Tobacco user Tobacco use type: Cigarette Cigarette Packs Per Day: 1 Cigarettes Per Day: 20.0 Years Smoked: 40 Smoked in Last 30 Days: Yes Second Hand Smoke Exposure: No Use of substances other than those prescribed or required for medical reasons: No Advance Directives: No Advance Directives Information Provided: No service: No Current occupational status: employed Current occupation: [employer] Current occupational exposures/hazards: Yes Cognitive needs: No Hearing needs: No Vision needs: No Physical Exam ED Vital Signs: Vital Signs - 24 hr 12/05/24 22:20 12/06/24 00:44 Temperature 98.4 F 97.8 F Pulse Rate 76 62 Respiratory Rate 20 16 Blood Pressure 106/64 112/66 Pulse Oximetry 97 99 Oxygen Delivery Method Room Air Room Air BMI result Body Mass Index 17.1 Appearance: Alert. Oriented X3. No acute distress. Eyes: No pallor or icterus ENT: Pharynx normal. Oral Mucosa moist Neck: Normal inspection. Neck supple. CVS: Normal heart rate and rhythm. Pulses normal. Respiratory: No respiratory distress. Equal air entry bilateral, no wheezing/rales/rhonchi Abdomen: Soft and mid abdominal tenderness ++ Bowel sounds are present, no mass palpable, no CVA tenderness Skin: Skin warm and dry. Normal skin color. Normal skin turgor. Extremities: No lower extremity edema. No calf tenderness Neuro: Oriented X 3. No motor deficit. No sensory deficit.No cerebellar signs , cranial nerves II-XII intact Medical Decision Making Medical Decision Making [facility] Narrative: Patient with acute on chronic pancreatitis with pseudocyst with lower airspace disease will admit patient for IV hydration and supportive treatment patient's potassium was also low 2.8 which was replaced Differential Diagnosis Differential Diagnoses: The differential diagnosis associated with the presentation includes Pancreatitis/pseudocyst/duodenitis Admission/Observation Consideration of admission/observation: Escalation of care including admission/observation considered Consult Healthcare Provider Management of the patient was discussed with: Hospitalist Lab Data [facility] Lab Attestation statement: I reviewed the patient's lab results. 12/05/24 22:47 12/05/24 22:47 Labs: Lab Results 12/05/24 12/05/24 12/06/24 Range/Units 22:47 22:57 01:06 WBC 10.8 (4.8-10.8) X10*3/uL RBC 3.82 L (4.60-5.80) X10*6/uL Hgb 12.9 L (14.0-18.0) g/dl Hct 38.2 L (42.0-52.0) % MCV 100.0 H (80.0-98.0) fL MCH 33.8 H (27.0-33.0) pg MCHC 33.8 (31.0-36.0) g/dl RDW 13.3 (11.0-16.0) % Plt Count 612 H D (160-400) X10*3/uL MPV 9.8 (9.4-12.4) fL Immature Gran % (Auto) 0.5 H (0.0-0.4) % Neut % (Auto) 66.0 (45-73) % Lymph % (Auto) 24.2 (20-40) % Cochran % (Auto) 8.4 (2-11) % Eos % (Auto) 0.4 (0-4) % Baso % (Auto) 0.5 (0-2) % Lymph # (Auto) 2.6 (1.2-4.9) X10*3/uL Cochran # (Auto) 0.9 (0.1-1.2) X10*3/uL Eos # (Auto) 0.0 (0.0-0.4) X10*3/uL Baso # (Auto) 0.1 (0.0-0.2) X10*3/uL Abs Immat Gran (auto) 0.05 H (0.00-0.03) X10*3/uL Absolute Neuts (auto) 7.2 (2.0-8.3) x10*3/uL Absolute Nucleated RBC 0.000 (0.0-0.012) X10*3/uL Nucleated RBC % (auto) 0.0 (0.0-0.2) /100WBC VBG pH 7.50 H (7.32-7.43) VBG pCO2 67 mmHg VBG pO2 28 mmHg VBG HCO3 53 H (22-26) mmol/L VBG O2 Saturation < 30.0 % VBG Base Excess 25.3 mmol/L Sodium 144 (135-145) mmol/L Potassium 2.8 L* D (3.3-5.1) mmol/L Chloride 92 L (96-108) mmol/L Carbon Dioxide 41 H* D (22-29) mmol/L Anion Gap 14 (12-20) BUN 10 (9-16) mg/dL Creatinine 0.90 (0.5-1.4) mg/dL Estim Creat Clear Calc 59.4 Estimated GFR > 60 Random Glucose 233 H (60-115) mg/dL Lactic Acid 2.5 H* (0.5-2.0) mmol/L Lactic Acid F/U @ 2Hr 2.1 H* (0.5-2.0) mmol/L Calcium 9.2 D (8.4-10.2) mg/dL Total Bilirubin 0.3 (0.0-1.0) mg/dL AST 31 (5-37) U/L ALT 14 (0-40) U/L Alkaline Phosphatase 73 (39-117) U/L Total Protein 7.6 (6.5-8.0) g/dL Albumin 3.6 (3.5-5.0) g/dL Lipase 154 H (8-78) U/L Independent Interpretation I performed an independent interpretation of an: EKG and CT Scan Interpretation: Normal sinus rhythm heart rate 65 beats per minute QTC [address] wave changes no acute ischemia Radiology Impression Discussion of test interpretation with radiology: I have reviewed the radiologist's reading. Radiologist Impression: IMPRESSION: 1. Developing hepatic subcapsular collection may reflect abscess or pseudocyst. 2. Developing airspace disease atan-imzcszb-rqrv-right lower lobes with pleural effusions. Aspiration or pneumonia not excluded. 3. Redemonstrated postcholecystectomy with persistent fluid stranding along the gallbladder fossa. 4. Redemonstrated acute on chronic pancreatitis. 5. Diffuse inflammatory changes of the GI tract including gastroesophagitis, enterocolitis and proctitis. This document has been electronically signed by: Emanuel Garcias MD on 12/06/2024 01:08:01 Medications Administered Generic Name Dose Route Start Last Admin Trade Name Kar PRN Reason Stop Dose Admin Potassium Chloride 10 meq in 100 mls @ 100 mls/hr 12/05/24 23:45 12/06/24 00:00 Potassium Chloride/H20 IV 12/06/24 03:44 100 mls/hr Q1H JUANA Administration Discontinued Medications Generic Name Dose Route Start Last Admin Trade Name Kar PRN Reason Stop Dose Admin Famotidine 20 mg 12/06/24 00:12 12/06/24 00:18 Famotidine/Pf 20 Mg/2 Ml Vial IVPUSH 12/06/24 00:13 20 mg ONCE ONE Administration Sodium Chloride 1,000 mls @ 999 mls/hr 12/05/24 22:24 12/06/24 01:02 Ns IV 12/05/24 23:24 Infused .Q1H1M ONE Infusion Iohexol 85 ml 12/05/24 23:50 12/05/24 23:52 Iohexol 350 Mg/Ml 100 Ml Infus..Btl IV 12/05/24 23:51 85 ml ONCE ONE Administration Morphine Sulfate 4 mg 12/05/24 22:32 12/05/24 22:51 Morphine Sulfate 4 Mg/Ml Cartridge IVPUSH 12/05/24 22:33 4 mg ONCE ONE Administration Protocol Ondansetron HCl 4 mg 12/05/24 22:32 12/05/24 22:51 Ondansetron Hcl 4 Mg/2 Ml Vial IVPUSH 12/05/24 22:33 4 mg ONCE ONE Administration Discharge Plan Discharge Clinical Impression: Pancreatitis, Duodenitis, Recurrent biliary colic, Acute hypokalemia Patient Disposition: Admitted As Inpatient Print Language: Kyrgyz
[2024-12-05 22:20] VITALS: BP 106/64; PULSE 76; RESP 20; TEMP 36.9; O2SAT 97; BMI 17.1
[2024-12-05] MEDS: ondansetron HCL 4 MG/2 ML VIAL IVPUSH (22:51)
[2024-12-05] MEDS: 0.9 % Sodium Chloride 1,000 ML 999 ML IV (22:51)
[2024-12-05] MEDS: Morphine Sulfate 4 MG/ML CARTRIDGE IVPUSH (22:51)
[2024-12-05 22:54] LABS: MANUAL DIFF FLAG NO
[2024-12-05 22:57] LABS: Basophils Absolute Auto 0.1 X10*3/uL (0.0-0.2); Basophils Percent Auto 0.5 % (0-2); Eosinophils Percent Auto 0.4 % (0-4); Hematocrit 38.2 % (42.0-52.0); Hemoglobin 12.9 g/dl (14.0-18.0); Imm Gran Abs Auto 0.05 X10*3/uL (0.00-0.03); Imm Gran Pct Auto 0.5 % (0.0-0.4); Lymphocytes Absolute Auto 2.6 X10*3/uL (1.2-4.9); Lymphocytes Percent Auto 24.2 % (20-40); Mean Corpuscular HGB Conc 33.8 g/dl (31.0-36.0); Mean Corpuscular Hemoglobin 33.8 pg (27.0-33.0); Mean Platelet Volume 9.8 fL (9.4-12.4); Monocytes Absolute Auto 0.9 X10*3/uL (0.1-1.2); Monocytes Percent Auto 8.4 % (2-11); Neutrophils Absolute Auto 7.2 x10*3/uL (2.0-8.3); Platelet Count 612 X10*3/uL (160-400); Red Blood Count 3.82 X10*6/uL (4.60-5.80); Red Cell Distribution Width 13.3 % (11.0-16.0); White Blood Count 10.8 X10*3/uL (4.8-10.8)
[2024-12-05 23:02] LABS: VBG Base Excess 25.3 mmol/L; VBG HCO3 53 mmol/L (22-26); VBG O2 % Saturation < 30.0 %; VBG pCO2 67 mmHg; VBG pO2 28 mmHg
[2024-12-05 23:03] LABS: Venous Blood Gas Refer to POC result
[2024-12-05 23:18] LABS: Lactic Acid 2.5 mmol/L (0.5-2.0)
[2024-12-05 23:27] LABS: Alanine Aminotransferase 14 U/L (0-40); Alkaline Phosphatase 73 U/L (39-117); Aspartate Amino Transferase 31 U/L (5-37); Lipase 154 U/L (8-78)
[2024-12-05 23:28] LABS: Albumin Level 3.6 g/dL (3.5-5.0); Anion Gap 14 (12-20); Bilirubin Total 0.3 mg/dL (0.0-1.0); Blood Urea Nitrogen 10 mg/dL (9-16); Calcium 9.2 mg/dL (8.4-10.2); Carbon Dioxide 41 mmol/L (22-29); Chloride 92 mmol/L (96-108); Creatinine Clr Calc Pharmacy 59.4; Estimated Glomerular Filt Rate > 60; Potassium 2.8 mmol/L (3.3-5.1); Sodium 144 mmol/L (135-145); Total Protein 7.6 g/dL (6.5-8.0)
--- NOTE | 2024-12-05 23:30 | ECG_ITS ---
Test Reason : LOW POTASSIUM Blood Pressure : */* mmHG Vent. Rate : 65 BPM Atrial Rate : 65 BPM P-R Int : 142 ms QRS Dur : 92 ms QT Int : 448 ms P-R-T Axes : 46 80 67 degrees QTcB Int : 465 ms Normal sinus rhythm T wave abnormality, consider anterior ischemia Prolonged QT Abnormal ECG When compared with ECG of 23-Nov-2024 13:19, Vent. rate has decreased by [address] no longer depressed in Anterolateral leads Nonspecific T wave abnormality now evident in Inferior leads T wave inversion more evident in Anterior leads QT has shortened Referred By: Davian Galarza Electronically Signed By: Fabián Ojeda
[2024-12-05] MEDS: iohexoL 350 MG/ML 100 ML INFUS..BTL 85 ML IV (23:52)
[2024-12-05 23:58] LABS: Glucose Random 233 mg/dL (60-115)
[2024-12-06] MEDS: Famotidine/PF 20 MG/2 ML VIAL IVPUSH (00:18)
[2024-12-06 00:44] VITALS: BP 112/66; PULSE 62; RESP 16; TEMP 36.6; O2SAT 99
[2024-12-06 00:52] LABS: Reflex Lactate? Lactic Acid Added
--- NOTE | 2024-12-06 01:02 | PC.NURSE ---
potassium infusion slowed, pt c/o burning in arm
[2024-12-06 01:30] LABS: ~Lactic Acid-LAB USE ONLY 2.1 mmol/L (0.5-2.0)
[2024-12-06] MEDS: Potassium Chloride/H20 10 MEQ/100 ML PIGGYBACK 100 MEQ IV ×6 (01:59→10:30)
--- NOTE | 2024-12-06 02:00 | P.HPHOSP_ITS ---
History of Present Illness Date of Service: 12/06/24 Attending physician on admission: Mario Arnold Chief Complaint: nausea, abd pain Patient is a 64-year-old male with a past medical history significant for pancreatitis related to alcohol and gallstones, last drink 11/16/24, duodenitis, left nephrectomy post renal cell carcinoma (2021), and chronic back pain, who reported to the ED for nausea, vomting, and upper abd pain. He was recently discharged after admission 11/23-11/28 for similar sx, acute on chronic pancreatitis, complicated by GLO and metabolic alkalosis. He reports he started taking the oxycodone for abd pain 3 days ago and today ran out and had severe epigastric pain, nausea and vomiting. able to tolerate liquids for the most part but not soilds. has vomited 5-6x in the past 3 days without any blood. last BM just hours ago. no fever, chills, or upper respiratory sx. hx of etoh abuse/dependence, last drink 11/15/24, did not require phenobarb at last admission. abd pain was 10/10 on arrival, now non-existent and nausea/vomiting controlled. Review of Systems 2 Constitutional: Constitutional: Denies body ache(s), Denies chills, Denies fatigue, Denies fever(s) and Denies headache(s) Eyes: Eyes: Denies change in vision ENT: Denies headache(s), Denies nasal congestion, Denies nasal discharge and Denies sinus pressure Cardiovascular: Cardiovascular: Denies chest pain, Denies rapid heart rate, Denies lightheadedness and Denies dyspnea Respiratory: Respiratory: Denies chest congestion, Denies cough, Denies dyspnea and Denies wheezing Gastrointestinal: Gastrointestinal: Denies coffee ground emesis, Denies constipation, Denies diarrhea, Reports nausea and Denies hematemesis Genitourinary: Genitourinary: Denies dysuria and Denies urinary frequency Musculoskeletal: Musculoskeletal: Denies myalgias Integumentary/Breasts: Skin/Breast: Denies rash Neurologic: Denies confusion and Denies headache(s) Psychiatric: Psychiatric: Denies confusion Endocrine: Endocrine: Denies fatigue Hematologic/Lymphatic: Hematologic/Lymphatic: Denies easy bleeding and Denies easy bruising Allergic/Immunologic: Allergic/Immunologic: Denies wheezing [facility] Medical History Anorexia Arthritis Hiatal hernia Hiatal hernia Barretts esophagus Renal cell carcinoma Alcohol use disorder History of alcohol abuse GERD (gastroesophageal reflux disease) Back pain with right-sided sciatica (10/07/21) Pancreatitis Inguinal hernia Cyst of pancreas Surgical History Hx laparoscopic cholecystectomy (04/22/24) Hx of oral surgery H/O colonoscopy History of surgery on right wrist Hx of esophagogastroduodenoscopy History of nephrectomy, left (2021) Social History Household Members: None Household Members Other:: adult son Housing: House Are you a primary care rep to a significant other at home: No Do you presently have visiting nurse or other home services: No Alcohol intake: current Alcohol intake frequency: former alcohol drinker Alcohol type: wine Patient Tobacco Use Status: Current everyday Tobacco user Tobacco use type: Cigarette Cigarette Packs Per Day: 1 Cigarettes Per Day: 20.0 Years Smoked: 40 Smoked in Last 30 Days: Yes Second Hand Smoke Exposure: No Use of substances other than those prescribed or required for medical reasons: No Advance Directives: No Advance Directives Information Provided: No service: No Current occupational status: employed Current occupation: [employer] Current occupational exposures/hazards: Yes Cognitive needs: No Hearing needs: No Vision needs: No Meds Allergies Allergy/AdvReac Type Severity Reaction Status Date / Time No Known Allergies Allergy Verified 12/05/24 22:21 Active Medications: Current Medications Potassium Chloride (Potassium Chloride/H20) 10 meq in 100 mls @ 100 mls/hr IV Q1H JUANA Stop: 12/06/24 03:44 Last Admin: 12/06/24 01:59 Dose: 100 mls/hr Home Medications ?Medication ?Instructions ?Recorded ?Confirmed ?Last Taken ?Type acetaminophen 325 mg tablet 650 mg PO Q6H PRN Pain 11/23/24 11/29/24 Unknown History sucralfate 1 gram tablet 1 g PO QIDWMHS 11/23/24 11/29/24 11/22/24 History Physical Exam 2 Vital Signs and Narrative: Vital Signs: Last Vital Signs Temp 97.8 F 12/06/24 00:44 Pulse 62 12/06/24 00:44 Resp 16 12/06/24 00:44 BP 112/66 12/06/24 00:44 Pulse Ox 99 12/06/24 00:44 O2 Del Method Room Air 12/06/24 00:44 BMI result Body Mass Index 17.1 General: AOx3, no acute distress Resp: CTA bilaterally CVS: S1, S2, RRR GI: +BS, NT, no distention Skin: Warm, dry Neuro: Cranial nerves II-XII grossly intact bilaterally. Motor grossly intact bilaterally Extremities: No LE edema Psych: Appropriate affect Const: General: No confusion Orientation/consciousness: No confusion Neuro: General: No confusion Results Labs 12/05/24 22:47 12/05/24 22:47 Labs: Laboratory Results - last 24 hr 12/05/24 12/05/24 12/06/24 22:47 22:57 01:06 MCV 100.0 H MCH 33.8 H MCHC 33.8 RDW 13.3 Plt Count 612 H D MPV 9.8 Immature Gran % (Auto) 0.5 H Neut % (Auto) 66.0 Lymph % (Auto) 24.2 Cook % (Auto) 8.4 Eos % (Auto) 0.4 Baso % (Auto) 0.5 Lymph # (Auto) 2.6 Cook # (Auto) 0.9 Eos # (Auto) 0.0 Baso # (Auto) 0.1 Abs Immat Gran (auto) 0.05 H Absolute Neuts (auto) 7.2 Absolute Nucleated RBC 0.000 Nucleated RBC % (auto) 0.0 VBG pH 7.50 H VBG pCO2 67 VBG pO2 28 VBG HCO3 53 H VBG O2 Saturation < 30.0 VBG Base Excess 25.3 Anion Gap 14 Estim Creat Clear Calc 59.4 Estimated GFR > 60 Random Glucose 233 H Lactic Acid 2.5 H* Lactic Acid F/U @ 2Hr 2.1 H* Calcium 9.2 D Total Bilirubin 0.3 AST 31 ALT 14 Alkaline Phosphatase 73 Total Protein 7.6 Albumin 3.6 Lipase 154 H Assessment and Plan (1) Acute on chronic pancreatitis: Status: Acute (2) Inflammatory pseudotumor of liver: Status: Acute (3) Acute hypokalemia: Status: Acute (4) Metabolic alkalosis: Status: Acute (5) Lactic acidemia: Status: Acute Plan Patient is a 64-year-old male with a past medical history significant for pancreatitis related to alcohol and gallstones, last drink 11/16/24, duodenitis, left nephrectomy post renal cell carcinoma (2021), and chronic back pain, who reported to the ED for nausea, vomting, and upper abd pain. Acute on chronic pancreatitis - WBC normal, vital signs stable, lactic acid elevated however likely related to metabolic alkalosis - abdominopelvic CT with developing hepatic subcapsular collection which may reflect abscess or pseudocyst, question aspiration pneumonia, post cholecystectomy with persistent fluid stranding along the gallbladder fossa, redemonstrated acute on chronic pancreatitis and diffuse inflammatory changes of the GI tract including gastro esophagitis enterocolitis and proctitis - CXR pending - lipase 154 - patient denies diarrhea or upper respiratory symptoms - NPO - NS 100 mL/HR - GI consult - monitor CBC and BMP Liver pseudocyst versus abscess - treat with IV antibiotics, Zosyn - surgical consult Gastric outlet obstruction - NPO - Surgical consult as above Hypokalemia - secondary to GI losses - potassium 2.8 - given 40 mEq IV in ED Lactic acidosis - lactic acid 2.5, 2.1 on repeat - secondary to metabolic alkalosis, not sepsis Hyperglycemia, new onset diabetes at recent admission - monitor point of care - sliding scale insulin History alcohol abuse/dependence - last drink 11/15/24 - no phenobarb needed at last admission DNR/DNI VTE prophylaxis: Lovenox Patient again with acute on chronic pancreatitis complicated by liver pseudocyst versus abscess and electrolyte abnormalities, requiring admission for at least 2 midnight stay for IV antibiotics, IV fluids and monitoring. Quality Stroke Does the patient have a stroke diagnosis?: No VTE Prior VTE?: No VTE Risk Level:: Medical - moderate - high VTE Device Contraindication: Treatment Not Indicated VTE Drug Contraindication: N/A - Med Ordered
[2024-12-06] MEDS: Piperacillin Sodium/Tazobactam 3.375 GM in 0.9 % Sodium Chloride 50 ML IV ×4 (02:02→19:29)
[2024-12-06] MEDS: 0.9 % Sodium Chloride 1,000 ML 100 ML IVCONT (02:55)
[2024-12-06 03:08] LABS: Reflex Lactate? 2 Y
[2024-12-06] MEDS: Morphine Sulfate 4 MG/ML CARTRIDGE IVPUSH ×6 (03:21→19:37)
[2024-12-06] MEDS: Calcium Carbonate 750 MG TAB.CHEW PO (03:21)
[2024-12-06 04:00] VITALS: BP 101/60; PULSE 62; RESP 16; TEMP 36.4; O2SAT 99
[2024-12-06 05:09] LABS: MANUAL DIFF FLAG NO
[2024-12-06 05:16] LABS: Basophils Percent Auto 0.3 % (0-2); Eosinophils Absolute Auto 0.1 X10*3/uL (0.0-0.4); Eosinophils Percent Auto 0.9 % (0-4); Hematocrit 29.3 % (42.0-52.0); Imm Gran Abs Auto 0.04 X10*3/uL (0.00-0.03); Imm Gran Pct Auto 0.4 % (0.0-0.4); Lymphocytes Absolute Auto 2.5 X10*3/uL (1.2-4.9); Lymphocytes Percent Auto 24.1 % (20-40); Mean Corpuscular HGB Conc 34.1 g/dl (31.0-36.0); Mean Corpuscular Hemoglobin 34.4 pg (27.0-33.0); Mean Corpuscular Volume 100.7 fL (80.0-98.0); Mean Platelet Volume 11.3 fL (9.4-12.4); Monocytes Absolute Auto 0.9 X10*3/uL (0.1-1.2); Monocytes Percent Auto 8.7 % (2-11); Neutrophils Absolute Auto 6.7 x10*3/uL (2.0-8.3); Neutrophils Percent Auto 65.6 % (45-73); Platelet Count 298 X10*3/uL (160-400); Red Blood Count 2.91 X10*6/uL (4.60-5.80); Red Cell Distribution Width 13.5 % (11.0-16.0); White Blood Count 10.3 X10*3/uL (4.8-10.8)
[2024-12-06 05:23] LABS: ~Lactic Acid-LAB USE ONLY 1.4 mmol/L (0.5-2.0)
[2024-12-06 05:33] LABS: Anion Gap 10 (12-20); Blood Urea Nitrogen 7 mg/dL (9-16); Calcium 7.5 mg/dL (8.4-10.2); Carbon Dioxide 27 mmol/L (22-29); Chloride 103 mmol/L (96-108); Creatinine Clr Calc Pharmacy 71.3; Estimated Glomerular Filt Rate > 60; Glucose Random 143 mg/dL (60-115); Sodium 137 mmol/L (135-145)
[2024-12-06 06:00] VITALS: BP 106/54; PULSE 59; RESP 16; TEMP 36.6; O2SAT 98
[2024-12-06 06:35] LABS: Glucose, Whole Blood 107 mg/dL (60-115)
--- NOTE | 2024-12-06 07:21 | PHA.MEDREC ---
Pharmacy Consult ? Medication Reconciliation Pharmacy has completed the medication reconciliation.Med rec complete, spoke to patient who was just discharged a week ago. He is out of the oxycodone that he was discharged on.
[2024-12-06] MEDS: 0.9 % Sodium Chloride Flush 3 ML SYRINGE IVFLUSH (07:46)
[2024-12-06] MEDS: Enoxaparin Sodium 40 MG/0.4 ML SYRINGE SUBCUT (07:47)
--- NOTE | 2024-12-06 09:16 | PM.EVENT ---
Event Note Date of Service: 12/06/24 Event Note: Seen and evaluated this morning feels better already denies any vomiting overnight pending surgical and GI eval continue IVF give K supplement follow BMP advance diet as tolerated this afternoon if feeling better Time Spent With Patient Time: Total time managing care of this patient today ____ minutes.
[2024-12-06] MEDS: Lactated Ringers 1,000 ML 125 ML IVCONT ×2 (09:23→17:39)
[2024-12-06 10:03] VITALS: BP 105/64; PULSE 65; RESP 15; TEMP 36.4; O2SAT 98
--- NOTE | 2024-12-06 12:42 | PM.EVENT ---
Event Note Date of Service: 12/06/24 Event Note: GI consult dictated Agree with present management for pancreatitis, pain meds, ivf, clear liquids if tolerated. EGD planned for 12/07 for further evaluation of CT findings. Time Spent With Patient Time: Total time managing care of this patient today ____ minutes.
[2024-12-06 12:44] LABS: Glucose, Whole Blood 95 mg/dL (60-115)
--- NOTE | 2024-12-06 13:48 | MHC.CM.PN ---
Pt lives alone, he is independent, no home health services or DME. PCP confirmed: Jorge Alberto Erickson, HCP discussed, pt declined to complete form. he is able to arrange transport home at [place]. DCP: home, self care. CM to follow for DC needs.
--- NOTE | 2024-12-06 13:49 | P.CONGS_ITS ---
History of Present Illness Consult details Consult date: 12/06/24 Reason for consult: abdominal pain Requesting physician: Mario Arnold Narrative: The patient is a 64-year-old male who was recently discharged from the hospital last week admitted with significant pancreatitis with edema causing partial gastric outlet obstruction. He was having a lot of issues with nausea and vomiting. This required him getting an NG-tube decompression in the eventually he did well with slow advancement of his diet and removal of the tube. He initially went home and was doing okay he said eating light diet and then drinking liquids but over the last couple days he started feeling worse and started having more nausea and vomiting. He did have bowel movements and was urinating well. No fevers or chills. He also had more abdominal pain across the epigastric area consistent with his pancreatitis. He denies going back to drinking any alcohol. Since he came into the emergency room last night to today he is feeling already much better. He denies any burping he is passing gas he is thirsty. GI has just seen him and they are planning on doing an EGD tomorrow. Lab work looks okay repeat CT scan of his abdomen and pelvis shows some inflammatory change fluid in the head of the pancreas is around the gallbladder area (he it is cholecystectomy almost a year ago.) As well as the subhepatic capsule fluid collection which does not look like an abscess. Patient denies any fevers or chills Review of Systems 2 Review of Systems: Yes all other systems are reviewed and are negative [facility] Past Medical History Medical History Anorexia Arthritis Hiatal hernia Hiatal hernia Barretts esophagus Renal cell carcinoma Alcohol use disorder History of alcohol abuse GERD (gastroesophageal reflux disease) Back pain with right-sided sciatica (10/07/21) Pancreatitis Inguinal hernia Cyst of pancreas Surgical History Surgical History Hx laparoscopic cholecystectomy (04/22/24) Hx of oral surgery H/O colonoscopy History of surgery on right wrist Hx of esophagogastroduodenoscopy History of nephrectomy, left (2021) Social History Social History Household Members: None Household Members Other:: adult son Housing: House Are you a primary long term acute care registered nurse to a significant other at home: No Do you presently have visiting nurse or other home services: No Alcohol intake: current Alcohol intake frequency: former alcohol drinker Alcohol type: wine Patient Tobacco Use Status: Current someday Tobacco user Tobacco use type: Cigarette Cigarette Packs Per Day: 1 Cigarettes Per Day: 20.0 Years Smoked: 40 Second Hand Smoke Exposure: No service: Yes Current occupational status: employed Current occupation: [employer] Current occupational exposures/hazards: Yes Cognitive needs: No Hearing needs: No Vision needs: No Meds Allergies Allergy/AdvReac Type Severity Reaction Status Date / Time No Known Allergies Allergy Verified 12/05/24 22:21 Active Medications: Current Medications Acetaminophen (Acetaminophen 325 Mg Tablet) 650 mg PO Q6H PRN PRN Reason: Pain, Mild 1-3,fever,headache Calcium Carbonate (Calcium Carbonate 750 Mg Tab.Chew) 750 mg PO Q4H PRN PRN Reason: Heartburn Last Admin: 12/06/24 03:21 Dose: 750 mg Enoxaparin Sodium (Enoxaparin Sodium 40 Mg/0.4 Ml Syringe) 40 mg SUBCUT Q24H [facility] Last Admin: 12/06/24 07:47 Dose: 40 mg Glucose (Glucose Gel 15 Gm Gel..Gram.) 15 gm PO Q15M PRN; Protocol PRN Reason: per Hypoglycemia Standing Ord. Piperacillin Sod/Tazobactam (Sod 3.375 gm/ Sodium Chloride) 50 mls @ 100 mls/hr IV Q6H [facility] Last Admin: 12/06/24 07:32 Dose: 100 mls/hr Dextrose (D10) 250 mls @ 750 mls/hr IV Q15M PRN; Protocol PRN Reason: per Hypoglycemia Standing Ord. Lactated Ringer's (Lr) 1,000 mls @ 125 mls/hr IVCONT .Q8H [facility] Last Admin: 12/06/24 09:23 Dose: 125 mls/hr Insulin Human Lispro (Insulin Lispro 100 Unit/Ml 3 Ml Vial) 0 unit SUBCUT Q6H [facility]; Protocol Last Admin: 12/06/24 13:34 Dose: Not Given Magnesium Hydroxide (Milk Of Magnesia 30 Ml Oral.Susp) 30 ml PO DAILY PRN PRN Reason: Constipation Melatonin (Melatonin 3 Mg Tablet) 6 mg PO BEDTIME PRN PRN Reason: Insomnia Morphine Sulfate (Morphine Sulfate 4 Mg/Ml Cartridge) 4 mg IVPUSH Q4H PRN; Protocol PRN Reason: Pain, Severe (Pain Scale 7-10) Last Admin: 12/06/24 11:31 Dose: 4 mg Ondansetron HCl (Ondansetron Hcl 4 Mg/2 Ml Vial) 4 mg IVPUSH Q8H PRN PRN Reason: Nausea and Vomiting Sodium Chloride (0.9 % Sodium Chloride Flush 3 Ml Syringe) 3 ml IVFLUSH QSHIFT [facility] Last Admin: 12/06/24 07:46 Dose: 3 ml Home Medications ?Medication ?Instructions ?Recorded ?Confirmed ?Last Taken ?Type acetaminophen 325 mg tablet 650 mg PO Q6H PRN Pain 11/23/24 12/06/24 Unknown History sucralfate 1 gram tablet 1 g PO QIDWMHS 11/23/24 12/06/24 11/22/24 History Physical Exam 2 Vital Signs: Vital Signs: Last Vital Signs Temp 97.6 F 12/06/24 10:03 Pulse 65 12/06/24 10:03 Resp 15 12/06/24 10:03 BP 105/64 12/06/24 10:03 Pulse Ox 98 12/06/24 10:03 O2 Del Method Room Air 12/06/24 10:03 BMI result Body Mass Index 17.1 Const: General: cooperative, healthy appearing, comfortable and awake; No in distress Nutritional Appearance: thin Eyes: Other: Nonicteric GI: Other: Abdomen is soft nondistended he is tender in the epigastric area with a little guarding no rebound no peritoneal signs. Tender going across to the right and left upper quadrant area. No masses are noted abdomen is thin Results Labs 12/06/24 04:46 12/06/24 04:46 Labs: Abnormal lab results 12/05/24 12/05/24 12/06/24 Range/Units 22:47 22:57 01:06 RBC 3.82 L (4.60-5.80) X10*6/uL Hgb 12.9 L (14.0-18.0) g/dl Hct 38.2 L (42.0-52.0) % MCV 100.0 H (80.0-98.0) fL MCH 33.8 H (27.0-33.0) pg Plt Count 612 H D (160-400) X10*3/uL Immature Gran % (Auto) 0.5 H (0.0-0.4) % Abs Immat Gran (auto) 0.05 H (0.00-0.03) X10*3/uL VBG pH 7.50 H (7.32-7.43) VBG HCO3 53 H (22-26) mmol/L Potassium 2.8 L* D (3.3-5.1) mmol/L Chloride 92 L (96-108) mmol/L Carbon Dioxide 41 H* D (22-29) mmol/L Anion Gap (12-20) BUN (9-16) mg/dL Random Glucose 233 H (60-115) mg/dL Lactic Acid 2.5 H* (0.5-2.0) mmol/L Lactic Acid F/U @ 2Hr 2.1 H* (0.5-2.0) mmol/L Calcium (8.4-10.2) mg/dL Lipase 154 H (8-78) U/L 12/06/24 Range/Units 04:46 RBC 2.91 L D (4.60-5.80) X10*6/uL Hgb 10.0 L D (14.0-18.0) g/dl Hct 29.3 L D (42.0-52.0) % MCV 100.7 H (80.0-98.0) fL MCH 34.4 H (27.0-33.0) pg Plt Count (160-400) X10*3/uL Immature Gran % (Auto) (0.0-0.4) % Abs Immat Gran (auto) 0.04 H (0.00-0.03) X10*3/uL VBG pH (7.32-7.43) VBG HCO3 (22-26) mmol/L Potassium 3.0 L (3.3-5.1) mmol/L Chloride (96-108) mmol/L Carbon Dioxide (22-29) mmol/L Anion Gap 10 L (12-20) BUN 7 L (9-16) mg/dL Random Glucose 143 H (60-115) mg/dL Lactic Acid (0.5-2.0) mmol/L Lactic Acid F/U @ 2Hr (0.5-2.0) mmol/L Calcium 7.5 L D (8.4-10.2) mg/dL Lipase (8-78) U/L Short CBC 12/05/24 12/06/24 Range/Units 22:47 04:46 WBC 10.8 10.3 (4.8-10.8) X10*3/uL Hgb 12.9 L 10.0 L D (14.0-18.0) g/dl Hct 38.2 L 29.3 L D (42.0-52.0) % Plt Count 612 H D 298 D (160-400) X10*3/uL BMP 12/05/24 12/06/24 22:47 04:46 Sodium 144 137 Potassium 2.8 L* D 3.0 L Chloride 92 L 103 Carbon Dioxide 41 H* D 27 BUN 10 7 L Creatinine 0.90 0.75 Calcium 9.2 D 7.5 L D Liver Function 12/05/24 Range/Units 22:47 Total Bilirubin 0.3 (0.0-1.0) mg/dL AST 31 (5-37) U/L ALT 14 (0-40) U/L Alkaline Phosphatase 73 (39-117) U/L Albumin 3.6 (3.5-5.0) g/dL All other labs normal. Imaging Additional studies: Ordering Physician: Davian Galarza MD Date of Service: 12/05/24 Procedure(s): CT abdomen pelvis w IV con Accession Number(s): [id number] cc: [facility]; aDvian Galarza MD~ Report Number: [id number]: Total DLP = 274.00 mGy-cm CLINICAL HISTORY: Pancreatitis with pain and left abd fullness CT abdomen and pelvis with contrast Comparison: CT/SR - CT ABDOMEN PELVIS WO IV CON - 11/23/24 15:10 EST Findings: Fluid-filled esophagus with mural thickening mucosal hyperemia. Atelectasis with more ill-defined consolidations in the left lower lobe [id number]-right pleural effusions, new from prior. Mild cardiomegaly. Developing hepatic subcapsular fluid collection along the anterior liver measuring 7.1 cm. Hepatic steatosis noted. Redemonstrated postcholecystectomy with persistent fluid stranding along the gallbladder fossa. Dystrophic pancreatic calcifications, suggesting sequela of chronic pancreatitis. There is inflammatory changes along the proximal pancreas, suggestive of pancreatitis. No significant pancreatic ductal dilatation. Ill-defined heterogeneity and fullness along the proximal pancreas. Persistent gastric outlet obstruction with slightly improved periduodenal inflammatory changes, please see discussion above. Similar gastric outlet obstruction, with distention, mural thickening mucosal hyperemia, irregularity along the duodenal bulb, 2nd and 3rd segments. Slightly decreased duodenal inflammatory changes with a tubular like peripherally enhancing fluid collection along the 2nd segment measuring up to 1.7 cm. Duodenal ulceration, neoplasm or developing pancreatic pseudocysts are considerations. Continued attention on follow-up. Diffuse rectal, small bowel and colonic mural thickening with mucosal hyperemia, suggesting proctitis and enterocolitis. No bowel obstruction. Pelvic contents unremarkable. Normal appendix. Osteopenia with diffuse multilevel spondylosis. Minimal grade 1 anterolisthesis at L5-S1. Diffuse atheromatous plaque disease throughout the aorta and branch vessels, without aneurysmal dilatation. IMPRESSION: 1. Developing hepatic subcapsular collection may reflect abscess or pseudocyst. 2. Developing airspace disease slxr-ksmylxk-htva-right lower lobes with pleural effusions. Aspiration or pneumonia not excluded. 3. Redemonstrated postcholecystectomy with persistent fluid stranding along the gallbladder fossa. 4. Redemonstrated acute on chronic pancreatitis. 5. Diffuse inflammatory changes of the GI tract including gastroesophagitis, enterocolitis and proctitis. 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 Doubt any abscess. No surgical intervention is required right now. GI has seen the patient in his planning on doing an EGD tomorrow which I think is a great idea. Need to figure out why he gets recurrent pancreatitis despite not having any gallstones as well as not drinking alcohol. We will follow along Procedures Date of Service Date of Service: 12/06/24
--- NOTE | 2024-12-06 13:52 | CONS_ITS ---
DATE OF SERVICE: 12/06/2024 REFERRING PHYSICIAN: Mario Arnold MD REASON FOR CONSULTATION: Pancreatitis. HISTORY OF PRESENT ILLNESS: The patient is a pleasant 64-year-old man known to me from recent evaluation. He was hospitalized in November with pancreatitis with what appeared to be partial duodenal obstruction and gastric distention. He was treated with nasogastric suction and followup CT scanning showed improvement with mural thickening involving the entire duodenum and underlying lesion could not be excluded. He was discharged and did well for several days, mainly with a liquid diet, but developed recurrent epigastric pain and vomiting and presented to the emergency room, where repeat CT scanning was obtained, which again showed persistence of a gastric outlet obstruction with distention and irregularity of the duodenal bulb in 2nd and 3rd segments. The differential diagnosis for this was thought to include duodenal ulceration, neoplasm, or developing pancreatic pseudocysts. The patient reports no vomiting overnight. He has been requiring narcotic pain medication. Changes of pancreatitis were again noted on his CT scan and his lipase was elevated on admission at 154. Liver function tests were normal. PAST MEDICAL HISTORY: 1. Pancreatitis with history of alcohol abuse. The patient denies any alcohol use since . 2. Duodenitis, upper endoscopy 03/16. Mild duodenal edema, but no ulceration. Biopsies showed no evidence of celiac disease or malignancy. 3. Rock esophagus. 4. Renal cell carcinoma with left nephrectomy. 5. Hiatal hernia. 6. Alcohol abuse, as above. 7. Pancreatitis, requiring pseudocyst drainage in the past. 8. Colonoscopy, October 15. Tubular adenoma 5 to 7 year followup. CURRENT MEDICATIONS: Current medication list is reviewed in the chart. ALLERGIES: THERE ARE NONE REPORTED. FAMILY HISTORY: This is reviewed with the patient and is noncontributory. SOCIAL HISTORY: He denies recent alcohol use. REVIEW OF SYSTEMS: SKIN: No pruritus. HEENT: Negative. CARDIOPULMONARY: No shortness of breath or chest pain. GASTROINTESTINAL: As above. GENITOURINARY: Negative. NEUROPSYCHIATRIC: Negative. PHYSICAL EXAMINATION: GENERAL: Shows a pleasant male, lying comfortably in bed. VITAL SIGNS: Reviewed in electronic medical record and are stable. SKIN: Anicteric. HEENT: Shows no scleral icterus. NECK: Without lymphadenopathy or thyromegaly. LUNGS: Clear. HEART: Shows regular rate and rhythm. S1, S2. No murmur. ABDOMEN: Soft. There is tenderness across the upper abdomen. Bowel sounds are present. No organomegaly is noted. EXTREMITIES: Without edema. LABORATORY DATA AND IMAGING STUDIES: Reviewed. IMPRESSION: 1. Pancreatitis. 2. Abnormal duodenum on CT scanning with findings as above. At this time, I agree with treating his pancreatitis with pain medications, IV fluids and nothing by mouth until vomiting stops. His diet could be advanced to clear liquids if he is able to tolerate this. I would recommend further evaluation with upper endoscopy to assess the duodenum because of the CT findings. I have discussed risks and benefits of endoscopy with him. He understands and agrees to proceed. This will be scheduled for tomorrow. Thanks for asking me to see him. I will follow him in the hospital with you. MD DAREN Rutledge/SAVI / [phone]
[2024-12-06 14:31] VITALS: BP 120/59; PULSE 53; RESP 17; O2SAT 98
--- NOTE | 2024-12-06 15:05 | PC.NURSE ---
assumed care of pt at 1500 report received from Mark FULLER
[2024-12-06 17:29] VITALS: BP 131/60; PULSE 58; RESP 16; TEMP 35.9; O2SAT 95
[2024-12-06 17:53] LABS: Glucose, Whole Blood 136 mg/dL (60-115)
[2024-12-07] VITALS (11 sets, daily range): BP systolic 118–147; BP diastolic 63–74; PULSE 55–63; RESP 14–20; TEMP 36–36.9; O2SAT 93–99; BMI 17.1
[2024-12-07 00:02] LABS: Glucose, Whole Blood 105 mg/dL (60-115)
[2024-12-07] MEDS: Morphine Sulfate 4 MG/ML CARTRIDGE IVPUSH ×6 (00:02→21:10)
[2024-12-07] MEDS: Piperacillin Sodium/Tazobactam 3.375 GM in 0.9 % Sodium Chloride 50 ML IV ×4 (01:36→21:06)
[2024-12-07] MEDS: Lactated Ringers 1,000 ML 125 ML IVCONT ×3 (01:37→17:55)
[2024-12-07 05:54] LABS: Glucose, Whole Blood 88 mg/dL (60-115)
[2024-12-07 06:08] LABS: MANUAL DIFF FLAG NO
[2024-12-07 06:10] LABS: Basophils Absolute Auto 0.1 X10*3/uL (0.0-0.2); Basophils Percent Auto 0.8 % (0-2); Eosinophils Absolute Auto 0.2 X10*3/uL (0.0-0.4); Eosinophils Percent Auto 2.4 % (0-4); Hematocrit 29.2 % (42.0-52.0); Hemoglobin 9.9 g/dl (14.0-18.0); Imm Gran Abs Auto 0.04 X10*3/uL (0.00-0.03); Imm Gran Pct Auto 0.5 % (0.0-0.4); Lymphocytes Absolute Auto 2.5 X10*3/uL (1.2-4.9); Lymphocytes Percent Auto 31.6 % (20-40); Mean Corpuscular HGB Conc 33.9 g/dl (31.0-36.0); Mean Corpuscular Hemoglobin 33.8 pg (27.0-33.0); Mean Corpuscular Volume 99.7 fL (80.0-98.0); Mean Platelet Volume 9.9 fL (9.4-12.4); Monocytes Absolute Auto 0.6 X10*3/uL (0.1-1.2); Neutrophils Absolute Auto 4.5 x10*3/uL (2.0-8.3); Neutrophils Percent Auto 56.7 % (45-73); Platelet Count 431 X10*3/uL (160-400); Red Blood Count 2.93 X10*6/uL (4.60-5.80); Red Cell Distribution Width 13.4 % (11.0-16.0)
[2024-12-07 06:32] LABS: Anion Gap 11 (12-20); Blood Urea Nitrogen 5 mg/dL (9-16); Calcium 7.5 mg/dL (8.4-10.2); Carbon Dioxide 25 mmol/L (22-29); Chloride 107 mmol/L (96-108); Creatinine Clr Calc Pharmacy 71.3; Estimated Glomerular Filt Rate > 60; Glucose Random 100 mg/dL (60-115); Potassium 3.7 mmol/L (3.3-5.1); Sodium 139 mmol/L (135-145)
[2024-12-07] MEDS: ondansetron HCL 4 MG/2 ML VIAL IVPUSH (09:16)
--- NOTE | 2024-12-07 10:42 | P.PNIM_ITS ---
Subjective Subjective Date of Service: 12/07/24 Interval History: tolerated clears, still with pain Physical Exam 2 Vital Signs: Vital Signs: Last Vital Signs Temp 98.0 F 12/07/24 08:00 Pulse 57 12/07/24 08:00 Resp 14 12/07/24 08:00 BP 142/69 H 12/07/24 08:00 Pulse Ox 96 12/07/24 08:00 O2 Del Method Room Air 12/07/24 08:00 BMI result Body Mass Index 17.1 Const: General: cooperative, healthy appearing, comfortable and awake; No in distress Nutritional Appearance: thin Eyes: Other: Nonicteric GI: Other: Abdomen is soft nondistended he is tender in the epigastric area with a little guarding no rebound no peritoneal signs. Tender going across to the right and left upper quadrant area. No masses are noted abdomen is thin Objective Data Active Medications Acetaminophen (Acetaminophen 325 Mg Tablet) 650 mg PO Q6H PRN PRN Reason: Pain, Mild 1-3,fever,headache Calcium Carbonate (Calcium Carbonate 750 Mg Tab.Chew) 750 mg PO Q4H PRN PRN Reason: Heartburn Last Admin: 12/06/24 03:21 Dose: 750 mg Documented By: MADISON Enoxaparin Sodium (Enoxaparin Sodium 40 Mg/0.4 Ml Syringe) 40 mg SUBCUT Q24H [facility] Last Admin: 12/06/24 07:47 Dose: 40 mg Documented By: CYNTHIA Glucose (Glucose Gel 15 Gm Gel..Gram.) 15 gm PO Q15M PRN; Protocol PRN Reason: per Hypoglycemia Standing Ord. Piperacillin Sod/Tazobactam (Sod 3.375 gm/ Sodium Chloride) 50 mls @ 100 mls/hr IV Q6H [facility] Last Infusion: 12/07/24 09:07 Dose: Infused Documented By: LALITHA Dextrose (D10) 250 mls @ 750 mls/hr IV Q15M PRN; Protocol PRN Reason: per Hypoglycemia Standing Ord. Lactated Ringer's (Lr) 1,000 mls @ 125 mls/hr IVCONT .Q8H [facility] Last Admin: 12/07/24 09:08 Dose: 125 mls/hr Documented By: LALITHA Insulin Human Lispro (Insulin Lispro 100 Unit/Ml 3 Ml Vial) 0 unit SUBCUT Q6H [facility]; Protocol Last Admin: 12/07/24 06:00 Dose: Not Given Documented By: VASQUEZ Non-Admin Reason: No Insulin Coverage Comments: POC 88 Magnesium Hydroxide (Milk Of Magnesia 30 Ml Oral.Susp) 30 ml PO DAILY PRN PRN Reason: Constipation Melatonin (Melatonin 3 Mg Tablet) 6 mg PO BEDTIME PRN PRN Reason: Insomnia Morphine Sulfate (Morphine Sulfate 4 Mg/Ml Cartridge) 4 mg IVPUSH Q4H PRN; Protocol PRN Reason: Pain, Severe (Pain Scale 7-10) Last Admin: 12/07/24 08:22 Dose: 4 mg Documented By: LALITHA Ondansetron HCl (Ondansetron Hcl 4 Mg/2 Ml Vial) 4 mg IVPUSH Q8H PRN PRN Reason: Nausea and Vomiting Last Admin: 12/07/24 09:16 Dose: 4 mg Documented By: LALITHA Sodium Chloride (0.9 % Sodium Chloride Flush 3 Ml Syringe) [facility] Last Admin: 12/07/24 08:27 Dose: Not Given Documented By: LALITHA Non-Admin Reason: IV Running Labs 12/07/24 05:37 12/07/24 05:37 Labs: Laboratory Results - last 24 hr 12/06/24 12/06/24 12/06/24 12:41 17:35 23:57 MCV MCH MCHC RDW Plt Count MPV Immature Gran % (Auto) Neut % (Auto) Lymph % (Auto) Edwards % (Auto) Eos % (Auto) Baso % (Auto) Lymph # (Auto) Edwards # (Auto) Eos # (Auto) Baso # (Auto) Abs Immat Gran (auto) Absolute Neuts (auto) Absolute Nucleated RBC Nucleated RBC % (auto) Anion Gap Estim Creat Clear Calc Estimated GFR POC Glucose 95 136 H 105 Random Glucose Calcium 12/07/24 12/07/24 05:37 05:49 MCV 99.7 H MCH 33.8 H MCHC 33.9 RDW 13.4 Plt Count 431 H D MPV 9.9 Immature Gran % (Auto) 0.5 H Neut % (Auto) 56.7 Lymph % (Auto) 31.6 Edwards % (Auto) 8.0 Eos % (Auto) 2.4 Baso % (Auto) 0.8 Lymph # (Auto) 2.5 Edwards # (Auto) 0.6 Eos # (Auto) 0.2 Baso # (Auto) 0.1 Abs Immat Gran (auto) 0.04 H Absolute Neuts (auto) 4.5 Absolute Nucleated RBC 0.000 Nucleated RBC % (auto) 0.0 Anion Gap 11 L Estim Creat Clear Calc 71.3 Estimated GFR > 60 POC Glucose 88 Random Glucose 100 Calcium 7.5 L Microbiology Microbiology Results: Microbiology 12/06/24 01:36 Blood Culture - Preliminary Blood - Venous No growth after 24 hours. 12/06/24 01:29 Blood Culture - Preliminary Blood - Venous No growth after 24 hours. Assessment and Plan (1) Acute on chronic pancreatitis: Status: Acute Plan 64M PMH alcoholic pancreatitis, alcohol dependence last drink 11/16/2024, duodenitis, renal cell carcinoma status post left nephrectomy, presented with nausea vomiting and epigastric pain Acute recurrent pancreatitis IV fluids, pain meds, plan for EGD today Possible pancreatic abscess Continue IV Zosyn Possible pneumonia Continue IV Zosyn Acute hypokalemia Replace and monitor Diabetes A1c 6.7, insulin sliding scale DVT prophylaxis with Lovenox DNR/DNI reason for continued hospitalization:plan for EGD Quality Stroke Does the patient have a stroke diagnosis?: No VTE Prior VTE?: No VTE Risk Level:: Medical - moderate - high VTE Device Contraindication: Treatment Not Indicated VTE Drug Contraindication: N/A - Med Ordered
--- NOTE | 2024-12-07 12:09 | MHC.CLN ---
NUTRITION DIET=NPO. PATIENT QUALIFIES MODERATELY MALNOURISHED IN THE CONTEXT OF SOCIAL/ENVIRONMENTAL/BEHAVIORAL CIRCUMSTANCES. POOR PO WITH ACUTE ON CHRONIC PANCREATITIS RELATED TO ETOH. BMI=17.1 WITH MILD DEPLETION OF BODY FAT AND MUSCLE MASS. WHEN ABLE TO TAKE PO RECOMMEND DIABETIC 1800 KCAL DIET. IF POOR PO, MAY ADD ENSURE MAX PROTEIN BID TO PROMOTE NUTRITIONAL STATUS. SEE CLINICAL NUTRITION ASSESSMENT 12/07/24.
[2024-12-07 12:25] LABS: Glucose, Whole Blood 81 mg/dL (60-115)
--- NOTE | 2024-12-07 13:00 | P.PNGS_ITS ---
Subjective Subjective Date of Service: 12/07/24 Interval history: Feels okay today Admits to periods of epigastric pain No nausea or vomiting For EGD today Physical Exam 2 Vital Signs: Vital Signs: Last Vital Signs Temp 98.0 F 12/07/24 08:00 Pulse 57 12/07/24 08:00 Resp 14 12/07/24 08:00 BP 142/69 H 12/07/24 08:00 Pulse Ox 96 12/07/24 08:00 O2 Del Method Room Air 12/07/24 08:00 BMI result Body Mass Index 17.1 Const: General: comfortable and no acute distress Resp: Effort & Inspection: normal respiratory effort GI: Palpation (GI): Soft to palpation, not firm, Tenderness to palpation present (GI) (On the epigastric area) and no guarding Objective Data Active Medications Acetaminophen (Acetaminophen 325 Mg Tablet) 650 mg PO Q6H PRN PRN Reason: Pain, Mild 1-3,fever,headache Calcium Carbonate (Calcium Carbonate 750 Mg Tab.Chew) 750 mg PO Q4H PRN PRN Reason: Heartburn Last Admin: 12/06/24 03:21 Dose: 750 mg Documented By: MADISON Enoxaparin Sodium (Enoxaparin Sodium 40 Mg/0.4 Ml Syringe) 40 mg SUBCUT Q24H [facility]UANA Last Admin: 12/06/24 07:47 Dose: 40 mg Documented By: CYNTHIA Glucose (Glucose Gel 15 Gm Gel..Gram.) 15 gm PO Q15M PRN; Protocol PRN Reason: per Hypoglycemia Standing Ord. Piperacillin Sod/Tazobactam (Sod 3.375 gm/ Sodium Chloride) 50 mls @ 100 mls/hr IV Q6H [facility] Last Infusion: 12/07/24 09:07 Dose: Infused Documented By: LALITHA Dextrose (D10) 250 mls @ 750 mls/hr IV Q15M PRN; Protocol PRN Reason: per Hypoglycemia Standing Ord. Lactated Ringer's (Lr) 1,000 mls @ 125 mls/hr IVCONT .Q8H [facility] Last Admin: 12/07/24 09:08 Dose: 125 mls/hr Documented By: LALITHA Insulin Human Lispro (Insulin Lispro 100 Unit/Ml 3 Ml Vial) 0 unit SUBCUT Q6H [facility]; Protocol Last Admin: 12/07/24 12:22 Dose: Not Given Documented By: LALITHA Non-Admin Reason: No Insulin Coverage Magnesium Hydroxide (Milk Of Magnesia 30 Ml Oral.Susp) 30 ml PO DAILY PRN PRN Reason: Constipation Melatonin (Melatonin 3 Mg Tablet) 6 mg PO BEDTIME PRN PRN Reason: Insomnia Morphine Sulfate (Morphine Sulfate 4 Mg/Ml Cartridge) 4 mg IVPUSH Q4H PRN; Protocol PRN Reason: Pain, Severe (Pain Scale 7-10) Last Admin: 12/07/24 12:22 Dose: 4 mg Documented By: LALITHA Ondansetron HCl (Ondansetron Hcl 4 Mg/2 Ml Vial) 4 mg IVPUSH Q8H PRN PRN Reason: Nausea and Vomiting Last Admin: 12/07/24 09:16 Dose: 4 mg Documented By: LALITHA Sodium Chloride (0.9 % Sodium Chloride Flush 3 Ml Syringe) 3 ml IVFLUSH QSHIFT [facility] Last Admin: 12/07/24 08:27 Dose: Not Given Documented By: LALITHA Non-Admin Reason: IV Running Labs 12/07/24 05:37 12/07/24 05:37 Labs: Laboratory Results - last 24 hr 12/06/24 12/06/24 12/07/24 17:35 23:57 05:37 MCV 99.7 H MCH 33.8 H MCHC 33.9 RDW 13.4 Plt Count 431 H D MPV 9.9 Immature Gran % (Auto) 0.5 H Neut % (Auto) 56.7 Lymph % (Auto) 31.6 [place] % (Auto) 8.0 Eos % (Auto) 2.4 Baso % (Auto) 0.8 Lymph # (Auto) 2.5 [place] # (Auto) 0.6 Eos # (Auto) 0.2 Baso # (Auto) 0.1 Abs Immat Gran (auto) 0.04 H Absolute Neuts (auto) 4.5 Absolute Nucleated RBC 0.000 Nucleated RBC % (auto) 0.0 Anion Gap 11 L Estim Creat Clear Calc 71.3 Estimated GFR > 60 POC Glucose 136 H 105 Random Glucose 100 Calcium 7.5 L 12/07/24 12/07/24 05:49 12:22 MCV MCH MCHC RDW Plt Count MPV Immature Gran % (Auto) Neut % (Auto) Lymph % (Auto) [place] % (Auto) Eos % (Auto) Baso % (Auto) Lymph # (Auto) [place] # (Auto) Eos # (Auto) Baso # (Auto) Abs Immat Gran (auto) Absolute Neuts (auto) Absolute Nucleated RBC Nucleated RBC % (auto) Anion Gap Estim Creat Clear Calc Estimated GFR POC Glucose 88 81 Random Glucose Calcium Microbiology Microbiology Results: Microbiology 12/06/24 01:36 Blood Culture - Preliminary Blood - Venous No growth after 24 hours. 12/06/24 01:29 Blood Culture - Preliminary Blood - Venous No growth after 24 hours. Procedures Date of Service Date of Service: 12/07/24 Progress Note: A&P Assessment and plan (1) Acute on chronic pancreatitis: Status: Acute Assessment and Plan: Has periods of epigastric pain still No nausea or vomiting For EGD today Known EtOH use but etiology of recurrent pancreatitis is uncertain at this time Exam benign Time Spent With Patient Time: Total time managing care of this patient today ____ minutes. Quality Stroke Does the patient have a stroke diagnosis?: No VTE Prior VTE?: No VTE Risk Level:: Medical - moderate - high VTE Device Contraindication: Treatment Not Indicated VTE Drug Contraindication: N/A - Med Ordered
--- NOTE | 2024-12-07 14:21 | P.CONAN_ITS ---
HPI - Anesthesia Eval Consult details Narrative: 64 yo male patient for EGD PMFSH Active Problems Active Problems: All Active Problems Lactic acidemia (Acute) Inflammatory pseudotumor of liver (Acute) Acute hypokalemia (Acute) Pancreatitis (Acute) Metabolic alkalosis (Acute) Metabolic acidosis (Acute) Acute on chronic pancreatitis (Acute) Status post laparoscopic cholecystectomy (Acute) Recurrent biliary colic (Acute) Duodenitis (Acute) Screening for prostate cancer (Acute) Cholelithiasis (Acute) Back pain with right-sided sciatica (Acute 10/07/21) Past Medical History Medical History (Updated 12/07/24 @ 14:22 by Dinora Mendoza MD) Anorexia Arthritis Hiatal hernia Barretts esophagus Renal cell carcinoma Alcohol use disorder History of alcohol abuse GERD (gastroesophageal reflux disease) Back pain with right-sided sciatica (10/07/21) Pancreatitis Inguinal hernia Cyst of pancreas Family History Family history of problems with anesthesia: No Surgical History Surgical History H/O hernia repair Hx laparoscopic cholecystectomy (04/22/24) Hx of oral surgery H/O colonoscopy History of surgery on right wrist Hx of esophagogastroduodenoscopy History of nephrectomy, left (2021) History of Problems with Anesthesia: No Social History Social History Household Members: None Household Members Other:: adult son Housing: Homeless Are you a primary care program resident to a significant other at home: No Do you presently have visiting nurse or other home services: No Alcohol intake: current Alcohol intake frequency: does not drink Alcohol type: wine Patient Tobacco Use Status: Current everyday Tobacco user Tobacco use type: Cigarette Cigarette Packs Per Day: 1 Cigarettes Per Day: 20.0 Years Smoked: 44 Second Hand Smoke Exposure: No service: Yes Current occupational status: employed Current occupation: [employer] Current occupational exposures/hazards: Yes Cognitive needs: No Hearing needs: No Vision needs: No Meds Allergies Allergy/AdvReac Type Severity Reaction Status Date / Time No Known Allergies Allergy Verified 12/07/24 14:05 Active Medications: Current Medications Acetaminophen (Acetaminophen 325 Mg Tablet) 650 mg PO Q6H PRN PRN Reason: Pain, Mild 1-3,fever,headache Calcium Carbonate (Calcium Carbonate 750 Mg Tab.Chew) 750 mg PO Q4H PRN PRN Reason: Heartburn Last Admin: 12/06/24 03:21 Dose: 750 mg Enoxaparin Sodium (Enoxaparin Sodium 40 Mg/0.4 Ml Syringe) 40 mg SUBCUT Q24H [facility] Last Admin: 12/06/24 07:47 Dose: 40 mg Glucose (Glucose Gel 15 Gm Gel..Gram.) 15 gm PO Q15M PRN; Protocol PRN Reason: per Hypoglycemia Standing Ord. Piperacillin Sod/Tazobactam (Sod 3.375 gm/ Sodium Chloride) 50 mls @ 100 mls/hr IV Q6H [facility] Last Infusion: 12/07/24 09:07 Dose: Infused Dextrose (D10) 250 mls @ 750 mls/hr IV Q15M PRN; Protocol PRN Reason: per Hypoglycemia Standing Ord. Lactated Ringer's (Lr) 1,000 mls @ 125 mls/hr IVCONT .Q8H [facility] Last Admin: 12/07/24 09:08 Dose: 125 mls/hr Insulin Human Lispro (Insulin Lispro 100 Unit/Ml 3 Ml Vial) 0 unit SUBCUT Q6H [facility]; Protocol Last Admin: 12/07/24 12:22 Dose: Not Given Magnesium Hydroxide (Milk Of Magnesia 30 Ml Oral.Susp) 30 ml PO DAILY PRN PRN Reason: Constipation Melatonin (Melatonin 3 Mg Tablet) 6 mg PO BEDTIME PRN PRN Reason: Insomnia Morphine Sulfate (Morphine Sulfate 4 Mg/Ml Cartridge) 4 mg IVPUSH Q4H PRN; Protocol PRN Reason: Pain, Severe (Pain Scale 7-10) Last Admin: 12/07/24 12:22 Dose: 4 mg Ondansetron HCl (Ondansetron Hcl 4 Mg/2 Ml Vial) 4 mg IVPUSH Q8H PRN PRN Reason: Nausea and Vomiting Last Admin: 12/07/24 09:16 Dose: 4 mg Sodium Chloride (0.9 % Sodium Chloride Flush 3 Ml Syringe) 3 ml IVFLUSH QSHIFT [facility] Last Admin: 12/07/24 14:06 Dose: Not Given Home Medications ?Medication ?Instructions ?Recorded ?Confirmed ?Last Taken ?Type acetaminophen 325 mg tablet 650 mg PO Q6H PRN Pain 11/23/24 12/06/24 Unknown History sucralfate 1 gram tablet 1 g PO QIDWMHS 11/23/24 12/06/24 11/22/24 History Exam Height,Weight and Vital Signs: Height 5 ft 7 in Weight 49.4 kg Last Vital Signs Temp 98.1 F 12/07/24 14:05 Pulse 55 12/07/24 14:05 Resp 16 12/07/24 14:05 BP 147/69 H 12/07/24 14:05 Pulse Ox 98 12/07/24 14:05 O2 Del Method Room Air 12/07/24 14:05 Pertinent Lab Results Pertinent Lab Results: Laboratory Tests 12/05/24 12/05/24 12/06/24 22:47 22:57 01:06 WBC 10.8 RBC 3.82 L Hgb 12.9 L Hct 38.2 L MCV 100.0 H MCH 33.8 H MCHC 33.8 RDW 13.3 Plt Count 612 H D MPV 9.8 Immature Gran % (Auto) 0.5 H Neut % (Auto) 66.0 Lymph % (Auto) 24.2 [place] % (Auto) 8.4 Eos % (Auto) 0.4 Baso % (Auto) 0.5 Lymph # (Auto) 2.6 [place] # (Auto) 0.9 Eos # (Auto) 0.0 Baso # (Auto) 0.1 Abs Immat Gran (auto) 0.05 H Absolute Neuts (auto) 7.2 Absolute Nucleated RBC 0.000 Nucleated RBC % (auto) 0.0 VBG pH 7.50 H VBG pCO2 67 VBG pO2 28 VBG HCO3 53 H VBG O2 Saturation < 30.0 VBG Base Excess 25.3 Sodium 144 Potassium 2.8 L* D Chloride 92 L Carbon Dioxide 41 H* D Anion Gap 14 BUN 10 Creatinine 0.90 Estim Creat Clear Calc 59.4 Estimated GFR > 60 POC Glucose Random Glucose 233 H Lactic Acid 2.5 H* Lactic Acid F/U @ 2Hr 2.1 H* Lactic Acid F/U @ 4Hr Calcium 9.2 D Total Bilirubin 0.3 AST 31 ALT 14 Alkaline Phosphatase 73 Total Protein 7.6 Albumin 3.6 Lipase 154 H 12/06/24 12/06/24 12/06/24 04:46 06:31 12:41 WBC 10.3 RBC 2.91 L D Hgb 10.0 L D Hct 29.3 L D MCV 100.7 H MCH 34.4 H MCHC 34.1 RDW 13.5 Plt Count 298 D MPV 11.3 Immature Gran % (Auto) 0.4 Neut % (Auto) 65.6 Lymph % (Auto) 24.1 [place] % (Auto) 8.7 Eos % (Auto) 0.9 Baso % (Auto) 0.3 Lymph # (Auto) 2.5 [place] # (Auto) 0.9 Eos # (Auto) 0.1 Baso # (Auto) 0.0 Abs Immat Gran (auto) 0.04 H Absolute Neuts (auto) 6.7 Absolute Nucleated RBC 0.000 Nucleated RBC % (auto) 0.0 VBG pH VBG pCO2 VBG pO2 VBG HCO3 VBG O2 Saturation VBG Base Excess Sodium 137 Potassium 3.0 L Chloride 103 Carbon Dioxide 27 Anion Gap 10 L BUN 7 L Creatinine 0.75 Estim Creat Clear Calc 71.3 Estimated GFR > 60 POC Glucose 107 95 Random Glucose 143 H Lactic Acid Lactic Acid F/U @ 2Hr Lactic Acid F/U @ 4Hr 1.4 Calcium 7.5 L D Total Bilirubin AST ALT Alkaline Phosphatase Total Protein Albumin Lipase 12/06/24 12/06/24 12/07/24 17:35 23:57 05:37 WBC 8.0 RBC 2.93 L Hgb 9.9 L Hct 29.2 L MCV 99.7 H MCH 33.8 H MCHC 33.9 RDW 13.4 Plt Count 431 H D MPV 9.9 Immature Gran % (Auto) 0.5 H Neut % (Auto) 56.7 Lymph % (Auto) 31.6 [place] % (Auto) 8.0 Eos % (Auto) 2.4 Baso % (Auto) 0.8 Lymph # (Auto) 2.5 [place] # (Auto) 0.6 Eos # (Auto) 0.2 Baso # (Auto) 0.1 Abs Immat Gran (auto) 0.04 H Absolute Neuts (auto) 4.5 Absolute Nucleated RBC 0.000 Nucleated RBC % (auto) 0.0 VBG pH VBG pCO2 VBG pO2 VBG HCO3 VBG O2 Saturation VBG Base Excess Sodium 139 Potassium 3.7 D Chloride 107 Carbon Dioxide 25 Anion Gap 11 L BUN 5 L Creatinine 0.75 Estim Creat Clear Calc 71.3 Estimated GFR > 60 POC Glucose 136 H 105 Random Glucose 100 Lactic Acid Lactic Acid F/U @ 2Hr Lactic Acid F/U @ 4Hr Calcium 7.5 L Total Bilirubin AST ALT Alkaline Phosphatase Total Protein Albumin Lipase 12/07/24 12/07/24 05:49 12:22 WBC RBC Hgb Hct MCV MCH MCHC RDW Plt Count MPV Immature Gran % (Auto) Neut % (Auto) Lymph % (Auto) [place] % (Auto) Eos % (Auto) Baso % (Auto) Lymph # (Auto) [place] # (Auto) Eos # (Auto) Baso # (Auto) Abs Immat Gran (auto) Absolute Neuts (auto) Absolute Nucleated RBC Nucleated RBC % (auto) VBG pH VBG pCO2 VBG pO2 VBG HCO3 VBG O2 Saturation VBG Base Excess Sodium Potassium Chloride Carbon Dioxide Anion Gap BUN Creatinine Estim Creat Clear Calc Estimated GFR POC Glucose 88 81 Random Glucose Lactic Acid Lactic Acid F/U @ 2Hr Lactic Acid F/U @ 4Hr Calcium Total Bilirubin AST ALT Alkaline Phosphatase Total Protein Albumin Lipase Airway Mallampati Class: II TM Dist: >3cm Neck ROM: Full Denture: Upper Loose/Missing/Broken Teeth: Yes (Full dentures top. Denies broken, loose or missing teeth bottom) Heart: RRR Lungs: CTAB. Diminished Assessment and Plan Assessment Anesthesia Assessment: Anesthesia Plan Discussed and Chart Reviewed Final Anesthetic Review Family History of Problems with Anesthesia: No History of Problems with Anesthesia: No NPO: Yes ASA Class: III and Emergency Final Preanesthetic Review: No Changes in Pt Med Stat, Meds/Allgs Chart Reviewed, Consent Obtained/Reviewed, Anes Risks/Benef Reviewed and DNR Form (If Appl.) Patient Risk: Intermediate Procedure Risk: Intermediate Assessment/Block/Sedation in SS: Assess/Block/Sedation-SS Anesthetic Plan Anesthetic Plan: GA Disposition: Standard PACU
--- NOTE | 2024-12-07 14:39 | MHC.SHP ---
Pre-Procedural Eval Section A - 24 Hr Update-Section A only Date of Service: 12/07/24 The patient is an INPATIENT: Yes Changes since office visit: No Cold of Flu in the past 2 weeks, No New Medical Problems, No Changes in Medication and No Patient answered all questions The patient has been examined within 24 hours of the surgical procedure. The History & Physical has been completed within 30 days and I have reviewed it.: Yes Section B - Complete if H&P > 30 days Chief Complaint: Abd Pain Allergies: Allergies Allergy/AdvReac Type Severity Reaction Status Date / Time No Known Allergies Allergy Verified 12/07/24 14:05 Plan I have reviewed the history and physical and performed a pertinent physical examination on my patient. No changes have occurred unless specified. Time Spent With Patient Time: Total time managing care of this patient today ____ minutes.
[2024-12-07] MEDS: Lactated Ringers 1,000 ML 100 ML IVCONT (14:40)
--- NOTE | 2024-12-07 15:19 | P.BOP_ITS ---
Brief Operative Note Date of Service: 12/07/24 Pre-op diagnosis: abnl ct scan duodenum Procedure: egd Surgeon: Harsh Bond MD Was an Director Of [employer] used for this Procedure?: No Estimated blood loss (mL): 5 Pathology: other Condition: stable Disposition: PACU
--- NOTE | 2024-12-07 15:20 | PM.EVENT ---
Event Note Date of Service: 12/07/24 Event Note: EGD note dictated erosive esophagitis duodenitis without mass or obstruction, likely from pancreatitis biopsies taken rec: advance diet as tolerated f/u bx results continue ppi Time Spent With Patient Time: Total time managing care of this patient today ____ minutes.
--- NOTE | 2024-12-07 15:31 | MHC.CM.PN ---
per rounds pt to have an egd today dc home is still the [plan in 1 to 2 days
[2024-12-07 16:27] LABS: Glucose, Whole Blood 88 mg/dL (60-115)
[2024-12-07] MEDS: Omeprazole 20 MG CAPSULE.DR PO (16:49)
[2024-12-07 19:27] LABS: Glucose, Whole Blood 126 mg/dL (60-115)
[2024-12-07] MEDS: Calcium Carbonate 750 MG TAB.CHEW PO (21:06)
[2024-12-07 23:54] LABS: Glucose, Whole Blood 142 mg/dL (60-115)
[2024-12-08] MEDS: Morphine Sulfate 4 MG/ML CARTRIDGE IVPUSH ×5 (01:28→20:12)
[2024-12-08] MEDS: Lactated Ringers 1,000 ML 125 ML IVCONT (01:29)
[2024-12-08 03:13] VITALS: BP 125/64; PULSE 61; RESP 16; TEMP 36; O2SAT 98
[2024-12-08 05:20] LABS: Glucose, Whole Blood 110 mg/dL (60-115)
[2024-12-08] MEDS: Omeprazole 20 MG CAPSULE.DR PO ×2 (05:40→16:23)
[2024-12-08] MEDS: Piperacillin Sodium/Tazobactam 3.375 GM in 0.9 % Sodium Chloride 50 ML IV ×4 (05:40→20:13)
[2024-12-08 06:03] LABS: Hematocrit 33.1 % (42.0-52.0); Hemoglobin 10.8 g/dl (14.0-18.0); Mean Corpuscular HGB Conc 32.6 g/dl (31.0-36.0); Mean Corpuscular Hemoglobin 33.2 pg (27.0-33.0); Mean Corpuscular Volume 101.8 fL (80.0-98.0); Platelet Count 484 X10*3/uL (160-400); Red Blood Count 3.25 X10*6/uL (4.60-5.80); Red Cell Distribution Width 13.3 % (11.0-16.0); White Blood Count 8.3 X10*3/uL (4.8-10.8)
[2024-12-08 06:22] LABS: Anion Gap 8 (12-20); Blood Urea Nitrogen 5 mg/dL (9-16); Calcium 7.8 mg/dL (8.4-10.2); Carbon Dioxide 27 mmol/L (22-29); Chloride 108 mmol/L (96-108); Creatinine Clr Calc Pharmacy 70.4; Estimated Glomerular Filt Rate > 60; Glucose Random 102 mg/dL (60-115); Sodium 139 mmol/L (135-145)
--- NOTE | 2024-12-08 07:44 | OP_ITS ---
DATE OF SERVICE: 12/07/2024 SURGEON: Harsh Bond MD INDICATIONS: Pancreatitis with abnormal CT scan of the duodenum PREOPERATIVE DIAGNOSIS: POSTOPERATIVE DIAGNOSIS: PROCEDURE PERFORMED: Upper endoscopy with biopsy. ESTIMATED BLOOD LOSS: COMPLICATIONS: ANESTHESIA: General anesthesia. ASSISTANTS: SPECIMENS: DESCRIPTION OF PROCEDURE: A history and physical was performed. The risks and benefits of the procedure were explained to the patient. Informed consent was obtained. The patient was placed in the left lateral decubitus position. The Olympus video gastroscope was introduced into the esophagus, stomach, and duodenum. Examination was performed. The scope was removed. He tolerated the procedure well and was returned to the recovery area in stable condition. FINDINGS: Esophagus: There was erosive esophagitis present over the distal 2/3 of the esophagus. No bleeding was identified. There was a 5 cm hiatal hernia. Stomach the stomach showed several hundred cubic centimeters of old liquid and food. This was washed and suctioned. Antral biopsies were obtained. Duodenum: There was duodenitis involving the bulb, 2nd portion and 3rd portion with mucosal edema, erythema, and luminal narrowing. The scope easily passed through this. No mass lesion was identified. Bile was seen in the 2nd portion of the duodenum. Biopsies were obtained from the proximal and distal duodenum. No ulceration was identified. IMPRESSION: 1. Erosive esophagitis. 2. Duodenitis. RECOMMENDATION: 1. Follow up the biopsy results. 2. Begin clear liquid diet. 3. Continue proton pump inhibitor. MD DAREN Rutledge/SAVI / [id number] [facility]
[2024-12-08 07:55] VITALS: BP 130/69; PULSE 53; RESP 16; TEMP 36.9; O2SAT 96
[2024-12-08] MEDS: Calcium Carbonate 750 MG TAB.CHEW PO ×3 (08:26→20:12)
[2024-12-08] MEDS: Enoxaparin Sodium 40 MG/0.4 ML SYRINGE SUBCUT (08:27)
--- NOTE | 2024-12-08 09:02 | HO.POSTANES ---
Post Anesthesia Evaluation Post Anesthesia Evaluation Date of Service: 12/08/24 Vital Signs: Vital Signs Temp Pulse Resp BP Pulse Ox O2 Del Method 12/08/24 07:55 98.4 F 53 16 130/69 96 Room Air 12/08/24 03:13 96.8 F 61 16 125/64 98 Room Air 12/07/24 23:45 96.9 F 62 16 125/66 96 Room Air Anesthesia: Monitored Mental Status: Awake Pain Control: Satisfactory Nausea/Vomiting: None Hydration: Adequate Anesthesia-Related Issues: No Anes. Related Issues
--- NOTE | 2024-12-08 09:37 | P.PNIM_ITS ---
Subjective Subjective Date of Service: 12/08/24 Interval History: Still with pain but ready to try solids Physical Exam 2 Vital Signs: Vital Signs: Last Vital Signs Temp 98.4 F 12/08/24 07:55 Pulse 53 12/08/24 07:55 Resp 16 12/08/24 07:55 BP 130/69 12/08/24 07:55 Pulse Ox 96 12/08/24 07:55 O2 Del Method Room Air 12/08/24 07:55 BMI result Body Mass Index 17.1 Const: General: comfortable and no acute distress Resp: Effort & Inspection: normal respiratory effort GI: Palpation (GI): Soft to palpation, not firm, Tenderness to palpation present (GI) (On the epigastric area) and no guarding Objective Data Active Medications Acetaminophen (Acetaminophen 325 Mg Tablet) 650 mg PO Q6H PRN PRN Reason: Pain, Mild 1-3,fever,headache Calcium Carbonate (Calcium Carbonate 750 Mg Tab.Chew) 750 mg PO Q4H PRN PRN Reason: Heartburn Last Admin: 12/08/24 08:26 Dose: 750 mg Documented By: LALITHA Enoxaparin Sodium (Enoxaparin Sodium 40 Mg/0.4 Ml Syringe) 40 mg SUBCUT Q24H [facility] Last Admin: 12/08/24 08:27 Dose: 40 mg Documented By: LALITHA Glucose (Glucose Gel 15 Gm Gel..Gram.) 15 gm PO Q15M PRN; Protocol PRN Reason: per Hypoglycemia Standing Ord. Dextrose (D10) 250 mls @ 750 mls/hr IV Q15M PRN; Protocol PRN Reason: per Hypoglycemia Standing Ord. Lactated Ringer's (Lr) 1,000 mls @ 100 mls/hr IVCONT .Q10H [facility] Last Infusion: 12/08/24 01:08 Dose: Infused Documented By: SANDRA Piperacillin Sod/Tazobactam (Sod 3.375 gm/ Sodium Chloride) 50 mls @ 100 mls/hr IV Q6H [facility] Last Infusion: 12/08/24 06:12 Dose: Infused Documented By: SANDRA Insulin Human Lispro (Insulin Lispro 100 Unit/Ml 3 Ml Vial) 0 unit SUBCUT Q6H [facility]; Protocol Last Admin: 12/08/24 05:34 Dose: Not Given Documented By: SANDRA Non-Admin Reason: No Insulin Coverage Magnesium Hydroxide (Milk Of Magnesia 30 Ml Oral.Susp) 30 ml PO DAILY PRN PRN Reason: Constipation Melatonin (Melatonin 3 Mg Tablet) 6 mg PO BEDTIME PRN PRN Reason: Insomnia Morphine Sulfate (Morphine Sulfate 4 Mg/Ml Cartridge) 4 mg IVPUSH Q4H PRN; Protocol PRN Reason: Pain, Severe (Pain Scale 7-10) Last Admin: 12/08/24 05:40 Dose: 4 mg Documented By: SANDRA Omeprazole (Omeprazole 20 Mg Capsule.Dr) 20 mg PO BID@0630,1630 [facility] Last Admin: 12/08/24 05:40 Dose: 20 mg Documented By: SANDRA Ondansetron HCl (Ondansetron Hcl 4 Mg/2 Ml Vial) 4 mg IVPUSH Q8H PRN PRN Reason: Nausea and Vomiting Last Admin: 12/07/24 09:16 Dose: 4 mg Documented By: LALITHA Sodium Chloride (0.9 % Sodium Chloride Flush 3 Ml Syringe) [facility] Last Admin: 12/08/24 08:28 Dose: Not Given Documented By: LALITHA Non-Admin Reason: IV Running Sucralfate (Sucralfate 1 Gm Tablet) 1 gm PO QIDACHS [facility] Labs 12/08/24 05:37 12/08/24 05:37 Labs: Laboratory Results - last 24 hr 12/07/24 12/07/24 12/07/24 12:22 16:16 19:18 MCV MCH MCHC RDW Plt Count MPV Absolute Nucleated RBC Nucleated RBC % (auto) Anion Gap Estim Creat Clear Calc Estimated GFR POC Glucose 81 88 126 H Random Glucose Calcium 12/07/24 12/08/24 12/08/24 23:48 05:15 05:37 MCV 101.8 H MCH 33.2 H MCHC 32.6 RDW 13.3 Plt Count 484 H MPV 10.0 Absolute Nucleated RBC 0.000 Nucleated RBC % (auto) 0.0 Anion Gap 8 L Estim Creat Clear Calc 70.4 Estimated GFR > 60 POC Glucose 142 H 110 Random Glucose 102 Calcium 7.8 L Microbiology Microbiology Results: Microbiology 12/06/24 01:36 Blood Culture - Preliminary Blood - Venous No growth after 48 hours. 12/06/24 01:29 Blood Culture - Preliminary Blood - Venous No growth after 48 hours. Assessment and Plan (1) Acute on chronic pancreatitis: Status: Acute Plan 64M PMH alcoholic pancreatitis, alcohol dependence last drink 11/16/2024, duodenitis, renal cell carcinoma status post left nephrectomy, presented with nausea vomiting and epigastric pain Acute recurrent pancreatitis Status post EGD on 12/07/24 showed: erosive esophagitis, duodenitis without mass or obstruction, likely from pancreatitis, biopsies were taken, recommendations for PPI and follow up pathology results Possible pancreatic abscess Discussed with GI, likely pseudocyst Possible pneumonia Continue IV Zosyn for now Acute hypokalemia Replaced Diabetes A1c 6.7, insulin sliding scale DVT prophylaxis with Lovenox DNR/DNI reason for continued hospitalization: Advancing diet, monitoring for tolerance Quality Stroke Does the patient have a stroke diagnosis?: No VTE Prior VTE?: No VTE Risk Level:: Medical - moderate - high VTE Device Contraindication: Treatment Not Indicated VTE Drug Contraindication: N/A - Med Ordered
[2024-12-08] MEDS: Lactated Ringers 1,000 ML 100 ML IVCONT ×2 (10:29→21:00)
[2024-12-08] MEDS: Sucralfate 1 GM TABLET PO ×3 (11:08→20:12)
[2024-12-08 11:44] VITALS: BP 138/67; PULSE 57; RESP 16; TEMP 36.6; O2SAT 98
[2024-12-08 12:04] LABS: Glucose, Whole Blood 99 mg/dL (60-115)
--- NOTE | 2024-12-08 12:26 | P.PNGI_ITS ---
Subjective Subjective Date of Service: 12/08/24 Interval History: hungry complaining of some reflux Critical Care Time (minutes): 0 Physical Exam 2 Vital Signs: Vital Signs: Last Vital Signs Temp 97.8 F 12/08/24 11:44 Pulse 57 12/08/24 11:44 Resp 16 12/08/24 11:44 BP 138/67 12/08/24 11:44 Pulse Ox 98 12/08/24 11:44 O2 Del Method Room Air 12/08/24 11:44 BMI result Body Mass Index 17.1 Const: General: cooperative GI: Other: abdomen is soft and nontender. Objective Data Labs 12/08/24 05:37 12/08/24 05:37 Microbiology Microbiology Results: Microbiology 12/06/24 01:36 Blood - Venous Blood Culture - Preliminary No growth after 48 hours. 12/06/24 01:29 Blood - Venous Blood Culture - Preliminary No growth after 48 hours. Procedures Date of Service Date of Service: 12/08/24 Progress Note: A&P Assessment and plan (1) Duodenitis: Status: Acute Assessment and Plan: continue ppi diet as tolerated f/u bx results prn maalox Time Spent With Patient Time: Total time managing care of this patient today ____ minutes. Quality Stroke Does the patient have a stroke diagnosis?: No VTE Prior VTE?: No VTE Risk Level:: Medical - moderate - high VTE Device Contraindication: Treatment Not Indicated VTE Drug Contraindication: N/A - Med Ordered
[2024-12-08 16:00] VITALS: BP 147/81; PULSE 56; RESP 18; TEMP 37.1; O2SAT 96
[2024-12-08] MEDS: ondansetron HCL 4 MG/2 ML VIAL IVPUSH (17:31)
[2024-12-08 17:59] LABS: Glucose, Whole Blood 96 mg/dL (60-115)
[2024-12-08 19:55] VITALS: BP 147/72; PULSE 61; RESP 18; TEMP 36.9; O2SAT 97
[2024-12-08 23:42] VITALS: BP 146/74; PULSE 57; RESP 16; TEMP 36; O2SAT 97
[2024-12-08 23:47] LABS: Glucose, Whole Blood 123 mg/dL (60-115)
[2024-12-09] MEDS: Morphine Sulfate 4 MG/ML CARTRIDGE IVPUSH ×3 (00:13→09:38)
[2024-12-09 03:18] VITALS: BP 136/71; PULSE 58; RESP 16; TEMP 36; O2SAT 99
[2024-12-09] MEDS: Piperacillin Sodium/Tazobactam 3.375 GM in 0.9 % Sodium Chloride 50 ML IV ×2 (04:52→09:43)
[2024-12-09] MEDS: Lactated Ringers 1,000 ML 100 ML IVCONT (05:22)
[2024-12-09 06:17] LABS: Glucose, Whole Blood 97 mg/dL (60-115)
[2024-12-09] MEDS: Omeprazole 20 MG CAPSULE.DR PO (06:31)
[2024-12-09 07:18] LABS: Hematocrit 34.3 % (42.0-52.0); Hemoglobin 11.3 g/dl (14.0-18.0); Mean Corpuscular HGB Conc 32.9 g/dl (31.0-36.0); Mean Corpuscular Hemoglobin 33.5 pg (27.0-33.0); Mean Corpuscular Volume 101.8 fL (80.0-98.0); Mean Platelet Volume 10.4 fL (9.4-12.4); Platelet Count 491 X10*3/uL (160-400); Red Blood Count 3.37 X10*6/uL (4.60-5.80); Red Cell Distribution Width 13.3 % (11.0-16.0); White Blood Count 8.4 X10*3/uL (4.8-10.8)
[2024-12-09 07:28] LABS: Anion Gap 11 (12-20); Blood Urea Nitrogen 4 mg/dL (9-16); Calcium 8.2 mg/dL (8.4-10.2); Carbon Dioxide 26 mmol/L (22-29); Chloride 108 mmol/L (96-108); Creatinine Clr Calc Pharmacy 69.5; Estimated Glomerular Filt Rate > 60; Glucose Random 95 mg/dL (60-115); Potassium 4.1 mmol/L (3.3-5.1); Sodium 141 mmol/L (135-145)
[2024-12-09 07:51] VITALS: BP 146/71; PULSE 61; RESP 16; TEMP 36.6; O2SAT 97
--- NOTE | 2024-12-09 08:28 | P.PNGS_ITS ---
Subjective Subjective Date of Service: 12/09/24 Interval history: Describes right-sided abdominal pain although much improved No vomiting EGD done yesterday, patient tolerated this well Physical Exam 2 Vital Signs: Vital Signs: Last Vital Signs Temp 97.8 F 12/09/24 07:51 Pulse 61 12/09/24 07:51 Resp 16 12/09/24 07:51 BP 146/71 H 12/09/24 07:51 Pulse Ox 97 12/09/24 07:51 O2 Del Method Room Air 12/09/24 07:51 BMI result Body Mass Index 17.1 Const: Other: Looks well General: comfortable and no acute distress Resp: Effort & Inspection: normal respiratory effort Cardio: Rate: regular rate GI: Palpation (GI): Soft to palpation, not firm, Tenderness to palpation present (GI) (Mild tenderness upper abdomen) and no guarding Objective Data Active Medications Acetaminophen (Acetaminophen 325 Mg Tablet) 650 mg PO Q6H PRN PRN Reason: Pain, Mild 1-3,fever,headache Al Hydroxide/Mg Hydroxide (Magnesium Hydrox/Alum Hydrox 30 Ml Oral.Susp) 30 ml PO Q2H PRN PRN Reason: GI Upset Calcium Carbonate (Calcium Carbonate 750 Mg Tab.Chew) 750 mg PO Q4H PRN PRN Reason: Heartburn Last Admin: 12/08/24 20:12 Dose: 750 mg Documented By: SANDRA Enoxaparin Sodium (Enoxaparin Sodium 40 Mg/0.4 Ml Syringe) 40 mg SUBCUT Q24H [facility] Last Admin: 12/08/24 08:27 Dose: 40 mg Documented By: LALITHA Glucose (Glucose Gel 15 Gm Gel..Gram.) 15 gm PO Q15M PRN; Protocol PRN Reason: per Hypoglycemia Standing Ord. Dextrose (D10) 250 mls @ 750 mls/hr IV Q15M PRN; Protocol PRN Reason: per Hypoglycemia Standing Ord. Lactated Ringer's (Lr) 1,000 mls @ 100 mls/hr IVCONT .Q10H [facility] Last Admin: 12/09/24 05:22 Dose: 100 mls/hr Documented By: DOBROKristel Piperacillin Sod/Tazobactam (Sod 3.375 gm/ Sodium Chloride) 50 mls @ 100 mls/hr IV Q6H [facility] Last Infusion: 12/09/24 05:26 Dose: Infused Documented By: STEFANI Insulin Human Lispro (Insulin Lispro 100 Unit/Ml 3 Ml Vial) 0 unit SUBCUT Q6H [facility]; Protocol Last Admin: 12/09/24 06:14 Dose: Not Given Documented By: STEFANI Non-Admin Reason: No Insulin Coverage Magnesium Hydroxide (Milk Of Magnesia 30 Ml Oral.Susp) 30 ml PO DAILY PRN PRN Reason: Constipation Melatonin (Melatonin 3 Mg Tablet) 6 mg PO BEDTIME PRN PRN Reason: Insomnia Morphine Sulfate (Morphine Sulfate 4 Mg/Ml Cartridge) 4 mg IVPUSH Q4H PRN; Protocol PRN Reason: Pain, Severe (Pain Scale 7-10) Last Admin: 12/09/24 04:45 Dose: 4 mg Documented By: STEFANI Omeprazole (Omeprazole 20 Mg Capsule.Dr) 20 mg PO BID@0630,1630 [facility] Last Admin: 12/09/24 06:31 Dose: 20 mg Documented By: STEFANI Ondansetron HCl (Ondansetron Hcl 4 Mg/2 Ml Vial) 4 mg IVPUSH Q8H PRN PRN Reason: Nausea and Vomiting Last Admin: 12/08/24 17:31 Dose: 4 mg Documented By: LALITHA Sodium Chloride (0.9 % Sodium Chloride Flush 3 Ml Syringe) [address] [facility] Last Admin: 12/08/24 22:41 Dose: Not Given Documented By: SANDRA Non-Admin Reason: IV Running Sucralfate (Sucralfate 1 Gm Tablet) 1 gm PO QIDACHS [facility] Last Admin: 12/08/24 20:12 Dose: 1 gm Documented By: SANDRA Labs 12/09/24 05:22 12/09/24 05:22 Labs: Laboratory Results - last 24 hr 12/08/24 12/08/24 12/08/24 12:00 17:53 23:44 MCV MCH MCHC RDW Plt Count MPV Absolute Nucleated RBC Nucleated RBC % (auto) Anion Gap Estim Creat Clear Calc Estimated GFR POC Glucose 99 96 123 H Random Glucose Calcium 12/09/24 12/09/24 05:22 06:13 MCV 101.8 H MCH 33.5 H MCHC 32.9 RDW 13.3 Plt Count 491 H MPV 10.4 Absolute Nucleated RBC 0.000 Nucleated RBC % (auto) 0.0 Anion Gap 11 L Estim Creat Clear Calc 69.5 Estimated GFR > 60 POC Glucose 97 Random Glucose 95 Calcium 8.2 L Microbiology Microbiology Results: Microbiology 12/06/24 01:36 Blood Culture - Preliminary Blood - Venous No growth after 48 hours. 12/06/24 01:29 Blood Culture - Preliminary Blood - Venous No growth after 48 hours. 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 Quality Stroke Does the patient have a stroke diagnosis?: No VTE Prior VTE?: No VTE Risk Level:: Medical - moderate - high VTE Device Contraindication: Treatment Not Indicated VTE Drug Contraindication: N/A - Med Ordered
[2024-12-09] MEDS: Enoxaparin Sodium 40 MG/0.4 ML SYRINGE SUBCUT (08:32)
[2024-12-09] MEDS: Sucralfate 1 GM TABLET PO (08:32)
--- NOTE | 2024-12-09 09:04 | PM.DS ---
DS: Providers Provider Date of Service: 12/09/24 Date of admission: 12/06/24 02:01 Date of discharge: 12/09/24 Primary care physician: Jorge Alberto Erickson, [facility]- Consults: 12/06/24 02:01 Consult to Gastroenterology Routine Consulting Provider: Mahendra Lombardo Reason for consultation: pancreatitis Consult to General Surgery Routine Consulting Provider: [facility] Reason for consultation: gastric outlet obstruction ; hepatic ?abscess DS: Diagnosis Discharge Diagnosis (1) Duodenitis: Status: Acute DS: Summary Hospital Course Hospital Course: from initial hpi: 64-year-old male with a past medical history significant for pancreatitis related to alcohol and gallstones, last drink 11/16/24, duodenitis, left nephrectomy post renal cell carcinoma (2021), and chronic back pain, who reported to the ED for nausea, vomting, and upper abd pain. He was recently discharged after admission 11/23-11/28 for similar sx, acute on chronic pancreatitis, complicated by GLO and metabolic alkalosis. He reports he started taking the oxycodone for abd pain 3 days ago and today ran out and had severe epigastric pain, nausea and vomiting. able to tolerate liquids for the most part but not soilds. has vomited 5-6x in the past 3 days without any blood. last BM just hours ago. no fever, chills, or upper respiratory sx. hx of etoh abuse/dependence, last drink 11/15/24, did not require phenobarb at last admission. abd pain was 10/10 on arrival, now non-existent and nausea/vomiting controlled. hospital course: Patient was admitted for acute recurrent alcoholic pancreatitis. Underwent EGD on 12/07/2024 which showed erosive esophagitis, duodenitis without mass or obstruction likely from pancreatitis, biopsies were taken. Recommendations were for PPI and follow up pathology results as outpatient. Patient's diet was slowly advanced and is now tolerating. We will also continue Carafate. For incidental note of possible hepatic abscess, this was discussed with GI and likely pseudocyst. Can follow up outpatient. Was empirically treated with IV Zosyn for possible pneumonia although this seems less likely and will discontinue antibiotics on discharge. For acute hypokalemia received replacement. Patient was noted to have hemoglobin A1c of 6.7, unclear at this time if this is a true diagnosis of diabetes. His sugars were generally between 90 and 120 during admission without medications. Recommendations are for low carb diet and follow-up hemoglobin A1c in 3 months. Time Attestation Discharge Coordination Time (in mins): 34 Quality: Safe Use of Opioids Does Pt have an Active Cancer Diagnosis on the Problem List?: No Quality: Stroke Does the patient have a stroke diagnosis?: No Physical Exam Vital Signs: Vital Signs: Last Vital Signs Temp 97.8 F 12/09/24 07:51 Pulse 61 12/09/24 07:51 Resp 16 12/09/24 07:51 BP 146/71 H 12/09/24 07:51 Pulse Ox 97 12/09/24 07:51 O2 Del Method Room Air 12/09/24 07:51 BMI result Body Mass Index 17.1 General: AO X 3, no acute distress Resp: CTA bilateral, no accessory muscles used CVS: S1,S2,RRR GI: soft, mildly tender, non distended Neuro: motor grossly intact, alert Psych: appropriate affect, appropriate insight DS: Data Data Completed and Pending Pending studies at discharge: Pending at discharge 12/07/24 15:08 Surgical [PTH] Routine Labs on day of discharge: Laboratory Results - last 24 hr 12/08/24 12/08/24 12/08/24 12:00 17:53 23:44 WBC RBC Hgb Hct MCV MCH MCHC RDW Plt Count MPV Absolute Nucleated RBC Nucleated RBC % (auto) Sodium Potassium Chloride Carbon Dioxide Anion Gap BUN Creatinine Estim Creat Clear Calc Estimated GFR POC Glucose 99 96 123 H Random Glucose Calcium 12/09/24 12/09/24 05:22 06:13 WBC 8.4 RBC 3.37 L Hgb 11.3 L Hct 34.3 L MCV 101.8 H MCH 33.5 H MCHC 32.9 RDW 13.3 Plt Count 491 H MPV 10.4 Absolute Nucleated RBC 0.000 Nucleated RBC % (auto) 0.0 Sodium 141 Potassium 4.1 Chloride 108 Carbon Dioxide 26 Anion Gap 11 L BUN 4 L Creatinine 0.77 Estim Creat Clear Calc 69.5 Estimated GFR > 60 POC Glucose 97 Random Glucose 95 Calcium 8.2 L Preliminary micro results at discharge 12/06/24 01:36 Blood Culture - Preliminary Blood - Venous No growth after 48 hours. 12/06/24 01:29 Blood Culture - Preliminary Blood - Venous No growth after 48 hours. Discharge Plan Discharge Anticipated Discharge Date/Time: 12/09/24 08:59 Patient Disposition: Home, Self-Care Discharge Diagnosis: Esophagitis, duodenitis Referrals: Jorge Alberto Erickson FNP-DAREN [Primary Care Provider] - 1 Week Mahendra Lombardo MD [Physician] - 1 Week Discharge Medications: New omeprazole 20 mg Capsule,Delayed Release(Dr/Ec) 20 mg PO BID@0630,1630 Qty: 180 0RF Continued sucralfate 1 gram Tablet 1 g PO QIDWMHS acetaminophen 325 mg Tablet 650 mg PO Q6H PRN (Reason: Pain) ondansetron 4 mg tablet,disintegrating 4 mg PO Q8H PRN (Reason: nausea and vomiting) Qty: 9 0RF oxycodone 5 mg tablet 5 mg PO Q8H PRN (Reason: pain) Qty: 15 0RF Rx Instructions: Partial Fill upon patient request. Discharge Orders: Discharge Order (Routine); Ordered 12/09/24 Ordered By: Hans Payne Diet: Advance to usual diet Activity on Discharge: As tolerated Stand Alone Forms: Patient Portal Discharge page Print Language: Nepalese Care Plan Goals: recovery Health Concerns: Pancreatitis, duodenitis, esophagitis, elevated A1c Plan of Treatment: Continue omeprazole and Carafate, follow up with Gastroenterology, avoid alcohol You were noted to have an hemoglobin A1c of 6.7 which is generally above the cutoff for diagnosis of diabetes, however, your blood sugars have been mostly well controlled without medications. Would recommend low carb diet and follow-up hemoglobin A1c in 3 months. Assessment: See above
--- NOTE | 2024-12-09 09:09 | MHC.CM.PN ---
pt dc home self care
[2024-12-09 09:38] VITALS: RESP 18
[2024-12-09 10:21] VITALS: BP 149/85; PULSE 70; RESP 16; TEMP 36.4; O2SAT 98
== END 2024-12-09 10:44 | disposition home or self-care (01) | DRG 282 ==
LOC: HO.ED 12-06 01:41 → HO.EDOVER 12-06 02:08 → HO.S3 12-06 15:12
PROVIDERS: Internal Medicine Gastroenterology; Student in an Organized Health Care Education/Training Program; Admitting Provider Student in an Organized Health Care Education/Training Program; Emergency Provider Internal Medicine; PCP Nurse Practitioner Family; Visit Provider Internal Medicine
PROC: 0DJ08ZZ Inspection of Upper Intestinal Tract, Via Natural or Artificial Opening Endoscopic (ICD-10-PCS; CPT 43235; principal; 2024-12-07 14:40)
DX: K85.20 Alcohol induced acute pancreatitis without necrosis or infection (principal); Z66 Do not resuscitate; J18.9 Pneumonia, unspecified organism; K22.10 Ulcer of esophagus without bleeding; K86.0 Alcohol-induced chronic pancreatitis; K86.3 Pseudocyst of pancreas; K29.80 Duodenitis without bleeding; F17.210 Nicotine dependence, cigarettes, uncomplicated; K44.9 Diaphragmatic hernia without obstruction or gangrene; E87.6 Hypokalemia; Z71.6 Tobacco abuse counseling; Z90.5 Acquired absence of kidney; Z85.528 Personal history of other malignant neoplasm of kidney; Z79.899 Other long term (current) drug therapy
CPT/HCPCS: 36415; 71045; 74177; 80048; 80053; 82803; 82947; 83605; 83690; 85025; 85027; 87040; 88305; 88313; 88342; 93005; 99285; J0330; J1650; J2270; J2405; J2543; J2704; J3010; J3480; J7120; Q9967

== ENCOUNTER → 2024-12-05 22:35 | Outpatient (BNV) | payer OTHER, SELFPAY | PROVIDERS: Emergency Provider Internal Medicine; PCP Nurse Practitioner Family; Visit Provider Radiology Diagnostic Radiology | DX: K85.90 Acute pancreatitis without necrosis or infection, unspecified (principal) | CPT/HCPCS: 74177 ==

== ENCOUNTER → 2024-12-05 23:30 | Outpatient (BNV) | payer OTHER, SELFPAY | PROVIDERS: Admitting Provider Student in an Organized Health Care Education/Training Program; Emergency Provider Internal Medicine; PCP Nurse Practitioner Family; Visit Provider Internal Medicine Cardiovascular Disease | DX: I45.81 Long QT syndrome (principal) | CPT/HCPCS: 93010 ==

== ENCOUNTER → 2024-12-06 01:12 | Outpatient (BNV) | payer OTHER, SELFPAY | PROVIDERS: Admitting Provider Student in an Organized Health Care Education/Training Program; Emergency Provider Internal Medicine; PCP Nurse Practitioner Family; Visit Provider Radiology Diagnostic Radiology | DX: K85.90 Acute pancreatitis without necrosis or infection, unspecified (principal) | CPT/HCPCS: 71045 ==

== ENCOUNTER → 2024-12-06 02:01 | Outpatient (BNV) | payer OTHER, SELFPAY | PROVIDERS: Admitting Provider Student in an Organized Health Care Education/Training Program; Emergency Provider Internal Medicine; PCP Nurse Practitioner Family; Visit Provider Physician Assistant | DX: K85.90 Acute pancreatitis without necrosis or infection, unspecified (principal); K86.0 Alcohol-induced chronic pancreatitis | CPT/HCPCS: 99223; 99232; 99233; 99239; 99499 ==

== ENCOUNTER → 2024-12-06 02:01 | Outpatient (BNV) | payer OTHER, SELFPAY | PROVIDERS: Admitting Provider Student in an Organized Health Care Education/Training Program; Emergency Provider Internal Medicine; PCP Nurse Practitioner Family; Visit Provider Surgery | DX: K29.80 Duodenitis without bleeding (principal) | CPT/HCPCS: 99222; 99232 ==

== ENCOUNTER 2024-12-22 08:35 | Inpatient (IN) | payer OTHER, SELFPAY ==
[2024-12-22] VITALS (8 sets, daily range): BP systolic 126–140; BP diastolic 70–83; PULSE 58–128; RESP 12–20; TEMP 36.6–36.8; O2SAT 95–100; BMI 14.9; BMI 19.0
--- NOTE | ~2024-12-22 | CT_ITS ---
EXAMINATION: CT ABDOMEN AND PELVIS WITH CONTRAST CLINICAL INFORMATION: Abdominal distention. Concerning bowel obstruction. COMPARISON: CT dated December 05, 2024. TECHNIQUE: Multidetector volumetric images were obtained from the superior aspect of the liver through the pubic symphysis following administration 85 mL of Omnipaque 350 intravenous contrast. Sagittal and coronal reformatted images were obtained on the technologist's workstation. Oral contrast: [address] examination was performed using dose optimization techniques as appropriate, variously including the following: *Automated exposure control *Adjustment of mA and/or kV according to patient size (this includes techniques or standardized protocols for targeted exams where dose is matched to indication/reason for exam; i.e. extremities or head) *Use of iterative reconstruction technique DLP: 252 mGy centimeter. FINDINGS: LUNG BASES: 1.3 cm ill-defined high attenuation, right lung base. Linear attenuation cyst in the lung bases likely subsegmental atelectasis versus scarring similar to the right middle lobe. LIVER, GALLBLADDER, AND BILIARY TREE: Liver measures 15 cm. Focal hypodensity adjacent to the gallbladder fossa region. No focal mass. Portal veins, hepatic veins and intrahepatic portion of the IVC are patent. Mild intrahepatic biliary ductal dilatation. Questionable 1 mm hypodensities in the liver parenchyma. Status post cholecystectomy. There is edema pattern at the gallbladder fossa/shailesh hepatic region. No peripheral enhancing fluid collection. There is edema pattern in the periduodenal fat extending from the duodenal bulb to the third portion. There is edema pattern in the peripancreatic head region. The common bile duct measures 5 mm in maximum diameter. PANCREAS: Peripancreatic head edema pattern. The main pancreatic duct measures 3 mm. There is volume loss of the pancreatic parenchyma. SPLEEN: 6 cm. No focal mass. ADRENAL GLANDS: No nodular lesions. KIDNEYS AND URETERS: Absent left kidney. Right kidney demonstrates no hydronephrosis or gross nephrolithiasis. No gross renal mass. Sutures at the left renal hilum/retroperitoneum region. BLADDER: Fluid-filled. GASTROINTESTINAL TRACT: The appendix is normal with inspissated secretions and located in the posterior inferior right hepatic lobe adjacent to the gallbladder fossa region. No intestinal obstruction pattern. No pneumatosis intestinalis. No pneumoperitoneum. No peripheral enhancing fluid collection. Few scattered diverticula in the left hemicolon. Mesenteric edema pattern. ABDOMINAL WALL: No gross hernia. LYMPH NODES: Nonspecific prominent lymph nodes in the retroperitoneum, shailesh hepatic and mesenteric. VASCULAR: Mixed plaques throughout the abdominal aorta wall and iliac arteries without aneurysm or dissection. Multiple collateral veins in the left splenorenal renal region. I do not see a patent splenic vein. PELVIC VISCERA: The prostate gland is not enlarged. OSSEOUS STRUCTURES: Multilevel thoracolumbar spondylosis with a dextroconvex curvature at L1-2. Osteopenia versus osteoporosis. Grade 1 anterolisthesis L5-S1 likely degenerative. CT/CT abdomen pelvis w IV con IMPRESSION: Concerning gastroduodenitis/peptic ulcer disease with reactive lymphadenopathy resulting in mild to moderate intrahepatic and extrahepatic biliary ductal dilatation.] 2 6 lesion cannot be entirely excluded. 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 Old/chronic resulting in collateral flow. Nonspecific liver hypodensities at the gallbladder fossa region. Recent injury cannot be excluded. Status post left-sided nephrectomy. Fleischner guidelines were followed. Electronically signed by: Dennys Leon MD 12/22/2024 12:43 PM CECE
[2024-12-22 09:11] LABS: MANUAL DIFF FLAG NO
[2024-12-22 09:13] LABS: Glucose, Whole Blood 162 mg/dL (60-115)
[2024-12-22 09:14] LABS: Basophils Percent Auto 0.3 % (0-2); Eosinophils Percent Auto 0.6 % (0-4); Hematocrit 35.7 % (42.0-52.0); Hemoglobin 12.4 g/dl (14.0-18.0); Imm Gran Abs Auto 0.02 X10*3/uL (0.00-0.03); Imm Gran Pct Auto 0.3 % (0.0-0.4); Lymphocytes Absolute Auto 1.7 X10*3/uL (1.2-4.9); Lymphocytes Percent Auto 25.6 % (20-40); Mean Corpuscular HGB Conc 34.7 g/dl (31.0-36.0); Mean Corpuscular Hemoglobin 33.3 pg (27.0-33.0); Mean Platelet Volume 10.3 fL (9.4-12.4); Monocytes Absolute Auto 0.7 X10*3/uL (0.1-1.2); Monocytes Percent Auto 10.7 % (2-11); Neutrophils Percent Auto 62.5 % (45-73); Platelet Count 306 X10*3/uL (160-400); Red Blood Count 3.72 X10*6/uL (4.60-5.80); Red Cell Distribution Width 13.7 % (11.0-16.0); White Blood Count 6.5 X10*3/uL (4.8-10.8)
--- NOTE | 2024-12-22 09:26 | ED_ITS ---
HPI - Abdominal Pain General Chief Complaint: Abdominal Pain Stated Complaint: 8/10 abdominal pain, non radiating Time Seen by Provider: 12/22/24 09:19 Source: patient Mode of arrival: ambulatory Limitations: no limitations History of Present Illness HPI narrative: This is 64 years old the patient presented to the emergency department with upper abdominal pain. He said that he has been vomiting pain is got worse in the last couple of days. He has been admitted before for duodenitis, pancreatitis he is status post cholecystectomy MD elicited complaint: abdominal pain Pertinent past history: other (Pancreatitis/duodenitis) Onset (ago): day(s) (2) Pain Consistency: constant Location: diffuse Quality: cramping Migration to: no migration Exacerbating factors: nothing Related Data Home Medications ?Medication ?Instructions ?Recorded ?Confirmed acetaminophen 325 mg tablet 650 mg PO Q6H PRN Pain 11/23/24 12/22/24 sucralfate 1 gram tablet 1 g PO QIDWMHS 11/23/24 12/22/24 Previous Rx's ?Medication ?Instructions ?Recorded omeprazole 20 mg capsule,delayed 20 mg PO BID@0630,1630 #180 caps 12/09/24 release Allergies Allergy/AdvReac Type Severity Reaction Status Date / Time No Known Allergies Allergy Verified 12/22/24 08:49 Review of Systems Constitutional: Reports no additional constitutional complaints Reports system reviewed and no additional complaints, except as documented Gastrointestinal: Reports no additional gastrointestinal complaints PMFSH Past Medical History Attestation statement: The following information was validated with the patient. Medical History Anorexia Arthritis Hiatal hernia Barretts esophagus Renal cell carcinoma Alcohol use disorder History of alcohol abuse GERD (gastroesophageal reflux disease) Back pain with right-sided sciatica (10/07/21) Pancreatitis Inguinal hernia Cyst of pancreas Surgical History H/O hernia repair Hx laparoscopic cholecystectomy (04/22/24) Hx of oral surgery H/O colonoscopy History of surgery on right wrist Hx of esophagogastroduodenoscopy History of nephrectomy, left (2021) Social History Social History Household Members: None Household Members Other:: adult son Housing: Homeless Are you a primary home care specialist to a significant other at home: No Do you presently have visiting nurse or other home services: No Alcohol intake: former Patient Tobacco Use Status: Current everyday Tobacco user Tobacco use type: Cigarette Cigarette Packs Per Day: 1 Cigarettes Per Day: 20.0 Years Smoked: 44 Smoked in Last 30 Days: Yes Second Hand Smoke Exposure: No Use of substances other than those prescribed or required for medical reasons: No Advance Directives: No Advance Directives Information Provided: Yes Do you have a plan to hurt others: No Plan Nutrition Risks: No Nutritional Risk service: Yes Current occupational status: employed Current occupation: [employer] Current occupational exposures/hazards: Yes Cognitive needs: No Hearing needs: No Vision needs: No Physical Exam ED Vital Signs: Vital Signs - 24 hr 12/22/24 08:46 12/22/24 08:56 12/22/24 10:23 Temperature 97.8 F Pulse Rate 99 92 85 Respiratory Rate 18 18 19 Blood Pressure 127/79 127/79 Pulse Oximetry 100 100 95 Oxygen Delivery Method Room Air Room Air Room Air 12/22/24 12:44 Temperature 97.8 F Pulse Rate 64 Respiratory Rate 12 Blood Pressure 140/83 H Pulse Oximetry 100 Oxygen Delivery Method Room Air BMI result Body Mass Index 14.9 No acute distress Const General: cooperative and comfortable Orientation/consciousness: patient oriented x3 HENMT Head: Yes normal to inspection General nose exam: Normal external nose present Mouth: Normal oral and palatal mucosa present Chest Chest palpation & inspection: normal inspection of the chest Resp Effort & Inspection: normal respiratory effort Auscultation: clear to auscultation bilaterally Cardio Jugular venous distension: no JVD Rate: regular rate Rhythm: regular rhythm GI Inspection: Yes normal to inspection Palpation (GI): Soft to palpation, not firm and nontender Skin General skin exam: no rashes or lesions noted and elasticity normal Trauma: no lacerations or abrasions Neuro General: patient oriented x3 Cranial nerves: Yes CN's II-XII intact bilaterally Gait exam (Neuro): Normal gait present Motor exam (neuro): 5/5 motor strength present throughout Medical Decision Making Medical Decision Making MDM Narrative: Patient presented with the abdominal pain we will insert an IV labs imaging Differential Diagnosis Differential Diagnoses: The differential diagnosis associated with the presentation includes Acute pancreatitis/small bowel obstruction/colitis/diverticulitis Lab Data 12/22/24 09:04 12/22/24 09:04 Labs: Lab Results 12/22/24 12/22/24 Range/Units 08:53 09:04 WBC 6.5 (4.8-10.8) X10*3/uL RBC 3.72 L (4.60-5.80) X10*6/uL Hgb 12.4 L (14.0-18.0) g/dl Hct 35.7 L (42.0-52.0) % MCV 96.0 (80.0-98.0) fL MCH 33.3 H (27.0-33.0) pg MCHC 34.7 (31.0-36.0) g/dl RDW 13.7 (11.0-16.0) % Plt Count 306 D (160-400) X10*3/uL MPV 10.3 (9.4-12.4) fL Immature Gran % (Auto) 0.3 (0.0-0.4) % Neut % (Auto) 62.5 (45-73) % Lymph % (Auto) 25.6 (20-40) % [place] % (Auto) 10.7 (2-11) % Eos % (Auto) 0.6 (0-4) % Baso % (Auto) 0.3 (0-2) % Lymph # (Auto) 1.7 (1.2-4.9) X10*3/uL [place] # (Auto) 0.7 (0.1-1.2) X10*3/uL Eos # (Auto) 0.0 (0.0-0.4) X10*3/uL Baso # (Auto) 0.0 (0.0-0.2) X10*3/uL Abs Immat Gran (auto) 0.02 (0.00-0.03) X10*3/uL Absolute Neuts (auto) 4.0 (2.0-8.3) x10*3/uL Absolute Nucleated RBC 0.000 (0.0-0.012) X10*3/uL Nucleated RBC % (auto) 0.0 (0.0-0.2) /100WBC Sodium 135 (135-145) mmol/L Potassium 5.2 H D (3.3-5.1) mmol/L Chloride 102 (96-108) mmol/L Carbon Dioxide 24 (22-29) mmol/L Anion Gap 14 (12-20) BUN 10 (9-16) mg/dL Creatinine 0.77 (0.5-1.4) mg/dL Estim Creat Clear Calc 60.7 Estimated GFR > 60 POC Glucose 162 H (60-115) mg/dL Random Glucose 179 H (60-115) mg/dL Calcium 9.2 D (8.4-10.2) mg/dL Magnesium 1.6 (1.6-2.6) mg/dL Total Bilirubin 0.4 (0.0-1.0) mg/dL AST 99 H (5-37) U/L ALT 56 H (0-40) U/L Alkaline Phosphatase 151 H (39-117) U/L Total Protein 8.0 (6.5-8.0) g/dL Albumin 3.3 L (3.5-5.0) g/dL Lipase 110 H (8-78) U/L Influenza Type A (PCR) NEGATIVE (Negative) Influenza Type B (PCR) NEGATIVE (Negative) RSV RNA Qual (PCR) NEGATIVE (Negative) SARS-CoV-2 RNA (RT-PCR) NEGATIVE (Negative) Medications Administered Generic Name Dose Route Start Last Admin Trade Name Freq PRN Reason Stop Dose Admin Enoxaparin Sodium 40 mg 12/22/24 15:00 12/22/24 16:47 Enoxaparin Sodium 40 Mg/0.4 Ml Syringe SUBCUT 40 mg Q24H JUANA Administration Sodium Chloride 1,000 mls @ 100 mls/hr 12/22/24 15:15 12/22/24 16:37 Ns IVCONT 12/23/24 01:14 100 mls/hr .Q10H JUANA Administration Morphine Sulfate 4 mg 12/22/24 14:55 12/22/24 16:39 Morphine Sulfate 4 Mg/Ml Cartridge IVPUSH 4 mg Q4H PRN Administration Pain, Severe (Pain Scale 7-10) Protocol Sodium Chloride 3 ml 12/22/24 16:00 12/22/24 16:51 0.9 % Sodium Chloride Flush 3 Ml Syringe IVFLUSH Not Given QSHIFT JUANA Discontinued Medications Generic Name Dose Route Start Last Admin Trade Name Freq PRN Reason Stop Dose Admin Diatrizoate Meglum/Diatrizoate Sod 30 ml 12/22/24 12:03 12/22/24 12:03 Diatrizoate Meglumine, Sodium 30 Ml Solution PO 12/22/24 12:04 30 ml ONCE ONE Administration Fentanyl 50 mcg 12/22/24 09:25 12/22/24 09:33 Fentanyl Citrate/Pf 100 Mcg/2 Ml Vial IVPUSH 12/22/24 09:26 50 mcg ONCE ONE Administration Protocol Fentanyl 50 mcg 12/22/24 11:25 12/22/24 11:31 Fentanyl Citrate/Pf 100 Mcg/2 Ml Vial IVPUSH 12/22/24 11:26 50 mcg ONCE ONE Administration Protocol Sodium Chloride 1,000 mls @ 999 mls/hr 12/22/24 09:30 12/22/24 10:55 Ns IVCONT 12/22/24 10:30 Infused .Q1H1M JUANA Infusion Iohexol 85 ml 12/22/24 12:02 12/22/24 12:03 Iohexol 350 Mg/Ml 100 Ml Infus..Btl IV 12/22/24 12:03 85 ml ONCE ONE Administration Morphine Sulfate 4 mg 12/22/24 12:47 12/22/24 13:42 Morphine Sulfate 4 Mg/Ml Cartridge IVPUSH 12/22/24 12:48 4 mg ONCE ONE Administration Protocol Ondansetron HCl 4 mg 12/22/24 11:25 12/22/24 11:31 Ondansetron Hcl 4 Mg/2 Ml Vial IVPUSH 12/22/24 11:26 4 mg ONCE ONE Administration Pantoprazole Sodium 40 mg 12/22/24 13:00 12/22/24 13:42 Pantoprazole Sodium 40 Mg/10 Ml Vial IVPUSH 12/22/24 13:01 40 mg ONCE ONE Administration Critical Care Time Critical Care Time Critical Care Time: Yes Total Critical Care Time: 60 Attestation: taking care of the pt lactic acidosis Discharge Plan Discharge Clinical Impression: Duodenitis Pancreatitis Qualifiers: Chronicity: chronic Pancreatitis type: unspecified pancreatitis type Qualified Code(s): K86.1 - Other chronic pancreatitis Patient Disposition: Admitted As Inpatient
[2024-12-22 09:27] LABS: Alanine Aminotransferase 56 U/L (0-40); Albumin Level 3.3 g/dL (3.5-5.0); Alkaline Phosphatase 151 U/L (39-117); Anion Gap 14 (12-20); Aspartate Amino Transferase 99 U/L (5-37); Bilirubin Total 0.4 mg/dL (0.0-1.0); Blood Urea Nitrogen 10 mg/dL (9-16); Calcium 9.2 mg/dL (8.4-10.2); Carbon Dioxide 24 mmol/L (22-29); Chloride 102 mmol/L (96-108); Creatinine Clr Calc Pharmacy 60.7; Estimated Glomerular Filt Rate > 60; Glucose Random 179 mg/dL (60-115); Magnesium 1.6 mg/dL (1.6-2.6); Potassium 5.2 mmol/L (3.3-5.1); Sodium 135 mmol/L (135-145)
[2024-12-22] MEDS: fentaNYL citrate/PF 100 MCG/2 ML VIAL 50 MCG IVPUSH ×2 (09:33→11:31)
[2024-12-22] MEDS: 0.9 % Sodium Chloride 1,000 ML 999 ML IVCONT (09:35)
[2024-12-22 09:54] LABS: Lipase 110 U/L (8-78)
[2024-12-22 09:55] LABS: Influenza A PCR NEGATIVE (Negative); Influenza B PCR NEGATIVE (Negative); Resp Syncy Virus RNA Qual PCR NEGATIVE (Negative); SARS COV2 PCR INHOUSE NEGATIVE (Negative)
[2024-12-22] MEDS: ondansetron HCL 4 MG/2 ML VIAL IVPUSH (11:31)
--- NOTE | 2024-12-22 11:53 | PC.NURSE ---
Pt reported returning upper abd pain and nausea after starting PO contrast; MD made aware and pt treated per orders
--- OUTSIDE RECORDS SUMMARY | 2024-12-22 11:53 | XMS_ITS ---
Author Organization [facility] Address [address] [place] [address] Care Team Providers Care Advertisement Compositor Name Role Phone KATHLEEN MAHONEY Primary Care Provider Harsh Santacruz Jr Joey Bhakta M.D. Unavailable Unavailable REASON FOR VISIT pathology Encounters Encounter Location Date Provider Diagnosis [facility] [address] [place] [address] [address] [place] [address] 12/13/2024 Harsh Bond Jr PLAN OF TREATMENT Next Appt Details Provider Name:Harsh eaton Jr, 12/26/2024 11:20:00 AM, [address] [place] [address], [address], [place], [address],
--- OUTSIDE RECORDS SUMMARY | 2024-12-22 11:53 | XMS_ITS | Patient Health Record ---
Author Organization [facility] Address [address] [place] [address] Care Team Providers Care Director Of Home Care Hospice Name Role Phone KATHLEEN ERICKSON Primary Care Provider Harsh Santacruz Jr Unavailable Yony Garcia Joey Unavailable Unavailable ALLERGIES No Known Allergies RESULTS Component Value Reference Range Notes Pathology Reviewed date:03/23/2024 08:42:13 AM Interpretation: Performing Lab:[facility], [address] [place] [phone] Notes/Report: Complete Blood Count no Diff Reviewed date:03/30/2024 08:50:11 AM Interpretation: Performing Lab:[facility], [address] [place] [address] Notes/Report: White Blood Count 5.7 4.8-10.8 X10*3/uL Red Blood Count 3.74 4.60-5.80 X10*6/uL Hemoglobin 12.2 14.0-18.0 g/dl Hematocrit 35.1 42.0-52.0 % Mean Corpuscular Volume 93.9 80.0-98.0 fL Mean Corpuscular Hemoglobin 32.6 27.0-33.0 pg Mean Corpuscular HGB Conc 34.8 31.0-36.0 g/dl Red Cell Distribution Width 13.6 11.0-16.0 % Platelet Count 347 160-400 X10*3/uL Mean Platelet Volume 9.7 9.4-12.4 fL NRBC Pct Auto 0.0 0.0-0.2 /100WBC NRBC Abs Auto 0.000 0.0-0.012 X10*3/uL Liver Panel Reviewed date:03/30/2024 08:50:06 AM Interpretation: Performing Lab:[address] [address] Notes/Report: Bilirubin Total 0.4 0.0-1.0 mg/dL Bilirubin Direct 0.2 0.0-0.5 mg/dL Aspartate Amino Transferase 17 5-37 U/L Alanine Aminotransferase 8 0-40 U/L Total Protein 6.8 6.5-8.0 g/dL Albumin Level 3.4 3.5-5.0 g/dL Alkaline Phosphatase 78 39-117 U/L Lipase Reviewed date:03/30/2024 08:49:58 AM Interpretation: Performing Lab:[address] [address] Notes/Report: Lipase 45 8-78 U/L US abdomen complete Reviewed date:03/30/2024 08:50:18 AM Interpretation: Performing Lab: Notes/Report: [address] [address] Ultrasound Report Signed Patient: Agustin Daniel MR#: [id number] [birth year] : 1960 Acct:[id number] Age/Sex: 63 / M ADM Date: 03/28/24 Loc: HO.US Attending Dr: Harsh Bond MD Ordering Physician: Harsh Bond MD Date of Service: 03/28/24 Procedure(s): US abdomen complete Accession Number(s): [id number] cc: Harsh Bond MD; Kathleen Erickson [facility] EXAMINATION: US ABDOMEN COMPLETE CLINICAL INFORMATION: Acute abdominal pain. COMPARISON: CT abdomen and pelvis 02/18/2024. Limited abdominal ultrasound 06/08/2023. TECHNIQUE: Real-time imaging of the abdominal viscera. Technically difficult study secondary to body habitus. FINDINGS: PANCREAS: Unremarkable. ABDOMINAL AORTA: Atherosclerotic aorta without visible aneurysm. INFERIOR VENA CAVA: Visualized portions are normal. LIVER: Normal. The liver is normal in size. The liver contour is normal. Parenchymal echogenicity is normal. No focal hepatic lesion. There is no intrahepatic biliary duct dilatation seen. GALLBLADDER: 7 mm mobile gallstone in the gallbladder fundus. No evidence of acute cholecystitis. COMMON BILE DUCT: Mildly dilated at 0.8 cm without obstructing lesion. This is similar to prior CT when it measured 7 mm. RIGHT KIDNEY: No hydronephrosis. No renal calculi or focal parenchymal lesions. The kidney measures 10.8 cm in maximum dimension. LEFT KIDNEY: Surgically absent. SPLEEN: The spleen measures 6.6 cm in maximum dimension. FREE FLUID: None. US/US abdomen complete IMPRESSION: Mildly dilated common bile duct measuring 8 mm similar to recent CT when it measured 7 mm. No visible obstruction. Consider MRI/MRCP versus ERCP. Cholelithiasis without evidence of acute cholecystitis. Dictated By: Paulo Rodriguez MD Signed By: <Electronically signed by Paulo Rodriguez MD in OV> 03/29/24910 DD/ 0847 TD/TT: Cosmetology Professor: SOWMYA Pathology Reviewed date:12/13/2024 03:31:10 PM Interpretation: Performing Lab:[facility], [address] [place] [phone] Notes/Report: REASON FOR REFERRAL No Information MEDICATIONS Medication SIG (Take, Route, Frequency, Duration) Notes Start Date End Date Status Pantoprazole Sodium 40 MG 1 tablet Orall y twice a day for 30 day(s) 03/03/2024 Active Pantoprazole Sodium 40 MG TAKE 1 TABLET BY MOUTH DAILY Oral for 90 Active oxyCODONE HCl 5 MG Oral for 5 Active Sucralfate 1 GM/10ML Oral for 5 Active SOCIAL HISTORY Tobacco Use: Social History Observation Description Date Details (start date - stop date) Current Smoker NA - NA Sex Assigned At : Social History Observation Description Sex Assigned At Unknown Tobacco Use/Smoking Question Answer Notes Patient is a current smoker How many cigarettes a day do you smoke? 5 or les s Alcohol Screen Question Answer Notes Did you have a drink containing alcohol in the p ast year? No Points 0 Interpretation Negative PROBLEMS Problem Type ICD Code Onset Dates Problem Status W/U Status Risk SNOMED Code Notes Problem Abnormal findings on diagnostic imaging of other parts of digestive tract (R93.3) Active confirmed 842086450 Problem Acute abdominal pain (R10.9) Active confirmed 194297417 Problem Esophagitis, erosive (K22.10) Active confirmed Ulcer of esophagus (40417292) Problem Duodenitis (K29.80) Active confirmed Duodenitis (49166531) VITAL SIGNS Blood pressure diastolic 00 mm Hg 03/03/2024 Height 5 ft 7 in in 03/03/2024 Blood pressure systolic 00 mm Hg 03/03/2024 Weight 105 lbs 03/03/2024 BMI 16.44 kg/m2 03/03/2024 Encounters Encounter Location Date Provider Diagnosis [facility] [address] [place] [id number] 03/18/2024 Harsh Bond Jr Abnormal CT scan, esophagus R93.3 [facility] [address] [place] [id number] 12/07/2024 Harhs Bond Jr [facility] [address] [place] [phone] 03/21/2024 Harsh Bond Jr [facility] [address] [place] [phone] 03/03/2024 Harsh Bond Jr Abnormal findings on diagnostic imaging of other parts of digestive tract R93.3 [facility] [address] [place] [phone] 02/23/2024 Harsh Bond Jr [facility] [address] [place] [phone] 03/21/2024 Harsh Bond Jr Acute abdominal pain R10.9 [facility] [address] [place] [phone] 03/29/2024 Harsh Bond Jr [facility] [address] [place] [phone] 12/13/2024 Harsh Bond Jr ASSESSMENTS Encounter Date Diagnosis Assessment Notes Treatment Notes Treatment Clinical Notes 03/18/[address] scan, esophagus (ICD-10 - R93.3) 03/03/2024 Abnormal findings on diagnostic imaging of other parts of digestive tract (ICD-10 - R93.3) Digestive diseases material was printed 03/21/2024 Acute abdominal pain (ICD-10 - R10.9) PLAN OF TREATMENT Pending Test Test Name Order Date LIVER PROFILE 03/21/2024 LIPASE 03/21/2024 CBC w/o DIFF 03/21/2024 US ABD 03/21/2024 Future Test Test Name Order Date UPPER GI ENDOSCOPY 03/03/2024 Next Appt Details Provider Name:Harsh eaton Jr, 12/26/2024 11:20:00 AM, [address] [facility], [address], [place], [address], Insurance Providers Payer Name Payer Address Payer Phone Subscriber Number Group Number Insured Name Patient Relationship to Insured Coverage Start Date Coverage End Date [facility] [address] [place] [phone] [id number] AGUSTIN DANIEL Self - patient is the insured MEDICAL (GENERAL) HISTORY Medical History History ICD Code Renal cell carcinoma Gastroesophageal reflux disease Pancreatitis secondary to alcohol Alcohol abuse Gallstones Back pain Surgical History Surgery Date(Month/Year) Left nephrectomy 2021 Dental extractions 2023
--- OUTSIDE RECORDS SUMMARY | 2024-12-22 11:53 | XMS_ITS ---
Author Organization [facility] Address [address] [place] [address] Care Team Providers Care Butcher Or Smallgoods Maker Name Role Phone KATHLEEN MAHONEY Primary Care Provider Albert Bond Jr, Harsh Henley [phone] Joey Bhakta M.D. Unavailable REASON FOR VISIT results of ultrasound Encounters Encounter Location Date Provider Diagnosis [facility] [address] [place] [address] [address] [place] [address] 03/29/2024 Harsh Bond Jr PLAN OF TREATMENT Next Appt Details Provider Name:Harsh eaton Jr, 12/26/2024 11:20:00 AM, [address] [place] [address], [address], [place], [address],
--- OUTSIDE RECORDS SUMMARY | 2024-12-22 11:53 | XMS_ITS | Clinical Summary ---
Author Organization [facility] Address [address] [place] [address] Care Team Providers Care Flame Cutting Supervisor Name Role Phone Unavailable Primary Care Provider Unavailabl e Social History Tobacco Use Types Packs/Day Years Used Date Smoking Tobacco: Never Assessed Sex and Gender Information Value Date Recorded Sex Assigned at Not on file Gender Identity Not on file Sexual Orientation Not on file Plan of Treatment Health Maintenance Due Date Last Done Comments DTaP,Tdap,and Td Vaccines (1 - Tdap) 1981 Zoster Vaccines (1 of 2) 2012 Cholesterol Screening (Lipid Panel) 10/25/2022 Colorectal Cancer Screening: Colonoscopy 10/25/2022 Depression Screening 10/25/2022 HIV Screening 10/25/2022 Hepatitis C Screening 10/25/2022 Social Influencers of Health Screening 10/25/2022 COVID-19 Vaccine ( - 2023-2 5 season) 2024 Influenza Vaccine (#1) 2024 RSV Immunization Patients 60 + Years Old (1 - 1-dose 75+ series) 2037 HIB Vaccines Aged Out No longer eligi ble based on patient's age to complete this topic HPV Vaccines Aged Out No longer eligi ble based on patient's age to complete this topic Hepatitis A Vaccines Aged Out No long er eligible based on patient's age to complete this topic Hepatitis B Vaccines Aged Out No long er eligible based on patient's age to complete this topic IPV Vaccines Aged Out No longer eligi ble based on patient's age to complete this topic MMR Vaccines Aged Out No longer eligi ble based on patient's age to complete this topic Meningococcal ACWY Vaccine Aged Out N o longer eligible based on patient's age to complete this topic Pneumococcal Vaccine: Pediat rics (0 to 5 Years) and At-Risk Patients (6 to 64 Years) Aged Out No longer eligible b ased on patient's age to complete this topic RSV Immunization Patients Un nora 20 months Aged Out No longer eligible b ased on patient's age to complete this topic Varicella Vaccines Aged Out No longer eligible based on patient's age to complete this topic
--- OUTSIDE RECORDS SUMMARY | 2024-12-22 11:53 | XMS_ITS ---
Author Organization [facility] Address [address] [place] [address] Care Team Providers Care Functional Skills Tutor Name Role Phone KATHLEEN MAHONEY Primary Care Provider Harsh Santacruz Jr [phone] Joey Bhakta M.D. Unavailable REASON FOR VISIT abn ct scan duodenum Encounters Encounter Location Date Provider Diagnosis [facility] [address] [place], [place] [phone] 12/07/2024 Harsh Bond Jr PLAN OF TREATMENT Next Appt Details Provider Name:Harsh eaton Jr, 12/26/2024 11:20:00 AM, [address], [address], [place], [address],
[2024-12-22] MEDS: Diatrizoate Meglumine, Sodium 30 ML SOLUTION PO (12:03)
[2024-12-22] MEDS: iohexoL 350 MG/ML 100 ML INFUS..BTL 85 ML IV (12:03)
[2024-12-22] MEDS: Morphine Sulfate 4 MG/ML CARTRIDGE IVPUSH ×3 (13:42→21:11)
[2024-12-22] MEDS: Pantoprazole Sodium 40 MG/10 ML VIAL IVPUSH (13:42)
--- NOTE | 2024-12-22 14:04 | P.HPHOSP_ITS ---
History of Present Illness Date of Service: 12/22/24 Attending physician on admission: [facility] Chief Complaint: Abdominal pain Pt is a 64-year-old male with a PMH significant for recurrent?pancreatitis secondary to alcohol and gallstones, duodenitis, esophagitis, renal cell carcinoma s/p left nephrectomy in 2021, and chronic pain who presents to the ED with?RUQ and epigastric nonradiating today this morning pt also had nausea and a small amount vomiting. No diarrhea. Reports pain similar to previous episodes of pancreatitis. Pt recently admitted to the hospital from 12/06-12/09 for acute recurrent alcoholic pancreatitis. EGD on 12/07/2024 showed erosive esophagitis, duodenitis without mass or obstruction likely secondary to pancreatitis. Biopsies were taken the pt was treated with PPI. Reports ran out of oxycodone days ago. Last drink 11/16/2024. Pt also notes was supposed to follow up with GI after 2 weeks, but was unable to schedule an appointment and placed on the cancellation list. Pt reports has been able to eat and tolerate a full diet, though has to eat in small amounts. Previously pain was a 10/10 that brought him to the emergency room; currently well-controlled on analgesic regimen. Denies chest pain/pressure, palpitations. No fever or chills. In the ED pt with elevated heart rate of 99, vitals otherwise stable and WNL. Labs were significant for potassium 5.2 (though with mild hemolysis), transaminitis 99, ALT 56, alk-phos 151, T bili WNL at 0.4. Lipase mildly elevated at 110. No leukocytosis. Stable normocytic anemia of 12.4/35.7. Renal function baseline. Tested negative for flu, COVID, RSV. CT?of abdomen and pelvis concerning for gastro duodenitis/peptic ulcer disease with reactive lymphadenopathy with [id number] intrahepatic and extrahepatic biliary ductal dilation, though 2.6 lesion can not be entirely excluded. 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 Pt was treated with fentanyl, IVF, ondansetron, morphine, and Protonix. Pt will be admitted to the hospital for treatment and further evaluation of intractable abdominal pain in the setting of gastroduodenitis. Review of Systems 2 Review of Systems: Negative except for that which is stated in the [facility] Medical History Anorexia Arthritis Hiatal hernia Barretts esophagus Renal cell carcinoma Alcohol use disorder History of alcohol abuse GERD (gastroesophageal reflux disease) Back pain with right-sided sciatica (10/07/21) Pancreatitis Inguinal hernia Cyst of pancreas Surgical History H/O hernia repair Hx laparoscopic cholecystectomy (04/22/24) Hx of oral surgery H/O colonoscopy History of surgery on right wrist Hx of esophagogastroduodenoscopy History of nephrectomy, left (2021) Social History Household Members: Other Household Members Other:: self Housing: House Are you a primary healthcare applications analyst to a significant other at home: No Do you presently have visiting nurse or other home services: No Alcohol intake: former Patient Tobacco Use Status: Current everyday Tobacco user Tobacco use type: Cigarette Cigarette Packs Per Day: 1 Cigarettes Per Day: 20.0 Years Smoked: 44 Smoked in Last 30 Days: Yes Patient Interested in Nicotine Replacement: No Patient Given Instructions on How to Stop Smoking: No (Refused) Second Hand Smoke Exposure: No Use of substances other than those prescribed or required for medical reasons: No Currently Displaying Signs/Symptoms of Drug Intoxication Withdrawal: No Any prior treatment program specific to substance use: No Have you been hit, kicked, punched, or otherwise hurt by someone within the past year? If so, by whom?: No Do you feel safe in your current relationship?: No Current Relationship Is there a partner from a previous relationship who is making you feel unsafe now?: No Are you made to feel afraid or neglected: No Advance Directives: No Advance Directives Information Provided: Yes Advance Directives on File: No Do you have a plan to hurt others: No Plan Recently lost weight without trying: Yes How much weight loss: 14-23 pounds Eating poorly because of decreased appetite: Yes Nutrition screen score: 5 Nutrition Risks: No Nutritional Risk Poor oral hygiene: No service: Yes Current occupational status: employed Current occupation: [employer] Current occupational exposures/hazards: Yes Cognitive needs: No Hearing needs: No Vision needs: No Meds Allergies Allergy/AdvReac Type Severity Reaction Status Date / Time No Known Allergies Allergy Verified 12/22/24 08:49 Home Medications ?Medication ?Instructions ?Recorded ?Confirmed ?Last Taken ?Type acetaminophen 325 mg tablet 650 mg PO Q6H PRN Pain 11/23/24 12/22/24 Unknown History sucralfate 1 gram tablet 1 g PO QIDWMHS 11/23/24 12/22/24 12/21/24 History Physical Exam 2 Vital Signs and Narrative: Vital Signs: Last Vital Signs Temp 97.8 F 12/22/24 12:44 Pulse 64 12/22/24 12:44 Resp 12 12/22/24 12:44 BP 140/83 H 12/22/24 12:44 Pulse Ox 100 12/22/24 12:44 O2 Del Method Room Air 12/22/24 12:44 BMI result Body Mass Index 14.9 General: AOx3, no acute distress Resp: CTA bilaterally CVS: S1, S2, RRR GI: Epigastric and LUQ tenderness Skin: Warm, dry Neuro: Cranial nerves II-XII grossly intact bilaterally. Motor grossly intact bilaterally Extremities: No edema Psych: Appropriate affect Results Labs 12/22/24 09:04 12/23/24 05:35 Labs: Laboratory Results - last 24 hr 12/22/24 12/22/24 08:53 09:04 MCV 96.0 MCH 33.3 H MCHC 34.7 RDW 13.7 Plt Count 306 D MPV 10.3 Immature Gran % (Auto) 0.3 Neut % (Auto) 62.5 Lymph % (Auto) 25.6 Iron % (Auto) 10.7 Eos % (Auto) 0.6 Baso % (Auto) 0.3 Lymph # (Auto) 1.7 Iron # (Auto) 0.7 Eos # (Auto) 0.0 Baso # (Auto) 0.0 Abs Immat Gran (auto) 0.02 Absolute Neuts (auto) 4.0 Absolute Nucleated RBC 0.000 Nucleated RBC % (auto) 0.0 Anion Gap 14 Estim Creat Clear Calc 60.7 Estimated GFR > 60 POC Glucose 162 H Random Glucose 179 H Calcium 9.2 D Magnesium 1.6 Total Bilirubin 0.4 AST 99 H ALT 56 H Alkaline Phosphatase 151 H Total Protein 8.0 Albumin 3.3 L Lipase 110 H Influenza Type A (PCR) NEGATIVE Influenza Type B (PCR) NEGATIVE RSV RNA Qual (PCR) NEGATIVE SARS-CoV-2 RNA (RT-PCR) NEGATIVE Imaging Radiologist's Impressions: Impressions Abdomen/Pelvis CT 12/22/24 11:55 IMPRESSION: Concerning gastroduodenitis/peptic ulcer disease with reactive lymphadenopathy resulting in mild to moderate intrahepatic and extrahepatic biliary ductal dilatation.] 2 6 lesion cannot be entirely excluded. 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 Old/chronic resulting in collateral flow. Nonspecific liver hypodensities at the gallbladder fossa region. Recent injury cannot be excluded. Status post left-sided nephrectomy. Fleischner guidelines were followed. Electronically signed by: Dennys Leon MD 12/22/2024 12:43 PM EST Assessment and Plan (1) Gastritis and duodenitis: Status: Acute Plan Pt is a 64-year-old male with a PMH significant for recurrent?pancreatitis secondary to alcohol and gallstones, duodenitis, esophagitis, renal cell carcinoma s/p left nephrectomy in 2021, and chronic pain who presents to the ED with?RUQ and epigastric nonradiating today this morning pt also had nausea and a small amount vomiting. Pt will be admitted to the hospital for treatment and further evaluation of intractable abdominal pain in the setting of gastroduodenitis. Gastroduodenitis CT today showing concerns for gastro duodenitis/peptic ulcer disease with biliary ductal dilation though 2.6 cm lesion can not be excluded Recently had EGD on 12/08/2024 showing erosive esophagitis and duodenitis, biopsies negative for H pylori Will treat with Protonix b.i.d., analgesics, antiemetics Continue Carafate GI consult Pt is s/p cholecystectomy in 03/2024; will hold on MRCP pending GI input Clear liquid diet, advance as tolerated Transaminitis Appears new compared to previous LFT levels CT showing focal hypodensity adjacent to gallbladder without mass, though questionable 1 mm hypodensities in liver parenchyma CBD with mild dilation, ?Retained stone GI input appreciated, as above Hyperkalemia Potassium mildly elevated at 5.3 Likely secondary to hemolysis Trend potassium Alcohol use disorder Reports last drink 11/16/2025 Pt has not required phenobarb in prior to admissions DRN/DNi Attending:?Dr. David DVT Prophylaxis: Lovenox Pt will require a hospitalization of at least two nights for treatment of?intractable abdominal pain in the setting of gastroduodenitis and CBD dilation that will require IV analgesics, antiemetics, and specialist consultation with GI for possible additional workup including MRCP or repeat EGD. Quality Stroke Does the patient have a stroke diagnosis?: No VTE Prior VTE?: No VTE Risk Level:: Medical - moderate - high VTE Device Contraindication: Treatment Not Indicated VTE Drug Contraindication: N/A - Med Ordered
--- NOTE | 2024-12-22 14:48 | PHA.MEDREC ---
Addendum entered by Carlos Rangel RPh 12/22/24 15:01: Reviewed by [facility] Original Note: Pharmacy Consult ? Medication Reconciliation Pharmacy has completed the medication reconciliation. Spoke with patient and he confirmed his medications. He confirmed he finished the Oxycodone 5mg tabs in the last week he stated. He confirmed he was not able to take any medications this morning and stated he took his medications yesterday.
[2024-12-22] MEDS: 0.9 % Sodium Chloride 1,000 ML 100 ML IVCONT (16:37)
[2024-12-22] MEDS: Enoxaparin Sodium 40 MG/0.4 ML SYRINGE SUBCUT (16:47)
[2024-12-22 17:08] LABS: Appearance Urine Clear; Color Urine Yellow; Glucose Urine UA Negative (Negative); Leukocyte Esterase Urine Negative (Negative); Nitrite Urine Negative (Negative); PH 8.5 (5.0-9.0); Specific Gravity - Urine >= 1.030 (1.005-1.025); Urine Blood Negative (Negative); Urine Ketones Negative (Negative); Urine Protein Negative (Neg-Trace)
--- NOTE | 2024-12-22 18:33 | PC.NURSE ---
Patient pocket knife sent to security for storage.
[2024-12-23] MEDS: Morphine Sulfate 4 MG/ML CARTRIDGE IVPUSH ×4 (00:49→13:58)
[2024-12-23 03:07] VITALS: BP 108/68; PULSE 50; RESP 18; TEMP 36.3; O2SAT 98
[2024-12-23] MEDS: Pantoprazole Sodium 40 MG/10 ML VIAL IVPUSH (05:25)
[2024-12-23 06:46] LABS: Alanine Aminotransferase 36 U/L (0-40); Albumin Level 2.8 g/dL (3.5-5.0); Alkaline Phosphatase 131 U/L (39-117); Anion Gap 12 (12-20); Aspartate Amino Transferase 54 U/L (5-37); Bilirubin Total 0.3 mg/dL (0.0-1.0); Blood Urea Nitrogen 6 mg/dL (9-16); Calcium 8.7 mg/dL (8.4-10.2); Carbon Dioxide 23 mmol/L (22-29); Chloride 107 mmol/L (96-108); Creatinine Clr Calc Pharmacy 83.9; Estimated Glomerular Filt Rate > 60; Glucose Random 100 mg/dL (60-115); Potassium 4.5 mmol/L (3.3-5.1); Sodium 137 mmol/L (135-145); Total Protein 6.4 g/dL (6.5-8.0)
[2024-12-23 07:19] VITALS: BP 127/61; PULSE 61; RESP 16; TEMP 36.1; O2SAT 99
[2024-12-23] MEDS: 0.9 % Sodium Chloride Flush 3 ML SYRINGE IVFLUSH (09:05)
[2024-12-23] MEDS: Sucralfate 1 GM TABLET PO ×2 (09:05→11:15)
[2024-12-23 09:36] VITALS: RESP 18
--- NOTE | 2024-12-23 09:36 | P.PNIM_ITS ---
Subjective Subjective Date of Service: 12/23/24 Interval History: f/u on abdominal pain had no pain this morning, Physical Exam 2 Vital Signs: Vital Signs: Last Vital Signs Temp 96.9 F 12/23/24 07:19 Pulse 61 12/23/24 07:19 Resp 16 12/23/24 07:19 BP 127/61 12/23/24 07:19 Pulse Ox 99 12/23/24 07:19 O2 Del Method Room Air 12/23/24 07:19 BMI result Body Mass Index 19.0 Const: Other: General: AO X 3, no acute distress Resp: CTA bilateral CVS: S1,S2,RRR GI: +BS, NT, no distention Skin: No rash Neuro: motor grossly intact Psych: appropriate affect Objective Data Active Medications Acetaminophen (Acetaminophen 325 Mg Tablet) 650 mg PO Q6H PRN PRN Reason: Pain, Mild 1-3,fever,headache Calcium Carbonate (Calcium Carbonate 750 Mg Tab.Chew) 750 mg PO Q4H PRN PRN Reason: Heartburn Enoxaparin Sodium (Enoxaparin Sodium 40 Mg/0.4 Ml Syringe) 40 mg SUBCUT Q24H [facility] Last Admin: 12/22/24 16:47 Dose: 40 mg Documented By: JUSTEN Magnesium Hydroxide (Milk Of Magnesia 30 Ml Oral.Susp) 30 ml PO DAILY PRN PRN Reason: Constipation Melatonin (Melatonin 3 Mg Tablet) 6 mg PO BEDTIME PRN PRN Reason: Insomnia Morphine Sulfate (Morphine Sulfate 4 Mg/Ml Cartridge) 4 mg IVPUSH Q4H PRN; Protocol PRN Reason: Pain, Severe (Pain Scale 7-10) Last Admin: 12/23/24 05:25 Dose: 4 mg Documented By: ARNAUD Ondansetron HCl (Ondansetron Hcl 4 Mg/2 Ml Vial) 4 mg IVPUSH Q8H PRN PRN Reason: Nausea and Vomiting Oxycodone HCl (Oxycodone Hcl Immed Release 5 Mg Tablet) 5 mg PO Q6H PRN PRN Reason: Pain, Moderate(Pain Scale 4-6) Pantoprazole Sodium (Pantoprazole Sodium 40 Mg/10 Ml Vial) 40 mg IVPUSH BID@0630,1630 [facility] Last Admin: 12/23/24 05:25 Dose: 40 mg Documented By: ARNAUD Sodium Chloride (0.9 % Sodium Chloride Flush 3 Ml Syringe) 3 ml IVFLUSH QSHIFT [facility] Last Admin: 12/23/24 09:05 Dose: 3 ml Documented By: JAIME Sucralfate (Sucralfate 1 Gm Tablet) 1 gm PO QIDWMHS [facility] Last Admin: 12/23/24 09:05 Dose: 1 gm Documented By: JAIME Labs 12/22/24 09:04 12/23/24 05:35 Labs: Laboratory Results - last 24 hr 12/22/24 12/22/24 12/23/24 09:04 16:54 05:35 Anion Gap 12 Estim Creat Clear Calc 83.9 Estimated GFR > 60 Random Glucose 100 Calcium 8.7 Total Bilirubin 0.3 AST 54 H ALT 36 Alkaline Phosphatase 131 H Total Protein 6.4 L Albumin 2.8 L Lipase 110 H Urine Color Yellow Urine Appearance Clear Urine pH 8.5 Ur Specific [place] >= 1.030 H Urine Protein Negative Urine Glucose (UA) Negative Urine Ketones Negative Urine Blood Negative Urine Nitrite Negative Ur Leukocyte Esterase Negative Influenza Type A (PCR) NEGATIVE Influenza Type B (PCR) NEGATIVE RSV RNA Qual (PCR) NEGATIVE SARS-CoV-2 RNA (RT-PCR) NEGATIVE Assessment and Plan (1) Status post laparoscopic cholecystectomy: Status: Acute (2) Duodenitis: Status: Acute Plan Pt is a 64-year-old male with a PMH significant for recurrent?pancreatitis secondary to alcohol and gallstones, duodenitis, esophagitis, renal cell carcinoma s/p left nephrectomy in 2021, and chronic pain who presents to the ED with?RUQ and epigastric nonradiating today this morning pt also had nausea and a small amount vomiting. Pt will be admitted to the hospital for treatment and further evaluation of intractable abdominal pain in the setting of gastroduodenitis. Gastroduodenitis CT today showing concerns for gastro duodenitis/peptic ulcer disease with biliary ductal dilation though 2.6 cm lesion can not be excluded Recently had EGD on 12/08/2024 showing erosive esophagitis and duodenitis, biopsies negative for H pylori Will treat with IV Protonix b.i.d., analgesics, antiemetics Continue Carafate GI consult Pt is s/p cholecystectomy in 03/2024; will hold on MRCP pending GI input Clear liquid diet, advance as tolerated Transaminitis, improved to nearly resolved Appears new compared to previous LFT levels CT showing focal hypodensity adjacent to gallbladder without mass, though questionable 1 mm hypodensities in liver parenchyma CBD with mild dilation, ?Retained stone GI input appreciated, as above Hyperkalemia, resolved Likely secondary to hemolysis Alcohol use disorder Reports last drink 11/16/2025 Pt has not required phenobarb in prior to admissions DRN/DNi DVT Prophylaxis: Lovenox Pt will require a hospitalization of at least two nights for treatment of?intractable abdominal pain in the setting of gastroduodenitis and CBD dilation that will require IV analgesics, antiemetics, and specialist consultation with GI for possible additional workup including MRCP or repeat EGD. Quality Stroke Does the patient have a stroke diagnosis?: No VTE Prior VTE?: No VTE Risk Level:: Medical - moderate - high VTE Device Contraindication: Treatment Not Indicated VTE Drug Contraindication: N/A - Med Ordered
--- NOTE | 2024-12-23 09:53 | MHC.CM.PN ---
Addendum entered by Hayde Sanchez 12/23/24 14:29: DP: PT HAS BEEN MEDICALLY CLEARED FOR DC HOME, NO SERVICES. PT WILL DC HOME VIA LYFT. Original Note: CM MET WITH PT AT BEDSIDE. PT LIVES ALONE, INDEPENDENT AND EMPLOYED F/T. NO SERVICES OR DME. + HCP PCP KATHLEEN ARCEO DP: HOME, NO SERVICES ANTICIPATED. PT MAY NEED ASSIST WITH [facility]. CM WILL CONTINUE TO FOLLOW FOR ANY CHANGE TO DC PLAN/NEEDS
--- NOTE | 2024-12-23 10:29 | PC.NURSE ---
Pt. is alert and oriented x 4, still have jeans on and boots on since admission, refused skin admission assessment and refused today skin assessment, stating his skin is fine.
--- NOTE | 2024-12-23 12:39 | PM.EVENT ---
Event Note Date of Service: 12/23/24 Event Note: GI Consult-Full note dictated-History from patient and EMR Imp: EtOH-induced pancreatitis with chronic changes on CT and ongoing chronic pain. Came to ER after having run out of Oxycodone on 12/21. Reports sobriety since his acute exacerbation of pancreatitis at [place]. He is currently feeling well and is tolerating liquids. He is hungry. At home he was tolerating small meals and was not vomiting except for one time yesterday due to the pain. His abdominal exam is currently very benign. His CT does not show any signs of GI obstruction and I do not think there is a high probability of choledochlithiasis given the current clinical history. Rec: Advance diet and discharge today if stable. He has an appointment with Dr. Bond next week. At that point an outpatient MRI/MRCP can be arranged if felt to be indicated. He will need a Rx for pain medication when discharged. D/W patient in detail and he is comfortable with this plan. Thanks Time Spent With Patient Time: Total time managing care of this patient today ____ minutes.
--- NOTE | 2024-12-23 12:44 | P.DS_ITS ---
DS: Providers Provider Date of Service: 12/23/24 Date of admission: 12/22/24 14:49 Date of discharge: 12/23/24 Primary care physician: DAWNA Escoto- Consults: 12/22/24 14:55 Consult to Gastroenterology Routine Consulting Provider: Harsh Bond Reason for consultation: Gastroduodenitis, recent EGD on 12/07; BD dillation ?MRCP DS: Diagnosis Discharge Diagnosis (1) Status post laparoscopic cholecystectomy: Status: Acute (2) Duodenitis: Status: Acute DS: Summary Hospital Course Hospital Course: admission hpi Pt is a 64-year-old male with a PMH significant for recurrent?pancreatitis secondary to alcohol and gallstones, duodenitis, esophagitis, renal cell carcinoma s/p left nephrectomy in 2021, and chronic pain who presents to the ED with?RUQ and epigastric nonradiating today this morning pt also had nausea and a small amount vomiting. No diarrhea. Reports pain similar to previous episodes of pancreatitis. Pt recently admitted to the hospital from 12/06-12/09 for acute recurrent alcoholic pancreatitis. EGD on 12/07/2024 showed erosive esophagitis, duodenitis without mass or obstruction likely secondary to pancreatitis. Biopsies were taken the pt was treated with PPI. Reports ran out of oxycodone days ago. Last drink 11/16/2024. Pt also notes was supposed to follow up with GI after 2 weeks, but was unable to schedule an appointment and placed on the cancellation list. Pt reports has been able to eat and tolerate a full diet, though has to eat in small amounts. Previously pain was a 10/10 that brought him to the emergency room; currently well-controlled on analgesic regimen. Denies chest pain/pressure, palpitations. No fever or chills. In the ED pt with elevated heart rate of 99, vitals otherwise stable and WNL. Labs were significant for potassium 5.2 (though with mild hemolysis), transaminitis 99, ALT 56, alk-phos 151, T bili WNL at 0.4. Lipase mildly elevated at 110. No leukocytosis. Stable normocytic anemia of 12.4/35.7. Renal function baseline. Tested negative for flu, COVID, RSV. CT?of abdomen and pelvis concerning for gastro duodenitis/peptic ulcer disease with reactive lymphadenopathy with [id number] intrahepatic and extrahepatic biliary ductal dilation, though 2.6 lesion can not be entirely excluded. 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 Pt was treated with fentanyl, IVF, ondansetron, morphine, and Protonix. Pt will be admitted to the hospital for treatment and further evaluation of intractable abdominal pain in t he setting of gastroduodenitis. Hospital course :Patient presented with abdominal pain as detailed above. Presentation c/w pancreatitis. He was seen by GI with the following remarks and recommendation: EtOH-induced pancreatitis with chronic changes on CT and ongoing chronic pain. Came to ER after having run out of Oxycodone on 12/21. Reports sobriety since his acute exacerbation of pancreatitis at [place]. He is currently feeling well and is tolerating liquids. He is hungry. At home he was tolerating small meals and was not vomiting except for one time yesterday due to the pain. His abdominal exam is currently very benign. His CT does not show any signs of GI obstruction and I do not think there is a high probability of choledochlithiasis given the current clinical history. Rec: Advance diet and discharge today if stable. He has an appointment with Dr. Bond next week. At that point an outpatient MRI/MRCP can be arranged if felt to be indicated. He will need a Rx for pain medication when discharged. D/W patient in detail and he is comfortable with this plan. Thanks He tolerated regular diet and discharged Moderate protein calory malnutrition, high protein diet and cessation of alcohol suggested Time Attestation Discharge Coordination Time (in mins): 35 Quality: Safe Use of Opioids Does Pt have an Active Cancer Diagnosis on the Problem List?: No Quality: Stroke Does the patient have a stroke diagnosis?: No Physical Exam Vital Signs: Vital Signs: Last Vital Signs Temp 96.9 F 12/23/24 07:19 Pulse 61 12/23/24 07:19 Resp 18 12/23/24 09:36 BP 127/61 12/23/24 07:19 Pulse Ox 99 12/23/24 07:19 O2 Del Method Room Air 12/23/24 07:19 BMI result Body Mass Index 19.0 General: AO X 3, no acute distress Resp: CTA bilateral CVS: S1,S2,RRR GI: +BS, NT, no distention Skin: No rash Neuro: motor grossly intact Psych: appropriate affect DS: Data Data Completed and Pending Completed studies during hospitalization [Text1]: Procedures Excision of Duodenum, Via Natural or Artificial Opening Endoscopic, Diagnostic (12/06/24) Excision of Stomach, Pylorus, Via Natural or Artificial Opening Endoscopic, Diagnostic (12/06/24) Labs on day of discharge: Laboratory Results - last 24 hr 12/22/24 12/23/24 16:54 05:35 Sodium 137 Potassium 4.5 Chloride 107 Carbon Dioxide 23 Anion Gap 12 BUN 6 L Creatinine 0.71 Estim Creat Clear Calc 83.9 Estimated GFR > 60 Random Glucose 100 Calcium 8.7 Total Bilirubin 0.3 AST 54 H ALT 36 Alkaline Phosphatase 131 H Total Protein 6.4 L Albumin 2.8 L Urine Color Yellow Urine Appearance Clear Urine pH 8.5 Ur Specific [place] >= 1.030 H Urine Protein Negative Urine Glucose (UA) Negative Urine Ketones Negative Urine Blood Negative Urine Nitrite Negative Ur Leukocyte Esterase Negative Discharge Plan Discharge Anticipated Discharge Date/Time: 12/23/24 12:41 Patient Disposition: Home, Self-Care Discharge Diagnosis: Duodenitis Referrals: Jorge Alberto Erickson, BURN NURSE- [Primary Care Provider] - 1 Week Discharge Medications: Continued sucralfate 1 gram Tablet 1 g PO QIDWMHS acetaminophen 325 mg Tablet 650 mg PO Q6H PRN (Reason: Pain) omeprazole 20 mg Capsule,Delayed Release(Dr/Ec) 20 mg PO BID@0630,1630 Qty: 180 0RF Discharge Orders: Discharge Order (Routine); Ordered 12/23/24 Ordered By: Harinder David Diet: Advance to usual diet Activity on Discharge: As tolerated Stand Alone Forms: Patient Portal Discharge page Print Language: Bengali Care Plan Goals: Recovery from pancreatitis Health Concerns: Pancreatitis Duodenitis Plan of Treatment: Avoid fatty food, avoid alcohol. Follow up with her primary care doctor within a week, call for appointment. Assessment: See above
[2024-12-23 12:53] VITALS: BMI 19.0
--- NOTE | 2024-12-23 13:11 | MHC.CLN ---
NUTRITION DIET ADVANCED TO REGULAR, LOW FAT. RECOMMEND DIABETIC 2000 KCAL, LOW FAT DIET. NUTRITION CONSULT FOR REPORTED WEIGHT LOSS. VARIABLE WEIGHTS UPON ADMISSION. WITH HIGHER WEIGHT, BMI=19 AND IS 82% OF IBW. LOWER WEIGHT SHOWS SIGNIFICANT WEIGHT LOSS X 30 DAYS, -5.9%. QUALIFIES MODERATELY MALNOURISHED IN THE CONTEXT OF CHRONIC ILLNESS. FOLLOW FOR DIET ADVANCEMENT, PO INTAKE AND WEIGHT. SEE CLINICAL NUTRITION ASSESSMENT 12/23/24.
[2024-12-23 13:58] VITALS: RESP 18
[2024-12-23 14:12] VITALS: BP 125/67; PULSE 58; RESP 16; TEMP 36.1; O2SAT 99
[2024-12-23 15:49] VITALS: BP 113/72; PULSE 63; RESP 18; TEMP 36.7; O2SAT 99
--- NOTE | 2024-12-24 04:32 | CONS_ITS ---
DATE OF SERVICE: 12/23/2024 REASON FOR CONSULTATION: Abdominal pain and history of pancreatitis. HISTORY OF PRESENT ILLNESS: This has been obtained from the patient and the medical record. The patient is a 64-year-old male with a longstanding history of alcohol abuse and known history of pancreatitis. He has been admitted twice earlier this month for episodes of abdominal pain and documented pancreatitis. His initial imaging studies earlier this month seem to indicate a component of a gastric outlet obstruction and he underwent upper endoscopy earlier this month with Dr. Bond. The upper endoscopy did not reveal any obstruction, but did reveal evidence of erosive esophagitis and associated duodenitis, but without any sign of mass or obstruction. He was discharged most recently as of December 09 on omeprazole. Over the 2 weeks that he has been home he has continued to remain abstinent from alcohol. He describes that he has been eating small meals and tolerating those. He is not having any vomiting nor significant abdominal pain. However, he does describe taking at least one oxycodone each morning upon awakening for abdominal pain prior to going to work. He ran out of the oxycodone 2 days prior to the admission. He then began having increasing abdominal pain with a single episode of a small amount of vomiting. There was no hematemesis nor coffee-ground emesis. Due to the pain, he came to the ER. He was subsequently admitted. He does report that he feeling better today. He is not having any significant abdominal pain and has been tolerating liquids. He is actually hungry and would like to try to eat. He describes a normal bowel movement yesterday, which was brown and without any melena nor hematochezia. Of note, at home, he has not noticed any signs of jaundice, increasing abdominal girth, fevers, nor any edema. MEDICATIONS: At home included omeprazole 20 mg b.i.d., sucralfate and oxycodone. His medications here in the hospital included morphine p.r.n. and IV pantoprazole. PAST MEDICAL HISTORY: History of alcohol abuse with associated episodes of pancreatitis. Upper endoscopy earlier this month as described above with the finding of erosive esophagitis and duodenitis. He has history of right inguinal hernia repair,, cholecystectomy, and a left nephrectomy for cancer. He denies history of MO, diabetes, nor stroke. 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 Alcohol abuse with sobriety since by his report. PHYSICAL EXAMINATION: GENERAL: The patient is a thin, alert, comfortable-appearing male. SKIN: Warm and dry. Nonjaundiced. Anicteric sclerae. NECK: Supple. CARDIAC: Normal S1, S2. ABDOMEN: Soft, nondistended. Normal bowel sounds and currently nontender. There is no palpable mass. EXTREMITIES: Without edema. LABORATORY DATA: White blood cell count 6.5, hemoglobin 12.4, and platelets 306,000. Hemoglobin on December 09 was 13.3. Normal electrolytes. BUN 6, creatinine 0.7. Total bilirubin 0.4, AST 99, ALT 56, alkaline phosphatase 151, albumin 3.[address] scan of the abdomen and pelvis on this admission describes similar findings in regard to the pancreatitis. The scan describes some mild intrahepatic biliary ductal dilatation and a common bile duct of only 5 mm. There was evidence of some edema in the head of the pancreas and some surrounding inflammation. There is no report of gastric distention nor any bowel obstruction. IMPRESSION: Given the patient's clinical history I suspect he does have some ongoing low-grade pancreatitis on a chronic basis from his previous episodes of pancreatitis in relation to his alcohol abuse. However, at the present time, he does not appear to be having any significant symptoms from that. At this point given his benign abdominal exam, stable findings on the CT scan, and just minimally elevated lipase level, I would think we can advance his diet and observe him. I do not think he needs an inpatient MRI of the pancreas or MRCP at this time. I do not think a MRCP would show any sign of choledocholithiasis. However, I do think a MRI of the pancreas would be helpful once the acute inflammation subsides to definitively exclude any other pathology such as a small mass that might be contributing to these symptoms. At this point I think if his diet is tolerated he could be discharged later today and then be followed up in the office at a scheduled appointment for next week with Dr. Bond. At that point an outpatient MRI and MRCP can be arranged if it is felt to be still required. He does state that he will need a prescription for pain medication at the time of discharge and I did review this with Dr. David from the hospitalist service. The patient is very comfortable with this plan of going home today and then following up next week. However, I did advise him that if problems recur prior to the office visit he should certainly come back to the ER for re-evaluation. He understood this completely.. Thank you for the consultation. MD YASMANI Soto/SAVI / [phone] MTDGisselle
== END 2024-12-23 16:19 | disposition home or self-care (01) | DRG 241 ==
LOC: HO.ED 14:03 → HO.EDOVER 15:17 → HO.S3 16:50
PROVIDERS: Physician Assistant Medical; Admitting Provider Student in an Organized Health Care Education/Training Program; Emergency Provider Emergency Medicine; PCP Nurse Practitioner Family; Visit Provider Internal Medicine
DX: K29.90 Gastroduodenitis, unspecified, without bleeding (principal); Z66 Do not resuscitate; E44.0 Moderate protein-calorie malnutrition; K86.0 Alcohol-induced chronic pancreatitis; E87.5 Hyperkalemia; Z90.5 Acquired absence of kidney; F17.210 Nicotine dependence, cigarettes, uncomplicated; Z71.6 Tobacco abuse counseling; Z68.1 Body mass index [BMI] 19.9 or less, adult; Z71.41 Alcohol abuse counseling and surveillance of alcoholic; Z20.822 Contact with and (suspected) exposure to COVID-19; Z79.899 Other long term (current) drug therapy
CPT/HCPCS: 0241U; 36415; 74177; 80053; 81003; 82947; 83690; 83735; 85025; 99221; 99285; J1650; J2270; J2405; J2470; J3010; Q9967

== ENCOUNTER → 2024-12-22 09:25 | Outpatient (BNV) | payer OTHER, SELFPAY | PROVIDERS: Emergency Provider Emergency Medicine; PCP Nurse Practitioner Family; Visit Provider Radiology Diagnostic Radiology | DX: R14.0 Abdominal distension (gaseous) (principal) | CPT/HCPCS: 74177 ==

== ENCOUNTER → 2024-12-22 14:49 | Outpatient (BNV) | payer OTHER, SELFPAY | PROVIDERS: Admitting Provider Student in an Organized Health Care Education/Training Program; Emergency Provider Emergency Medicine; PCP Nurse Practitioner Family; Visit Provider Student in an Organized Health Care Education/Training Program | DX: Z90.49 Acquired absence of other specified parts of digestive tract (principal); K29.80 Duodenitis without bleeding | CPT/HCPCS: 99239 ==

== ENCOUNTER 2025-01-11 15:19 | Outpatient (AMB) | payer OTHER, SELFPAY ==
[2025-01-11 15:20] VITALS: BP 120/72; PULSE 90; O2SAT 98; BMI 14.6
--- NOTE | 2025-01-11 15:20 | A.OFFPC_ITS ---
Vital Signs 01/11/25 15:20 Height 5 ft 7 in Weight 93 lb BMI 14.6 BP 120/72 Blood Pressure Location Lt brachial Position Sitting Pulse 90 Pulse Source Pulse Oximeter Pulse Oximetry (%) 98 Oxygen Delivery Method Room Air Intake Visit Reasons: new dm appt Intake Note: pt is here for appointment to discuss new DM diagnosis, a1c done in office today Floor Broker Required: No Allergies No Known Allergies Allergy (Verified 01/11/25 15:20) Medication List - Last Reconciled 01/11/25 by DAWNA Cook- acetaminophen 650 mg PO Q6H PRN omeprazole 20 mg PO BID@0630,1630 oxycodone mg PO sucralfate 1 g PO QIDWMHS Tobacco use date assessed: 01/11/25 Dental Screening Dental Screen Date: 01/11/25 Did you have a dental visit in the last 12 months?: Yes Did you have a dental problem in the last 6 months where you did not have access to dental care?: No Was dental information given to patient?: Patient has dentist HPI new dm appt HPI Details Chief Complaint The patient presents for follow-up care after an emergency department visit for acute on chronic pancreatitis. History of Present Illness The patient is a 64-year-old male presenting with a follow-up after his emergency department visit for acute on chronic pancreatitis related to alcohol use and gallstones. He experienced nausea, vomiting, and severe upper abdominal pain, leading to the initial ER consultation. During his hospital stay, the pancreatitis was complicated by an acute kidney injury and metabolic alkalosis. An esophagogastroduodenoscopy (EGD) performed on December 07, 2024, revealed erosive esophagitis and duodenitis, likely secondary to pancreatitis. Biopsies were taken, and he was commenced on a proton pump inhibitor (PPI) and Carafate. Additionally, a hepatic abscess was identified and discussed with Gastroenterology. The patient was discharged with significant improvement in his symptoms, although he reports persistent mild abdominal discomfort, particularly in the mornings. Social History - The patient has a history of alcohol u se disorder, with the last reported drink on 2023. - He has been smoking since age 20, curr ently reducing to approximately half a pack per day. - He reports dietary adjustments, specif ically reducing fatty food intake, which he states has been beneficial. Health Maintenance - He expresses interest in a low-dose CT scan program for lung cancer screening due to his history of smoking. Review of Systems - Gastrointestinal: Reports ongoing abdo johnny discomfort, especially in the mornings. - Gastrointestinal: Denies emesis. denies any cp, sob, vomiting Physical Exam General: Cooperative, healthy appearing, comfortable, no acute distress and well developed Orientation: Patient oriented x3 Limitations: No limitations Head: Normal to inspection Ears: Hearing grossly normal bilaterally Nose: Normal external nose present Face and sinus: Normal facial exam Eyes: Appearance normal, both eyes and all related structures Neck: Normal visual inspection and Yes full ROM Respiratory: Diminished, coarse Cardiovascular: Regular rate and rhythm. S1 and S2 GI: Slight abdominal tenderness with palpation (epigastric only) Skin: No rashes or lesions noted Neuro: Patient oriented x3 Extremities: Normal to inspection Results - Endoscopy on 12/07/2024 showed erosive esophagitis and duodenitis without mass or obstruction. Plan - Continue with PPI and Carafate for man agement of erosive esophagitis and duodenitis. - Initiate treatment with low-dose gabap entin for abdominal discomfort. - Monitor hepatic abscess in collaborati on with Gastroenterology consultation. - Repeat laboratory tests including Hemo globin A1c and lipase levels to assess pancreatic function and potential glucose intolerance. - Encourage continued smoking cessation efforts and monitor lung health through low-dose CT scan program. - Avoid prescribing oxycodone currently, and provide guidance on using leftover medication only as needed. Discussion Notes During the visit, I reinforced the importance of continuing proton pump inhibitor therapy and Carafate for gastrointestinal management. I discussed the initiation of low-dose gabapentin to address residual abdominal discomfort, which the patient understood and agreed to. The importance of monitoring his hepatic abscess in collaboration with Gastroenterology was highlighted. For potential glucose intolerance, we discussed the uncertain diagnosis of diabetes, considering his Hemoglobin A1c level, and agreed to follow up with additional laboratory tests. I advised against further oxycodone use and emphasized lifestyle modifications, focusing on dietary changes and smoking cessation. He expressed interest in the low-dose CT scan program for lung cancer screening, and we will plan accordingly. Patient Instructions - Continue medications as prescribed, in cluding PPI and Carafate. - Use low-dose gabapentin as directed fo r pain management. - Schedule follow-up blood tests, includ ing Hemoglobin A1c and lipase levels. - Adhere to dietary modifications by jacques iding fatty foods and especially alcohol. - Minimize tobacco use and work towards cessation. - Contact our office if symptoms worsen or new symptoms develop. -pt to follow up with GI in approx 1 mon [facility] Medical History Anorexia Arthritis Hiatal hernia Barretts esophagus Renal cell carcinoma Alcohol use disorder History of alcohol abuse GERD (gastroesophageal reflux disease) Back pain with right-sided sciatica (10/07/21) Pancreatitis Inguinal hernia Cyst of pancreas Surgical History Status post laparoscopic cholecystectomy H/O hernia repair Hx laparoscopic cholecystectomy (04/22/24) Hx of oral surgery H/O colonoscopy History of surgery on right wrist Hx of esophagogastroduodenoscopy History of nephrectomy, left (2021) Social History Household Members: Other Household Members Other:: self Housing: House Are you a primary career center advisor to a significant other at home: No Do you presently have visiting nurse or other home services: No Alcohol intake: former Patient Tobacco Use Status: Current everyday Tobacco user Tobacco use type: Cigarette Cigarette Packs Per Day: 1 Cigarettes Per Day: 20.0 Years Smoked: 44 Second Hand Smoke Exposure: No service: No Current occupational status: employed Current occupation: [employer] Current occupational exposures/hazards: Yes Cognitive needs: No Hearing needs: No Vision needs: No Questionnaire PHQ-9 Over the last 2 weeks, how often have you been bothered by any of the following problems? 1. Little interest or pleasure in doing things: not at all 2. Feeling down, depressed, or hopeless: nearly every day 3. Trouble falling or staying asleep, or sleeping too much: nearly every day 4. Feeling tired or having little energy: nearly every day 5. Poor appetite or overeating: nearly every day 6. Feeling bad about yourself - or that you are a failure or have let yourself or your family down: several days 7. Trouble concentrating on things, such as reading the newspaper or watching television: not at all 8. Moving or speaking so slowly that other people could have noticed. Or the opposite - being so fidgety or restless that you have been moving around a lot more than usual: not at all 9. Thoughts that you would be better off or of hurting yourself in some way: not at all Total score: 13 Depression Screening Interpretation: Positive Depression Screening Done: Yes 98568 - PHQ-9 Billing: Yes Source: Developed by Drs. Mahendra Paulino, Dian Jin, Jesus Mock and colleagues, with an educational oksana from [employer]. Thrive Questionnaire Date Thrive assessed: 01/11/25 I am a: Patient What is your living situation today?: I have a steady place to live Within the past 12 months, did the food you bought not last and you didn't have the money to get more?: Never true Within the past 12 months, did you worry whether your food would run out before you got money to buy more?: Never true Do you have trouble paying for medicines?: No Do you have trouble getting transportation to medical appointments?: No Do you have trouble paying your heating and electricity bill?: No Do you have trouble taking care of your child, family member or friend?: No Do you have trouble with day-to-day activities such as bathing, preparing meals, shopping, managing finances, etc.?: No Are you currently unemployed and looking for a job?: No Are you interested in more education?: No Please select the resources that you would like help with: None Currently or been in a relationship where the following occur: No concerns reported THRIVE Score: 0 AUDIT C Alcohol Use Questionnaire (AUDIT-C) 1. How often do you have a drink containing alcohol?: 2-4 times a month 2. How many drinks containing alcohol do you have on a typical day when you are drinking?: 1 or 2 3. How often do you have six or more drinks on one occasion?: Never Total Score: 2 Score Reviewed/Action Taken: Yes CLAIRE-7 AMB Questionnaire CLAIRE-7 Date CLAIRE - 7 assessed: 01/11/25 Feeling nervous, anxious, or on edge: 0 = Not at all Not being able to stop or control worryin = Not at all Worrying too much about different things: 0 = Not at all Trouble relaxin = Not at all Being so restless that it is hard to sit still: 0 = Not at all Becoming easily annoyed or irritable: 0 = Not at all Feeling afraid as if something awful might happen: 0 = Not at all Total CLAIRE-7 score (0-4 normal; 5-9 mild; 10-14 moderate; 15-21 severe): 0 Source: Developed by Drs. Mahendra Paulino, Dian Jin, Jesus Mock and colleagues, with an educational oksana from [employer]. CLAIRE-7 Assessment Billing CLAIRE-7 Assessment Tool: CLAIRE-7 Assessment 70382 Physical exam (Primary Care) Vital Signs: Last Vital Signs Pulse 90 01/11/25 15:20 BP 120/72 01/11/25 15:20 Pulse Ox 98 01/11/25 15:20 Oxygen Delivery Method Room Air 01/11/25 15:20 BMI result Body Mass Index 14.6 Tobacco/Smoking Status: Tobacco use Status Tobacco use date assessed 01/11/25 01/11/25 15:21 Patient Tobacco Use Status Current everyday Tobacco 01/11/25 15:21 Tobacco use type Cigarette 01/11/25 15:21 PHQ-9: PHQ-9 Score PHQ-9: Total score 13 01/11/25 15:21 Depression Screening Interpretation: Positive Thrive Assessment: Date of Thrive Assessment Date Thrive assessed 01/11/25 01/11/25 15:21 Currently or been in a relationship where the following occur: No concerns reported Results AMB Hemoglobin A1c AMB Hemoglobin A1c 6.7 % Last Edit by Ishan Mustafa CMA on 01/11/25 15: 38 Results Reviewed Results Reviewed: Laboratory Last Values Hgb A1c (Clinic) 6.7 % (4.0-6.0) H 01/11/25 15:34 Coding Level of Care Code Est Pt Level 3 (30268) Diagnoses Acute on chronic pancreatitis K85.90; K86.1 Smoker F17.200 Hyperglycemia R73.9 Additional Codes CLAIRE-7 Assessment Billing - CLAIRE-7 Assessment Tool: CLAIRE-7 Assessment 13171 ([id number]) PHQ-9 - 74740 - PHQ-9 Billing: Yes ([id number]) Assessment & Plan Assessment & Plan (1) Acute on chronic pancreatitis: Code(s): K85.90 - Acute pancreatitis without necrosis or infection, unspecified; K86.1 - Other chronic pancreatitis Category: Medical (2) Smoker: Code(s): F17.200 - Nicotine dependence, unspecified, uncomplicated Category: Medical (3) Hyperglycemia: Code(s): R73.9 - Hyperglycemia, unspecified Category: Medical Plan . Orders: Orders Complete Blood Count Auto Diff Today K85.90 - Acute pancreatitis without necrosis or infection, unspecified, K86.1 - Other chronic pancreatitis TSH reflex Free T4 Today K85.90 - Acute pancreatitis without necrosis or infection, unspecified, K86.1 - Other chronic pancreatitis AMB Hemoglobin A1c Today E11.9 - Type 2 diabetes mellitus without complications, Z13.9 - Encounter for screening, unspecified Comprehensive [place]. Panel Fast Today K85.90 - Acute pancreatitis without necrosis or infection, unspecified, K86.1 - Other chronic pancreatitis UA CC w/rflx Micro + Cult Today K85.90 - Acute pancreatitis without necrosis or infection, unspecified, K86.1 - Other chronic pancreatitis Lipid Panel Today K85.90 - Acute pancreatitis without necrosis or infection, unspecified, K86.1 - Other chronic pancreatitis Magnesium Today K85.90 - Acute pancreatitis without necrosis or infection, unspecified, K86.1 - Other chronic pancreatitis Lipase Today K85.90 - Acute pancreatitis without necrosis or infection, unspecified, K86.1 - Other chronic pancreatitis Hemoglobin A1c Today K85.90 - Acute pancreatitis without necrosis or infection, unspecified, K86.1 - Other chronic pancreatitis Referrals Lung Cancer Screening Referral F17.200 - Nicotine dependence, unspecified, uncomplicated Medications: New gabapentin day 1= one tab day 2= one tab bid, day 3 and thereafter= one tab TID 100 mg PO TID 30 days 90 caps 0RF ondansetron 4 mg PO Q8H 30 days PRN 90 tabs 0RF nausea and vomiting
--- OUTSIDE RECORDS SUMMARY | 2025-01-11 15:21 | XMS_ITS | Clinical Summary ---
Author Organization [facility] ity Address [address] [place] [address] Care Team Providers Care Paralegal Specialist Name Role Phone Unavailable Primary Care Provider Unavailabl e Social History Tobacco Use Types Packs/Day Years Used Date Smoking Tobacco: Never Assessed Sex and Gender Information Value Date Recorded Sex Assigned at Not on file Legal Sex Male 5:14 PM EST Gender Identity Not on file Sexual Orientation Not on file Plan of Treatment Health Maintenance Due Date Last Done Comments DTaP,Tdap,and Td Vaccines (1 - Tdap) 1981 Pneumococcal Vaccine: 50+ Ye ars (1 of 1 - PCV) 2012 Zoster Vaccines (1 of 2) 2012 Cholesterol Screening (Lipid Panel) 10/25/2022 Colorectal Cancer Screening: Colonoscopy 10/25/2022 Depression Screening 10/25/2022 HIV Screening 10/25/2022 Hepatitis C Screening 10/25/2022 Social Influencers of Health Screening 10/25/2022 COVID-19 Vaccine (1 - 2023-2 5 season) 2024 Influenza Vaccine [...] patient's age to complete this topic Meningococcal B Vacine Aged Out No lo nger eligible based on patient's age to complete [...]
--- OUTSIDE RECORDS SUMMARY | 2025-01-11 15:21 | XMS_ITS | Patient Health Record ---
Author Organization [facility] Address [address] [place] [address] Care Team Providers Care Utility Forester Name Role Phone KATHLEEN ERICKSON Primary Care Provider Harsh Santacruz Jr Unavailable Yony Garcia Joey Unavailable Unavailable ALLERGIES No Known Allergies RESULTS Component Value Reference Range Notes Pathology Reviewed date:03/23/2024 08:42:13 AM Interpretation: Performing Lab:[facility], [address] [place] [phone] Notes/Report: Complete Blood Count no Diff Reviewed date:03/30/2024 08:50:11 AM Interpretation: Performing Lab:[facility], [address] [place] [phone] Notes/Report: White Blood Count 5.7 4.8-10.8 X10*3/uL [...] Panel Reviewed date:03/30/2024 08:50:06 AM Interpretation: Performing Lab:[address] [phone] Notes/Report: Bilirubin Total 0.4 0.0-1.0 mg/dL Bilirubin Direct 0.2 0.0-0.5 mg/dL Aspartate Amino Transferase 17 5-37 U/L Alanine Aminotransferase 8 0-40 U/L Total Protein 6.8 6.5-8.0 g/dL Albumin Level 3.4 3.5-5.0 g/dL Alkaline Phosphatase 78 39-117 U/L Lipase Reviewed date:03/30/2024 08:49:58 AM Interpretation: Performing Lab:[address] [phone] Notes/Report: Lipase 45 8-78 U/L US abdomen complete Reviewed date:03/30/2024 08:50:18 AM Interpretation: Performing Lab: Notes/Report: [address] [address] Ultrasound Report Signed Patient: Agustin Daniel MR#: [id number] 01 : 1960 Acct:[id number] Age/Sex: 63 / M ADM Date: 03/28/24 Loc: HO.US Attending Dr: Harsh Bond MD Ordering Physician: Harsh Bond MD Date of Service: 03/28/24 Procedure(s): US abdomen complete Accession Number(s): [id number] cc: Harsh Bond MD; Kathleen Erickson [facility] EXAMINATION: US ABDOMEN COMPLETE CLINICAL INFORMATION: [...] MD in OV> 03/29/24910 DD/ 0847 TD/TT: Turf And Grounds Supervisor: SOWMYA Pathology Reviewed date:12/13/2024 03:31:10 PM Interpretation: Performing Lab:[facility], [address] [place] [phone] Notes/Report: REASON FOR REFERRAL No Information MEDICATIONS [...] parts of digestive tract (R93.3) Active confirmed 885110714 Problem Acute abdominal pain (R10.9) Active confirmed 764344782 Problem Esophagitis, erosive (K22.10) Active confirmed Ulcer of esophagus (53181076) Problem Duodenitis (K29.80) Active confirmed Duodenitis (86325049) VITAL SIGNS Blood pressure diastolic 00 mm Hg 03/03/2024 Height 5 ft 7 in in 03/03/2024 Blood pressure systolic 00 mm Hg 03/03/2024 Weight 105 lbs 03/03/2024 BMI 16.44 kg/m2 03/03/2024 Encounters Encounter Location Date Provider Diagnosis [facility] [address] [place] [id number] 03/18/2024 Harsh Bond Jr Abnormal CT scan, esophagus R93.3 [facility] [place] [address] [place] [id number] 12/07/2024 Harsh Bond Jr [facility] [address] [place] [phone] 03/21/2024 Harsh Bond Jr [facility] [address] [place] [phone] 12/26/2024 Harsh Bond Jr [facility] [address] [place] [phone] 03/03/2024 Harsh Bond Jr Abnormal findings on diagnostic imaging of other parts of digestive tract R93.3 [facility] [address] [place] [phone] 02/23/2024 Harsh Bond Jr [facility] [address] [place] [phone] 03/21/2024 Harsh Bond Jr Acute abdominal pain R10.9 [facility] [address] [place] [phone] 03/29/2024 Harsh Bond Jr [facility] [address] [place] [phone] 12/13/2024 Harsh Bond Jr [facility] [address] [place] [phone] 12/26/2024 Harsh Bond Jr [facility] [address] [place] [phone] 12/28/2024 Harsh Bond Jr ASSESSMENTS Encounter Date Diagnosis [...] Next Appt Details Provider Name:Harsh eaton Jr, 02/06/2025 01:55:00 PM, [address] [facility], [address], [place], [address], Insurance Providers Payer Name Payer Address Payer Phone Subscriber Number Group Number Insured Name Patient Relationship to Insured Coverage Start Date Coverage End Date [facility] [address] [place] [phone] [id number] AGUSTIN DANIEL Self - patient is the insured MEDICAL (GENERAL) HISTORY Medical History History ICD Code Renal cell carcinoma Gastroesophageal reflux disease Pancreatitis secondary to alcohol Alcohol abuse Gallstones Back pain Surgical History Surgery Date(Month/Year) Left nephrectomy 2021 Dental extractions 2023
--- OUTSIDE RECORDS SUMMARY | 2025-01-11 15:21 | XMS_ITS ---
Author Organization [facility] Address [address] [place] [address] Care Team Providers Care Conveyor Belt Repairer Name Role Phone KATHLEEN MAHONEY Primary Care Provider Albert Bond Jr, Harsh Henley Joey Bhakta M.D. Unavailable Unavailable REASON FOR VISIT at [facility] Encounters Encounter Location Date Provider Diagnosis [facility] [address] [place] [address] 12/26/2024 Harsh Bond Jr PLAN OF TREATMENT Next Appt Details Provider Name:Harsh eaton Jr, 02/06/2025 01:55:00 PM, [address] [place] [address], [address], [place], [address],
--- OUTSIDE RECORDS SUMMARY | 2025-01-11 15:21 | XMS_ITS ---
Author Organization [facility] Address [address] [facility] [facility] [address] [place] [address] Care Team Providers Care Civil Attorney Name Role Phone KATHLEEN MAHONEY Primary Care Provider Albert Bond Jr, Harsh Henley Joey Bhakta M.D. Unavailable Unavailable REASON FOR VISIT discharged from [facility] Encounters Encounter Location Date Provider Diagnosis [facility] [address] [place] [address] 12/28/2024 Harsh Bond Jr PLAN OF TREATMENT Next Appt Details Provider Name:Harsh eaton Jr, 02/06/2025 01:55:00 PM, [address] [place] [address], [address], [place], [phone],
--- OUTSIDE RECORDS SUMMARY | 2025-01-11 15:21 | XMS_ITS ---
Author Organization [facility] Address [address] [place] [address] Care Team Providers Care Bulb Filler Name Role Phone KATHLEEN MAHONEY Primary Care Provider Harsh Santacruz Jr Joey Bhakta M.D. Unavailable Unavailable REASON FOR VISIT f/u from hospital Encounters Encounter Location Date Provider Diagnosis [facility] [address] [place] [address] [address] [place] [address] 12/26/2024 Harsh Bond Jr PLAN OF TREATMENT Next Appt Details Provider Name:Harsh eaton Jr, 02/06/2025 01:55:00 PM, [address] [place] [address], [address], [place], [phone],
== END 2025-01-11 16:27 | disposition home or self-care (01) ==
PROVIDERS: PCP Nurse Practitioner Family; Visit Provider Nurse Practitioner Family
DX: K85.90 Acute pancreatitis without necrosis or infection, unspecified (principal); K86.1 Other chronic pancreatitis; F17.200 Nicotine dependence, unspecified, uncomplicated; R73.9 Hyperglycemia, unspecified; Z13.9 Encounter for screening, unspecified; E11.9 Type 2 diabetes mellitus without complications

== ENCOUNTER → 2025-01-11 15:19 | Outpatient (BNVA) | payer OTHER, SELFPAY | PROVIDERS: PCP Nurse Practitioner Family; Visit Provider Nurse Practitioner Family | DX: K85.90 Acute pancreatitis without necrosis or infection, unspecified (principal); K86.1 Other chronic pancreatitis; R73.9 Hyperglycemia, unspecified; F17.210 Nicotine dependence, cigarettes, uncomplicated | CPT/HCPCS: 83036; 96127 ==

== ENCOUNTER 2025-01-16 10:41 | Outpatient (REF) | payer OTHER, SELFPAY ==
--- OUTSIDE RECORDS SUMMARY | 2025-01-16 12:04 | XMS_ITS | Patient Health Record ---
Author Organization [facility] Address [address] [place] [address] Care Team Providers Care Pharmacy Stock Clerk Name Role Phone KATHLEEN ERICKSON Primary Care Provider Harsh Santacruz Jr Unavailable [phone] Yony Garcia Joey Unavailable Unavailable ALLERGIES No Known Allergies RESULTS Component Value Reference Range Notes Pathology Reviewed date:03/23/2024 08:42:13 AM Interpretation: Performing Lab:[facility], [address] [place] [phone] Notes/Report: Complete Blood Count no Diff Reviewed date:03/30/2024 08:50:11 AM Interpretation: Performing Lab:[facility], [address] [place] [phone] Notes/Report: White Blood Count 5.7 4.8-10.8 X10*3/uL [...] Panel Reviewed date:03/30/2024 08:50:06 AM Interpretation: Performing Lab:[address] [phone] Notes/Report: Bilirubin Total 0.4 0.0-1.0 mg/dL Bilirubin Direct 0.2 0.0-0.5 mg/dL Aspartate Amino Transferase 17 5-37 U/L Alanine Aminotransferase 8 0-40 U/L Total Protein 6.8 6.5-8.0 g/dL Albumin Level 3.4 3.5-5.0 g/dL Alkaline Phosphatase 78 39-117 U/L Lipase Reviewed date:03/30/2024 08:49:58 AM Interpretation: Performing Lab:[address] [address] Notes/Report: Lipase 45 8-78 U/L US abdomen complete Reviewed date:03/30/2024 08:50:18 AM Interpretation: Performing Lab: Notes/Report: [address] [address] Ultrasound Report Signed Patient: Agustin Daniel MR#: [id number] 01 : 1960 Acct:[id number] Age/Sex: 63 / M ADM Date: 03/28/24 Loc: HO.US Attending Dr: Harsh Bond MD Ordering Physician: Harsh Bond MD Date of Service: 03/28/24 Procedure(s): US abdomen complete Accession Number(s): [id number] cc: Harsh Bond MD; Kathleen Erickson [facility] EXAMINATION: US ABDOMEN COMPLETE CLINICAL [...] MD in OV> 03/29/24910 DD/ 0847 TD/TT: Pocket Operator: SOWMYA Pathology Reviewed date:12/13/2024 03:31:10 PM Interpretation: Performing Lab:[facility], [address] [place] [phone] Notes/Report: REASON FOR REFERRAL No Information MEDICATIONS [...] parts of digestive tract (R93.3) Active confirmed 356525771 Problem Duodenitis (K29.80) Active confirmed Duodenitis (76410444) Problem Esophagitis, erosive (K22.10) Active confirmed Ulcer of esophagus (66259930) Problem Acute abdominal pain (R10.9) Active confirmed 900394979 VITAL SIGNS Blood pressure diastolic 00 mm Hg 03/03/2024 Height 5 ft 7 in in 03/03/2024 Blood pressure systolic 00 mm Hg 03/03/2024 Weight 105 lbs 03/03/2024 BMI 16.44 kg/m2 03/03/2024 Encounters Encounter Location Date Provider Diagnosis [facility] [address] [place] [id number] 03/18/2024 Harsh Bond Jr Abnormal CT scan, esophagus R93.3 [facility] [address] [place] [phone] 03/21/[address] [facility] [place] [address] [place] [id number] 12/07/2024 Harsh Bond Jr [facility] [address] [place] [phone] 12/26/2024 Harsh Bond Jr [facility] [address] [place] [phone] 03/03/2024 Harsh Bond Jr Abnormal findings on diagnostic imaging of other parts of digestive tract R93.3 [facility] [address] [place] [phone] 02/23/2024 Harsh Bond Jr [facility] [address] [place] [address] 03/21/2024 Harsh Bond Jr Acute abdominal pain R10.9 [facility] [address] [place] [phone] 03/29/2024 Harsh Bond Jr [facility] [address] [place] [phone] 12/13/2024 Harsh Bond Jr [facility] [address] [place] [phone] 12/26/2024 Harsh Bond Jr [facility] [address] [place] [phone] 12/28/2024 Harsh Bond Jr ASSESSMENTS Encounter Date [...] Name:Harsh eaton Jr, 02/06/2025 01:55:00 PM, [address] [facility], [address], [place], [address], Insurance Providers Payer Name Payer Address Payer Phone Subscriber Number Group Number Insured Name Patient Relationship to Insured Coverage Start Date Coverage End Date [facility] [address] [place] [phone] [id number] AGUSTIN DANIEL Self - patient is the insured MEDICAL (GENERAL) HISTORY Medical History History ICD Code Renal cell carcinoma Gastroesophageal reflux disease Pancreatitis secondary to alcohol Alcohol abuse Gallstones Back pain Surgical History Surgery Date(Month/Year) Left nephrectomy 2021 Dental extractions 2023
--- OUTSIDE RECORDS SUMMARY | 2025-01-16 12:04 | XMS_ITS | Clinical Summary ---
Author Organization [facility] ity Address [address] [place] [address] Care Team Providers Care Logistics Supervisor Name Role Phone Unavailable Primary Care [...]
--- OUTSIDE RECORDS SUMMARY | 2025-01-16 12:05 | XMS_ITS ---
Author Organization [facility] Address [address] [facility] [place] [place] [address] Care Team Providers Care Electronic Engraver Name Role Phone KATHLEEN MAHONEY Primary Care Provider Harsh Santacruz Jr [phone] Joey Bhakta M.D. Unavailable Unavailable REASON FOR VISIT f/u from hospital Encounters Encounter Location Date Provider Diagnosis [facility] [address] [place] [address] [address] [place] [address] 12/26/2024 Harsh Bond Jr PLAN OF TREATMENT Next Appt Details Provider Name:Harsh eaton Jr, 02/06/2025 01:55:00 PM, [address] [place] [address], [address], [place], [address],
--- OUTSIDE RECORDS SUMMARY | 2025-01-16 12:05 | XMS_ITS ---
Author Organization [facility] Address [address] [facility] [address] [place] [address] Care Team Providers Care Service Station Manager Name Role Phone KATHLEEN MAHONEY Primary Care Provider Albert Bond Jr, Harsh Henley [phone] Joey Bhakta M.D. Unavailable Unavailable REASON FOR VISIT at [facility] Encounters Encounter Location Date Provider Diagnosis [facility] [address] [facility] [address] [place] [address] 12/26/2024 Harsh Bond Jr PLAN OF TREATMENT Next Appt Details Provider Name:Harsh eaotn Jr, 02/06/2025 01:55:00 PM, [address] [place] [address], [address], [place], [address],
[2025-01-16 13:48] LABS: MANUAL DIFF FLAG NO
[2025-01-16 14:01] LABS: Basophils Percent Auto 0.7 % (0-2); Eosinophils Absolute Auto 0.1 X10*3/uL (0.0-0.4); Eosinophils Percent Auto 1.2 % (0-4); Estimated Average Glucose 143 mg/dL; Hematocrit 32.3 % (42.0-52.0); Hemoglobin 10.8 g/dl (14.0-18.0); Hemoglobin A1C 138.6529 umol/L; Hemoglobin A1c % 6.6 % (<6.0); Imm Gran Abs Auto 0.02 X10*3/uL (0.00-0.03); Imm Gran Pct Auto 0.3 % (0.0-0.4); Lymphocytes Absolute Auto 2.2 X10*3/uL (1.2-4.9); Lymphocytes Percent Auto 36.4 % (20-40); Mean Corpuscular HGB Conc 33.4 g/dl (31.0-36.0); Mean Corpuscular Hemoglobin 32.6 pg (27.0-33.0); Mean Corpuscular Volume 97.6 fL (80.0-98.0); Mean Platelet Volume 10.4 fL (9.4-12.4); Monocytes Absolute Auto 0.7 X10*3/uL (0.1-1.2); Monocytes Percent Auto 12.2 % (2-11); Neutrophils Absolute Auto 2.9 x10*3/uL (2.0-8.3); Neutrophils Percent Auto 49.2 % (45-73); Platelet Count 354 X10*3/uL (160-400); Red Blood Count 3.31 X10*6/uL (4.60-5.80); Red Cell Distribution Width 13.8 % (11.0-16.0); Total Hemoglobin (HGBA1C) 2854.6535 umol/L; White Blood Count 5.9 X10*3/uL (4.8-10.8)
[2025-01-16 20:20] LABS: Alanine Aminotransferase 13 U/L (0-40); Albumin Level 3.3 g/dL (3.5-5.0); Alkaline Phosphatase 100 U/L (39-117); Anion Gap 14 (12-20); Aspartate Amino Transferase 22 U/L (5-37); Bilirubin Total 0.3 mg/dL (0.0-1.0); Blood Urea Nitrogen 11 mg/dL (9-16); Calcium 8.9 mg/dL (8.4-10.2); Carbon Dioxide 28 mmol/L (22-29); Chloride 97 mmol/L (96-108); Cholesterol 102 mg/dL (<200); Estimated Glomerular Filt Rate > 60; Glucose Fasting 123 mg/dL (60-99); HDL Cholesterol 36 mg/dL (>40); LDL Cholesterol Calculated 50 mg/dL (<100); Magnesium 1.9 mg/dL (1.6-2.6); Potassium 4.1 mmol/L (3.3-5.1); Sodium 135 mmol/L (135-145); Triglycerides 83 mg/dL (<150)
[2025-01-16 20:35] LABS: TSH reflex Free T4 0.76 uIU/mL (0.32-4.0)
[2025-01-16 20:47] LABS: Lipase 52 U/L (8-78)
== END 2025-01-16 10:42 | disposition home or self-care (01) ==
LOC: HO.HMGCLDS 10:41
PROVIDERS: PCP Nurse Practitioner Family; Visit Provider Nurse Practitioner Family
DX: K85.90 Acute pancreatitis without necrosis or infection, unspecified (principal); K86.1 Other chronic pancreatitis
CPT/HCPCS: 36415; 80053; 80061; 83036; 83690; 83735; 84443; 85025

== ENCOUNTER 2025-01-23 09:43 | Outpatient (AMB) | payer OTHER, SELFPAY ==
--- NOTE | 2025-01-23 08:43 | MHC.OFFVIS ---
Intake Visit Reasons: FMLA Allergies No Known Allergies Allergy (Verified 01/23/25 08:45) Medication List - Last Reconciled 01/23/25 by DAWNA Cook- acetaminophen 650 mg PO Q6H PRN gabapentin 100 mg PO .q 6 hrs 30 days omeprazole 20 mg PO BID@0630,1630 ondansetron 4 mg PO Q8H PRN 30 days sucralfate 1 g PO QIDWMHS HPI HPI FMLA: Details: History of Present Illness The patient is a 64-year-old male presenting with a request for evaluation concerning intermittent leave under the Family and Medical Leave Act (FMLA) due to a history of chronic pancreatitis. His symptoms initiated in November of this year, leading to hospitalization and were related to previous alcohol misuse. The patient claims to have been abstinent from alcohol, which has contributed to a noted improvement in his condition. However, he still experiences episodic abdominal pain related to pancreatitis exacerbations. Ensuring FMLA coverage would permit him to remain at home during flare-ups or attend necessary medical appointments. He has plans to retire toward the summer and generally feels he is doing well. He is reminded to stay hydrated and follow through with laboratory work as advised. (of note: newly diagnosed diabetic, meeting with nurse navigator in the near future) Review of Systems - Gastrointestinal: Reports intermittent abdominal pain associated with pancreatitis. Plan Continued management of chronic pancreatitis necessitates providing availability for intermittent FMLA leave. Abstinence from alcohol is imperative, contributing to stability in his condition. The patient should remain properly hydrated and adhere to laboratory evaluations as directed. Penitentiary is anticipated, and it is essential to monitor for pancreatitis symptoms to ensure timely medical attention for exacerbations. Discussion Notes I discussed with the patient the likelihood of needing intermittent FMLA leave to manage possible future pancreatitis flare-ups. We reviewed the importance of continuing to abstain from alcohol, which has been significant in improving his condition, and emphasized maintaining adequate hydration and following laboratory work. The patient expressed a clear understanding of the plan and was engaged in discussions regarding his upcoming long term. He is advised to report any increase in symptoms to allow for timely intervention. Patient Instructions - Continue abstaining from alcohol to prevent exacerbation of pancreatitis. - Stay well-hydrated and follow up with laboratory tests as ordered. - Be mindful of symptoms of pancreatitis and seek medical attention if symptoms worsen. - Utilize FMLA leave as needed for flare-ups or medical appointments. - Prepare for upcoming long term and monitor health status closely. PFS Medical History Anorexia Arthritis Hiatal hernia Barretts esophagus Renal cell carcinoma Alcohol use disorder History of alcohol abuse GERD (gastroesophageal reflux disease) Back pain with right-sided sciatica (10/07/21) Pancreatitis Inguinal hernia Cyst of pancreas Surgical History Status post laparoscopic cholecystectomy H/O hernia repair Hx laparoscopic cholecystectomy (04/22/24) Hx of oral surgery H/O colonoscopy History of surgery on right wrist Hx of esophagogastroduodenoscopy History of nephrectomy, left (2021) Social History Household Members: Other Household Members Other:: self Housing: House Are you a primary behavioral health care manager to a significant other at home: No Do you presently have visiting nurse or other home services: No Alcohol intake: former Patient Tobacco Use Status: Current everyday Tobacco user Tobacco use type: Cigarette Cigarette Packs Per Day: 1 Cigarettes Per Day: 20.0 Years Smoked: 44 Second Hand Smoke Exposure: No service: No Current occupational status: employed Current occupation: [employer] Current occupational exposures/hazards: Yes Cognitive needs: No Hearing needs: No Vision needs: No Telehealth Telehealth Telehealth Platform: Telephone Location of provider rendering services: practice address Location of patient: address on file Patient Identification confirmed using: Name, : Yes Telehealth method: voice only Patient verbally consented to treatment: Yes Patient verbally consented to billing insurance company: Yes Patient informed of any privacy concerns related to visit: Yes Minutes spent on Phone/Video with Pt.: 10 Assessment & Plan Assessment & Plan (1) Pancreatitis: Code(s): K85.90 - Acute pancreatitis without necrosis or infection, unspecified Category: Medical Plan . Medications: Changed From gabapentin day 1= one tab day 2= one tab bid, day 3 and thereafter= one tab TID 100 mg PO TID 30 days 90 caps 0RF To gabapentin 100 mg PO .q 6 hrs 120 caps 2RF 30 days Coding Level of Care Code Tele Est Pt Level 3 (34114) Diagnoses Pancreatitis K85.90
--- OUTSIDE RECORDS SUMMARY | 2025-01-23 10:50 | XMS_ITS | Clinical Summary ---
Author Organization [facility] ity Address [address] [place] [address] Care Team Providers Care Aircraft Loadmaster Superintendent Name Role Phone Unavailable Primary Care Provider [...]
--- OUTSIDE RECORDS SUMMARY | 2025-01-23 10:50 | XMS_ITS ---
Author Organization [facility] Address [address] [facility] [address] [place] [address] Care Team Providers Care Maintenance Representative Name Role Phone KATHLEEN MAHONEY Primary Care Provider Albert Bond Jr, Harsh Henley Joey Bhakta M.D. Unavailable Unavailable REASON FOR VISIT at [facility] Encounters Encounter Location Date Provider Diagnosis [facility] [address] [facility] [address] [place] [address] 12/26/2024 Harsh Bond Jr PLAN OF TREATMENT Next Appt Details Provider Name:Harsh eaton Jr, 02/06/2025 01:55:00 PM, [address] [place] [address], [address], [place], [address],
--- OUTSIDE RECORDS SUMMARY | 2025-01-23 10:50 | XMS_ITS | Patient Health Record ---
Author Organization [facility] Address [address] [place] [address] Care Team Providers Care Ship Scraper Name Role Phone KATHLEEN ERICKSON Primary Care Provider Harsh Santacruz Jr Unavailable Yony Garcia Joey Unavailable Unavailable ALLERGIES No Known Allergies RESULTS Component Value Reference Range Notes Pathology Reviewed date:03/23/2024 08:42:13 AM Interpretation: Performing Lab:[facility], [address] [place] [phone] Notes/Report: Complete Blood Count no Diff Reviewed date:03/30/2024 08:50:11 AM Interpretation: Performing Lab:[facility], [address] [place] [phone] Notes/Report: White Blood Count 5.7 4.8-10.8 X10*3/uL [...] Panel Reviewed date:03/30/2024 08:50:06 AM Interpretation: Performing Lab:[address] [address] Notes/Report: Bilirubin Total 0.4 0.0-1.0 mg/dL Bilirubin Direct 0.2 0.0-0.5 mg/dL Aspartate Amino Transferase 17 5-37 U/L Alanine Aminotransferase 8 0-40 U/L Total Protein 6.8 6.5-8.0 g/dL Albumin Level 3.4 3.5-5.0 g/dL Alkaline Phosphatase 78 39-117 U/L Lipase Reviewed date:03/30/2024 08:49:58 AM Interpretation: Performing Lab:[address] [address] Notes/Report: Lipase 45 8-78 U/L US abdomen complete Reviewed date:03/30/2024 08:50:18 AM Interpretation: Performing Lab: Notes/Report: [address] [address] Ultrasound Report Signed Patient: Agustin Daniel MR#: [id number] 01 : 1960 Acct:[id number] Age/Sex: 63 / M ADM Date: 03/28/24 Loc: HO.US Attending Dr: Harsh Bond MD Ordering Physician: aHrsh Bond MD Date of Service: 03/28/24 Procedure(s): US abdomen complete Accession Number(s): [id number] cc: Harsh Bond MD; Kathleen Erickson [facility] EXAMINATION: US ABDOMEN COMPLETE CLINICAL [...] MD in OV> 03/29/24910 DD/ 0847 TD/TT: Surfboard Maker: SOWMYA Pathology Reviewed date:12/13/2024 03:31:10 PM Interpretation: Performing Lab:[facility], [address] [place] [phone] Notes/Report: REASON FOR REFERRAL No Information MEDICATIONS [...] parts of digestive tract (R93.3) Active confirmed 178322185 Problem Duodenitis (K29.80) Active confirmed Duodenitis (82220147) Problem Esophagitis, erosive (K22.10) Active confirmed Ulcer of esophagus (26053763) Problem Acute abdominal pain (R10.9) Active confirmed 183075393 VITAL SIGNS Blood pressure diastolic 00 mm Hg 03/03/2024 Height 5 ft 7 in in 03/03/2024 Blood pressure systolic 00 mm Hg 03/03/2024 Weight 105 lbs 03/03/2024 BMI 16.44 kg/m2 03/03/2024 Encounters Encounter Location Date Provider Diagnosis [facility] [address] [place] [id number] 03/18/2024 Harsh Bond Jr Abnormal CT scan, esophagus R93.3 [facility] [address] [place] [phone] 03/21/2024 Harsh Bond Jr [facility] [address] [place] [id number] 12/07/[address] [facility] [address] [place] [address] 12/26/[address] [facility] [address] [place] [phone] 03/03/2024 Harsh Bond Jr Abnormal findings on diagnostic imaging of other parts of digestive tract R93.3 [facility] [address] [place] [phone] 02/23/[address] [facility] [address] [place] [address] 03/21/2024 Harsh Bond Jr Acute abdominal pain R10.9 [facility] [address] [place] [address] 03/29/[address] [facility] [address] [place] [phone] 12/13/[address] [facility] [address] [place] [address] 12/26/[address] [facility] [address] [place] [phone] 12/28/2024 Harsh Bond Jr ASSESSMENTS Encounter Date [...] Name:Harsh eaton Jr, 02/06/2025 01:55:00 PM, [address] [facility], [address], [place], [address], Insurance Providers Payer Name Payer Address Payer Phone Subscriber Number Group Number Insured Name Patient Relationship to Insured Coverage Start Date Coverage End Date [facility] [address] [facility] [place] [phone] [id number] AGUSTIN DANIEL Self - patient is the insured MEDICAL (GENERAL) HISTORY Medical History History ICD Code Renal cell carcinoma Gastroesophageal reflux disease Pancreatitis secondary to alcohol Alcohol abuse Gallstones Back pain Surgical History Surgery Date(Month/Year) Left nephrectomy 2021 Dental extractions 2023
--- OUTSIDE RECORDS SUMMARY | 2025-01-23 10:50 | XMS_ITS ---
Author Organization [facility] Address [address] [facility] [address] [place] [address] Care Team Providers Care Padded Box Sewer Name Role Phone KATHLEEN MAHONEY Primary Care Provider Harsh Santacruz Jr Joey Bhakta M.D. Unavailable Unavailable REASON FOR VISIT f/u from hospital Encounters Encounter Location Date Provider Diagnosis [facility] [address] [facility] [address] [place] [address] 12/26/2024 Harsh Bond Jr PLAN OF TREATMENT Next Appt Details Provider Name:Harsh eaton Jr, 02/06/2025 01:55:00 PM, [address] [place] [address], [address], [place], [address],
--- OUTSIDE RECORDS SUMMARY | 2025-01-23 10:50 | XMS_ITS ---
Author Organization [facility] Address [address] [facility] [address] [place] [address] Care Team Providers Care Mica Miner Blasting Name Role Phone KATHLEEN MAHONEY Primary Care Provider Albert Bond Jr, Harsh Henley [phone] Joey Bhakta M.D. Unavailable Unavailable REASON FOR VISIT discharged from [facility] Encounters Encounter Location Date Provider Diagnosis [facility] [address] [facility] [address] [place] [address] 12/28/2024 Harsh Bond Jr PLAN OF TREATMENT Next Appt Details Provider Name:Harsh eaton Jr, 02/06/2025 01:55:00 PM, [address] [place] [address], [address], [place], [address],
== END 2025-01-23 09:44 | disposition home or self-care (01) ==
LOC: HO.HMCC 09:43
PROVIDERS: PCP Nurse Practitioner Family; Visit Provider Nurse Practitioner Family
DX: K85.90 Acute pancreatitis without necrosis or infection, unspecified (principal)

== ENCOUNTER → 2025-01-23 09:43 | Outpatient (BNVA) | payer OTHER, SELFPAY | PROVIDERS: PCP Nurse Practitioner Family; Visit Provider Nurse Practitioner Family | DX: K85.90 Acute pancreatitis without necrosis or infection, unspecified (principal) ==

== ENCOUNTER 2025-03-03 10:59 | Outpatient (AMB) | payer OTHER, SELFPAY ==
--- NOTE | 2025-03-03 08:02 | A.OFFVIS_ITS ---
Intake Visit Reasons: Current Smoker Allergies No Known Allergies Allergy (Verified 01/23/25 08:45) HPI HPI Current Smoker: Details: Initial visit for this 64yo smoker with a 22PYH. Patient started smoking at age 20 for 44 years at 1/2ppd. . Denies marijuana use. Denies second hand smoke exposure. Denies exposure to chemicals or substances like asbestos. . Denies known family history of lung cancer. Reports personal history of cancer - renal cell carcinoma- s/p left nephrectomy 2021. . Denies chest CT in last year. Reports old PCP did chest CTs to follow stable nodules but has not had scan in few years. . Denies recent travel outside the [place]. Denies recent respiratory illness or recent hospitalization for respiratory issues. Denies testing positive for COVID. Admits receiving COVID Vaccine x 1. . Denies fever, chills, new/worsening cough, hemoptysis, hoarseness or dysphagia. Denies significant chest pain, significant dyspnea or unintentional weight loss. Patient Lung Cancer Screening Questionnaire reviewed with patient by provider. . Shared Decision Making Completed. Patient meets criteria. Discussed in detail with patient, the risk vs benefit of LDCT screening. Patient consents to proceed with scan. Discussed smoking cessation. [facility] Medical History (Updated 03/03/25 @ 11:05 by Paty Alexander PA-C) Erosive esophagitis Acute on chronic pancreatitis Newly diagnosed diabetes (~2024) History of renal cell carcinoma Nicotine dependence, cigarettes, uncomplicated Anorexia Arthritis Hiatal hernia Barretts esophagus Alcohol use disorder GERD (gastroesophageal reflux disease) Back pain with right-sided sciatica (10/07/21) Pancreatitis Inguinal hernia Cyst of pancreas Surgical History (Updated 01/30/25 @ 14:30 by Paty Alexander PA-C) History of tooth extraction History of colonoscopy History of esophagogastroduodenoscopy (EGD) History of laparoscopic cholecystectomy (~2023) H/O hernia repair History of surgery on right wrist History of nephrectomy, left (2021) Social History (Updated 03/03/25 @ 11:05 by Paty Alexander PA-C) Household Members: Other Household Members Other:: self Housing: House Are you a primary healthcare analyst to a significant other at home: No Do you presently have visiting nurse or other home services: No Alcohol intake: former Patient Tobacco Use Status: Current everyday Tobacco user Tobacco use type: Cigarette Years Smoked: (onset 20yo, 1/2ppd x 44yrs, 22pyh) Second Hand Smoke Exposure: No service: No Current occupational status: employed Current occupation: [employer] Current occupational exposures/hazards: Yes Cognitive needs: No Hearing needs: No Vision needs: No Assessment & Plan Assessment & Plan (1) Nicotine dependence, cigarettes, uncomplicated: Comment: (onset 20yo, 1/2ppd x 44yrs, 22pyh) Code(s): F17.210 - Nicotine dependence, cigarettes, uncomplicated Category: Medical Plan: - SDM visit completed today in office. - Patient meets criteria for LDCT for lung cancer screening purposes and is asymptomatic. - Smoking cessation counseling offered. Patients can always call [phone]. - Will arrange for a LDCT scan of the chest for screening purposes at [facility]. - Risks, benefits, and alternatives were discussed in detail and the patient agrees to proceed. - Risks discussed include but are not limited to: radiation exposure, anxiety during testing and while awaiting results, false negatives, false positives and possibility of additional intervention such as further imaging or surgical procedures for benign disease. - Benefits are obviously detection of lung cancer at an early stage which can lead to improved outcomes. - Discussed the importance of screening program compliance with adherence to yearly LDCT scan as scheduled - or sooner interval scans for personalized screening regimen. - Discussed follow up plan. Our office will send a letter discussing results and if needed set up phone call and office visit based on CT findings. - Patient educated on results categorization and the management decisions for suspicious findings potentially found on the screening LDCT scan. Any patient with a Lung RADS score of 3 or 4 will be reviewed by a multidisciplinary team at [facility] to form a plan of action in regards to scan findings. - If further work up is warranted for a suspicious lung finding this will be followed by the Lung Cancer Screening program in conjunction with the Thoracic Surgery Department at [facility]. - A copy of the office note and LDCT will be sent to the patient's PCP - as well as documentation on any associated further plans of care. - Incidental findings on LDCT are the PCP's responsibility. These findings are indicated with an S finding on the LDCT Assessment. A note discussing the findings will be sent to the PCP who is then responsible for further management. - All questions answered.? Coding Level of Care Code Lung Cancer Screening G0296 Diagnoses Nicotine dependence, cigarettes, uncomplicated F17.210
--- OUTSIDE RECORDS SUMMARY | 2025-03-03 11:57 | XMS_ITS | Patient Health Record ---
Author Organization [facility] Address [address] [place] [address] Care Team Providers Care Guide Dog Mobility Instructor Name Role Phone KATHLEEN MAHONEY Primary Care Provider Harsh Santacruz Jr Yony Jose, Joey Unavailable Unavailable Allergies No Known Allergies Results Component Value Reference Range Notes Pathology Reviewed date:03/23/2024 08:42:13 AM Interpretation: Performing Lab:[facility], [address] [place] [phone] Notes/Report: -- Name: Agustin Daniel Age/Sex: 63/M : 1960 Unit#: [id number] Attend Dr: Harsh Bond MD Re03/18/24 Status : [facility] Location: [facility] Disch: -- SPEC : [id number] RECD : 03/18/24433 STATUS: ROSA HOSKINS NUM: [id number] [place]: 03/18/24-1145 [facility] DR: Harsh Bond MD ENTERED: 03/18/24-14 13 SP TYPE: Surgical OTHR DR: Kathleen Mahoney [facility]- ORDERED: HE Stain/12 , Gross Micro L4/4, IHC, Special st. 2/2, H. pylori, AB/PAS/2 Diagnosis A. Duodenum, at 70 c m, biopsy: Duodenal mucosa with preserved villi and no specific change. B. Duodenum, at 55 c m, biopsy: Duodenal mucosa with mild features of chronic/non- specific duodenitis with Suyapa's gland hyperplasia. C. Gastric antrum, b iopsy: Gastric antral mucosa with no specific change; negative for H pylori, intestinal metaplasia and dysplasia. D. Esophagogastric j unction, biopsy: Squamous mucosa with hyperplasia, focal intraepithelial neut rophils and rare intraepithelial eosinophils (up to 1 per high-power field) consistent wi th esophagitis, and columnar mucosa with mild chronic active inflammation and foc al intestinal metaplasia; negative for dysplasia (see comment). Comment: (D): These findings are consistent with Rock's esophagus if the biopsies were taken from above the anato sujey gastroesophageal junction. Clinical and endoscopic correlation is advised. Clinical History Pre-Op Dx: Abnormal CT Post-Op Dx: Normal EGD Microscopic Description Microscopic sections reviewed. Immunostain for H. pylori on C is negative. AB/PAS on C is negative for inteati nal metaplasia. AB/PAS on D is positive for intestinal metaplasia. Controls stain appropriately. Material Received A. Duodenum at 70 cm B. Duodenum bx at 55 cm C. Antral bx's D. EG junction CONTINUED ON NEXT PAGE -- Name: Agustin Daniel Age/Sex: 63/M : 1960 Unit#: [id number] Attend Dr: Harsh Bond MD Re03/18/24 Status : [facility] Location: [facility] Disch: -- SPEC : [id number] RECD : 03/18/24-1407 STATUS: ROSA HOSKINS NUM: [id number] [place]: 03/18/24-[address]: Harsh Bond MD ENTERED: 03/18/24-14 13 SP TYPE: Surgical OTHR DR: Kathleen Mahoney [facility] ORDERED: HE Stain/12 , Gross Micro L4/4, IHC, Special st. 2/2, H. pylori, AB/PAS/2 Gross Description Received in 4 parts. A. Received in forma zohreh labeled ?biopsies duodenum at 70 cm? are 2 fragments of mancini-white soft tissue measurin g 0.3 and 0.4 cm in greatest dimension which are wrapped in lens paper and entirely submitt ed for microscopic examination, 2 pieces in cassette A. B. Received in forma zohreh labeled ?biopsies of duodenum at 55 cm? are 6 pieces of mancini-white soft tissue ranging from 0.3-0.4 cm in greatest dimension which are wrapped in lens paper and entirely submitt ed for microscopic examination, 6 pieces in cassette B. C. Received in forma zohreh labeled ?antral biopsies? are 2 fragments of mancini-white soft tissue measuring 0.3 and 0. 5 cm in greatest dimension which are wrapped in lens paper and entirely submitted for micros copic examination, 2 pieces in cassette C. D. Received in forma zohreh labeled ?EG junction? are 4 fragments of mancini-white soft tissue measuring 0.3-0.5 cm in greatest dimension which are wrapped in lens paper and entirely submitted for micros copic examination, 4 pieces in cassette D. [facility] Special studies orde red and performed: Immunostain for H. pylori on C1; AB/PAS stains on C1 and D1. Copies To: Harsh Bond MD [address] [place] [address] [id number] [place] [id number] Kathleen Mahoney [facility] 1959 [facility] [address] [place] [id number] -- Signed (si gnature on file) Izabela Alleman 03/21/24 1529 -- END OF REPORT Complete Blood Count no Diff Reviewed date:03/30/2024 08:50:11 AM Interpretation: Performing Lab:[facility], [address] [place] [address], [place] [address] Notes/Report: White Blood Count 5.7 4.8-10.8 X10*3/uL [...] Panel Reviewed date:03/30/2024 08:50:06 AM Interpretation: Performing Lab:[address] [address] Notes/Report: Bilirubin Total 0.4 0.0-1.0 mg/dL Bilirubin Direct 0.2 0.0-0.5 mg/dL Aspartate Amino Transferase 17 5-37 U/L Alanine Aminotransferase 8 0-40 U/L Total Protein 6.8 6.5-8.0 g/dL Albumin Level 3.4 3.5-5.0 g/dL Alkaline Phosphatase 78 39-117 U/L Lipase Reviewed date:03/30/2024 08:49:58 AM Interpretation: Performing Lab:[address] [address] Notes/Report: Lipase 45 8-78 U/L US abdomen complete Reviewed date:03/30/2024 08:50:18 AM Interpretation: Performing Lab: Notes/Report: [address] [address] Ultrasound Report Signed Patient: Agustin Daniel MR#: [id number] 01 : 1960 Acct:[id number] Age/Sex: 63 / M ADM Date: 03/28/24 Loc: HO.US Attending Dr: Harsh Bond MD Ordering Physician: Harsh Bond MD Date of Service: 03/28/24 Procedure(s): US abdomen complete Accession Number(s): [id number] cc: Harsh Bond MD; Kathleen Mahoney [facility] EXAMINATION: US ABDOMEN COMPLETE CLINICAL INFORMATION: Acute [...] signed by Paulo Rodriguez MD in OV> 03/29/24 0911 DD/ 0847 TD/TT: Family Coach: [place] [id number] Ultrasound Report Signed Patient: Osmin Daniel MR#: [id number] 01 : 1960 Acct:[id number] Age/Sex: 63 / M ADM Date: 03/28/24 Loc: HO.US Attending Dr: Olga Bond MD Ordering Physician: Harsh Bond MD Date of Service: 03/28/24 Procedure(s): US abd omen complete Accession Number(s): [id number] cc: Harsh Bond MD; Kathleen Mahoney [facility] EXAMINATION: US ABDOMEN COMPLETE CLINICAL INFORMATION: Acute abdominal pain. COMPARISON: CT abdomen and pelvi s 02/18/2024. Limited abdominal ultrasound 06/08/2023. TECHNIQUE: Real-time imaging of the abdominal viscera. Technically difficult study secondary to body habitus. FINDINGS: PANCREAS: Unremarkable. ABDOMINAL AORTA: Atherosclerotic aorta without visible aneurysm. INFERIOR VENA CAVA: Visualized portions are normal. LIVER: Normal. The l iver is normal in size. The liver contour is normal. Parenchymal echogenicity is normal. No focal hepatic lesion. There is no intrahep atic biliary duct dilatation seen. GALLBLADDER: 7 mm mo bile gallstone in the gallbladder fundus. No evidence of acute cholecystitis. COMMON BILE DUCT: Mi ldly dilated at 0.8 cm without obstructing lesion. This is similar to p rior CT when it measured 7 mm. RIGHT KIDNEY: No hydronephrosis. No renal calculi or focal parenchymal lesions. The kidney measures 10.8 cm in maximum dimension. LEFT KIDNEY: Surgica lly absent. SPLEEN: The spleen m easures 6.6 cm in maximum dimension. FREE FLUID: None. U S/US abdomen complete IMPRESSION: Mildly dilated commo n bile duct measuring 8 mm similar to recent CT when it measured 7 m m. No visible obstruction. Consider MRI/MRCP versus ERCP. Cholelithiasis witho ut evidence of acute cholecystitis. Dictated By: Paulo Rodriguez MD Signed By: <Electron [facility] signed by Paulo Rodriguez MD in OV> 03/29/24 0911 DD/ 0847 TD/TT: Family Coach: SOWMYA Pathology Reviewed date:12/13/2024 03:31:10 PM Interpretation: Performing Lab:[facility], [address] [place] [phone] Notes/Report: -- Name: Agustin Daniel Age/Sex: 64/M : 1960 Unit#: [id number] Attend Dr: Hans Payne MD Re12/06/24 Status : DIS IN Location: [facility] 351-1 Disch: 12/09/24 -- SPEC : [id number] RECD: 12/08/24 STATUS: ROSA HOSKINS NUM: [id number] [place]: 12/07/241508 [facility] DR: Harsh Bond MD ENTERED: 12/08/24 43 SP TYPE: Surgical OTHR DR: Kathleen Mahoney [facility] Hans Payne MD ORDERED: HE Stain/9, Gross Micro L4/3, IHC, Special st. 2/3, H. pylori, AB/PAS/3 Diagnosis A. Duodenum, distal, biopsy: Small intestinal mucosa with mucosal congestion and focal partial villous blun ting; otherwise within normal limits. B. Duodenum, proxima l, biopsy: Chronic active duodenitis. C. Stomach, antrum, biopsy: Antral-type mucosa with mild chronic inactive inflammation; no Helicobacter orga nisms seen. Clinical History Pre-Op Dx: Abd pain Post-Op Dx: Duodenit is, esophagitis Microscopic Description A-C. Microscopic sec tions examined. Foveolar metaplasia is present in B and no metaplastic changes are seen in A and C supported by AB/PAS stains; no Helicobacter organisms are seen, supported by H. pylo ri immunostain (C). Material Received A. Bx's distal duodenum B. Bx's proximal duodenum A. Antral bx's Gross Description Received in three parts. Part A: Received in formalin labeled ?bx's distal duodenum? are 2 mancini irregular and rectangular tissue f ragments measuring 0.25 and 0.35 cm, submitted in toto in a cassette labeled A. Part B: Received in formalin labeled ?bx's proximal duodenum? are 2 mancini irregular tissue fragments measuring 0.15 and 0.3 cm, submitted in toto in a cassette labeled B. Part C: Received in formalin labeled ?antral bx's? are 3 rodriguez-mancini irregular tissue fragments ranging fr om 0.15-0.2 cm, submitted in toto in a cassette labeled C. [facility] Special studies orde red and performed: Immunostain for H. pylori on C; AB/PAS stains on A and C CONTINUED ON NEXT PAGE -- Name: Agustin Daniel Age/Sex: 64/M : 1960 Unit#: [id number] Attend Dr: Hans Payne MD Re12/06/24 Status : DIS IN Location: [facility] 351-1 Disch: 12/09/24 -- SPEC : [id number] RECD: 12/08/24 STATUS: ROSA HOSKINS NUM: [id number] [place]: 12/07/24-1508 [facility] DR: Harsh Bond MD ENTERED: 12/08/24-08 43 SP TYPE: Surgical OTHR DR: Kathleen Mah[facility] ORDERED: HE Stain/9, Gross Micro L4/3, IHC, Special st. 2/3, H. pylori, AB/PAS/3 Copies To: Harsh Bond MD [facility] [address] [place] [address] [facility] [address] [place], [place] [id number] Hans Payne MD [address] [place] [address] -- Signed (si gnature on file) Kt Moyer MD 12/12/24 1226 -- END OF REPORT Reason For Referral No Information Medications Medication SIG (Take, Route, Frequency, Duration) Notes Start Date End Date Status Pantoprazole Sodium 40 MG 1 tablet Orall y twice a day for 30 day(s) 03/03/2024 Active Sucralfate 1 GM/10ML Oral for 5 Active oxyCODONE HCl 5 MG Oral for 5 Active Gabapentin 100 MG 1 capsule at bedtime Orally Once a day Active Pantoprazole Sodium 40 MG TAKE 1 TABLET BY MOUTH DAILY Oral for 90 days Active Immunizations Vaccine Route Administration Date Status Comme nts Influenza Unknown 02/06/2025 Refused Social History Tobacco Use: Social History Observation Description Date Details (start date - stop date) Current Smoker NA - NA Tobacco Use/Smoking Question Answer Notes Patient is a current smoker How many cigarettes a day do you smoke? 5 or les s AUDIT-C (Standard) Question Answer Notes Did you have a drink containing alcohol in the p ast year? No Points 0 Interpretation Negative Problems Problem Type SNOMED Code ICD Code Onset Dates Problem Status W/U Status Risk Notes Problem 159256429 Abnormal findings on diagnostic imaging of other parts of digestive tract (R93.3) Active confirmed Problem Duodenitis (27610020) Duodenitis (K29.80) Active confirmed Problem 73075931 Erosive esophagitis (K22.10) Active confirmed Problem 757274872 Acute abdominal pain (R10.9) Active confirmed Vital Signs Temperature 97.8 degrees Fahrenheit 02/06/2025 Blood pressure diastolic 01 mm Hg 02/06/2025 Height 67 in 02/06/2025 Blood pressure systolic 001 mm Hg 02/06/2025 Weight 90 lbs 02/06/2025 BMI 14.09 kg/m2 02/06/2025 Encounters Encounter Location Date Provider Diagnosis [facility] [address] [place] [id number] 03/18/2024 Harsh Bond Jr Abnormal CT scan, esophagus R93.3 [facility] [address] [place] [id number] 12/07/[address] [facility] [address] [place] [phone] 03/03/2024 Harsh Bond Jr Abnormal findings on diagnostic imaging of other parts of digestive tract R93.3 [facility] [address] [place] [phone] 02/06/2025 Harsh Bond Jr Erosive esophagitis K22.10 [facility] [address] [place] [phone] 03/21/2024 Harsh Bond Jr Acute abdominal pain R10.9 [facility] [address] [place] [phone] 03/29/[address] [facility] [address] [place] [phone] 12/13/[address] [facility] [address] [place] [phone] 12/26/[address] [facility] [address] [place] [phone] 12/28/[address] [facility] [address] [place] [phone] 02/06/2025 Harsh Bond Jr Assessments Encounter Date Diagnosis (ICD Code) Assessment Notes Treatment Notes Treatment Clinical Notes Section Notes 03/18/[address] scan, esophagus (ICD-10 - R93.3) 03/03/2024 Abnormal findings on diagnostic imaging of other parts of digestive tract (ICD-10 - R93.3) Digestive diseases material was printed We reviewed his CT scan today. We reviewed his emergency room visits to. We have asked him to completely discontinue alcohol and to stop smoking. He will increase his pantoprazole to b.i.d. Endoscopy will be arranged. He understands risks and benefits and agrees to proceed. 02/06/2025 Erosive esophagitis (ICD-10 - K22.10) Heartburn - what to ask your provider material was printed We discussed erosive esophagitis today. We recommend that he continue pantoprazole. He will be seen for follow-up endoscopy. We discussed risks and benefits of the procedure today. He understands and agrees to proceed. For his pancreatitis we have recommended continued abstinence from alcohol. We will see him in 12 months for follow-up of this. 03/21/2024 Acute abdominal pain (ICD-10 - R10.9) Plan Of Treatment Pending Test Test Name Order Date LIVER PROFILE 03/21/2024 LIPASE 03/21/2024 CBC w/o DIFF 03/21/2024 US ABD 03/21/2024 Future Test Test Name Order Date UPPER GI ENDOSCOPY 03/03/2024 UPPER GI ENDOSCOPY 02/06/2025 Next Appt Details Provider Name:Harsh eaton Jr, 05/23/2025 07:30:00 AM, [address] [place] [address] , [place], [place], [phone], Insurance Providers Payer Name Payer Address Payer Phone Subscriber Number Group Number Insured Name Patient Relationship to Insured Coverage Start Date Coverage End Date [facility] [address] [place] [phone] [id number] AGUSTIN DANIEL Self - patient is the insured Medical (General) History Medical History History ICD Code Renal cell carcinoma Gastroesophageal reflux disease 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 Colonoscopy 10/15, tubular adenoma, 5-ye ar follow-up Surgical History Surgery Date(Month/Year) Dental extractions 2023 Left nephrectomy 2021
--- OUTSIDE RECORDS SUMMARY | 2025-03-03 11:58 | XMS_ITS | Clinical Summary ---
Author Organization [facility] Address [address] [place] [address] Care Team Providers Care Printer Slotter Feeder Name Role Phone Unavailable Primary Care Provider [...] - 2023-2 5 season) 2024 Influenza Vaccine (Season Ended) 2025 RSV Immunization Adult Patie nts (1 - 1-dose 75+ series) 2037 HIB [...] age to complete this topic Meningococcal B Vaccine Aged Out No l onger eligible based on patient's age to complete [...]
--- OUTSIDE RECORDS SUMMARY | 2025-03-03 11:58 | XMS_ITS ---
Author Organization [facility] Address [address] [place] [address] Care Team Providers Care C T Tech Name Role Phone SHERINRADHA KATHLEEN Primary Care Provider Harsh Santacruz Jr Unavailable Joey Bhakta M.D. Unavailable Unavailable Allergies No Known Allergies REASON FOR VISIT Patient presents today for abdominal pain Medications Medication SIG (Take, Route, Frequency, Duration) Notes Start Date End Date Status Pantoprazole Sodium 40 MG 1 tablet Orall y twice a day for 30 day(s) 03/03/2024 Active Sucralfate 1 GM/10ML Oral for 5 Active Pantoprazole Sodium 40 MG TAKE 1 TABLET BY MOUTH DAILY Oral for 90 Active oxyCODONE HCl 5 MG Oral for 5 Active Gabapentin 100 MG 1 capsule at bedtime Orally Once a day Active Immunizations Vaccine Route Administration Date Status [...] ast year? No Points 0 Interpretation Negative AUDIT-C (Standard) Question Answer Notes Did you have a drink containing alcohol in the p ast year? No Points 0 Interpretation Negative Problems Problem Type SNOMED Code ICD Code Onset Dates Problem Status W/U Status Risk Notes Problem [id number] Erosive esophagitis (K22.10) Active confirmed Vital Signs Temperature 97.8 degrees Fahrenheit 02/07/20 25 Blood pressure systolic 001 mm Hg 02/07/20 25 Blood pressure diastolic 01 mm Hg 025 Height 67 in 02/06/2025 Weight 90 lbs 02/06/2025 BMI 14.09 kg/m2 02/06/2025 Encounters Encounter Location Date Provider Diagnosis [facility] [address] [place] [address] 02/06/2025 Harsh Bond Jr Erosive esophagitis K22.10 Assessments Encounter Date Diagnosis (ICD Code) Assessment Notes Treatment Notes Treatment Clinical Notes Section Notes 02/06/2025 Erosive esophagitis (ICD-10 - K22.10) Heartburn [...] in 12 months for follow-up of this. Plan Of Treatment Treatment Notes Assessment Notes Erosive esophagitis Heartburn - what to ask your provider material was printed Future Test Test Name Order Date UPPER GI ENDOSCOPY 02/06/2025 Next Appt Details Follow Up: 1 Year, Reason: Provider Name:Harsh eaton Jr, 05/23/2025 07:30:00 AM, [address] [place] [address] , [place], [place], [phone], Progress Notes * AGUSTIN RAMONDOB: 2 (64 yo M)Acc No.[id number]:02/06/2025 Progress Notes Patient:?AGUSTIN RAMON Provider:?Harsh Bond MD :1960???Age:64 Y???Sex:Male Brandon e:02/06/2025 Address:[address] [place] [address], [place] [phone] Pcp:KATHLEEN MAHONEY Subjective: * Chief Complaints: * ???1. Patient presents today for abdominal pain. * HPI: ???New symptom(s):? The patient is a pleasant 64-year-old man seen today in follow-up of pancreatitis. Since we saw him last, he was hospitalized at [facility] and underwent imaging including ultrasound and CT scanning. Those records are not available but will be obtained. He was prescribed pancreatic enzyme supplementation for chronic pancreatitis, but this caused pain in his legs and he stopped taking it. The pain subsequently went away. Today he states he feels better. He has no complaints of nausea or vomiting. He still has some epigastric pain in the morning. He is following a low-fat diet. He continues on gabapentin prescribed by his primary care provider. He has a history of erosive esophagitis at the time of endoscopy in November. Duodenitis was also noted at that time. He is due for follow-up endoscopy later this year. 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 * Surgical History:?Left nephr ectomy 2021, Dental extractions 2023. * Family History:?Father: dece ased, aneurysm brain.?Mother: .? no known hx of colon ca.? No family history of liver cancer. * Social History:?Tobacco Use:?Tobacco Use/Smoking?Patient is a?current smoker,?How many cigarettes a day do you smoke??5 or less.?Drugs/Alcohol:?Alcohol Screen?Did you have a drink containing alcohol in the past year??No,?Points?0,?Interpretation?Negative.?Miscellaneous:?Marital status: 09/2023. 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 ???Drug/Alcohol:?AUDIT-C (Standard)?Did you have a drink containing alcohol in the past year??No,?Points?0,?Interpretation?Negative.? * Medications:?Taking Gabapent in 100 MG Capsule 1 capsule at bedtime Orally Once a day , Taking oxyCODONE HCl 5 MG Tablet Oral , Taking Pantoprazole Sodium 40 MG Tablet Delayed Release TAKE 1 TABLET BY MOUTH DAILY Oral , Taking Sucralfate 1 GM/10ML Suspension Oral , Taking Pantoprazole Sodium 40 MG Packet 1 tablet Orally twice a day , Medication List reviewed and reconciled with the patient * Allergies:?N.K.D.A. Objective: * Vitals:?Wt:90lbs, Ht: 67 in, BMI:14.09Index, BP:001/01mm Hg, Temp:97.8, Ht-cm: 170.18, Wt-k.82. * Examination: ???General Examination: ???On examination today, he appears well. Skin is anicteric. Lungs are clear. Heart shows a regular rate and rhythm. Abdomen is soft without focal masses or tenderness. Extremities are without edema. Assessment: * Assessment: 1.?Erosive esophagitis - K22 .10 (Primary)??? We discussed erosive esophag itis today. We recommend that he continue pantoprazole. He will be seen for follow-up endoscopy. We discussed risks and benefits of the procedure today. He understands and agrees to proceed. For his pancreatitis we have recommended continued abstinence from alcohol. We will see him in 12 months for follow-up of this. Plan: * Treatment: Notes: Heartburn - what to ask your provider material was printed?? * Immunizations:? Influenza (Not administered - Refused: Patient decision) * Procedure Codes:?3017F COLOR ECTAL CA SCREEN DOC REV, G9902 Pt scrn tbco and id as user, G8785 BP SCR NOT PRFRM REC REASON NOS * Preventive Medicine:? ??Counseling:?Care goal follow-up plan:?Below Normal BMI Follow-up?Dietary education for weight gain,?BMI management provided?Yes.? * Follow Up:?1 Year * * Sign off status: Completed true * Provider:?Harsh Bond MD Date:?0 02/06/2025 Generated for Muna flores/Dontrell/eTarabellasmitting on:?03/03/2025 11:58 AM EDT History and Physical Notes * HPI (History of Present Illness) Category Sub-Category Detail Notes Category Not es New symptom(s) The patient is a pleasant 64-year-old man seen today in follow-up of pancreatitis. Since we saw him last, he was hospitalized at [facility] and underwent imaging including ultrasound and CT scanning. Those records are not available but will be obtained. He was prescribed pancreatic enzyme supplementation for chronic pancreatitis, but this caused pain in his legs and he stopped taking it. The pain subsequently went away. Today he states he feels better. He has no complaints of nausea or vomiting. He still has some epigastric pain in the morning. He is following a low-fat diet. He continues on gabapentin prescribed by his primary care provider. He has a history of erosive esophagitis at the time of endoscopy in November. Duodenitis was also noted at that time. He is due for follow-up endoscopy later this year. Examination Category Sub-Category Detail Notes Category Not es General Examination On exami nation today, he appears well. Skin is anicteric. Lungs are clear. Heart shows a regular rate and rhythm. Abdomen is soft without focal masses or tenderness. Extremities are without edema.
--- OUTSIDE RECORDS SUMMARY | 2025-03-03 11:58 | XMS_ITS ---
Author Organization [facility] Address [address] [place] [phone] Care Team Providers Care Form Carpenter Name Role Phone KATHLEEN MAHONEY Primary Care Provider Harsh Santacruz Jr Yony Garcia, Joey Unavailable Unavailable REASON FOR VISIT discharged from [facility] Encounters Encounter Location Date Provider Diagnosis [facility] [address] [place] [phone] 12/28/2024 Harsh Bond Jr Plan Of Treatment Next Appt Details Provider Name:Harsh eaton Jr, 05/23/2025 07:30:00 AM, [address] [place] [address] , [place], [place], [phone], Progress Notes * AGUSTIN RAMONDOB: 2 (64 yo M)Acc No.[id number]:12/28/2024 Patient:?AGUSTIN RAMON :1960???Age:64 Y???Sex:Male Address:[address] [place] [address], [place] [address] * true * Date:? Generated for Mauliki sandra/Dontrell/eTransmitting on:?03/03/2025 11:58 AM EDT
--- OUTSIDE RECORDS SUMMARY | 2025-03-03 11:58 | XMS_ITS ---
Author Organization [facility] Address [address] [place] [phone] Care Team Providers Care Ignition Expert Name Role Phone DENZEL KATHLEEN Primary Care Provider Harsh Santacruz Jr Yony Garcia, Joey Unavailable Unavailable Medications Medication SIG (Take, Route, Frequency, Duration) Notes Start Date End Date Status Pantoprazole Sodium 40 MG TAKE 1 TABLET BY MOUTH DAILY Oral for 90 days Active Encounters Encounter Location Date Provider Diagnosis [facility] [address] [place] [phone] 02/06/2025 Harsh Bond Jr Plan Of Treatment Medication Medication Name Sig Start Date Stop Date Notes Pantoprazole Sodium 40 MG TAKE 1 TABLET BY MOUTH DAILY Oral for 90 days Next Appt Details Provider Name:Harsh eaton Jr, 05/23/2025 07:30:00 AM, [address] [place] [address] , [place], [place], [phone], Progress Notes * AGUSTIN RAMONDOB: 2 (64 yo M)Acc No.[id number]:02/06/2025 Patient:?AGUSTIN RAMON :1960???Age:64 Y???Sex:Male Address:[address] [place] [address] [place], [address] * Refills? Refill Pantoprazole Sodium Tablet Delayed Release, 40 MG, Oral, 90, TAKE 1 TABLET BY MOUTH DAILY, 90 days, Refills=3 * true * Date:? Generated for Muna flores/Dontrell/Andrewitting on:?03/03/2025 11:57 AM EDT
== END 2025-03-03 11:10 | disposition home or self-care (01) ==
LOC: HO.HPS 11:00
PROVIDERS: PCP Nurse Practitioner Family; Referring Provider Nurse Practitioner Family; Visit Provider Physician Assistant Medical
DX: F17.210 Nicotine dependence, cigarettes, uncomplicated (principal)
CPT/HCPCS: G0296

== ENCOUNTER 2025-03-03 11:13 | Outpatient (REF) | payer OTHER, SELFPAY ==
--- NOTE | ~2025-03-03 | CT_ITS ---
EXAMINATION: CT LOW-DOSE SCREENING CHEST WITHOUT CONTRAST CLINICAL INFORMATION: 64-year-old male, current smoker, 44 pack years. Lung cancer screening. COMPARISON: None available. TECHNIQUE: Multidetector volumetric CT imaging of the chest is performed on a Siemens SOMATOM Definition scanner without contrast using low dose technique. Additional 2D coronal and sagittal reformatted images and axial 3D maximum intensity projection (MIP) images are generated on the CT workstation. This CT examination was performed using dose optimization techniques as appropriate, variously including the following: *Automated exposure control *Adjustment of mA and/or kV according to patient size (this includes techniques or standardized protocols for targeted exams where dose is matched to indication/reason for exam; i.e. extremities or head) *Use of iterative reconstruction technique FINDINGS: PULMONARY NODULES: There are no pulmonary nodules. LUNGS: There is mild centrilobular emphysema. There is linear scarring with associated mild bronchiectasis involving the posterior segment of the right upper lobe. There is mild linear scarring in the right posterior costophrenic sulcus. Lungs are otherwise clear. There are no consolidative or groundglass opacities. Small airways appear normal. Central airways appear patent. There is no effusion or pneumothorax. MEDIASTINUM: Normal thyroid. Heart size is normal. Mildly prominent pericardial fat. No pericardial effusion. The aorta demonstrates mild calcific atheromatous disease but is normal in caliber and course. There is no aneurysm. The main pulmonary artery is normal in size. There is no adenopathy or mass. The esophagus is normal in appearance. CORONARY ARTERY CALCIFICATION: None visualized on this study. CHEST WALL/AXILLA: Unremarkable. UPPER ABDOMEN: Cholecystectomy. The left kidney is not visualized and may be surgically absent. Remainder the imaged upper abdominal contents appear normal. OSSEOUS STRUCTURES: No suspicious focal findings. CT/CT lung screening IMPRESSION: 1. There are no suspicious lung nodules. 2. There is mild centrilobular emphysema. There is chronic scarring and mild bronchiectasis involving the posterior segment right upper lobe. 3. There is no active pulmonary disease. 4. Cholecystectomy and left nephrectomy. ASSESSMENT: 1. Lung-RADS Category 1: Negative. There are no nodules or there are definitely benign nodules. 2. Lung-RADS Category S: None. RECOMMENDATION: Continued routine annual low-dose CT lung screening in 1 year is recommended. An order for CT CHEST LOW DOSE CANCER SCREENING ([id number]) can be placed. Electronically signed by: Xavier Kaminski MD 03/03/2025 12:32 PM EDT
== END 2025-03-03 11:14 | disposition home or self-care (01) ==
LOC: HO.CT 11:13
PROVIDERS: PCP Nurse Practitioner Family; Visit Provider Physician Assistant Medical
DX: Z12.2 Encounter for screening for malignant neoplasm of respiratory organs (principal); F17.210 Nicotine dependence, cigarettes, uncomplicated
CPT/HCPCS: 71271; G0296

== ENCOUNTER → 2025-03-03 11:15 | Outpatient (BNV) | payer OTHER, SELFPAY | PROVIDERS: PCP Nurse Practitioner Family; Visit Provider Radiology Diagnostic Radiology | DX: F17.210 Nicotine dependence, cigarettes, uncomplicated (principal) | CPT/HCPCS: 71271 ==

== ENCOUNTER 2025-05-17 11:12 | Outpatient (AMB) | payer OTHER, SELFPAY ==
[2025-05-17 11:24] VITALS: BP 106/60; PULSE 82; O2SAT 96; BMI 15.8
--- NOTE | 2025-05-17 11:24 | A.OFFPC_ITS ---
Vital Signs 05/17/25 11:24 Height 5 ft 7 in Weight 101 lb BMI 15.8 BP 106/60 Blood Pressure Location Lt brachial Position Sitting Pulse 82 Pulse Source Pulse Oximeter Pulse Oximetry (%) 96 Intake Visit Reasons: 4m f/u Fur Sewer Required: No Allergies No Known Allergies Allergy (Verified 05/17/25 11:24) Tobacco use date assessed: 01/11/25 Dental Screening Dental Screen Date: 01/11/25 HPI 4m f/u HPI Details Chief Complaint The patient presents for follow-up of pancreatitis and duodenitis. History of Present Illness The patient is a 64-year-old male presenting with follow-up for pancreatitis and duodenitis. He experienced these conditions at the beginning of the year, in November, and reports feeling much better now. He occasionally experiences epigastric abdominal discomfort after consuming fatty meals, which he has significantly reduced. The patient continues to consume intermittent alcohol, specifically beer, but reports no pain associated with alcohol consumption. He denies any symptoms such as diarrhea, constipation, fever, chills, nausea, or vomiting. He is part of a low-dose CT scan program due to his smoking history, which he continues. On examination, there was no tenderness noted in the epigastric region. The patient has been newly diagnosed with diabetes mellitus, which is suspected to be related to his pancreatitis. He is currently not on any medications for diabetes and will have follow-up tests including microalbumin and A1c. A referral for an eye exam has been planned. Social History - Substance use: Continues to smoke and consume beer occasionally. Health Maintenance - Low dose CT scan program due to smokin g history. - Referral for an eye exam due to diabet es mellitus. Review of Systems - Gastrointestinal: Reports occasional e pigastric discomfort after fatty meals. Denies diarrhea, constipation, nausea, or vomiting. - Constitutional: Denies fever or chills . Physical Exam General: Cooperative, healthy appearing, comfortable, no acute distress and well developed Orientation: Patient oriented x3 Limitations: No limitations Head: Normal to inspection Ears: Hearing grossly normal bilaterally Nose: Normal external nose present Face and sinus: Normal facial exam Eyes: Appearance normal, both eyes and all related structures Neck: Normal visual inspection and Yes full ROM Respiratory: Diminished lung sounds. Normal respiratory effort and able to speak in complete sentences. Clear to auscultation bilaterally Cardiovascular: Regular rate and rhythm. Diminished S1 and S2 GI: Normal to inspection. Soft to palpation and nontender in the epigastric region Skin: No rashes or lesions noted Neuro: Patient oriented x3 Extremities: Normal to inspection Results Plan A repeat CT scan will be conducted to assess the status of the pancreatitis and duodenitis. The patient will undergo follow-up tests including microalbumin and A1c to monitor his newly diagnosed diabetes mellitus. A referral for an eye exam has been made to address potential complications from diabetes. I discussed with the patient the need for a repeat CT scan to evaluate the pancreatitis and duodenitis. We also talked about the importance of monitoring his diabetes with follow-up tests and the necessity of an eye exam to prevent complications. Patient Instructions - Schedule and complete the repeat CT sc an as advised. - Follow up with microalbumin and A1c te sts to monitor diabetes. - Attend the referred eye exam to check for diabetes-related complications. [facility] Medical History Erosive esophagitis Acute on chronic pancreatitis Newly diagnosed diabetes (~2024) History of renal cell carcinoma Nicotine dependence, cigarettes, uncomplicated Anorexia Arthritis Hiatal hernia Barretts esophagus Alcohol use disorder GERD (gastroesophageal reflux disease) Back pain with right-sided sciatica (10/07/21) Pancreatitis Inguinal hernia Cyst of pancreas Surgical History History of tooth extraction History of colonoscopy History of esophagogastroduodenoscopy (EGD) History of laparoscopic cholecystectomy (~2023) H/O hernia repair History of surgery on right wrist History of nephrectomy, left (2021) Social History Household Members: Other Household Members Other:: self Housing: House Are you a primary daycare manager to a significant other at home: No Do you presently have visiting nurse or other home services: No Alcohol intake: former Patient Tobacco Use Status: Current everyday Tobacco user Tobacco use type: Cigarette Years Smoked: (onset 20yo, 1/2ppd x 44yrs, 22pyh) Second Hand Smoke Exposure: No service: No Current occupational status: employed Current occupation: [employer] Current occupational exposures/hazards: Yes Cognitive needs: No Hearing needs: No Vision needs: No Questionnaire Thrive Questionnaire Date Thrive assessed: 01/04/25 I am a: Patient What is your living situation today?: I have a steady place to live Within the past 12 months, did the food you bought not last and you didn't have the money to get more?: Never true Within the past 12 months, did you worry whether your food would run out before you got money to buy more?: Never true Do you have trouble paying for medicines?: No Do you have trouble getting transportation to medical appointments?: No Do you have trouble paying your heating and electricity bill?: No Do you have trouble taking care of your child, family member or friend?: No Do you have trouble with day-to-day activities such as bathing, preparing meals, shopping, managing finances, etc.?: No Are you currently unemployed and looking for a job?: No Are you interested in more education?: No Please select the resources that you would like help with: None Currently or been in a relationship where the following occur: No concerns reported THRIVE Score: 0 CLAIRE-7 AMB Questionnaire CLAIRE-7 Date CLAIRE - 7 assessed: 01/11/25 Source: Developed by Drs. Mahendra Paulino, Dian Jin, Jesus Mock and colleagues, with an educational oksana from [employer]. Physical exam (Primary Care) Vital Signs: Last Vital Signs Pulse 82 05/17/25 11:24 BP 106/60 05/17/25 11:24 Pulse Ox 96 05/17/25 11:24 BMI result Body Mass Index 15.8 Tobacco/Smoking Status: Tobacco use Status Tobacco use date assessed 01/11/25 05/17/25 11:27 Patient Tobacco Use Status Current everyday Tobacco 05/17/25 11:27 Tobacco use type Cigarette 05/17/25 11:27 Thrive Assessment: Date of Thrive Assessment Date Thrive assessed 01/04/25 05/17/25 11:27 Currently or been in a relationship where the following occur: No concerns reported Coding Level of Care Code Est Pt Level 4 (60924) Diagnoses Pancreatitis K85.90 Newly diagnosed diabetes E11.9 Gastritis and duodenitis K29.90 Assessment & Plan Assessment & Plan (1) Pancreatitis: Code(s): K85.90 - Acute pancreatitis without necrosis or infection, unspecified Category: Medical (2) Newly diagnosed diabetes: Onset Date: ~2024 Code(s): E11.9 - Type 2 diabetes mellitus without complications Category: Medical (3) Gastritis and duodenitis: Code(s): K29.90 - Gastroduodenitis, unspecified, without bleeding Category: Medical Plan . Orders: Orders Comprehensive [place]. Panel Fast Today E11.9 - Type 2 diabetes mellitus without complications, K85.90 - Acute pancreatitis without necrosis or infection, unspecified TSH reflex Free T4 Today E11.9 - Type 2 diabetes mellitus without complications, K85.90 - Acute pancreatitis without necrosis or infection, unspecified Microalbumin, Random (w Creat) Today E11.9 - Type 2 diabetes mellitus without complications, K85.90 - Acute pancreatitis without necrosis or infection, unspe cified Hemoglobin A1c Today E11.9 - Type 2 diabetes mellitus without complications, K85.90 - Acute pancreatitis without necrosis or infection, unspecified Complete Blood Count Auto Diff Today E11.9 - Type 2 diabetes mellitus without complications, K85.90 - Acute pancreatitis without necrosis or infection, unspecified UA CC w/rflx Micro + Cult Today E11.9 - Type 2 diabetes mellitus without complications, K85.90 - Acute pancreatitis without necrosis or infection, unspecified Lipid Panel Today E11.9 - Type 2 diabetes mellitus without complications, K85.90 - Acute pancreatitis without necrosis or infection, unspecified CT abdomen w IV con Today K29.90 - Gastroduodenitis, unspecified, without bleeding, K85.90 - Acute pancreatitis without necrosis or infection, unspecified Referrals Ophthalmology Referral E11.9 - Type 2 diabetes mellitus without complications
--- OUTSIDE RECORDS SUMMARY | 2025-05-17 13:21 | XMS_ITS | Patient Health Record ---
Author Organization [facility] Address [address] [place] [address] Care Team Providers Care Plumbers And Top Helpers Name Role Phone KATHLEEN MAHONEY Primary Care Provider Harsh Santacruz Jr Unavailable Yony Garcia Joey Unavailable Unavailable Allergies No Known Allergies Results Component Value Reference Range Notes Pathology Reviewed date:12/13/2024 03:31:10 PM Interpretation: Performing Lab:[facility], [address] [place] [phone] Notes/Report: Reason For Referral No Information Medications Medication [...] Problem Status W/U Status Risk Notes Problem 577931152 Abnormal findings on diagnostic imaging of other parts of digestive tract (R93.3) Active confirmed Problem Duodenitis (K29.80) Active confirmed Problem 85415710 Erosive esophagitis (K22.10) Active confirmed Problem 545727701 Acute abdominal pain (R10.9) Active confirmed Vital Signs Temperature 97.8 degrees Fahrenheit 02/06/2025 Blood pressure diastolic 01 mm Hg 02/06/2025 Height 67 in 02/06/2025 Blood pressure systolic 001 mm Hg 02/06/2025 Weight 90 lbs 02/06/2025 BMI 14.09 kg/m2 02/06/2025 Encounters Encounter Location Date Provider Diagnosis [facility] [place] [address] [place] [id number] 12/07/2024 Harsh Bond Jr [facility] [address] [place] [phone] 02/06/2025 Harsh Bond Jr Erosive esophagitis K22.10 [facility] [address] [place] [phone] 12/13/2024 Harsh Bond Jr [facility] [address] [place] [phone] 12/26/2024 Harsh Bond Jr [facility] [address] [place] [phone] 12/28/2024 Harsh Bond Jr [facility] [address] [place] [phone] 02/06/2025 Harsh Bond Jr [facility] [address] [place] [phone] 05/16/2025 Harsh Bond Jr Assessments Encounter Date Diagnosis [...] for follow-up of this. Plan Of Treatment Pending Test Test Name Order Date LIVER PROFILE 03/21/2024 LIPASE 03/21/2024 CBC w/o DIFF 03/21/2024 US ABD 03/21/2024 Future Test Test Name Order Date UPPER GI ENDOSCOPY 03/03/2024 UPPER GI ENDOSCOPY 02/06/2025 Insurance Providers Payer Name Payer Address Payer Phone Subscriber Number Group Number Insured Name Patient Relationship to Insured Coverage Start Date Coverage End Date [facility] [address] [address] [facility] [place] [address] [phone] [id number] AGUSTIN RAMON Self - patient is the insured Medical [...]
== END 2025-05-17 11:50 | disposition home or self-care (01) ==
LOC: HO.HMCC 11:13
PROVIDERS: PCP Nurse Practitioner Family; Visit Provider Nurse Practitioner Family
DX: K85.90 Acute pancreatitis without necrosis or infection, unspecified (principal); E11.9 Type 2 diabetes mellitus without complications; K29.90 Gastroduodenitis, unspecified, without bleeding

== ENCOUNTER → 2025-05-17 11:12 | Outpatient (BNVA) | payer OTHER, SELFPAY | PROVIDERS: PCP Nurse Practitioner Family; Visit Provider Nurse Practitioner Family | DX: Z13.89 Encounter for screening for other disorder (principal); E11.9 Type 2 diabetes mellitus without complications; K85.90 Acute pancreatitis without necrosis or infection, unspecified; K86.1 Other chronic pancreatitis ==

== ENCOUNTER 2025-07-11 10:51 | Outpatient (REF) | payer OTHER, SELFPAY ==
--- OUTSIDE RECORDS SUMMARY | 2025-07-11 12:24 | XMS_ITS | Clinical Summary ---
Author Organization [facility] ity Address [address] [place] [address] Care Team Providers Care Ancillary Services Manager Therapy Name Role Phone Unavailable Primary Care Provider [...] Panel) 10/25/2022 Colorectal Cancer Screening: Colonoscopy 10/25/2022 HIV Screening 10/25/2022 Hepatitis C Screening 10/25/2022 Social Influencers of Health Screening 10/25/2022 COVID-19 Vaccine (1 - 2023-2 5 season) 2024 Depression Screening 11/23/2024 Influenza Vaccine (#1) 2025 RSV Immunization Adult Patie nts (1 [...]
--- OUTSIDE RECORDS SUMMARY | 2025-07-11 12:24 | XMS_ITS | Patient Health Record ---
Author Organization [facility] Address [address] [place] [address] Care Team Providers Care Well Reactivator Operator Name Role Phone KATHLEEN MAHONEY Primary Care Provider Harsh Santacruz Jr Unavailable Yony Garcia Joey Unavailable Unavailable Allergies No Known Allergies Results Component Value Reference Range Notes Pathology Reviewed date:12/13/2024 03:31:10 PM Interpretation: Performing Lab:[facility], [address] [place] [phone] Notes/Report: Reason For Referral No Information Medications [...] Problem Status W/U Status Risk Notes Problem 500945961 Abnormal findings on diagnostic imaging of other parts of digestive tract (R93.3) Active confirmed Problem Duodenitis (K29.80) Active confirmed Problem 81582870 Erosive esophagitis (K22.10) Active confirmed Problem 144968672 Acute abdominal pain (R10.9) Active confirmed Vital Signs Temperature 97.8 degrees Fahrenheit 02/06/2025 Blood pressure diastolic 01 mm Hg 02/06/2025 Height 67 in 02/06/2025 Blood pressure systolic 001 mm Hg 02/06/2025 Weight 90 lbs 02/06/2025 BMI 14.09 kg/m2 02/06/2025 Encounters Encounter Location Date Provider Diagnosis [facility] [place] [address] [place] [id number] 12/07/2024 Harsh Bond Jr [facility] [address] [place] [phone] 02/06/2025 Harsh Bond Jr Erosive esophagitis K22.10 [facility] [address] [place] [phone] 12/13/2024 Harsh Bond Jr [facility] [address] [place] [phone] 12/26/2024 Harsh Bond Jr [facility] [address] [place] [phone] 12/28/2024 Harsh Bond Jr [facility] [address] [place] [phone] 02/06/2025 Harsh Bond Jr [facility] [address] [place] [phone] 05/16/2025 Harsh Bond Jr Assessments Encounter Date [...] Insured Coverage Start Date Coverage End Date [facility] [place] [phone] [id number] AGUSTIN RAMON Self - patient is the [...]
[2025-07-11 13:12] LABS: MANUAL DIFF FLAG NO
[2025-07-11 13:30] LABS: Hematocrit 35.5 % (42.0-52.0); Hemoglobin 12.1 g/dl (14.0-18.0); Imm Gran Abs Auto 0.03 X10*3/uL (0.00-0.03); Imm Gran Pct Auto 0.4 % (0.0-0.4); Lymphocytes Absolute Auto 2.1 X10*3/uL (1.2-4.9); Mean Corpuscular HGB Conc 34.1 g/dl (31.0-36.0); Mean Corpuscular Hemoglobin 34.7 pg (27.0-33.0); Mean Corpuscular Volume 101.7 fL (80.0-98.0); NRBC Abs Auto 0.000 X10*3/uL (0.0-0.012); NRBC Pct Auto 0.0 /100WBC (0.0-0.2); Platelet Count 257 X10*3/uL (160-400); Red Blood Count 3.49 X10*6/uL (4.60-5.80); White Blood Count 7.6 X10*3/uL (4.8-10.8)
[2025-07-11 13:49] LABS: Hemoglobin A1C 154.4552 umol/L; Total Hemoglobin (HGBA1C) 3413.8056 umol/L
[2025-07-11 13:56] LABS: Alanine Aminotransferase 41 U/L (0-40); Albumin Level 3.1 g/dL (3.5-5.0); Alkaline Phosphatase 111 U/L (39-117); Anion Gap 13 (12-20); Aspartate Amino Transferase 94 U/L (5-37); Blood Urea Nitrogen 3 mg/dL (9-16); Calcium 8.3 mg/dL (8.4-10.2); Carbon Dioxide 25 mmol/L (22-29); Chloride 104 mmol/L (96-108); Cholesterol 97 mg/dL (<200); Estimated Glomerular Filt Rate > 60; HDL Cholesterol 48 mg/dL (>40); Potassium 4.0 mmol/L (3.3-5.1); Sodium 138 mmol/L (135-145); Total Protein 6.0 g/dL (6.5-8.0); Triglycerides 67 mg/dL (<150)
== END 2025-07-11 10:52 | disposition home or self-care (01) ==
LOC: HO.HMGCLDS 10:51
PROVIDERS: PCP Nurse Practitioner Family; Visit Provider Nurse Practitioner Family
DX: E11.9 Type 2 diabetes mellitus without complications (principal); K85.90 Acute pancreatitis without necrosis or infection, unspecified
CPT/HCPCS: 36415; 80053; 80061; 83036; 84443; 85025

== ENCOUNTER 2025-07-12 07:30 | Outpatient (REF) | payer OTHER, SELFPAY ==
--- OUTSIDE RECORDS SUMMARY | 2025-07-12 13:11 | XMS_ITS | Patient Health Record ---
Author Organization [facility] Address [address] [place] [address] Care Team Providers Care Shoe Repairer Helper Name Role Phone KATHLEEN MAHONEY Primary Care Provider Harsh Santacruz Jr Unavailable Yony Garcia Joey Unavailable Unavailable Allergies No Known Allergies Results Component Value Reference Range Notes Pathology Reviewed date:12/13/2024 03:31:10 PM Interpretation: Performing Lab:[facility], [address] [place] [phone] Notes/Report: Reason For Referral No Information Medications [...] Problem Status W/U Status Risk Notes Problem 540848532 Abnormal findings on diagnostic imaging of other parts of digestive tract (R93.3) Active confirmed Problem Duodenitis (K29.80) Active confirmed Problem 76250766 Erosive esophagitis (K22.10) Active confirmed Problem 846529240 Acute abdominal pain (R10.9) Active confirmed Vital Signs Temperature 97.8 degrees Fahrenheit 02/06/2025 Blood pressure diastolic 01 mm Hg 02/06/2025 Height 67 in 02/06/2025 Blood pressure systolic 001 mm Hg 02/06/2025 Weight 90 lbs 02/06/2025 BMI 14.09 kg/m2 02/06/2025 Encounters Encounter Location Date Provider Diagnosis [facility] [place] [address] [place], [place] [id number] 12/07/2024 Harsh Bond Jr [facility] [address] [place] [phone] 02/06/2025 Harsh Bond Jr Erosive esophagitis K22.10 [facility] [address] [place] [phone] 12/13/2024 Harsh Bond Jr [facility] [address] [place] [phone] 12/26/2024 Harsh Bond Jr [facility] [address] [place] [phone] 12/28/2024 Harsh Bond Jr [facility] [address] [place] [phone] 02/06/2025 Harsh Bond Jr [facility] [address] [place] [phone] 05/16/2025 Harsh Bond Jr Assessments Encounter Date [...] Coverage Start Date Coverage End Date [facility] [address] [place] [address] [id number] AGUSTIN RAMON Self - patient is the [...]
--- OUTSIDE RECORDS SUMMARY | 2025-07-12 13:11 | XMS_ITS | Clinical Summary ---
Author Organization [facility] ity Address [address] [place] [address] Care Team Providers Care Harness Tier Name Role Phone Unavailable Primary Care Provider [...]
[2025-07-12 14:53] LABS: Appearance Urine Clear; Glucose Urine UA Negative (Negative); PH 7.0 (5.0-9.0); Specific Gravity - Urine <= 1.005 (1.005-1.025)
== END 2025-07-12 07:31 | disposition home or self-care (01) ==
LOC: HO.HMGCLNP 07:30
PROVIDERS: PCP Nurse Practitioner Family; Visit Provider Nurse Practitioner Family
DX: K85.90 Acute pancreatitis without necrosis or infection, unspecified (principal); E11.9 Type 2 diabetes mellitus without complications
CPT/HCPCS: 81003

== ENCOUNTER 2025-08-18 13:56 | Outpatient (REF) | payer OTHER, SELFPAY ==
--- OUTSIDE RECORDS SUMMARY | 2024-03-21 06:20 | XMS_ITS ---
Author Organization [facility] Address [address] [place] [id number] Care Team Providers Care Joiner Name Role Phone KATHLEEN MAHONEY Primary Care Provider Harsh Santacruz Jr [phone] Yony Garcia, Joey Unavailable Unavailable REASON FOR VISIT Patient presents today for barretts esophagus Encounters Encounter Location Date Provider Diagnosis [facility] [address] [facility] [address] [place] [phone] 03/21/2024 Harsh Bond Jr Plan Of Treatment No Information Progress Notes * AGUSTIN RAMONDOB: 2 (65 yo M)Acc No.[id number]:03/21/2024 Progress Notes Patient: AGUSTIN ROY Provider: Kristel Bond MD :1960 A ge:63 Y S ex:Male Date:03/21/2024 Address:[address] [place] [address], [address] [id number] Pcp:KATHLEEN MAHONEY Subjective: * Chief Complaints: * 1 . Patient presents today for barretts esophagus. * Medical History: Objective: * Vitals: Assessment: Plan: * Treatment: * * The named appointment provid er may or may not be the originator of this progress note, and it is not deemed complete until electronically signed by the appointment provider. Sign off status: Pending * Provider: Kristel Bond MD Date: 0 03/21/2024 Generated for Muna flores/Dontrell/eTransmitting on: 0 08/18/2025 03:05 PM EDT
--- OUTSIDE RECORDS SUMMARY | 2024-12-07 10:20 | XMS_ITS ---
Author Organization [facility] Address [address] [place] [id number] Care Team Providers Care Rehabilitation Aide/Scheduler Name Role Phone KATHLEEN MAHONEY Primary Care Provider Harsh Santacruz Jr Yonyrichard Garcia, Joey Unavailable Unavailable REASON FOR VISIT abn ct scan duodenum Encounters Encounter Location Date Provider Diagnosis [facility] [address] [place] [phone] 12/07/2024 Harsh Bond Jr Plan Of Treatment No Information Progress Notes * AGUSTIN RAMONDOB: 2 (65 yo M)Acc No.[id number]:12/07/2024 EGD/MAC Patient: AGUSTIN ROY Provider: Kristel Bond MD :[id number] A ge:64 Y S ex:Male Date:12/07/2024 Address:[address] [place] [address] elias [id number] Pcp:KATHLEEN MAHONEY Subjective: * Chief Complaints: * [address] scan duodenum. * Medical History: Objective: * Vitals: Assessment: Plan: * Treatment: * * The named appointment provid er may or may not be the originator of this progress note, and it is not deemed complete until electronically signed by the appointment provider. Sign off status: Pending * Provider: Kristel Bond MD Date: 0 12/07/2024 Generated for Mauliki sandra/Dontrell/eTransmitting on: 0 08/18/2025 03:05 PM EDT
--- OUTSIDE RECORDS SUMMARY | 2024-12-26 07:40 | XMS_ITS ---
Author Organization [facility] Address [address] [place] [id number] Care Team Providers Care Banquet Set Up Person Name Role Phone KATHLEEN MAHONEY Primary Care Provider Harsh Santacruz Jr [phone] Yony Garcia Joey Unavailable Unavailable REASON FOR VISIT f/u from hospital Encounters Encounter Location Date Provider Diagnosis [facility] [address] [place] [id number] 12/26/2024 Harsh Bond Jr Plan Of Treatment No Information Progress Notes * AGUSTIN RAMONDOB: 2 (65 yo M)Acc No.[id number]:12/26/2024 Progress Notes Patient: AGUSTIN ROY Provider: Kristel Bond MD :[id number] A ge:64 Y S ex:Male Date:12/26/2024 Address:[address] [place] [address], Bharathi griffin [id number] Pcp:KATHLEEN MAHONEY Subjective: * Chief Complaints: * 1 . F/u from hospital. * Medical History: Objective: * Vitals: Assessment: Plan: * Treatment: * * The named appointment provid er may or may not be the originator of this progress note, and it is not deemed complete until electronically signed by the appointment provider. Sign off status: Pending * Provider: Kristel Bond MD Date: 0 12/26/2024 Generated for Muna flores/Dontrell/eTransmitting on: 0 08/18/2025 03:05 PM EDT
--- OUTSIDE RECORDS SUMMARY | 2025-05-23 03:30 | XMS_ITS ---
Author Organization [facility] Address [address] [place] [phone] Care Team Providers Care Hog Cutter Name Role Phone KATHLEEN MAHONEY Primary Care Provider Harsh Santacruz Jr Yonyrichard Garcia, Joey Unavailable Unavailable REASON FOR VISIT erosive esophagitis Encounters Encounter Location Date Provider Diagnosis [facility] [place] [address] [place] [id number] 05/23/2025 Harsh Bond Jr Plan Of Treatment No Information Progress Notes * AGUSTIN RAMONDOB: 2 (65 yo M)Acc No.[id number]:05/23/2025 EGD/MAC Patient: AGUSTIN ROY Provider: Kristel Bond MD :1960 A ge:64 Y S ex:Male Date:05/23/2025 Address:[address] [place] [address] Bharathi griffin [id number] Pcp:KATHLEEN MAHONEY Subjective: * Chief Complaints: * 1 . Erosive esophagitis. * Medical History: Objective: * Vitals: Assessment: Plan: * Treatment: * * The named appointment provid er may or may not be the originator of this progress note, and it is not deemed complete until electronically signed by the appointment provider. Sign off status: Pending * Provider: Kristel Bond MD Date: 0 05/23/2025 Generated for Muna flores/Dontrell/eTransmitting on: 08/18/2025 03:05 PM EDT
--- OUTSIDE RECORDS SUMMARY | 2025-08-18 15:05 | XMS_ITS | Patient Health Record ---
Author Organization [facility] Address [address] [place] [address] Care Team Providers Care Ruling Machine Feeder Name Role Phone KATHLEEN MAHONEY Primary Care Provider Harsh Santacruz Jr Unavailable Branden Bhakta M.D.quale Unavailable Unavailable Allergies No Known Allergies Results Component Value Reference Range Notes Pathology Reviewed date:12/13/2024 03:31:10 PM Interpretation: Performing Lab:[facility], [address] [place] [phone] Notes/Report: Reason For Referral No Information Medications [...] Problem Status W/U Status Risk Notes Problem 096582653 Abnormal findings on diagnostic imaging of other parts of digestive tract (R93.3) Active confirmed Problem Duodenitis (55352288) Duodenitis (K29.80) Active confirmed Problem 50006522 Erosive esophagitis (K22.10) Active confirmed Problem 423337925 Acute abdominal pain (R10.9) Active confirmed Vital Signs Temperature 97.8 degrees Fahrenheit 02/06/2025 Blood pressure diastolic 01 mm Hg 02/06/2025 Height 67 in 02/06/2025 Blood pressure systolic 001 mm Hg 02/06/2025 Weight 90 lbs 02/06/2025 BMI 14.09 kg/m2 02/06/2025 Encounters Encounter Location Date Provider [place] [facility] [place] [address] [place], [place] [id number] 12/07/2024 Harsh Bond Jr [facility] [address] [place] [phone] 02/06/2025 Harsh Bond Jr Erosive esophagitis K22.10 [facility] [address] [place] [phone] 12/13/2024 Harsh Bond Jr [facility] [address] [place] [phone] 12/26/2024 Harsh Bond Jr [facility] [address] [place] [phone] 12/28/2024 Harsh Bond Jr [facility] [address] [place] [phone] 02/06/2025 Harsh Bond Jr [facility] [address] [place] [phone] 05/16/2025 Harsh Bond Jr Assessments Encounter Date [...] Insured Coverage Start Date Coverage End Date [facility] [address] [place] [phone] [id number] AGUSTIN RAMON Self - patient is the [...]
[2025-08-18 15:41] LABS: Alanine Aminotransferase 34 U/L (0-40); Albumin Level 2.6 g/dL (3.5-5.0); Alkaline Phosphatase 100 U/L (39-117); Anion Gap 7 (12-20); Aspartate Amino Transferase 51 U/L (5-37); Blood Urea Nitrogen 5 mg/dL (9-16); Calcium 8.0 mg/dL (8.4-10.2); Carbon Dioxide 26 mmol/L (22-29); Chloride 110 mmol/L (96-108); Estimated Glomerular Filt Rate > 60; Potassium 3.7 mmol/L (3.3-5.1); Sodium 139 mmol/L (135-145); Total Protein 5.4 g/dL (6.5-8.0)
== END 2025-08-18 13:57 | disposition home or self-care (01) ==
LOC: HO.CT 13:56
PROVIDERS: PCP Nurse Practitioner Family; Visit Provider Nurse Practitioner Family
DX: Z12.5 Encounter for screening for malignant neoplasm of prostate (principal); K29.90 Gastroduodenitis, unspecified, without bleeding
CPT/HCPCS: 36415; 80053; 84153